=== PATIENT | female | born 1940 | race Caucasian/White ===

== ENCOUNTER 2016-04-25 14:33 | Observation (INO) | payer MEDICARE, OTHER ==
[~2016-04-25] VITALS: Ht 149.9 cm; Wt 77.0 kg
[~2016-04-25 14:33] MED LIST: ALBU2.5I NEB; ATOR40TA PO; DIOV160T60 PO; ECOT81TA2 PO; ISOS10 PO; METF500 PO; SYMB160A INH; VENTAER INH
[2016-04-25 14:47] VITALS: BP 150/73; PULSE 86; RESP 18; TEMP 98.1; O2SAT 96
[2016-04-25 14:50] VITALS: RESP 18; O2SAT 98
[2016-04-25] MEDS ORDERED: diphenhydrAMINE HCL 50 MG/ML VIAL IV PUSH ONE (15:15)
--- NOTE | 2016-04-25 15:15 | PD ---
HPI Chief Complaint: Pain: Acute or Chronic Time Seen by Provider: 15:08 Travel History International Travel<30 days: No Contact w/Intl Traveler<30days: No Traveled to known affect area: No History of Present Illness HPI 75-year-old female that presents to the ED for evaluation of "itchiness ". Per patient she's had this itchiness 4 months almost years. Per patient she's been taking medications for it including monuklast as well as her tramadol for chronic pain but she states that her medication was recently switched especially her tramadol she's been having more itchiness. Per patient and family is to help with her itchiness a lot. Per patient the itchiness brings about worsening pain in her abdomen and chest which she's had in the past as well as the head. Per patient the itchy is has been so bad that "I want to hang myself". Per patient she feels depressed because of the symptoms as well as because of her current family condition. Per patient she lives with a daughter but she feels very lonely. Patient does have a history of dementia and takes medication for this. Patient does have a history of high cholesterol , CABG in the past, abdominal surgeries. She states currently that her pain is 7 out of 10. States that she has a slight acetaminophen, amoxicillin, Vicodin. She denies any numbness, tilling, weakness. Per patient the itchiness comes and goes in different areas. Per patient he gets worse at night. She denies any body else having this before. She has PCP but has not seen him recently. She has mentioned this to the doctor but unclear as to what the doctor has done for it. She also has a history diabetes, severe arthritis as well as asthma. Of note patient is Mosotho-speaking only but she feels comfortable with my Mosotho and declined message broker developer service. [facility] Past Medical History Asthma: Yes Cardiovascular Problems: Yes Congestive Heart Failure: Yes Dementia: Yes Diabetes: Yes Patient Takes Glucophage: No Diminished Hearing: No Hypertension: Yes Past Surgical History Appendectomy: Yes Cholecystectomy: Yes Coronary Artery Bypass Graft: Yes Social History Alcohol Use: No Tobacco Use: No Substance Use: No Allergies-Medications (Allergen,Severity, Reaction): Coded Allergies: Acetaminophen (Verified Allergy, Mild, Chills, 04/25/16) Amoxicillin (Verified Allergy, Unknown, Hives, 04/25/16) Vicodin (Verified Allergy, Unknown, Sedation, 04/25/16) Reported Meds & Prescriptions Reported Meds & Active Scripts Active Reported Montelukast (Montelukast Sodium) 10 Mg Tab 10 Mg PO HS Metformin (Metformin HCl) 500 Mg Tab 500 Mg PO BID With meals Isosorbide Dinitrate 10 Mg Tab 10 Mg PO BID Aspirin Adult Low Strength (Aspirin) 81 Mg Tabdr 81 Mg PO DAILY Valsartan 160 Mg Tab 160 Mg PO DAILY Tramadol (Tramadol HCl) 50 Mg Tab 50 Mg PO QID PRN Atorvastatin (Atorvastatin Calcium) 40 Mg Tab 40 Mg PO HS Meclizine (Meclizine HCl) 25 Mg Tab 25 Mg PO TID PRN Symbicort Inh (Budesonide/Formoterol Fumarate) 160-4.5 Mcg/Act Aero 1 Puff INH BID Ventolin Hfa 18 GM Inh (Albuterol Sulfate) 90 Mcg/Act Aer 1-2 Puff INH Q4H PRN Albuterol Neb (Albuterol Sulfate) 2.5 Mg/3 Ml Neb 2.5 Mg NEB Q6HR PRN Review of Systems Except as stated in HPI: all other systems reviewed are Neg Physical Exam Narrative GENERAL: SKIN: Warm and dry. HEAD: Atraumatic. Normocephalic. EYES: Pupils equal and round 4mms reactive to light and accomodation. No scleral icterus. No injection or drainage. ENT: No nasal bleeding or discharge. Mucous membranes pink and moist. Tongue is midline. No uvula deviation. NECK: Trachea midline. No JVD. CARDIOVASCULAR: Regular rate and rhythm. No murmurs, S3, S4. RESPIRATORY: No accessory muscle use. Clear to auscultation. Breath sounds equal bilaterally. GASTROINTESTINAL: Abdomen soft, non-tender, nondistended. Hepatic and splenic margins not palpable. MUSCULOSKELETAL: Extremities without clubbing, cyanosis, or edema. No obvious deformities. Full range of motion of the upper and lower extremities bilaterally. 2+ pulses bilaterally. NEUROLOGICAL: Awake and alert. No obvious cranial nerve deficits. Motor grossly within normal limits. Five out of 5 muscle strength in the arms and legs. Normal speech. PSYCHIATRIC: Appropriate mood and affect; insight and judgment normal. Data Data Last Documented VS Vital Signs Date Time Temp Pulse Resp B/P Pulse Ox O2 Delivery O2 Flow Rate FiO2 04/25/16 14:50 18 98 Room Air 04/25/16 14:47 98.1 86 150/73 Orders Electrocardiogram (04/25/16 14:52) Complete Blood Count With Diff (04/25/16 14:52) Comprehensive Metabolic Panel (04/25/16 14:52) Ckmb (Isoenzyme) Profile (04/25/16 14:52) Troponin I (04/25/16 14:52) Prothrombin Time / Inr (Pt) (04/25/16 14:52) Act Partial Throm Time (Ptt) (04/25/16 14:52) Lipase (04/25/16 14:52) Urinalysis - C+S If Indicated (04/25/16 14:52) Thyroid Stimulating Hormone (04/25/16 14:52) Chest, Single Ap (04/25/16 14:52) Iv Access Insert/Monitor (04/25/16 14:52) Ecg Monitoring (04/25/16 14:52) Oximetry (04/25/16 14:52) Psych Screen (04/25/16 15:03) Diphenhydramine Inj (Benadryl Inj) (04/25/16 15:15) Ct Brain W/O Iv Contrast(Rout) (04/25/16 ) CKMB (04/25/16 15:15) CKMB% (04/25/16 15:15) Labs Laboratory Tests Test 04/25/16 04/25/16 15:15 15:45 White Blood Count 6.9 TH/MM3 Red Blood Count 3.74 MIL/MM3 Hemoglobin 10.3 GM/DL Hematocrit 30.8 % Mean Corpuscular Volume 82.4 FL Mean Corpuscular Hemoglobin 27.5 PG Mean Corpuscular Hemoglobin 33.4 % Concent Red Cell Distribution Width 14.6 % Platelet Count 64 TH/MM3 Mean Platelet Volume 12.8 FL Neutrophils (%) (Auto) 65.6 % Lymphocytes (%) (Auto) 20.9 % Monocytes (%) (Auto) 8.4 % Eosinophils (%) (Auto) 3.8 % Basophils (%) (Auto) 1.3 % Neutrophils # (Auto) 4.5 TH/MM3 Lymphocytes # (Auto) 1.4 TH/MM3 Monocytes # (Auto) 0.6 TH/MM3 Eosinophils # (Auto) 0.3 TH/MM3 Basophils # (Auto) 0.1 TH/MM3 CBC Comment AUTO DIFF Prothrombin Time 11.4 SEC Prothromb Time International 1.0 RATIO Ratio Activated Partial 26.8 SEC Thromboplast Time Sodium Level 139 MEQ/L Potassium Level 4.0 MEQ/L Chloride Level 105 MEQ/L Carbon Dioxide Level 25.1 MEQ/L Anion Gap 9 MEQ/L Blood Urea Nitrogen 11 MG/DL Creatinine 0.74 MG/DL Estimat Glomerular Filtration 77 ML/MIN Rate Random Glucose 87 MG/DL Calcium Level 7.8 MG/DL Total Bilirubin 0.6 MG/DL Aspartate Amino Transf 26 U/L (AST/SGOT) Alanine Aminotransferase 20 U/L (ALT/SGPT) Alkaline Phosphatase 74 U/L Total Creatine Kinase 175 U/L Creatine Kinase MB 2.4 NG/ML Troponin I LESS THAN 0.02 NG/ML Total Protein 6.6 GM/DL Albumin 3.0 GM/DL Lipase 130 U/L Thyroid Stimulating Hormone 1.370 uIU/ML 3rd Gen Urine Color LIGHT-YELLOW Urine Turbidity CLEAR Urine pH 6.0 Urine Specific [place] 1.004 Urine Protein NEG mg/dL Urine Glucose (UA) NEG mg/dL Urine Ketones NEG mg/dL Urine Occult Blood NEG Urine Nitrite NEG Urine Bilirubin NEG Urine Urobilinogen LESS THAN 2.0 MG/DL Urine Leukocyte Esterase TRACE Urine RBC LESS THAN 1 /hpf Microscopic Urinalysis Comment CULT NOT INDICATED MDM Medical Decision Making Medical Screen Exam Complete: Yes Emergency Medical Condition: Yes Medical Record Reviewed: Yes Interpretation(s) CBC & BMP Diagram 04/25/16 15:15 troponin negative CK MB negative EKG shows sinus rhythm with a sign of acute ischemia or arrhythmia. LFTs negative. Lipase negative. Urine negative. TSH negative. Differential Diagnosis Pruritus versus depression versus chest pain versus abdominal pain versus acute on chronic versus normal exam Narrative Course 75-year-old female that presents to the ED for evaluation of itching as. Patient was properly examined and was found to have signs and symptoms of unclear etiology. Cannot find any skin rash alert and some possible insect bites do not appear to be anywhere near where she is complaining of itch. She didn't mention to me multiple times that she would like to kill herself because of the pain and the itchiness. She does tell me that she is very depressed and feels very lonely. I question whether this is not a psychiatric illness. She does have dementia as well. She does have some abdominal discomfort compresses and chest discomfort as well as headache. Accommodation at this time is to do labwork and imaging to make sure there is no sign of organic disease. Patient was given Benadryl for her itch. Labs and imaging showed no sign of acute disease. No sign of acute etiology for the itchiness. Patient still complains of the chest pain. Cannot completely rule out ACS she does have multiple risk factors including heart disease in the past. The recommend admission at least for the chest pain. In addition patient still very depressed and I do feel the patient will likely benefit from psychiatric evaluation. My attending recommends admission to medicine to have chest pain workup as well as have psych evaluation. Case was discussed with Dr. Granda from [facility] who agrees to admission. Procedures EKG Prior to Arrival: No Diagnosis Primary Impression: Chest pain Qualified Code: R07.89 - Other chest pain Additional Impressions: Depression Qualified Code: F32.1 - Moderate single current episode of major depressive disorder Suicidal ideation Admitting Information Admitting Physician Requests: Observation Lenny Baldwin Apr 25, 2016 15:15
[2016-04-25] MEDS ORDERED: VENTAER INH (15:46)
[2016-04-25] MEDS ORDERED: ATOR40TA16 PO (15:46)
[2016-04-25] MEDS ORDERED: ASPI1TAB91 PO (15:46)
[2016-04-25] MEDS ORDERED: METF500T PO (15:46)
[2016-04-25] MEDS ORDERED: MECL-62 PO (15:46)
[2016-04-25] MEDS ORDERED: TRAM50TA PO (15:46)
[2016-04-25] MEDS ORDERED: ISOS10TA PO (15:46)
[2016-04-25] MEDS ORDERED: ALBU0.08 NEB (15:46)
[2016-04-25] MEDS ORDERED: MONT10TA4 PO (15:46)
[2016-04-25] MEDS ORDERED: SYMB160A INH (15:46)
[2016-04-25] MEDS ORDERED: VALS1TAB65 PO (15:46)
[2016-04-25 15:48] LABS: AUTOMATED NEUTROPHIL # 4.5 TH/MM3 (1.8-7.7); BASOPHIL # 0.1 TH/MM3 (0-0.2); BASOPHIL % 1.3 % (0.0-2.0); EOSINOPHIL # 0.3 TH/MM3 (0-0.4); EOSINOPHIL % 3.8 % (0.0-4.0); HEMATOCRIT 30.8 % (35.0-46.0); LYMPH % 20.9 % (9.0-44.0); LYMPHOCYTE # 1.4 TH/MM3 (1.0-4.8); MEAN CELL VOLUME 82.4 FL (80.0-100.0); MEAN CORPUSCULAR HEMOGLOBIN 27.5 PG (27.0-34.0); MEAN CORPUSCULAR HGB CONC 33.4 % (32.0-36.0); MONO % 8.4 % (0.0-8.0); NEUT % 65.6 % (16.0-70.0); PLATELET COUNT 64 TH/MM3 (150-450); RED BLOOD COUNT 3.74 MIL/MM3 (4.00-5.30); RED CELL DISTRIBUTION WIDTH 14.6 % (11.6-17.2); WHITE BLOOD COUNT 6.9 TH/MM3 (4.0-11.0)
[2016-04-25 15:57] LABS: HEMO FLAGS AUTO DIFF
--- NOTE | 2016-04-25 15:59 | RADRPT ---
EXAM DATE/TIME: 04/25/2016 15:23 [facility] COMPARISON: CHEST SINGLE AP, February 05, 2016, 10:44. MYOCARDIAL PERF PHARM SPECT, GATED W/EF, February 06, 2016, 9:09. INDICATIONS : Chest pain. MEDICAL HISTORY : Diabetes mellitus type 2. Hypertension. SURGICAL HISTORY : Appendectomy. Cholecystectomy. CABG ENCOUNTER: Initial ACUITY: 1 day PAIN SCORE: 5/10 LOCATION: Bilateral chest FINDINGS: Heart size is normal. Pulmonary vasculature is normal in caliber. Lungs are well-inflated and clear. Multiple intact median sternotomy wires. Osseous structures are unremarkable. CONCLUSION: No acute disease. Naila Nowak MD on April 25, 2016 at 15:57 Board Certified Radiologist. This report was verified electronically.
[2016-04-25 16:01] LABS: APTT (PATIENT) 26.8 SEC (24.3-30.1); PROTHROMBIN TIME - PATIENT 11.4 SEC (9.8-11.6)
--- NOTE | 2016-04-25 16:09 | RADRPT ---
EXAM DATE/TIME: 04/25/2016 15:30 [facility] COMPARISON: No previous studies available for comparison. INDICATIONS : Headache. RADIATION DOSE: 50.62 CTDIvol (mGy) MEDICAL HISTORY : Dementia. Hypertension. Diabetes mellitus type 2. SURGICAL HISTORY : CABG ENCOUNTER: Initial ACUITY: 1 day PAIN SCALE: 6/10 LOCATION: cranial TECHNIQUE: Multiple contiguous axial images were obtained of the head. Using automated exposure control and adj ustment of the mA and/or kV according to patient size, radiation dose was kept as low as reasonably a chievable to obtain optimal diagnostic quality images. FINDINGS: CEREBRUM: The ventricles are normal for age. No evidence of midline shift, mass lesion, hemorrhage or acute in farction. No extra-axial fluid collections are seen. The basal ganglia calcifications are noted. POSTERIOR FOSSA: The cerebellum and brainstem are intact. The 4th ventricle is midline. The cerebellopontine angle i s unremarkable. EXTRACRANIAL: The visualized portion of the orbits is intact. SKULL: The calvaria is intact. No evidence of skull fracture. CONCLUSION: Normal examination for a patient of this age. Naila Nowak MD on April 25, 2016 at 16:08 Board Certified Radiologist. This report was verified electronically.
[2016-04-25 16:12] LABS: ALKALINE PHOSPHATASE 74 U/L (45-117); ALT (GPT) 20 U/L (10-53); ANION GAP 9 MEQ/L (5-15); AST (GOT) 26 U/L (15-37); BICARBONATE 25.1 MEQ/L (21.0-32.0); BLOOD UREA NITROGEN 11 MG/DL (7-18); CHLORIDE 105 MEQ/L (98-107); CREATINE KINASE 175 U/L (26-192); GLOMERULAR FILTRATION RATE 77 ML/MIN (>89); SODIUM (NA) 139 MEQ/L (136-145); TOTAL BILIRUBIN ADULT 0.6 MG/DL (0.2-1.0)
[2016-04-25 16:23] LABS: BLOOD, URINE NEG (NEG); GLUCOSE,URINE NEG (NEG); KETONE, URINE NEG (NEG); NITRITE,URINE NEG (NEG); URINE COLOR LIGHT-YELLOW (YELLW/STRAW)
[2016-04-25 16:25] LABS: CKMB 2.4 NG/ML (0.5-3.6)
[2016-04-25 16:33] LABS: COMMENT (UR) CULT NOT INDICATED; CULTURE IF INDICATED CULT NOT INDICATED
[2016-04-25] MEDS ORDERED: MORPHINE SULFATE 4 MG/ML INJ IV PRN (17:15)
[2016-04-25] MEDS ORDERED: SODIUM CHLORIDE 0.9% FLUSH 5 ML FLUSH IVF PRN (17:15)
[2016-04-25] MEDS ORDERED: ONDANSETRON HCL 4 MG/2 ML VIAL IV PRN (17:15)
[2016-04-25] MEDS ORDERED: NITROGLYCERIN 0.4 MG SL 25 TABS/BTL SL PRN (17:15)
[2016-04-25] MEDS ORDERED: RESP: ALBUTEROL 2.5 MG/3 ML NEB (PRN) NEB (18:00)
[2016-04-25] MEDS ORDERED: DEXTROSE 50% IN WATER 50 ML VIAL(D50) IV PUSH PRN (18:00)
[2016-04-25] MEDS ORDERED: traMADol HCL 50 MG TAB PO PRN (18:00)
[2016-04-25] MEDS ORDERED: GLUCAGON 1 MG/ML VIAL OTHER PRN (18:00)
[2016-04-25] MEDS ORDERED: MECLIZINE HCL 25 MG TAB PO PRN (18:00)
--- NOTE | 2016-04-25 18:14 | HHI.HP ---
[facility] Unknown Admission Diagnosis chest pain, r/o ACS, depression with suicidal ideation Diagnoses: Chief Complaint: Itching Travel History International Travel<30 Days: No Contact w/Intl Traveler <30 Da: No Traveled to Known Affected Are: No History of Present Illness 75-year-old female with a past medical history of DM, CAD, asthma, GERD, HTN, OA who presented for itching. Patient is primarily Angolan-speaking and is seen with negative Angolan speaking ED PA who assists with translation. The patient has numerous vague medical complaints. Primarily she comes in for itching of her head, groin, and feet. She said she has a headache from here itching. She reports she is nauseated because of the itchiness. She denies any recent medication changes. She states her tramadol was supposed to be changed, but has not changed to the new medication yet and is still taking tramadol. Otherwise no new medication changes. Nothing seems to relieve the itchiness. Per ED report, the patient is very overwhelmed because of her itchiness, and expressed suicidal statements in the ED. On review of systems, the patient does complain of chest pain, radiates to her back, comes and goes, associated shortness of breath. She does have a history of CABG 11 years ago. However she does state that the chest pain changes with sitting and standing up. She also states that she had stomach upset, took a Protonix, and that improved. The patient has aspirin on her home medication list, but she states that she is allergic to just aspirin and penicillin when asked about allergies. Review of Systems ROS Limitations: Language Barrier Other 10 point review of systems performed and was negative except as stated in the history of present illness Past Family Social History Past Medical History Diabetes Asthma Coronary artery disease Hypertension Gastritis Arthritis Past Surgical History CABG 11 years ago Appendectomy Cholecystectomy Cataract surgery Reported Medications Montelukast (Montelukast Sodium) 10 Mg Tab 10 Mg PO HS Metformin (Metformin HCl) 500 Mg Tab 500 Mg PO BID With meals Isosorbide Dinitrate 10 Mg Tab 10 Mg PO BID Aspirin Adult Low Strength (Aspirin) 81 Mg Tabdr 81 Mg PO DAILY Valsartan 160 Mg Tab 160 Mg PO DAILY Tramadol (Tramadol HCl) 50 Mg Tab 50 Mg PO QID PRN Atorvastatin (Atorvastatin Calcium) 40 Mg Tab 40 Mg PO HS Meclizine (Meclizine HCl) 25 Mg Tab 25 Mg PO TID PRN Symbicort Inh (Budesonide/Formoterol Fumarate) 160-4.5 Mcg/Act Aero 1 Puff INH BID Ventolin Hfa 18 GM Inh (Albuterol Sulfate) 90 Mcg/Act Aer 1-2 Puff INH Q4H PRN Albuterol Neb (Albuterol Sulfate) 2.5 Mg/3 Ml Neb 2.5 Mg NEB Q6HR PRN Allergies: Coded Allergies: Acetaminophen (Verified Allergy, Mild, Chills, 04/25/16) Amoxicillin (Verified Allergy, Unknown, Hives, 04/25/16) Aspirin (Unverified Allergy, Unknown, 04/25/16) Vicodin (Verified Allergy, Unknown, Sedation, 04/25/16) Active Ordered Medications Current Medications Medications (Trade) Dose Ordered Sig/Shanon Route Start Time Stop Time Status Last Admin (NS Flush) 2 ml UNSCH PRN IVF 04/25/16 17:15 (NS Flush) 2 ml BID IVF 04/25/16 21:00 (Morphine Inj) 2 mg Q4H PRN IV 04/25/16 17:15 (Zofran Inj) 4 mg Q6H PRN IV 04/25/16 17:15 (Protonix) 40 mg DAILY PO 04/26/16 09:00 (Nitrostat Sl) 0.4 mg Q5M PRN SL 04/25/16 17:15 (Albuterol Neb) 2.5 mg Q6HR PRN NEB 04/25/16 18:00 UNV (Lipitor) 40 mg HS PO 04/25/16 21:00 UNV (Symbicort 160-4.5 Inh) 1 puff BID INH 04/25/16 21:00 UNV (Isordil) 10 mg BID PO 04/25/16 21:00 UNV (Antivert) 25 mg TID PRN PO 04/25/16 18:00 UNV (Singulair) 10 mg HS PO 04/25/16 21:00 UNV (Ultram) 50 mg QID PRN PO 04/25/16 18:00 UNV (Diovan) 160 mg DAILY PO 04/26/16 09:00 UNV Family History Coronary artery disease in both of her parents Social History Denies alcohol, tobacco, or illegal drug use Physical Exam Vital Signs Vital Signs Date Time Temp Pulse Resp B/P Pulse Ox O2 Delivery O2 Flow Rate FiO2 04/25/16 14:50 18 98 Room Air 04/25/16 14:47 98.1 86 18 150/73 96 Physical Exam GENERAL: Well-developed well-nourished. In no acute distress. SKIN: Warm and dry. No rashes or abnormal lesions noted. HEENT: Normocephalic. Right pupillary abnormality, chronic per patient. Mucous membranes pink and moist. CARDIOVASCULAR: Regular rate and rhythm. No murmur appreciated. RESPIRATORY: No accessory muscle use. Clear to auscultation. Breath sounds equal bilaterally. GASTROINTESTINAL: Abdomen soft, non-tender, nondistended. Bowel sounds x4. MUSCULOSKELETAL: No obvious deformities. No clubbing or cyanosis. No edema. NEUROLOGICAL: Awake and alert. No focal neurological deficits. Moves upper and lower extremities spontaneously. Normal speech. PSYCHIATRIC: Anxious, talkative, pleasant mood and affect; insight and judgment normal. Laboratory Laboratory Tests Test 04/25/16 04/25/16 15:15 15:45 White Blood Count 6.9 Red Blood Count 3.74 Hemoglobin 10.3 Hematocrit 30.8 Mean Corpuscular Volume 82.4 Mean Corpuscular Hemoglobin 27.5 Mean Corpuscular Hemoglobin 33.4 Concent Red Cell Distribution Width 14.6 Platelet Count 64 Mean Platelet Volume 12.8 Neutrophils (%) (Auto) 65.6 Lymphocytes (%) (Auto) 20.9 Monocytes (%) (Auto) 8.4 Eosinophils (%) (Auto) 3.8 Basophils (%) (Auto) 1.3 Neutrophils # (Auto) 4.5 Lymphocytes # (Auto) 1.4 Monocytes # (Auto) 0.6 Eosinophils # (Auto) 0.3 Basophils # (Auto) 0.1 CBC Comment AUTO DIFF Prothrombin Time 11.4 Prothromb Time International 1.0 Ratio Activated Partial 26.8 Thromboplast Time Sodium Level 139 Potassium Level 4.0 Chloride Level 105 Carbon Dioxide Level 25.1 Anion Gap 9 Blood Urea Nitrogen 11 Creatinine 0.74 Estimat Glomerular Filtration 77 Rate Random Glucose 87 Calcium Level 7.8 Total Bilirubin 0.6 Aspartate Amino Transf 26 (AST/SGOT) Alanine Aminotransferase 20 (ALT/SGPT) Alkaline Phosphatase 74 Total Creatine Kinase 175 Creatine Kinase MB 2.4 Troponin I LESS THAN 0.02 Total Protein 6.6 Albumin 3.0 Lipase 130 Thyroid Stimulating Hormone 1.370 3rd Gen Urine Color LIGHT-YELLOW Urine Turbidity CLEAR Urine pH 6.0 Urine Specific [place] 1.004 Urine Protein NEG Urine Glucose (UA) NEG Urine Ketones NEG Urine Occult Blood NEG Urine Nitrite NEG Urine Bilirubin NEG Urine Urobilinogen LESS THAN 2.0 Urine Leukocyte Esterase TRACE Urine RBC LESS THAN 1 Microscopic Urinalysis Comment CULT NOT INDICATED Result Diagram: 04/25/16 1515 04/25/16 1515 Imaging Last Impressions Chest X-Ray 04/25/16 1452 Signed Impressions: Service Date/Time: Monday, April 25, 2016 15:23 - CONCLUSION: No acute disease. Naila Nowak MD Head CT 04/25/16 0000 Signed Impressions: Service Date/Time: Monday, April 25, 2016 15:30 - CONCLUSION: Normal examination for a patient of this age. Naila Nowak MD Assessment and Plan Problem List: (1) Chest pain ICD Code: R07.9 Status: Acute (2) Suicidal ideation ICD Code: R45.851 Status: Acute (3) DM (diabetes mellitus) ICD Code: E11.9 Status: Chronic (4) CAD (coronary artery disease) ICD Code: I25.10 Status: Chronic Assessment and Plan 75-year-old female with a past medical history of DM, CAD, asthma, GERD, HTN, OA who presented for itching but also made suicidal statements in the ED and complaints of chest pain Chest pain with history of CAD: Initial troponin within normal limits. EKG personally reviewed, RBBB, no acute ST changes. The patient had a stress test 02/06/16 which was normal. Rule out ACS per protocol with serial enzymes and EKGs. Patient reports allergy to aspirin. Otherwise resume home isosorbide, statin. Could consider adding beta matty. Nitroglycerin and morphine as needed. Itching: Unclear etiology. No rashes or lesions noted. Continue home montelukast. Stop tramadol. Hydroxyzine as needed. Suicidal statements: Reportedly secondary to medical etiologies as above. Psychiatry consulted. Diabetes mellitus: Hold her metformin for now. Coverage with SSI with [employer]u- [employer]. Other chronic medical conditions including asthma, GERD, arthritis: Stable at this time and will continue home medications as indicated. DVT prophylaxis: SCDs Written by Сергей Holder, acting as scribe for Dr. Powers on 04/25/16 at 18:08. Discussed Condition With Patient, ED PA Attending Statement The documentation accurately reflects the work performed [id number] by me on at 18:08. Problem Qualifiers (1) Chest pain: Qualified Code: R07.89 - Other chest pain (2) DM (diabetes mellitus): Qualified Code: E11.9 - Type 2 diabetes mellitus without complication, without long-term current use of insulin (3) CAD (coronary artery disease): Qualified Code: I25.10 - Coronary artery disease involving [place] heart, angina presence unspecified, unspecified vessel or lesion type Сергей Holder Apr 25, 2016 18:14 Norberto Powers MD Apr 25, 2016 18:24
[2016-04-25 19:22] LABS: CREATINE KINASE 183 U/L (26-192)
[2016-04-25 19:30] VITALS: BP 169/74; PULSE 87; RESP 18; O2SAT 97
[2016-04-25] MEDS ORDERED: LORazepam 2 MG/ML VIAL IV PUSH ONE (19:30)
[2016-04-25 19:34] LABS: CKMB 2.6 NG/ML (0.5-3.6)
[2016-04-25] MEDS ORDERED: ATORVASTATIN 40 MG TAB PO SCH (21:00)
[2016-04-25] MEDS: INSULIN ASPART SUPPLEMENTAL SCALE SQ SCH (21:00)
[2016-04-25] MEDS ORDERED: MONTELUKAST SODIUM 10 MG TAB PO SCH (21:00)
[2016-04-25 21:04] LABS: PLATELET ESTIMATE SMEAR LOW (NORMAL); PLATELET MORPHOLOGY HYPOGRAN (NORMAL); SCAN/DIFF AUTO DIFF CONFIRMED
[2016-04-25 21:16] LABS: CREATINE KINASE 158 U/L (26-192)
[2016-04-25] MEDS: BUDESONIDE-FORMOTEROL 160/4.5 MCG INHALER INH SCH (21:58)
[2016-04-25] MEDS: SODIUM CHLORIDE 0.9% FLUSH 5 ML FLUSH IVF SCH (21:59)
[2016-04-25 23:09] VITALS: BP 154/68
[2016-04-25 23:33] VITALS: O2SAT 96
[2016-04-26] VITALS (7 sets, daily range): BP systolic 117–156; BP diastolic 62–86; PULSE 74–94; RESP 16–20; TEMP 97.5–98.7; O2SAT 91–97
[2016-04-26] MEDS: hydrOXYzine HCL 25 MG TAB PO PRN ×2 (00:04→16:04)
[2016-04-26] MEDS: INSULIN ASPART SUPPLEMENTAL SCALE SQ SCH ×3 (06:36→16:00)
[2016-04-26 07:57] LABS: BICARBONATE 27.3 MEQ/L (21.0-32.0); POTASSIUM 3.8 MEQ/L (3.5-5.1)
--- NOTE | 2016-04-26 08:11 | HHI.PR ---
Subjective Remarks Follow-up chest pain, itching. Video translation service utilized. Patient states that she is still having some chest pressure, but describes pain "all over". She describes pain in her arms, legs, face, scalp, back, and chest. She states that overall she feels a lot better today. Itching has improved somewhat as well. She reports chronic dyspnea, but nothing new today. No cough. She has had nausea, but no vomiting. Objective Vitals Vital Signs Date Time Temp Pulse Resp B/P Pulse Ox O2 Delivery O2 Flow Rate FiO2 04/26/16 07:35 97.8 81 17 134/66 95 04/26/16 04:05 97.6 81 18 117/65 91 04/26/16 02:24 98.7 74 16 155/78 97 04/26/16 01:27 79 04/25/16 23:33 96 2.00 04/25/16 23:09 80 18 154/68 100 04/25/16 19:30 87 18 169/74 97 04/25/16 14:50 18 98 Room Air 04/25/16 14:47 98.1 86 18 150/73 96 Result Diagram: 04/25/16 1515 04/26/16 0650 Imaging Last Impressions Chest X-Ray 04/25/16 1452 Signed Impressions: Service Date/Time: Monday, April 25, 2016 15:23 - CONCLUSION: No acute disease. Naila Nowak MD Head CT 04/25/16 0000 Signed Impressions: Service Date/Time: Monday, April 25, 2016 15:30 - CONCLUSION: Normal examination for a patient of this age. Naila Nowak MD Objective Remarks General: Elderly female in no acute distress. Heart: Regular rate and rhythm. No murmur. Lungs: Clear to auscultation bilaterally. No wheezes, rales, or rhonchi. Breathing is nonlabored. Abdomen: Soft, nontender, nondistended. Extremities: No lower extremity edema. Psych: Alert and oriented. Procedures None Urinary Catheter: No Vascular Central Line Catheter: No A/P Problem List: (1) Chest pain ICD Code: R07.9 Status: Acute (2) Suicidal ideation ICD Code: R45.851 Status: Acute (3) DM (diabetes mellitus) ICD Code: E11.9 Status: Chronic (4) CAD (coronary artery disease) ICD Code: I25.10 Status: Chronic Assessment and Plan 1. Chest pain: Serial cardiac enzymes are negative. Chest pain has improved somewhat. Patient now complaining of pain "all over", but less pain than yesterday. Patient has history of CAD. Stress test on 02/06/16 was normal. Continue statin, isosorbide. Patient reports allergy to aspirin. 2. Itching: Improved. No apparent rash. Possible psychiatric etiology. Hydroxyzine as needed. 3. Asthma: Albuterol as needed. 4. Suicidal ideation: Patient stated yesterday that she wanted to take all of her pills and "end it all" because of the pain and itching. Psychiatry consultation is pending. 5. Diabetes mellitus: Metformin on hold. Monitor Accu-Cheks and cover with sliding scale insulin. 6. DVT prophylaxis: SCDs. Discharge Planning The patient is medically stable for discharge. Will possibly need inpatient psychiatry. She is medically stable for transfer to inpatient psychiatry if that is recommended by the psychiatrist inventory control analyst. Problem Qualifiers (1) Chest pain: Qualified Code: R07.89 - Other chest pain (2) DM (diabetes mellitus): Qualified Code: E11.9 - Type 2 diabetes mellitus without complication, without long-term current use of insulin (3) CAD (coronary artery disease): Qualified Code: I25.10 - Coronary artery disease involving [place] heart, angina presence unspecified, unspecified vessel or lesion type Norberto Powers MD Apr 26, 2016 08:11
[2016-04-26] MEDS ORDERED: HYDR-3133 PO (08:12)
--- NOTE | 2016-04-26 08:13 | HHI.DCPOC ---
Discharge Care Plan Diagnosis: (1) Suicidal ideation (2) Depression (3) Chest pain (4) CAD (coronary artery disease) (5) DM (diabetes mellitus) (6) Chest pain of uncertain etiology Goals to Promote Your Health * To prevent worsening of your condition and complications * To maintain your health at the optimal level Directions to Meet Your Goals Take your medications as prescribed Follow your dietary instruction Follow activity as directed Keep your appointments as scheduled Take your immunizations and boosters as scheduled If your symptoms worsen call your PCP, if no PCP go to Urgent Care Center or Emergency Room Smoking is Dangerous to Your Health. Avoid second hand smoke Call the 24-hour hour crisis hotline for domestic abuse at Norberto Powers MD Apr 26, 2016 08:13
[2016-04-26] MEDS ORDERED: VALSARTAN 160 MG TAB PO SCH (09:00)
[2016-04-26] MEDS ORDERED: ASPIRIN 325 MG TAB PO SCH (09:00)
[2016-04-26] MEDS ORDERED: PANTOPRAZOLE SOD 40 MG DELAYED RELEASE TAB PO SCH (09:00)
[2016-04-26] MEDS: SODIUM CHLORIDE 0.9% FLUSH 5 ML FLUSH IVF SCH (09:15)
[2016-04-26] MEDS: ISOSORBIDE DINITRATE 10 MG TAB PO SCH ×2 (09:15→17:23)
[2016-04-26] MEDS: BUDESONIDE-FORMOTEROL 160/4.5 MCG INHALER INH SCH (09:15)
--- NOTE | 2016-04-26 12:35 | EKG ---
Date Performed: 04/25/2016 Time Performed: 16:14:29 PTAGE: 75 years EKG: Sinus rhythm POSSIBLE LEFT ATRIAL ENLARGEMENT MARKED LEFT AXIS DEVIATION INCOMPLETE RIGHT BUNDLE BRANCH BLOCK SEP KIZZY MYOCARDIAL INFARCTION NONSPECIFIC ST ABNORMALITY Since previous tracing, no significant change no brianne ABNORMAL ECG PREVIOUS TRACING : 02/05/2016 16.23 DOCTOR: Joshua Sterling Interpretating Date/Time 04/26/2016 12:34:30
--- NOTE | 2016-04-26 12:37 | EKG ---
Date Performed: 04/25/2016 Time Performed: 18:26:20 PTAGE: 75 years EKG: Sinus rhythm WITH MARKED SINUS ARRHYTHMIA POSSIBLE LEFT ATRIAL ENLARGEMENT INCOMPLETE RIGHT BUNDLE BRANCH BLOCK L EFT ANTERIOR FASCICULAR BLOCK SEPTAL MYOCARDIAL INFARCTION MODERATE T-WAVE ABNORMALITY, CONSIDER ANTE ROLATERAL ISCHEMIA ST-T ABNORMALITIES ARE MORE PROMINANT, CORRELATION FOR ISCHEMIA NEEDED. ABNORMAL E CG PREVIOUS TRACING : 04/25/2016 16.14 DOCTOR: Joshua Sterling Interpretating Date/Time 04/26/2016 12:35:21
--- NOTE | 2016-04-26 12:37 | EKG ---
Date Performed: 04/25/2016 Time Performed: 20:28:22 PTAGE: 75 years EKG: Sinus rhythm WITH OCCASIONAL ECTOPIC PREMATURE COMPLEXES INCOMPLETE RIGHT BUNDLE BRANCH BLOCK LEFT ANTERIOR FASCI CULAR BLOCK NONSPECIFIC ST & T-WAVE ABNORMALITY CANNOT EXCLUDE POSSIBLE ISCHEMIA BUT NO CHANGE FROM T HE PRIOR TRACING. ABNORMAL ECG PREVIOUS TRACING : 04/25/2016 18.26 DOCTOR: Joshua Sterling Interpretating Date/Time 04/26/2016 12:35:47
--- NOTE | 2016-04-26 14:22 | HHI.DCPOC ---
Discharge Care Plan Diagnosis: (1) Chest pain (2) CAD (coronary artery disease) (3) DM (diabetes mellitus) (4) Suicidal ideation (5) Depression Goals to Promote Your Health * To prevent worsening of your condition and complications * To maintain your health at the optimal level Directions to Meet Your Goals Take your medications as prescribed Follow your dietary instruction Follow activity as directed Keep your appointments as scheduled Take your immunizations and boosters as scheduled If your symptoms worsen call your PCP, if no PCP go to Urgent Care Center or Emergency Room Smoking is Dangerous to Your Health. Avoid second hand smoke Call the 24-hour hour crisis hotline for domestic abuse at Norberto Powers MD Apr 26, 2016 14:22
[2016-04-26] MEDS ORDERED: ARIPiprazole 5 MG TAB PO SCH (15:00)
--- NOTE | 2016-04-26 15:12 | PD.CONS ---
Provisional Diagnosis Admission Date Apr 25, 2016 at 17:07 [place] I. Unspecified psychosis, rule out delusional disorder, somatic type, rule out late onset schizophrenia [place] II. Deferred [place] III. DM, asthma, CAD [place] IV. Poor insight of her her psychosis [place] V. 35 History of Present Illness Service Psychiatry Consult Requested By Primary Care Physician Unknown HPI The patient is a 75-year-old [place] only Ukrainian speaker woman, domicile with her daughter, , without any previous psychiatric history, no previous suicidal attempts, no previous hospitalizations, with a past medical history of DM, CAD, asthma, GERD, HTN, OA who presented for itching. The patient has numerous vague and nonspecific medical complaints. Primarily she comes in for itching of her head, groin, and feet. She said she has a headache from here itching. She reports she is nauseated because of the itchiness. She denies any recent medication changes. She states her tramadol was supposed to be changed, but has not changed to the new medication yet and is still taking tramadol. Per ED report, the patient is very overwhelmed because of her itchiness, and expressed suicidal statements in the ED. patient was Schroeder acted in the ER, as psychosis was placed due to suicidal ideation. Patient was seen and evaluated in the ER, she was interviewed and primary language, case discussed with nurse in charge and PA, they added patient has been stated she wants to and she has itching in different parts of her body, but she has not been scratching and there is not any visible rash in her body. Collateral information from her her -2 daughters were contacted, Zaynab [phone], Heridania [phone], they both relate that her mother has been complaining of different pains, itching on and off, but also she has been kind of disorganized, talking to herself, saying that she is hearing the voice of her telling her to and go with him, isolated, and not taking care of herself. The patient also frequently stays that her daughters are plotting against her I want to steal her money, even though when she doesn't have any money. They confirmed that the patient doesn't have any psychiatric history, no previous suicidal attempts, and this symptomatology have been going on for about a year, but aggravated in the last month. No identifiable stressor reported. On psychiatric evaluation patient was found, agitated, superficially cooperative, crying complaining of rash in her head, in her vagina, and in her back. She says that she wants to if she has to continue with this problem, the patient says that she doesn't know what is causing her this rash. Minutes later after starting psychiatric evaluation, patient became, cooperative and was smiling in a good mood. Patient states that she has been depressed in the last months, "because I have too many medical problems", however she is unable to elaborate about these medical problems and concerns. She says that she wants to kill herself, she doesn't have any plan, but she wants to but mostly because she heard the voice of her , "and sometimes other voices" telling me to kill myself. She says that sometimes the electronic devices in her house, like the TV, like the computer also talk to her "but I can really not understand what they say". She denies homicidal ideation, denies visual hallucinations. Patient is fully oriented 3, Mini-Mental state was not performed due to limited cooperation of the patient, but no gross cognitive impairment seems to be present at this time. Patient reports acute anxiety mostly secondary to "all my medical problems". Patient denies the use of alcohol and drugs. Review of Systems Constitutional: DENIES: Diaphoretic episodes, Fatigue, Fever, Weight gain, Weight loss, Chills, Dizziness, Change in appetite, Night Sweats Eyes: DENIES: Blurred vision, Diplopia, Eye inflammation, Eye pain, Vision loss , Photosensitivity, Double Vision Ears, nose, mouth, throat: DENIES: Tinnitus, Hearing loss, Vertigo, Nasal discharge, Oral lesions, Throat pain, Hoarseness, Ear Pain, Running Nose, Epistaxis, Sinus Pain, Toothache, Odynophagia Respiratory: DENIES: Apneas, Cough, Snoring, Wheezing, Hemoptysis, Sputum production, Shortness of breath Gastrointestinal: DENIES: Abdominal pain, Black stools, Bloody stools, Constipation, Diarrhea, Nausea, Vomiting, Difficulty Swallowing, Anorexia Musculoskeletal: COMPLAINS OF: Joint pain Integumentary: DENIES: Abnormal pigmentation, Pruritus, Rash, Nail changes, Breast masses, Breast skin changes, Nipple discharge Immunologic/allergic: DENIES: Eczema, Urticaria Neurologic: DENIES: Abnormal gait, Headache, Localized weakness, Paresthesias, Seizures, Speech Problems, Tremor, Poor Balance Psychiatric: COMPLAINS OF: Anxiety, Hallucinations, Suicidal Ideation, Delusions Past Family Social History Coded Allergies: Acetaminophen (Verified Allergy, Mild, Chills, 04/25/16) Amoxicillin (Verified Allergy, Unknown, Hives, 04/25/16) Aspirin (Unverified Allergy, Unknown, 04/25/16) Vicodin (Verified Allergy, Unknown, Sedation, 04/25/16) Reported Medications Montelukast 10 Mg Tab10 Mg PO HS #30 TAB Ref 0 04/25/16 Metformin 500 Mg [id number] Mg PO BID #60 TAB Ref 0 With meals 04/25/16 Isosorbide Dinitrate 10 Mg Tab10 Mg PO BID #60 TAB Ref 0 04/25/[address] (Aspirin Adult Low Strength)81 Mg Tabdr81 Mg PO DAILY 04/25/16 Valsartan 160 Mg [id number] Mg PO DAILY #30 TAB Ref 0 04/25/16 Tramadol 50 Mg Tab50 Mg PO QID PRN (PAIN) Ref 0 04/25/16 Atorvastatin 40 Mg Tab40 Mg PO HS #30 TAB Ref 0 04/25/16 Meclizine 25 Mg Tab25 Mg PO TID PRN (DIZZINESS) Ref 0 04/25/16 Budesonide-Formoterol Inh (Symbicort Inh)160-4.5 Mcg/Act Aero1 Puff INH BID #1 INHALER Ref 0 04/25/16 Albuterol 18 GM Inh (Ventolin Hfa 18 GM Inh)90 Mcg/Act Aer1-2 Puff INH Q4H PRN ( CHEST CONGESTION AND/OR COUGH) #1 INHALER Ref 0 04/25/16 Albuterol Neb 2.5 Mg/3 Ml Neb2.5 Mg NEB Q6HR PRN (CHEST CONGESTION AND/OR COUGH ) #1 NEBULE Ref 0 04/25/16 Current Medications Medications (Trade) Dose Ordered Sig/Shanon Route Start Time Stop Time Status Last Admin (NS Flush) 2 ml UNSCH PRN IVF 04/25/16 17:15 (NS Flush) 2 ml BID IVF 04/25/16 21:00 04/26/16 09:15 (Morphine Inj) 2 mg Q4H PRN IV 04/25/16 17:15 (Zofran Inj) 4 mg Q6H PRN IV 04/25/16 17:15 (Protonix) 40 mg DAILY PO 04/26/16 09:00 04/26/16 09:15 (Nitrostat Sl) 0.4 mg Q5M PRN SL 04/25/16 17:15 (Lipitor) 40 mg HS PO 04/25/16 21:00 04/25/16 21:04 (Symbicort 160-4.5 Inh) 1 puff BID INH 04/25/16 21:00 04/26/16 09:15 (Isordil) 10 mg BID@,18 PO 04/26/16 09:00 04/26/16 09:15 (Antivert) 25 mg TID PRN PO 04/25/16 18:00 (Singulair) 10 mg HS PO 04/25/16 21:00 04/25/16 21:04 (Diovan) 160 mg DAILY PO 04/26/16 09:00 04/26/16 09:15 (Atarax) 25 mg Q6H PRN PO 04/25/16 18:00 04/26/16 00:04 (D50w (Vial) Inj) 25 ml UNSCH PRN IV PUSH 04/25/16 18:00 (Glucagon Inj) 1 mg UNSCH PRN OTHER 04/25/16 18:00 Family History She denies Social History Patient was born and raised in [place], she has been living in [facility] for 21 years, she lives with her daughter in [place], she has 2 adult daughters, she is , retired, her highest level of education is high school Patient's Strengths (min. 2) Family support Physical Exam Vital Signs Vital Signs Date Time Temp Pulse Resp B/P Pulse Ox O2 Delivery O2 Flow Rate FiO2 04/26/16 11:36 97.5 89 20 126/79 94 04/25/16 23:33 2.00 04/25/16 14:50 Room Air Mental Status Examination Appearance Obese woman, only Ukrainian speaker, good hygiene, age appearing, superficially cooperative, agitated Speech: Hesitant Orientation: x3 Memory: Unremarkable Thought Process: Loose Association Thought Content: Bizarre thinking, Paranoid, Obsessions Hallucination Type: Auditory Attention and Concentration: Good Suicidal Ideation: Yes Previous Suicide Attempts: No Homicidal Ideation: No Judgement: Poor Affect: Irritable Mood: Anxious Motor Activity: Normal gait Assessment & Plan Problem List: (1) Unspecified psychosis Assessment & Plan: 75-year-old woman, only Ukrainian-speaking, without any previous psychiatric history, no previous suicide attempts, no previous psychiatric hospitalizations, denies the use of drugs and alcohol, medical history of hypertension, diabetes, asthma, CAD, who was brought to the hospital complaining of generalized rash and itching, Schroeder acted due to suicidal ideation. On ER assessment no rash was found, etiology of itching was found. On psychiatric evaluation patient presents with about 2 months history of complaining of vague and contradictory somatic complaint, ideas of reference, auditory hallucinations of voices telling her to kill herself, disorganized behavior and paranoia. Patient is fully oriented 3, and no gross cognitive impairment is visible at this assessment. Patient also has suicidal ideation, no plan. Patient seems to be insightless of her psychosis and very distressed by delusional ideas. At this moment the patient represents an acute danger to herself and needs psychiatric hospitalization for stabilization. We'll start Abilify 5 mg by mouth daily for psychosis. Extensive support, motivation psychoeducation provided. Both daughters verbalize agreement been with this plan. Patient can be transferred to the [facility] once a bed is available. ICD Code: F29 Assessment & Plan Estimated LOS: Javad Jama MD Apr 26, 2016 15:12
[2016-04-26] MEDS ORDERED: DOCUSATE SODIUM 50 MG/SENNA 8.6 MG TAB PO PRN (15:45)
== END 2016-04-26 18:26 ==
LOC: NEPE 14:33 → NEDA 17:07 → NEPGCP 23:15
PROVIDERS: ADMIT Family Medicine; ATTEND Family Medicine
DX: R07.89 Other chest pain (principal); F32.1 Major depressive disorder, single episode, moderate; E11.9 Type 2 diabetes mellitus without complications; I10 Essential (primary) hypertension; I25.10 Atherosclerotic heart disease of native coronary artery without angina pectoris; I45.10 Unspecified right bundle-branch block; G89.29 Other chronic pain; F03.90 Unspecified dementia, unspecified severity, without behavioral disturbance, psychotic disturbance, mood disturbance, and anxiety; J45.909 Unspecified asthma, uncomplicated; F41.9 Anxiety disorder, unspecified; K21.9 Gastro-esophageal reflux disease without esophagitis; E78.00 Pure hypercholesterolemia, unspecified; M19.90 Unspecified osteoarthritis, unspecified site; R45.851 Suicidal ideations; Z95.1 Presence of aortocoronary bypass graft; Z88.0 Allergy status to penicillin; Z88.6 Allergy status to analgesic agent
CPT/HCPCS: 70450; 71010; 80048; 80053; 81001; 82550; 82552; 82948; 83690; 84443; 84484; 85025; 85610; 85730; 93005; 96374; 99285; G0378; J1200; J2060

== ENCOUNTER 2016-04-26 18:36 | Inpatient (IN) | payer MEDICARE, OTHER ==
[~2016-04-26] VITALS: Ht 152.4 cm; Wt 80.2 kg
[~2016-04-26 18:36] MED LIST changes: +ALBU0.08 NEB; -ALBU2.5I NEB; +ASPI1TAB91 PO; -ATOR40TA PO; +ATOR40TA16 PO; -DIOV160T60 PO; -ECOT81TA2 PO; +HYDR-3133 PO; -ISOS10 PO; +ISOS10TA PO; +MECL-62 PO; -METF500 PO; +METF500T PO; +MONT10TA4 PO; +TRAM50TA PO; +VALS1TAB65 PO
[2016-04-26] MEDS ORDERED: traMADol HCL 50 MG TAB PO PRN (20:15)
[2016-04-26] MEDS ORDERED: GLUCAGON 1 MG/ML VIAL OTHER PRN (20:15)
[2016-04-26] MEDS ORDERED: MAGNESIUM HYDROXIDE SUSP 30 ML CUP PO PRN (20:15)
[2016-04-26] MEDS ORDERED: DEXTROSE 50% IN WATER 50 ML VIAL(D50) IV PUSH PRN (20:15)
[2016-04-26 20:49] VITALS: BP 123/73; PULSE 89; TEMP 98.3
[2016-04-26] MEDS: ATORVASTATIN 40 MG TAB PO SCH (21:00)
[2016-04-26] MEDS: MONTELUKAST SODIUM 10 MG TAB PO SCH (21:00)
[2016-04-26] MEDS: LOW DOSE INSULIN NOVOLOG SUPPLEMENTAL SCALE SQ SCH (21:23)
[2016-04-26] MEDS ORDERED: LORazepam 2 MG/ML VIAL - age > 65 yrs IM PRN (22:15)
[2016-04-26] MEDS: RESP: ALBUTEROL 2.5 MG/3 ML NEB (PRN) INH (22:50)
[2016-04-27 06:09] VITALS: BP 106/60; PULSE 68; RESP 18; TEMP 97.2; O2SAT 94
[2016-04-27] MEDS: LOW DOSE INSULIN NOVOLOG SUPPLEMENTAL SCALE SQ SCH ×4 (06:19→21:00)
[2016-04-27] MEDS: RESP: ALBUTEROL 2.5 MG/3 ML NEB (PRN) INH (06:39)
[2016-04-27] MEDS: ARIPiprazole 5 MG TAB PO SCH (08:47)
[2016-04-27] MEDS: ISOSORBIDE DINITRATE 10 MG TAB PO SCH ×2 (08:47→17:00)
[2016-04-27] MEDS: VALSARTAN 160 MG TAB PO SCH (08:49)
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
[2016-04-27] MEDS ORDERED: PILL SPLITTER OTHER PRN (12:15)
--- NOTE | 2016-04-27 13:24 | PD.CONS ---
HPI Service [facility] Hospitalists Consult Requested By Psychiatry Reason for Consult Chest pain, itching, Primary Care Physician Unknown Diagnoses: History of Present Illness This is a 76-year-old female with history of diabetes, coronary artery disease, asthma, GERD, hypertension presented to the hospital with severe itching. Patient was seen initially by the medical service. Cardiac etiology for the chest pain has been ruled out. Cardiac enzymes were negative. Patient has stress test in January 2016 which was normal. Patient admitted to psych unit, previously Schroeder acted, being treated for major depressive disorder. She has vague symptoms and is a poor historian, she is complaining of a lot of things including itching all over including her head, groin and feet. She still complaining of chest pain, mild, no shortness of breath. Allegedly, her chest pain radiates to the back, comes and goes and associated with mild shortness of breath. 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 Review of Systems ROS Limitations: Language Barrier Past Family Social History Allergies: Coded Allergies: Acetaminophen (Verified Allergy, Mild, Chills, 04/25/16) Amoxicillin (Verified Allergy, Unknown, Hives, 04/25/16) Aspirin (Unverified Allergy, Unknown, 04/25/16) Vicodin (Verified Allergy, Unknown, Sedation, 04/25/16) Past Medical History Diabetes mellitus Asthma Coronary artery disease and hypertension Gastritis Arthritis Past Surgical History CABG Appendectomy cholecystectomy Cataract surgery Reported Medications Hydroxyzine HCl 25 Mg Tab 25 Mg PO Q6H PRN Montelukast (Montelukast Sodium) 10 Mg Tab 10 Mg PO HS Metformin (Metformin HCl) 500 Mg Tab 500 Mg PO BID With meals Isosorbide Dinitrate 10 Mg Tab 10 Mg PO BID Valsartan 160 Mg Tab 160 Mg PO DAILY Tramadol (Tramadol HCl) 50 Mg Tab 50 Mg PO QID PRN Atorvastatin (Atorvastatin Calcium) 40 Mg Tab 40 Mg PO HS Meclizine (Meclizine HCl) 25 Mg Tab 25 Mg PO TID PRN Symbicort Inh (Budesonide/Formoterol Fumarate) 160-4.5 Mcg/Act Aero 1 Puff INH BID Ventolin Hfa 18 GM Inh (Albuterol Sulfate) 90 Mcg/Act Aer 1-2 Puff INH Q4H PRN Albuterol Neb (Albuterol Sulfate) 2.5 Mg/3 Ml Neb 2.5 Mg NEB Q6HR PRN Family History Coronary artery disease in both parents Social History No alcohol use, nonsmoker. Physical Exam Vital Signs Vital Signs Date Time Temp Pulse Resp B/P Pulse Ox O2 Delivery O2 Flow Rate FiO2 04/27/16 06:09 97.2 68 18 106/60 94 04/26/16 20:49 98.3 89 123/73 Physical Exam Not in distress, well-nourished, looks stated age PERRL, pink conjunctiva without injection, anicteric Nose without bleeding, airway patent, oropharynx clear Supple neck, no masses or thyromegaly, trachea midline Normal rate and regular rhythm, no murmurs gallops or rubs appreciated. Reproducible chest pain anteriorly on palpation. Clear to auscultation and symmetric bilaterally, normal respiratory effort. Normal bowel sounds, soft, non-tender, nondistended, no guarding. Extremities without clubbing, cyanosis, trace edema. No rash of generalized distribution. Skin is warm and dry. AAO x3, most extremities. Inches Assessment and Plan Assessment and Plan This is a 75-year-old female with history of hypertension, diabetes, coronary artery disease, we are being consulted for multiple complaints Chest pain- atypical, likely musculoskeletal, presumed without as inpatient, cardiac enzymes were negative, EKG only showed incomplete right bundle branch block. Recheck EKG, recheck troponin. Patient had a stress test in January 2016 which was normal. Continue statin, isosorbide. Patient is allergic to aspirin. Pruritus-dry skin otherwise no rash. Could be psychiatric, start hydroxyzine [id number]. Also start emollients. Asthma-not in exacerbation, continue albuterol, restart Singulair, Symbicort and Ventolin. Hypertension-restart losartan, clonidine as needed Dyslipidemia-restart statin Suicidal ideations, or depressive disorder-further management per psychiatry. Diabetes mellitus-restart metformin. Sliding scale insulin. Thank you very much for this consult, will follow along with you. Tuan Caro MD Apr 27, 2016 13:24
[2016-04-27] MEDS ORDERED: RESP: ALBUTEROL 2.5 MG/3 ML NEB (PRN) NEB (14:30)
[2016-04-27] MEDS ORDERED: VALSARTAN 160 MG TAB PO SCH (14:30)
[2016-04-27] MEDS ORDERED: ALBUTEROL SULFATE 90 MCG/ACT HFA 8 GM INHALER INH PRN (14:30)
[2016-04-27] MEDS ORDERED: traMADol HCL 50 MG TAB PO PRN (14:30)
[2016-04-27] MEDS: metFORMIN HCL 500 MG TAB PO SCH (18:00)
[2016-04-27] MEDS: hydrOXYzine HCL 10 MG TAB PO SCH (18:43)
[2016-04-27] MEDS ORDERED: ATORVASTATIN 40 MG TAB PO SCH (21:00)
[2016-04-27] MEDS ORDERED: ISOSORBIDE DINITRATE 10 MG TAB PO SCH (21:00)
[2016-04-27] MEDS: LACTIC ACID (AMMONIUM LACTATE) 12% LOTION 225 GM BTL TOPICAL SCH (21:00)
[2016-04-27] MEDS: BUDESONIDE-FORMOTEROL 160/4.5 MCG INHALER INH SCH (21:00)
[2016-04-27] MEDS: MONTELUKAST SODIUM 10 MG TAB PO SCH ×2 (21:00→21:32)
[2016-04-27] MEDS ORDERED: MONTELUKAST SODIUM 10 MG TAB PO SCH (21:00)
[2016-04-27] MEDS: MIRTAZAPINE 15 MG TAB PO SCH (21:24)
[2016-04-27] MEDS: LORazepam 0.5 MG TAB age > 65 yrs PO PRN (21:24)
[2016-04-27] MEDS: ATORVASTATIN 40 MG TAB PO SCH (21:24)
[2016-04-28] MEDS: hydrOXYzine HCL 10 MG TAB PO SCH ×4 (06:00→22:00)
[2016-04-28 06:11] VITALS: BP 120/70; PULSE 92; RESP 16; TEMP 97.2; O2SAT 94
[2016-04-28] MEDS: LOW DOSE INSULIN NOVOLOG SUPPLEMENTAL SCALE SQ SCH ×4 (07:00→21:00)
[2016-04-28] MEDS: LACTIC ACID (AMMONIUM LACTATE) 12% LOTION 225 GM BTL TOPICAL SCH ×2 (09:00→21:40)
[2016-04-28] MEDS: BUDESONIDE-FORMOTEROL 160/4.5 MCG INHALER INH SCH ×2 (09:00→21:40)
[2016-04-28] MEDS: VALSARTAN 160 MG TAB PO SCH (10:16)
[2016-04-28] MEDS: metFORMIN HCL 500 MG TAB PO SCH ×2 (10:16→18:11)
[2016-04-28] MEDS: ISOSORBIDE DINITRATE 10 MG TAB PO SCH ×2 (10:16→18:11)
[2016-04-28] MEDS: ARIPiprazole 5 MG TAB PO SCH (10:17)
--- NOTE | 2016-04-28 12:39 | HHI.PYPN ---
Subjective Remarks Patient was seen and case discussed with nursing. Interview conducted in Polish. Patient continues to complain of itchiness; however, denies suicidal ideations thought or plan. She is complaints after her room was changed and does not like her roommate's behavior. His compliant with her medications. Denies auditory visual hallucinations Objective Alert: Yes [place]: Person, Place, Date Mood: Anxious Affect: Restricted Memory Intact: Immediate Hallucinations: Other (denies) Delusions: No (denies) Delusion Type: Other Suicidal: Ideation (denies) Homicidal: Ideation (denies) Insight/Judgement Poor Labs Test 04/27/16 17:19 Troponin I LESS THAN 0.02 NG/ML Vitals/IOs Vital Signs Date Time Temp Pulse Resp B/P Pulse Ox O2 Delivery O2 Flow Rate FiO2 04/28/16 06:11 97.2 92 16 120/70 94 Assessment & Plan Problem List: (1) Major depressive disorder ICD Code: F32.9 Assessment & Plan Continue current treatment plan Justification for Cont. Inpt. Patient will decompensate in a less restrictive setting Problem Qualifiers (1) Major depressive disorder: Qualified Code: F33.1 - Moderate episode of recurrent major depressive disorder Donovan Zazueta DO Apr 28, 2016 12:39
--- NOTE | 2016-04-28 13:00 | HHI.PR ---
Subjective Remarks Follow up: Chest pain, hypertension, diabetes, and asthma. Patient seen in inpatient psychiatric unit with a van driver. Patient complains of generalized arthritis pain. Denies chest pain shortness of breath nausea vomiting diarrhea constipation fevers or chills. Objective Vitals Vital Signs Date Time Temp Pulse Resp B/P Pulse Ox O2 Delivery O2 Flow Rate FiO2 04/28/16 06:11 97.2 92 16 120/70 94 I/O 04/27/16 04/27/16 04/27/16 04/28/16 04/28/16 04/28/16 07:00 15:00 23:00 07:00 15:00 23:00 Intake Total 0 ml Balance 0 ml Intake Oral 0 ml # Voids 1 Objective Remarks Not in distress, well-nourished, looks stated age PERRL, pink conjunctiva without injection, anicteric Nose without bleeding, airway patent, oropharynx clear Supple neck, no masses or thyromegaly, trachea midline Normal rate and regular rhythm, no murmurs gallops or rubs appreciated. Reproducible chest pain anteriorly on palpation. Clear to auscultation and symmetric bilaterally, normal respiratory effort. Normal bowel sounds, soft, non-tender, nondistended, no guarding. Extremities without clubbing, cyanosis, trace edema. No rash of generalized distribution. Skin is warm and dry. AAO x3, most extremities. A/P Assessment and Plan This is a 75-year-old female with history of hypertension, diabetes, coronary artery disease, we are being consulted for multiple complaints Chest pain- atypical, likely musculoskeletal, ruled out as inpatient, cardiac enzymes were negative, EKG only showed incomplete right bundle branch block. Recheck EKG reveals no changes, recheck troponin less than 0.02. Patient had a stress test in January 2016 which was normal. Continue statin, isosorbide. Patient is allergic to aspirin. Pruritus- improving per patient. Dry skin otherwise no rash. Could be psychiatric, start hydroxyzine around- the-clock. Also start emollients. Asthma-not in exacerbation, continue albuterol, continue Singulair, Symbicort and Ventolin. Hypertension-Continue losartan, clonidine as needed Dyslipidemia-restart statin Generalized arthritis pain- patient is allergic to acetaminophen will order ibuprofen 400 mg as needed for pain Suicidal ideations, or depressive disorder-further management per psychiatry. Diabetes mellitus-continue metformin. Sliding scale insulin. Plan of care discussed with patient, RN and Dr. Caro. Patient appears medically stable will sign off. The patient's condition changes or further assistance is needed please reconsult. Idania Gaspar Apr 28, 2016 12:59
--- NOTE | 2016-04-28 14:17 | EKG ---
Date Performed: 04/27/2016 Time Performed: 19:25:36 PTAGE: 75 years EKG: Sinus rhythm WITH SINUS ARRHYTHMIA MARKED LEFT AXIS DEVIATION INCOMPLETE RIGHT BUNDLE BRANCH BLOCK NONSPECIFIC ST & T-WAVE ABNORMALITY Compared to prior tracing no significant change ABNORMAL ECG PREVIOUS TRACING : 04/25/2016 20.28 DOCTOR: Tyrel Wilkinson Interpretating Date/Time 04/28/2016 14:12:19
[2016-04-28 18:00] VITALS: BP 161/80; PULSE 100; RESP 16; TEMP 97.3; O2SAT 95
[2016-04-28] MEDS: IBUPROFEN 400 MG TAB PO PRN (21:42)
[2016-04-28] MEDS: ATORVASTATIN 40 MG TAB PO SCH (21:43)
[2016-04-28] MEDS: MIRTAZAPINE 15 MG TAB PO SCH (21:44)
[2016-04-28] MEDS: MONTELUKAST SODIUM 10 MG TAB PO SCH (21:44)
[2016-04-28] MEDS: hydrOXYzine HCL 25 MG TAB PO PRN (21:47)
[2016-04-29] MEDS: RESP: ALBUTEROL 2.5 MG/3 ML NEB (PRN) INH ×2 (04:04→20:31)
[2016-04-29 05:52] VITALS: BP 171/79; PULSE 85; RESP 18; TEMP 98; O2SAT 97
[2016-04-29] MEDS: LOW DOSE INSULIN NOVOLOG SUPPLEMENTAL SCALE SQ SCH ×4 (05:55→21:00)
[2016-04-29] MEDS: hydrOXYzine HCL 10 MG TAB PO SCH ×3 (06:10→22:00)
[2016-04-29] MEDS: ISOSORBIDE DINITRATE 10 MG TAB PO SCH ×2 (09:00→15:53)
[2016-04-29] MEDS: VALSARTAN 160 MG TAB PO SCH (09:00)
[2016-04-29] MEDS: LACTIC ACID (AMMONIUM LACTATE) 12% LOTION 225 GM BTL TOPICAL SCH ×2 (09:00→20:27)
[2016-04-29] MEDS: ARIPiprazole 5 MG TAB PO SCH (09:00)
[2016-04-29] MEDS: metFORMIN HCL 500 MG TAB PO SCH ×2 (09:00→17:37)
[2016-04-29] MEDS: BUDESONIDE-FORMOTEROL 160/4.5 MCG INHALER INH SCH ×2 (09:00→20:23)
--- NOTE | 2016-04-29 12:35 | HHI.PYPN ---
Subjective Remarks Patient was seen and case discussed with nursing. Patient remains perseverative on her itchiness which she says is horrible and in her hair. Describes back and neck pain. Also perseverative on her room which was changed. She denies suicidal ideations thought or plan but says she is ready 1 God takes her. Compliant with medications Objective Alert: Yes [place]: Person, Place, Date Mood: Anxious Affect: Restricted Memory Intact: Immediate Hallucinations: Other (denies) Delusions: No (denies) Delusion Type: Other Suicidal: Ideation (denies) Homicidal: Ideation (denies) Insight/Judgement Poor Vitals/IOs Vital Signs Date Time Temp Pulse Resp B/P Pulse Ox O2 Delivery O2 Flow Rate FiO2 04/29/16 05:52 98.0 85 18 171/79 97 Intake and Output 04/28/16 04/28/16 04/29/16 08:00 16:00 00:00 Intake Total 0 ml 1200 ml 360 ml Balance 0 ml 1200 ml 360 ml Assessment & Plan Problem List: (1) Major depressive disorder ICD Code: F32.9 Assessment & Plan Continue current treatment plan Justification for Cont. Inpt. Patient will decompensate in a less restrictive setting Problem Qualifiers (1) Major depressive disorder: Qualified Code: F33.1 - Moderate episode of recurrent major depressive disorder Donovan Zazueta DO Apr 29, 2016 12:35
[2016-04-29] MEDS: ALUMINUM/MAGNESIUM/SIMETH 30 ML CUP PO PRN (14:36)
[2016-04-29] MEDS: IBUPROFEN 400 MG TAB PO PRN ×2 (17:38→22:10)
[2016-04-29 18:00] VITALS: BP 148/79; PULSE 99; RESP 18; TEMP 97.6; O2SAT 97
[2016-04-29] MEDS: MIRTAZAPINE 15 MG TAB PO SCH (20:24)
[2016-04-29] MEDS: MONTELUKAST SODIUM 10 MG TAB PO SCH (20:24)
[2016-04-29] MEDS: ATORVASTATIN 40 MG TAB PO SCH (20:24)
[2016-04-29] MEDS: MECLIZINE HCL 25 MG TAB PO PRN (20:24)
[2016-04-29 20:57] VITALS: BP 123/61; PULSE 17; RESP 17; TEMP 98.1; O2SAT 99
[2016-04-29] MEDS: hydrOXYzine HCL 25 MG TAB PO PRN (22:10)
[2016-04-30 05:38] VITALS: BP 121/60; PULSE 71; RESP 16; TEMP 98.1; O2SAT 96
[2016-04-30] MEDS: hydrOXYzine HCL 10 MG TAB PO SCH ×3 (05:38→21:34)
[2016-04-30] MEDS: LOW DOSE INSULIN NOVOLOG SUPPLEMENTAL SCALE SQ SCH ×4 (06:19→21:00)
[2016-04-30] MEDS: VALSARTAN 160 MG TAB PO SCH (09:00)
[2016-04-30] MEDS: LACTIC ACID (AMMONIUM LACTATE) 12% LOTION 225 GM BTL TOPICAL SCH ×2 (09:00→21:34)
[2016-04-30] MEDS: ISOSORBIDE DINITRATE 10 MG TAB PO SCH ×2 (09:00→17:00)
[2016-04-30] MEDS: PANTOPRAZOLE SOD 40 MG DELAYED RELEASE TAB PO SCH (09:00)
[2016-04-30] MEDS: BUDESONIDE-FORMOTEROL 160/4.5 MCG INHALER INH SCH ×2 (09:00→21:13)
[2016-04-30] MEDS: ARIPiprazole 5 MG TAB PO SCH (09:00)
[2016-04-30] MEDS: metFORMIN HCL 500 MG TAB PO SCH ×2 (09:00→21:34)
[2016-04-30 11:12] LABS: AUTOMATED NEUTROPHIL # 4.5 TH/MM3 (1.8-7.7); BASOPHIL % 0.5 % (0.0-2.0); EOSINOPHIL # 0.3 TH/MM3 (0-0.4); EOSINOPHIL % 4.3 % (0.0-4.0); HEMO FLAGS DIFF FINAL; LYMPH % 17.9 % (9.0-44.0); LYMPHOCYTE # 1.2 TH/MM3 (1.0-4.8); MEAN CELL VOLUME 81.9 FL (80.0-100.0); MEAN CORPUSCULAR HEMOGLOBIN 26.9 PG (27.0-34.0); MEAN CORPUSCULAR HGB CONC 32.9 % (32.0-36.0); MONO % 9.5 % (0.0-8.0); NEUT % 67.8 % (16.0-70.0); PLATELET COUNT 132 TH/MM3 (150-450); RED BLOOD COUNT 4.03 MIL/MM3 (4.00-5.30); RED CELL DISTRIBUTION WIDTH 14.7 % (11.6-17.2); WHITE BLOOD COUNT 6.6 TH/MM3 (4.0-11.0)
[2016-04-30 11:40] LABS: BICARBONATE 28.5 MEQ/L (21.0-32.0); POTASSIUM 3.8 MEQ/L (3.5-5.1)
--- NOTE | 2016-04-30 14:53 | HHI.PR ---
Subjective Remarks We consulted regarding nausea, acid indigestion, diarrhea, vaginal itching. and Follow up: Chest pain, hypertension, diabetes, and asthma. Denies chest pain shortness of breath fevers or chills. Patient reports that she has nausea and feels coming up in her throat. Patient also reports 3 episodes of watery diarrhea yesterday and one episode of watery diarrhea today. Patient reports vaginal itching associated with large amounts of thick white discharge Patient seen in inpatient psychiatric unit with a cracking machine operator. Objective Vitals Vital Signs Date Time Temp Pulse Resp B/P Pulse Ox O2 Delivery O2 Flow Rate FiO2 04/30/16 05:38 98.1 71 16 121/60 96 04/29/16 20:57 98.1 17 17 123/61 99 04/29/16 18:00 97.6 99 18 148/79 97 I/O 04/29/16 04/29/16 04/29/16 04/30/16 04/30/16 04/30/16 07:00 15:00 23:00 07:00 15:00 23:00 Intake Total 120 ml 1560 ml 440 ml 120 ml 960 ml Balance 120 ml 1560 ml 440 ml 120 ml 960 ml Intake Oral 120 ml 1560 ml 440 ml 120 ml 960 ml # Voids 2 2 2 2 # Bowel Movements 0 Result Diagram: 04/30/16 1054 04/30/16 1054 Objective Remarks Not in distress, well-nourished, looks stated age PERRL, pink conjunctiva without injection, anicteric Nose without bleeding, airway patent, oropharynx clear Supple neck, no masses or thyromegaly, trachea midline Normal rate and regular rhythm, no murmurs gallops or rubs appreciated. Reproducible chest pain anteriorly on palpation. Clear to auscultation and symmetric bilaterally, normal respiratory effort. Normal bowel sounds, soft, non-tender, nondistended, no guarding. Extremities without clubbing, cyanosis, trace edema. No rash of generalized distribution. Skin is warm and dry. AAO x3, most extremities. A/P Assessment and Plan This is a 75-year-old female with history of hypertension, diabetes, coronary artery disease, we are being consulted for multiple complaints Chest pain- resolved. atypical, likely musculoskeletal, ruled out as inpatient, cardiac enzymes were negative, EKG only showed incomplete right bundle branch block. Recheck EKG reveals no changes, recheck troponin less than 0.02. Patient had a stress test in January 2016 which was normal. Continue statin, isosorbide. Patient is allergic to aspirin. Generalized Pruritus- improving per patient. Dry skin otherwise no rash. Could be psychiatric, start hydroxyzine around- the-clock. Also start emollients. Asthma-not in exacerbation, continue albuterol, continue Singulair, Symbicort and Ventolin. Hypertension-Continue losartan, clonidine as needed Continue statin Nausea with GERD-start Protonix 40 mg daily Zofran as needed for nausea Discontinue ibuprofen Vaginal itching with enlargement of white discharge likely Avelina Diflucan times one Possible bacterial vaginosis Flagyl times one. Diarrhea White blood cell count reviewed 6.6. check stools for C. difficile Suicidal ideations, or depressive disorder-further management per psychiatry. Diabetes mellitus-continue metformin. Sliding scale insulin. Plan of care discussed with patient, RN Written by Idania Gaspar, acting as scribe for Dr. Caro on 04/30/16 at 13:49. The documentation accurately reflects the work performed [id number] by me on at 13:49. Idania Gaspar Apr 30, 2016 14:53 Tuan Caro MD May 01, 2016 16:46
[2016-04-30] MEDS ORDERED: FLUCONAZOLE 100 MG TAB PO ONE ×2 (15:00→20:00)
[2016-04-30] MEDS ORDERED: metroNIDAZOLE 500 MG TAB PO ONE ×2 (15:00→20:00)
--- NOTE | 2016-04-30 15:18 | HHI.PYPN ---
Subjective Remarks Patient discussed with treatment team medical student tiago, patient's daughter and son-in-law who live local. Patient's daughter space Kuwaiti well, chart reviewed, patient seen on unit with nurse and counselor Daaynna, patient appears to have very little spoken Kuwaiti. Though she is been here a significant number of years I question her understanding of Kuwaiti. Through a speech interpretation local application patient denies suicidality or homicidality. She is vague about somatic issues though she continues to refer to talking to her daughter. Daughter does acknowledge some manipulation on her mother's part related to attention and control in the family. For now continue medication no change we will have neurology consult daughter also mentioned that Dr. Shah is her family practice doc, will discontinue the hospitalist consultation and consult Dr. Shah Review of Systems Except as stated in HPI: all other systems reviewed are Neg Objective Alert: Yes [place]: Person, Place, Date Mood: Anxious Affect: Restricted Memory Intact: Immediate Hallucinations: Other (denies) Delusions: No (denies) Delusion Type: Other Suicidal: Ideation (denies) Homicidal: Ideation (denies) Insight/Judgement Very poor Labs Test 04/30/16 10:54 White Blood Count 6.6 TH/MM3 Red Blood Count 4.03 MIL/MM3 Hemoglobin 10.9 GM/DL Hematocrit 33.0 % Mean Corpuscular Volume 81.9 FL Mean Corpuscular Hemoglobin 26.9 PG Mean Corpuscular Hemoglobin 32.9 % Concent Red Cell Distribution Width 14.7 % Platelet Count 132 TH/MM3 Mean Platelet Volume 10.5 FL Neutrophils (%) (Auto) 67.8 % Lymphocytes (%) (Auto) 17.9 % Monocytes (%) (Auto) 9.5 % Eosinophils (%) (Auto) 4.3 % Basophils (%) (Auto) 0.5 % Neutrophils # (Auto) 4.5 TH/MM3 Lymphocytes # (Auto) 1.2 TH/MM3 Monocytes # (Auto) 0.6 TH/MM3 Eosinophils # (Auto) 0.3 TH/MM3 Basophils # (Auto) 0.0 TH/MM3 CBC Comment DIFF FINAL Differential Comment Sodium Level 134 MEQ/L Potassium Level 3.8 MEQ/L Chloride Level 98 MEQ/L Carbon Dioxide Level 28.5 MEQ/L Anion Gap 8 MEQ/L Blood Urea Nitrogen 11 MG/DL Creatinine 0.88 MG/DL Estimat Glomerular Filtration 63 ML/MIN Rate Random Glucose 109 MG/DL Calcium Level 8.3 MG/DL Vitals/IOs Vital Signs Date Time Temp Pulse Resp B/P Pulse Ox O2 Delivery O2 Flow Rate FiO2 04/30/16 05:38 98.1 71 16 121/60 96 Intake and Output 04/29/16 04/29/16 04/30/16 08:00 16:00 00:00 Intake Total 120 ml 1560 ml 440 ml Balance 120 ml 1560 ml 440 ml Assessment & Plan Problem List: (1) Major depressive disorder ICD Code: F32.9 Assessment & Plan Estimated LOS: days patient remains somatic, with the delusional ideation, will get neurology consult, change hospitalist patient's family practice doc Dr. Shah Justification for Cont. Inpt. At this time patient would significantly decompensated if placed in a lower level of care Discharge Planning To be determined Problem Qualifiers (1) Major depressive disorder: Qualified Code: F33.1 - Moderate episode of recurrent major depressive disorder Jayant Reyna MD Apr 30, 2016 15:18
[2016-04-30 18:27] VITALS: BP 135/79; PULSE 96; RESP 16; TEMP 98.5; O2SAT 97
[2016-04-30] MEDS: ATORVASTATIN 40 MG TAB PO SCH (21:13)
[2016-04-30] MEDS: MONTELUKAST SODIUM 10 MG TAB PO SCH (21:13)
[2016-04-30] MEDS: MIRTAZAPINE 15 MG TAB PO SCH (21:14)
[2016-05-01] MEDS: RESP: ALBUTEROL 2.5 MG/3 ML NEB (PRN) INH (03:00)
[2016-05-01] MEDS: LORazepam 0.5 MG TAB age > 65 yrs PO PRN (03:06)
[2016-05-01] MEDS: hydrOXYzine HCL 10 MG TAB PO SCH ×3 (06:15→21:22)
[2016-05-01 06:32] VITALS: BP 127/64; PULSE 85; RESP 16; TEMP 97.3; O2SAT 96
[2016-05-01] MEDS: LOW DOSE INSULIN NOVOLOG SUPPLEMENTAL SCALE SQ SCH ×4 (07:00→21:00)
[2016-05-01] MEDS: BUDESONIDE-FORMOTEROL 160/4.5 MCG INHALER INH SCH ×2 (09:00→20:58)
[2016-05-01] MEDS: LACTIC ACID (AMMONIUM LACTATE) 12% LOTION 225 GM BTL TOPICAL SCH ×2 (09:00→20:57)
[2016-05-01] MEDS: metFORMIN HCL 500 MG TAB PO SCH ×2 (09:10→18:00)
[2016-05-01] MEDS: VALSARTAN 160 MG TAB PO SCH (09:10)
[2016-05-01] MEDS: IBUPROFEN 400 MG TAB PO PRN (09:10)
[2016-05-01] MEDS: PANTOPRAZOLE SOD 40 MG DELAYED RELEASE TAB PO SCH (09:10)
[2016-05-01] MEDS: ARIPiprazole 5 MG TAB PO SCH ×2 (09:10→20:59)
[2016-05-01] MEDS: ISOSORBIDE DINITRATE 10 MG TAB PO SCH ×2 (09:11→17:00)
--- NOTE | 2016-05-01 10:23 | HHI.FPPN ---
Subjective Remarks PT SEEN W RN C/O ITCHING C/O NECK PAIN C/O UPPER ABDOM PAIN C/O CHEST PAIN W MOVEMENT Objective Vitals Vital Signs Date Time Temp Pulse Resp B/P Pulse Ox O2 Delivery O2 Flow Rate FiO2 05/01/16 06:32 97.3 85 16 127/64 96 04/30/16 18:27 98.5 96 16 135/79 97 I/O 04/30/16 04/30/16 04/30/16 05/01/16 05/01/16 05/01/16 07:00 15:00 23:00 07:00 15:00 23:00 Intake Total 120 ml 960 ml 1320 ml 240 ml Balance 120 ml 960 ml 1320 ml 240 ml Intake Oral 120 ml 960 ml 1320 ml 240 ml # Voids 2 2 4 2 # Bowel Movements 0 Result Diagram: 04/30/16 1054 04/30/16 1054 Objective Remarks GENERAL: SKIN: Warm and dry. HEAD: Atraumatic. Normocephalic. EYES: Pupils equal and round. No scleral icterus. No injection or drainage. ENT: No nasal bleeding or discharge. Mucous membranes pink and moist. NECK: Trachea midline. No JVD. CARDIOVASCULAR: Regular rate and rhythm. RESPIRATORY: No accessory muscle use. Clear to auscultation. Breath sounds equal bilaterally. GASTROINTESTINAL: Abdomen soft, non-tender, nondistended. Hepatic and splenic margins not palpable. MUSCULOSKELETAL: Extremities without clubbing, cyanosis, or edema. No obvious deformities. Pain with palpation of all large joints, entire spinal area and with palpation of chest wall. NEUROLOGICAL: Awake and alert. No obvious cranial nerve deficits. Motor grossly within normal limits. Five out of 5 muscle strength in the arms and legs. Normal speech. PSYCHIATRIC: Appropriate mood and affect; insight and judgment normal. Medications and IVs Current Medications Medications (Trade) Dose Ordered Sig/Shanon Route Start Time Stop Time Status Last Admin (Milk Of Magnesia Liq) 30 ml DAILY PRN PO 04/26/16 20:15 (Mag-Al Plus Susp Liq) 30 ml Q6H PRN PO 04/26/16 20:15 04/29/16 14:36 (Lipitor) 40 mg HS PO 04/26/16 21:00 04/30/16 21:13 (Isordil) 10 mg BID@ PO 04/27/16 09:00 05/01/16 09:11 (Antivert) 25 mg TID PRN PO 04/26/16 20:15 04/29/16 20:24 (Singulair) 10 mg HS PO 04/26/16 21:00 04/30/16 21:13 (Diovan) 160 mg DAILY PO 04/27/16 09:00 05/01/16 09:10 (Abilify) 5 mg DAILY PO 04/27/16 09:00 05/01/16 09:10 (D50w (Vial) Inj) 25 ml UNSCH PRN IV PUSH 04/26/16 20:15 (Glucagon Inj) 1 mg UNSCH PRN OTHER 04/26/16 20:15 (Ativan) 0.5 mg Q12H PRN PO 04/26/16 22:15 05/01/16 03:06 (Ativan Inj) 0.5 mg Q12H PRN IM 04/26/16 22:15 (Remeron) 7.5 mg HS PO 04/27/16 21:00 04/30/16 21:14 (Pill Splitter) 1 ea UNSCH PRN OTHER 04/27/16 12:15 (Symbicort 160-4.5 Inh) 1 puff BID INH 04/27/16 21:00 05/01/16 09:00 (Glucophage) 500 mg BIDPC PO 04/27/16 18:00 05/01/16 09:10 (Atarax) 25 mg Q8H PRN PO 04/27/16 14:30 04/29/16 22:10 (Atarax) 10 mg Q8HR PO 04/27/16 22:00 05/01/16 06:15 (Lac-Hydrin 12% Lotion) 1 applic BID TOPICAL 04/27/16 21:00 05/01/16 09:00 (Protonix) 40 mg DAILY PO 04/30/16 09:00 05/01/16 09:10 (Motrin) 400 mg Q8H PRN PO 05/01/16 00:15 05/01/16 09:10 A/P Problem List: (1) CAD (coronary artery disease) Status: Chronic (2) Depression Status: Acute (3) Suicidal ideation Status: Acute (4) Chest pain Status: Acute (5) DM (diabetes mellitus) Status: Chronic (6) Unspecified psychosis Status: Acute (7) Major depressive disorder Status: Acute (8) Chest pain of uncertain etiology Status: Acute Plan: A/P: Chest pain- atypical, likely musculoskeletal, ruled out as inpatient, cardiac enzymes were negative, EKG only showed incomplete right bundle branch block. Recheck EKG reveals no changes, recheck troponin less than 0.02. Patient had a stress test in January 2016 which was normal. Continue statin, isosorbide. Patient is allergic to aspirin. Generalized Pruritus- improving per patient. Dry skin otherwise no rash. Could be psychiatric, hydroxyzine around-the- clock, emollients. Asthma-not in exacerbation, continue albuterol, continue Singulair, Symbicort and Ventolin. Hypertension-Continue losartan, clonidine as needed Continue statin Nausea with GERD- Protonix 40 mg daily Zofran as needed for nausea Discontinue ibuprofen Vaginal itching with enlargement of white discharge likely Avelina s/p Diflucan times one Possible bacterial vaginosis Flagyl times one. Diarrhea White blood cell count reviewed 6.6. check stools for C. difficile Suicidal ideations, or depressive disorder-further management per psychiatry. Diabetes mellitus-continue metformin. Sliding scale insulin. Problem Qualifiers (1) Major depressive disorder: Qualified Code: F33.1 - Moderate episode of recurrent major depressive disorder Edwardo Shah MD May 01, 2016 10:23
[2016-05-01] MEDS: MECLIZINE HCL 25 MG TAB PO PRN (11:19)
--- NOTE | 2016-05-01 16:08 | HHI.PYPN ---
Subjective Remarks Patient seen in room with nurse Fred and medical student Tuyet who help interpret for us. 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 Patient has some mild reality testing with this also. She does denies suicidality at the present time, is compliant with her medications. Will increase her Abilify to 5 mg twice a day will increase her at bedtime Remeron to 15 mg. Review of Systems Except as stated in HPI: all other systems reviewed are Neg Objective Alert: Yes [place]: Person, Place, Date Mood: Anxious Affect: Restricted Memory Intact: Immediate Hallucinations: Other (denies) Delusions: No (denies) Delusion Type: Other Suicidal: Ideation (denies) Homicidal: Ideation (denies) Insight/Judgement Poor Vitals/IOs Vital Signs Date Time Temp Pulse Resp B/P Pulse Ox O2 Delivery O2 Flow Rate FiO2 05/01/16 06:32 97.3 85 16 127/64 96 Intake and Output 04/30/16 04/30/16 05/01/16 08:00 16:00 00:00 Intake Total 120 ml 960 ml 1320 ml Balance 120 ml 960 ml 1320 ml Assessment & Plan Problem List: (1) Major depressive disorder ICD Code: F32.9 Assessment & Plan Estimated LOS: days patient acknowledging psychotic features including auditory and visual hallucinations. Compliant medications. See medication changes above Justification for Cont. Inpt. At this time patient would significantly decompensate if placed in the lower level of care Discharge Planning To be determined Problem Qualifiers (1) Major depressive disorder: Qualified Code: F33.1 - Moderate episode of recurrent major depressive disorder Jayant Reyna MD May 01, 2016 16:08
[2016-05-01 19:26] VITALS: BP 160/76; PULSE 99; RESP 16; TEMP 98.5; O2SAT 97
[2016-05-01] MEDS: MONTELUKAST SODIUM 10 MG TAB PO SCH (20:58)
[2016-05-01] MEDS: MIRTAZAPINE 15 MG TAB PO SCH (20:58)
[2016-05-01] MEDS: ATORVASTATIN 40 MG TAB PO SCH (20:59)
--- NOTE | 2016-05-01 22:11 | MB ---
cc: VICKIE AN DATE OF CONSULTATION 05/01/[address] Reyna REASON FOR CONSULTATION Rule out dementia. HISTORY OF PRESENT ILLNESS This patient is a very pleasant 75-year-old woman who is admitted to the psychiatry unit for severe depressive disorder, initially under [facility]. The consult was placed with neurology to evaluate the possibility of a dementia. Upon coming to evaluate the patient, the patient indicates that she only speaks Maltese and speaks very little Sami. At the present time being the evening there is no student assistant available. Her family is not available. Therefore at this time I am not able to advise the patient. I will return tomorrow when an student assistant would be available so that I may conduct and interview the patient and examination at that time. MD KARLA Cuevas/KK /9:33 PM /10:05 PM
[2016-05-02] MEDS: hydrOXYzine HCL 10 MG TAB PO SCH ×3 (05:59→21:47)
[2016-05-02 06:00] VITALS: BP 107/57; PULSE 80; RESP 16; TEMP 98.1
[2016-05-02] MEDS: LOW DOSE INSULIN NOVOLOG SUPPLEMENTAL SCALE SQ SCH ×4 (06:09→21:00)
[2016-05-02] MEDS: BUDESONIDE-FORMOTEROL 160/4.5 MCG INHALER INH SCH ×2 (09:00→21:46)
[2016-05-02] MEDS: VALSARTAN 160 MG TAB PO SCH (09:00)
[2016-05-02] MEDS: metFORMIN HCL 500 MG TAB PO SCH ×2 (09:00→17:04)
[2016-05-02] MEDS: PANTOPRAZOLE SOD 40 MG DELAYED RELEASE TAB PO SCH (09:00)
[2016-05-02] MEDS: LACTIC ACID (AMMONIUM LACTATE) 12% LOTION 225 GM BTL TOPICAL SCH ×2 (09:00→21:47)
[2016-05-02] MEDS: ARIPiprazole 5 MG TAB PO SCH ×2 (09:00→21:51)
[2016-05-02] MEDS: ISOSORBIDE DINITRATE 10 MG TAB PO SCH ×2 (09:00→17:04)
--- NOTE | 2016-05-02 11:14 | PD.PN.STU ---
Subjective Remarks Patient was lying in bed most of the morning and says that she feels okay, but complained of pain in the back of her neck, itchiness of her head and genitalia , and poor balance. She denies suicidal and homicidal ideations. Although she denies hallucinations, she says that she constantly hears Yarsani music, which is louder in her right ear. The music is constant, but it is worse at night. She also sees large animals that she cannot think of a name for, but she describes them as fat with large paws. Objective Vitals Vital Signs Date Time Temp Pulse Resp B/P Pulse Ox O2 Delivery O2 Flow Rate FiO2 05/01/16 06:32 97.3 85 16 127/64 96 04/30/16 18:27 98.5 96 16 135/79 97 I/O 04/30/16 04/30/16 04/30/16 05/01/16 05/01/16 05/01/16 07:00 15:00 23:00 07:00 15:00 23:00 Intake Total 120 ml 960 ml 1320 ml 240 ml Balance 120 ml 960 ml 1320 ml 240 ml Intake Oral 120 ml 960 ml 1320 ml 240 ml # Voids 2 2 4 2 # Bowel Movements 0 Result Diagram: 04/30/16 1054 04/30/16 1054 Objective Remarks The patient appears to be an overweight, well-groomed elderly female. She was lying in bed during our discussion this morning, but walked around with her walker in the day room shortly thereafter. She has been smiling often today , unlike yesterday when she broke into tears easily. The patient was cooperative , attentive, alert, with an affect that matched her stated mood. The patient smoke Yi at a normal rate, rhythm, volume, and pitch. Her thought process is logical, but thought content is remarkable for somatic delusions, visual hallucinations and auditory hallucinations. She does have insight and realizes that the music she hears and the animals she sees are not normal and her judgment is fair. A/P Assessment and Plan The patient is still describing auditory and visual hallucinations, pruritis, gait imbalance, and neck pain. Ibuprofen was given to the patient for neck pain prior to Dr. Shah discontinuing the medication. We will consult Dr. Shah for his recommendation, considering her medical history and improper use of substances. Continue hydrocortisone cream for pruritis. Administer meclizine for dizziness. RN, Fred, spoke with the patient's daughter today. She understands her mother' s current status and that the antipsychotic medications take time to have an effect. The patient's daughter was in full agreement with the care of plan. 05/02/16 Above progress note dictated by medical student is reviewed and agreed with. Independent progress note also written by me on 05/01/16 Courtney Hill May 01, 2016 12:18 Jayant Reyna MD May 02, 2016 11:14
--- NOTE | 2016-05-02 11:17 | HHI.PYPN ---
Subjective Remarks Patient seen by me in her room with nurse Lainey, there continues difficulty with interpretation. The patient's is smiling with a good range intensity of her affect calmer with good eye contact. She is been compliant with her medications does denies suicidality with me somewhat vague related to the auditory and visual perceptual abnormalities. For now continue treatment Review of Systems Except as stated in HPI: all other systems reviewed are Neg Objective Alert: Yes [place]: Person, Place, Date Mood: Anxious Affect: Restricted Memory Intact: Immediate Hallucinations: Other (denies) Delusions: No (denies) Delusion Type: Other Suicidal: Ideation (denies) Homicidal: Ideation (denies) Insight/Judgement Poor Vitals/IOs Vital Signs Date Time Temp Pulse Resp B/P Pulse Ox O2 Delivery O2 Flow Rate FiO2 05/02/16 06:00 98.1 80 16 107/57 05/01/16 19:26 97 Intake and Output 05/01/16 05/01/16 05/02/16 08:00 16:00 00:00 Intake Total 720 ml 600 ml Balance 720 ml 600 ml Assessment & Plan Problem List: (1) Major depressive disorder ICD Code: F32.9 Assessment & Plan Estimated LOS: days patient continues depressed with psychotic features, compliant medications at this time Justification for Cont. Inpt. At this time patient would decompensate if placed in a lower level of care Discharge Planning To be determined Problem Qualifiers (1) Major depressive disorder: Qualified Code: F33.1 - Moderate episode of recurrent major depressive disorder Jayant Reyna MD May 02, 2016 11:17
[2016-05-02 18:56] VITALS: BP 155/92; PULSE 96; RESP 16; TEMP 97.6; O2SAT 96
--- NOTE | 2016-05-02 19:15 | MB ---
cc: VICKIE AN M.D. DATE OF CONSULTATION: 05/02/2016 REASON FOR CONSULTATION: Possible dementia. HISTORY OF PRESENT ILLNESS: Ms. Centeno is a 75 year-old female who speak Faroese and very little Hungarian. The history is obtained from her daughter who I spoke to today who relates that over the past year or two the patient has been having difficulty with her memory, mainly with recent memory. She is very forgetful at times. For example, she will put something on the stove and will leave it and forget that it is there. She will ask questions repeatedly that she just asked and received an answer to. In contrast, her remote memory according to her daughter has been relatively spared. She has had difficulty mixing up family names, calling family members by the wrong name, not recognizing family at times. Her daughter feels that she has had significant depressive symptoms as well as difficulty with hallucinations, saying things, etc. She has not gotten lost. She is able to find her way around familiar places. She does not drive at all. She has not demonstrated any difficulty utilizing simple utensils such as eating utensils, such as pencils or pens to write with, etc. She has had some headaches. PAST MEDICAL HISTORY: Her past medical history is remarkable for diabetes, asthma, coronary artery disease, gastritis, arthritis, CABG procedure, appendectomy, cholecystectomy, cataract surgery. MEDICATIONS Current medications are: 1. Abilify 5 mg daily. 2. Remeron 15 mg daily. 3. Motrin as needed. 4. Protonix 40 mg daily. 5. Atarax 10 mg q.8 h. 6. Symbicort b.i.d. 7. Glucophage 500 mg b.i.d. 8. Isosorbide dinitrate 10 mg b.i.d. 9. Diovan 160 milligrams daily. 10. Ativan as needed for anxiety. 11. Lipitor 40 milligrams daily. 12. Singulair 10 milligrams daily. 13. Albuterol nebulizer as needed. NEUROLOGIC EXAMINATION VITAL SIGNS: Temperature is 98.1 degrees. Blood pressure is 107/67, pulse is 80, respiratory rate 16. Higher cortical functions, the examination is conducted through an bobbin stripper. The patient is alert. She is not oriented to month. She thinks it is May but is able to tell me the year. She is oriented to self and to place. She does recall 2 out of 3 objects in 3 minutes. Her remote memory is intact. She does calculations normally, serial threes are normal. She has some difficulty with praxis. [place] word fluency is four with the letter S. Speech is fluent. There is no neglect phenomenon. Cranial nerves intact. Motor exam is normal with 5/5 strength in both upper and lower extremity, reflexes are symmetric. Gait is atactic and she walks with the use of walker. LABORATORY DATA White count 6600, hemoglobin 10.9, hematocrit 33%, platelet count 132,000. Sodium is 134, potassium 3.8, chloride 98, CO2 28.5, the BUN is 11, creatinine 0.88, GFR 63, glucose 109, calcium is 8.3. IMPRESSION By the daughter's history, the patient has demonstrated recent memory loss as well as some difficulty remembering the names of family members. On her mental status exam she did well through the bobbin stripper. She was about to recall 2 out of 3 objects in 3 minutes, the only difficulty she had of significance was the [place] word fluency was slightly depressed at 4 which could also be related to depression. The patient may have a subtle dementia, however, it is unclear at this time as to whether or not this may simply be a pseudo dementia from her depression. She did not demonstrate any gross cognitive deficits on the mini mental status examination, however. At the present time, I would recommend further evaluation with CT scan of the brain as well as an EEG. Would also check additional labs which may have bearing on her memory including vitamin B12 level, thyroid panel, serum cryptococcal antigen. Once her depression is improved, repeat cognitive testing may be of benefit. Formal neuropsychological testing may be of benefit in the future as well. Thank you for asking us to see this patient in consultation. MD KARLA Cuevas/DIANN /6:12 PM /6:34 PM
[2016-05-02] MEDS: ATORVASTATIN 40 MG TAB PO SCH (21:46)
[2016-05-02] MEDS: MONTELUKAST SODIUM 10 MG TAB PO SCH (21:47)
[2016-05-02] MEDS: MIRTAZAPINE 15 MG TAB PO SCH (21:47)
[2016-05-03] MEDS: hydrOXYzine HCL 10 MG TAB PO SCH ×3 (06:12→22:00)
[2016-05-03 06:26] VITALS: BP 122/64; PULSE 71; RESP 16; TEMP 97.5; O2SAT 95
[2016-05-03] MEDS: LOW DOSE INSULIN NOVOLOG SUPPLEMENTAL SCALE SQ SCH ×4 (07:00→20:05)
[2016-05-03 08:03] LABS: FREE T4 1.02 NG/DL (0.76-1.46)
[2016-05-03] MEDS: ARIPiprazole 5 MG TAB PO SCH ×2 (09:00→20:05)
[2016-05-03] MEDS: LACTIC ACID (AMMONIUM LACTATE) 12% LOTION 225 GM BTL TOPICAL SCH ×2 (09:00→20:06)
--- NOTE | 2016-05-03 09:10 | HHI.PYPN ---
Subjective Remarks Patient seen in day room with nurse Matthews, chart review, patient calm pleasant sitting with other female patients. Patient continues to have the music in her head seems to be somewhat disturbing to her. Attempted to share with her the medications will help if given some time. Patient has been compliant with her medications. For now continue treatment no change Review of Systems Except as stated in HPI: all other systems reviewed are Neg Objective Alert: Yes [place]: Person, Place, Date Mood: Anxious Affect: Restricted Memory Intact: Immediate Hallucinations: Other (denies) Delusions: No (denies) Delusion Type: Other Suicidal: Ideation (denies) Homicidal: Ideation (denies) Insight/Judgement Poor Labs Test 05/03/16 06:54 Vitamin B12 Level 378 PG/ML Free Thyroxine 1.02 NG/DL Thyroid Stimulating Hormone 1.790 uIU/ML 3rd Gen Vitals/IOs Vital Signs Date Time Temp Pulse Resp B/P Pulse Ox O2 Delivery O2 Flow Rate FiO2 05/03/16 06:26 97.5 71 16 122/64 95 Intake and Output 05/02/16 05/02/16 05/03/16 08:00 16:00 00:00 Intake Total 480 ml 480 ml 1320 ml Balance 480 ml 480 ml 1320 ml Assessment & Plan Problem List: (1) Major depressive disorder ICD Code: F32.9 Assessment & Plan Estimated LOS: days patient continues depressed calm no also continues to complain of auditory hallucinations. Compliant medications. For now continue treatment Justification for Cont. Inpt. At this time patient would decompensate if placed in a lower level of care Discharge Planning To be determined Problem Qualifiers (1) Major depressive disorder: Qualified Code: F33.1 - Moderate episode of recurrent major depressive disorder Jayant Reyna MD May 03, 2016 09:10
[2016-05-03] MEDS: PANTOPRAZOLE SOD 40 MG DELAYED RELEASE TAB PO SCH (09:48)
[2016-05-03] MEDS: ISOSORBIDE DINITRATE 10 MG TAB PO SCH ×2 (09:48→17:00)
[2016-05-03] MEDS: VALSARTAN 160 MG TAB PO SCH (09:49)
[2016-05-03] MEDS: metFORMIN HCL 500 MG TAB PO SCH ×2 (09:49→17:15)
[2016-05-03] MEDS: BUDESONIDE-FORMOTEROL 160/4.5 MCG INHALER INH SCH ×2 (09:49→20:05)
[2016-05-03] MEDS: IBUPROFEN 400 MG TAB PO PRN (09:59)
[2016-05-03] MEDS ORDERED: IOHEXOL 350 MG/ML 10 ML VIAL (for RAD DIAG) IV ONE (10:48)
--- NOTE | 2016-05-03 11:16 | RADRPT ---
EXAM DATE/TIME: 05/03/2016 10:48 [place] COMPARISON: No previous studies available for comparison. INDICATIONS : Memory loss. IV CONTRAST: 96 cc Omnipaque 350 (iohexol) IV RADIATION DOSE: 56.35 CTDIvol (mGy) MEDICAL HISTORY : Dementia. Hypertension. Congestive heart failure. SURGICAL HISTORY : CABG ENCOUNTER: Initial ACUITY: 1 day PAIN SCALE: 0/10 LOCATION: cranial TECHNIQUE: Multiple contiguous axial images were obtained of the head. Using automated exposure control and adj ustment of the mA and/or kV according to patient size, radiation dose was kept as low as reasonably a chievable to obtain optimal diagnostic quality images. FINDINGS: Noncontrast axial head CT demonstrates the ventricles to be normal in size and configuration with a n ormal sulcal pattern. No acute intracranial hemorrhage, acute cortical infarction, mass or midline sh ift is seen. There is decreased density in the periventricular white matter consistent with small ves carly vascular disease not unexpected in a patient of this age. There is physiologic calcification basa l ganglia. Following the administration of contrast no abnormal enhancement is identified. Posterior fossa structures are unremarkable. Bone windows are unremarkable. CONCLUSION: 1. No evidence of acute intracranial pathology. No masses are identified. Frankie Navarro MD on May 03, 2016 at 11:13 Board Certified Radiologist. This report was verified electronically.
--- NOTE | 2016-05-03 12:04 | HHI.FPPN ---
Subjective Remarks c/o ITCH C/O FERRARA C/O CP C/O BACK PAIN C/O HALLUC C/O SEEING ANIMALS IN ROOM C/O ABDOM PAIN C/O WEAKNESS c/o DIARRHEA, UNCONFIRMED PER RN C/O SOB AND WHEEZING D/W RN D/W DR OLSON Objective Vitals Vital Signs Date Time Temp Pulse Resp B/P Pulse Ox O2 Delivery O2 Flow Rate FiO2 05/03/16 06:26 97.5 71 16 122/64 95 05/02/16 18:56 97.6 96 16 155/92 96 I/O 05/02/16 05/02/16 05/02/16 05/03/16 05/03/16 05/03/16 07:00 15:00 23:00 07:00 15:00 23:00 Intake Total 960 ml 1320 ml Balance 960 ml 1320 ml Intake Oral 960 ml 1320 ml # Voids 2 4 1 Result Diagram: 04/30/16 1054 04/30/16 1054 Objective Remarks GENERAL: SKIN: Warm and dry. HEAD: Atraumatic. Normocephalic. EYES: Pupils equal and round. No scleral icterus. No injection or drainage. ENT: No nasal bleeding or discharge. Mucous membranes pink and moist. NECK: Trachea midline. No JVD. CARDIOVASCULAR: Regular rate and rhythm. RESPIRATORY: No accessory muscle use. Clear to auscultation. Breath sounds equal bilaterally. GASTROINTESTINAL: Abdomen soft, non-tender, nondistended. Hepatic and splenic margins not palpable. MUSCULOSKELETAL: Extremities without clubbing, cyanosis, or edema. No obvious deformities. Pain with palpation of all large joints, entire spinal area and with palpation of chest wall. NEUROLOGICAL: Awake and alert. No obvious cranial nerve deficits. Motor grossly within normal limits. Five out of 5 muscle strength in the arms and legs. Normal speech. PSYCHIATRIC: Appropriate mood and affect; insight and judgment normal. Medications and IVs Current Medications Medications (Trade) Dose Ordered Sig/Shanon Route Start Time Stop Time Status Last Admin (Milk Of Magnesia Liq) 30 ml DAILY PRN PO 04/26/16 20:15 (Mag-Al Plus Susp Liq) 30 ml Q6H PRN PO 04/26/16 20:15 04/29/16 14:36 (Lipitor) 40 mg HS PO 04/26/16 21:00 05/02/16 21:46 (Isordil) 10 mg BID@ PO 04/27/16 09:00 05/03/16 09:48 (Singulair) 10 mg HS PO 04/26/16 21:00 05/02/16 21:47 (Diovan) 160 mg DAILY PO 04/27/16 09:00 05/03/16 09:49 (D50w (Vial) Inj) 25 ml UNSCH PRN IV PUSH 04/26/16 20:15 (Glucagon Inj) 1 mg UNSCH PRN OTHER 04/26/16 20:15 (Ativan) 0.5 mg Q12H PRN PO 04/26/16 22:15 05/01/16 03:06 (Pill Splitter) 1 ea UNSCH PRN OTHER 04/27/16 12:15 (Symbicort 160-4.5 Inh) 1 puff BID INH 04/27/16 21:00 05/03/16 09:49 (Glucophage) 500 mg BIDPC PO 04/27/16 18:00 05/03/16 09:49 (Atarax) 10 mg Q8HR PO 04/27/16 22:00 05/03/16 06:12 (Lac-Hydrin 12% Lotion) 1 applic BID TOPICAL 04/27/16 21:00 05/03/16 09:00 (Protonix) 40 mg DAILY PO 04/30/16 09:00 05/03/16 09:48 (Motrin) 400 mg Q8H PRN PO 05/01/16 00:15 05/03/16 09:59 (Abilify) 5 mg DAILY@ PO 05/01/16 21:00 05/03/16 09:00 (Remeron) 15 mg HS PO 05/01/16 21:00 05/02/16 21:47 A/P Problem List: (1) CAD (coronary artery disease) Status: Chronic (2) Depression Status: Acute (3) Suicidal ideation Status: Acute (4) Chest pain Status: Acute (5) DM (diabetes mellitus) Status: Chronic (6) Unspecified psychosis Status: Acute (7) Major depressive disorder Status: Acute (8) Chest pain of uncertain etiology Status: Acute Plan: A/P: Psychosis Hallucinations Chest pain- atypical, likely musculoskeletal, ruled out as inpatient, cardiac enzymes were negative, EKG only showed incomplete right bundle branch block. Recheck EKG reveals no changes, recheck troponin less than 0.02. Patient had a stress test in January 2016 which was normal. Continue statin, isosorbide. Patient is allergic to aspirin. Generalized Pruritus- improving per patient. Dry skin otherwise no rash. Could be psychiatric, hydroxyzine [id number], emollients. Eosinophilia Asthma-not in exacerbation, continue albuterol, continue Singulair, Symbicort and Ventolin. Hypertension-Continue losartan, clonidine as needed Continue statin Nausea with GERD- Protonix 40 mg daily Zofran as needed for nausea Discontinued ibuprofen Vaginal itching with enlargement of white discharge likely Avelina s/p Diflucan times one Possible bacterial vaginosis Flagyl times one. Diarrhea White blood cell count reviewed 6.6. check stools for C. difficile Start questran if diarrhea continues for itch also. Suicidal ideations, or depressive disorder-further management per psychiatry. Diabetes mellitus-continue metformin. Sliding scale insulin. Problem Qualifiers (1) Major depressive disorder: Qualified Code: F33.1 - Moderate episode of recurrent major depressive disorder Edwardo Shah MD May 03, 2016 12:04
[2016-05-03 18:48] VITALS: BP 122/68; PULSE 78; RESP 15; TEMP 98.6; O2SAT 96
[2016-05-03 19:23] VITALS: BP 122/68; PULSE 78; RESP 15; TEMP 98.6; O2SAT 96
[2016-05-03] MEDS: ATORVASTATIN 40 MG TAB PO SCH (20:03)
[2016-05-03] MEDS: MIRTAZAPINE 15 MG TAB PO SCH (20:03)
[2016-05-03] MEDS: MONTELUKAST SODIUM 10 MG TAB PO SCH (20:03)
--- NOTE | 2016-05-03 20:05 | MG ---
cc: LEATHA HORVATH MD Lab No: [id number] Date: 05/03/2016 Age: 75 Sex: F Race: DATE OF : 1940 HISTORY: 75-year-old with history of syncope and mood disorder. DESCRIPTION OF RECORD: 6 to 7 Hz activity, 20-50 microvolts low-amplitude beta and theta in frontal channels. Overall good anterior-posterior gradient. Tiny sharp transients right temporal region about 30. Limited driving with photic stimulation. Tiny phase reversal at T4, epoch 33. Phase reversal T4, epoch 70. Good EEG variability reactivity. Single lead EKG showing sinus rhythm. INTERPRETATION: Minimal encephalopathy, drowsy state, nonspecific changes mild right temporal region. Clinical correlation. MD JOSY Haskins/ASHLY /7:45 PM /8:00 PM
[2016-05-04] MEDS: hydrOXYzine HCL 10 MG TAB PO SCH ×3 (05:12→21:12)
[2016-05-04] MEDS: LOW DOSE INSULIN NOVOLOG SUPPLEMENTAL SCALE SQ SCH ×4 (06:18→21:00)
[2016-05-04 06:25] VITALS: BP 131/66; PULSE 80; RESP 16; TEMP 97.6; O2SAT 97
[2016-05-04] MEDS: ARIPiprazole 5 MG TAB PO SCH ×2 (09:00→21:12)
[2016-05-04] MEDS: BUDESONIDE-FORMOTEROL 160/4.5 MCG INHALER INH SCH ×2 (09:00→21:10)
[2016-05-04] MEDS: LACTIC ACID (AMMONIUM LACTATE) 12% LOTION 225 GM BTL TOPICAL SCH ×2 (09:00→21:13)
[2016-05-04] MEDS: PANTOPRAZOLE SOD 40 MG DELAYED RELEASE TAB PO SCH (09:15)
[2016-05-04] MEDS: metFORMIN HCL 500 MG TAB PO SCH ×2 (09:15→17:45)
[2016-05-04] MEDS: VALSARTAN 160 MG TAB PO SCH (09:15)
[2016-05-04] MEDS: ISOSORBIDE DINITRATE 10 MG TAB PO SCH ×2 (09:16→17:00)
--- NOTE | 2016-05-04 12:08 | HHI.PYPN ---
Subjective Remarks Patient seen in dayroom with medical student Tuyet, chart reviewed, patient now stating the auditory hallucinations are just about gone, though she is complaining of some slight itching around her scalp. Patient compliant medications does denies suicidality. For now continue treatment Review of Systems Except as stated in HPI: all other systems reviewed are Neg Objective Alert: Yes [place]: Person, Place, Date Mood: Anxious Affect: Restricted Memory Intact: Immediate Hallucinations: Other (denies) Delusions: No (denies) Delusion Type: Other Suicidal: Ideation (denies) Homicidal: Ideation (denies) Insight/Judgement Poor Vitals/IOs Vital Signs Date Time Temp Pulse Resp B/P Pulse Ox O2 Delivery O2 Flow Rate FiO2 05/04/16 06:25 97.6 80 16 131/66 97 Intake and Output 05/03/16 05/03/16 05/04/16 08:00 16:00 00:00 Intake Total 600 ml Balance 600 ml Assessment & Plan Problem List: (1) Major depressive disorder ICD Code: F32.9 Assessment & Plan Estimated LOS: days patient continues depressed though it appears her psychosis has improved. Compliant medications. For now continue treatment Justification for Cont. Inpt. At this time patient was significantly decompensate if placed in a lower level of care Discharge Planning To be determined Problem Qualifiers (1) Major depressive disorder: Qualified Code: F33.1 - Moderate episode of recurrent major depressive disorder Jayant Reyna MD May 04, 2016 12:07
[2016-05-04] MEDS: RESP: ALBUTEROL 2.5 MG/3 ML NEB (PRN) INH (16:45)
[2016-05-04 18:00] VITALS: BP 125/74; PULSE 91; RESP 15; TEMP 98.4; O2SAT 98
[2016-05-04] MEDS: MONTELUKAST SODIUM 10 MG TAB PO SCH (21:10)
[2016-05-04] MEDS: ATORVASTATIN 40 MG TAB PO SCH (21:10)
[2016-05-04] MEDS: MIRTAZAPINE 15 MG TAB PO SCH (21:11)
[2016-05-05 05:28] VITALS: BP 130/66; PULSE 100; RESP 17; TEMP 97.9; O2SAT 97
[2016-05-05] MEDS: hydrOXYzine HCL 10 MG TAB PO SCH ×3 (05:52→20:54)
[2016-05-05] MEDS: LOW DOSE INSULIN NOVOLOG SUPPLEMENTAL SCALE SQ SCH ×4 (06:14→20:53)
[2016-05-05] MEDS: ISOSORBIDE DINITRATE 10 MG TAB PO SCH ×2 (08:49→17:00)
[2016-05-05] MEDS: LACTIC ACID (AMMONIUM LACTATE) 12% LOTION 225 GM BTL TOPICAL SCH ×2 (08:49→20:53)
[2016-05-05] MEDS: VALSARTAN 160 MG TAB PO SCH (08:49)
[2016-05-05] MEDS: metFORMIN HCL 500 MG TAB PO SCH ×2 (08:49→17:23)
[2016-05-05] MEDS: PANTOPRAZOLE SOD 40 MG DELAYED RELEASE TAB PO SCH (08:49)
[2016-05-05] MEDS: BUDESONIDE-FORMOTEROL 160/4.5 MCG INHALER INH SCH ×2 (08:50→20:53)
[2016-05-05] MEDS: ARIPiprazole 5 MG TAB PO SCH ×2 (08:50→20:59)
--- NOTE | 2016-05-05 14:33 | HHI.PYPN ---
Subjective Remarks Pt seen and discussed with staff with etcher electrolytic. Pt continues to express somatic worries and states that she knows the doctor is going to tell her that she has skin cancer or a sinus infection. Staff report that she remains confused and depressed. No aggression. No SI/HI. Objective Alert: Yes [place]: Person, Place, Date Mood: Anxious, Depressed Affect: Restricted Memory Intact: Immediate Hallucinations: Other (denies) Delusions: No (denies) Delusion Type: Other Suicidal: Ideation (denies) Homicidal: Ideation (denies) Insight/Judgement poor Vitals/IOs Vital Signs Date Time Temp Pulse Resp B/P Pulse Ox O2 Delivery O2 Flow Rate FiO2 05/05/16 05:28 97.9 100 17 130/66 97 Intake and Output 05/04/16 05/04/16 05/05/16 08:00 16:00 00:00 Intake Total 360 ml 1320 ml 360 ml Balance 360 ml 1320 ml 360 ml Assessment & Plan Problem List: (1) Major depressive disorder ICD Code: F32.9 Assessment & Plan Continue current tx plan. Estimated LOS: days Justification for Cont. Inpt. impairments in self-care Problem Qualifiers (1) Major depressive disorder: Qualified Code: F33.1 - Moderate episode of recurrent major depressive disorder Kimmie Degroot MD May 05, 2016 14:33
[2016-05-05 15:36] LABS: CRYPTOCOCCUS ANTIGEN Negative (Negative)
[2016-05-05 19:57] VITALS: BP 127/69; PULSE 97; RESP 18; TEMP 98.2
[2016-05-05] MEDS: ATORVASTATIN 40 MG TAB PO SCH (20:54)
[2016-05-05] MEDS: MIRTAZAPINE 15 MG TAB PO SCH (20:54)
[2016-05-05] MEDS: MONTELUKAST SODIUM 10 MG TAB PO SCH (20:59)
[2016-05-06 05:33] VITALS: BP 110/55; PULSE 85; RESP 17; TEMP 98.4; O2SAT 98
[2016-05-06] MEDS: hydrOXYzine HCL 10 MG TAB PO SCH ×3 (06:19→21:17)
[2016-05-06] MEDS: LOW DOSE INSULIN NOVOLOG SUPPLEMENTAL SCALE SQ SCH ×4 (06:22→21:00)
[2016-05-06] MEDS: ISOSORBIDE DINITRATE 10 MG TAB PO SCH ×2 (09:00→17:00)
[2016-05-06] MEDS: LACTIC ACID (AMMONIUM LACTATE) 12% LOTION 225 GM BTL TOPICAL SCH ×2 (09:00→21:10)
[2016-05-06] MEDS: VALSARTAN 160 MG TAB PO SCH (09:00)
[2016-05-06] MEDS: PANTOPRAZOLE SOD 40 MG DELAYED RELEASE TAB PO SCH (09:05)
[2016-05-06] MEDS: metFORMIN HCL 500 MG TAB PO SCH ×2 (09:05→17:26)
[2016-05-06] MEDS: BUDESONIDE-FORMOTEROL 160/4.5 MCG INHALER INH SCH ×2 (09:05→21:10)
[2016-05-06] MEDS: ARIPiprazole 5 MG TAB PO SCH ×2 (09:07→21:16)
--- NOTE | 2016-05-06 14:57 | HHI.PYPN ---
Subjective Remarks Pt seen and discussed with staff. She has been calm and cooperative and reports mood as "so-so". Fixation on somatic delusions has decreased and anxiety is much improved. No SI/HI Objective Alert: Yes [place]: Person, Place, Date Mood: Calm Affect: Restricted Memory Intact: Comment (fair) Hallucinations: Other (denies) Delusions: No (denies) Delusion Type: Other (none) Suicidal: Ideation (denies) Homicidal: Ideation (denies) Insight/Judgement limited Vitals/IOs Vital Signs Date Time Temp Pulse Resp B/P Pulse Ox O2 Delivery O2 Flow Rate FiO2 05/06/16 05:33 98.4 85 17 110/55 98 Intake and Output 05/05/16 05/05/16 05/06/16 08:00 16:00 00:00 Intake Total 240 ml 720 ml 900 ml Balance 240 ml 720 ml 900 ml Assessment & Plan Problem List: (1) Major depressive disorder ICD Code: F32.9 Assessment & Plan Pt improving. Continue current tx plan. Estimated LOS: days Justification for Cont. Inpt. risk of decompensation Problem Qualifiers (1) Major depressive disorder: Qualified Code: F33.1 - Moderate episode of recurrent major depressive disorder Kimmie Degroot MD May 06, 2016 14:57
[2016-05-06] MEDS: LORazepam 0.5 MG TAB age > 65 yrs PO PRN (18:16)
[2016-05-06 19:56] VITALS: BP 140/69; PULSE 86; RESP 16; TEMP 97.7; O2SAT 99
[2016-05-06] MEDS: MIRTAZAPINE 15 MG TAB PO SCH (21:10)
[2016-05-06] MEDS: MONTELUKAST SODIUM 10 MG TAB PO SCH (21:10)
[2016-05-06] MEDS: ATORVASTATIN 40 MG TAB PO SCH (21:11)
[2016-05-07 05:11] VITALS: BP 101/57; PULSE 78; RESP 18; TEMP 98.1; O2SAT 96
[2016-05-07] MEDS: LOW DOSE INSULIN NOVOLOG SUPPLEMENTAL SCALE SQ SCH ×4 (05:28→21:00)
[2016-05-07] MEDS: hydrOXYzine HCL 10 MG TAB PO SCH ×3 (05:43→21:10)
[2016-05-07] MEDS: metFORMIN HCL 500 MG TAB PO SCH ×2 (08:54→18:00)
[2016-05-07] MEDS: BUDESONIDE-FORMOTEROL 160/4.5 MCG INHALER INH SCH ×2 (08:55→21:10)
[2016-05-07] MEDS: PANTOPRAZOLE SOD 40 MG DELAYED RELEASE TAB PO SCH (08:55)
[2016-05-07] MEDS: ISOSORBIDE DINITRATE 10 MG TAB PO SCH ×2 (08:56→17:00)
[2016-05-07] MEDS: VALSARTAN 160 MG TAB PO SCH (08:56)
[2016-05-07] MEDS: ARIPiprazole 5 MG TAB PO SCH ×2 (08:57→21:00)
[2016-05-07] MEDS: LACTIC ACID (AMMONIUM LACTATE) 12% LOTION 225 GM BTL TOPICAL SCH ×2 (08:58→21:10)
--- NOTE | 2016-05-07 14:12 | HHI.PYPN ---
Subjective Remarks Patient discussed with treatment team patient's daughter and son-in-law, chart reviewed. Patient's daughter feels her mother is doing better training more energy eye contact in affect. However there is of very significant risk of decompensation with this lady of his discharge at the present time. Her daughter and son-in-law have stated that they're being evicted. They do not know where they will be sleeping tonight with her 2 children. The patient was released into this environment I feel there is a very high risk of significant decompensation. Thus patient will remain in our care for her own safety. Continue medication, consult continue to work patient's family and their living situation. Patient's daughter also stated the patient's other daughter in [facility] is not able to take her mother in Review of Systems Except as stated in HPI: all other systems reviewed are Neg Objective Alert: Yes [place]: Person, Place, Date Mood: Calm Affect: Restricted Memory Intact: Comment (fair) Hallucinations: Other (denies) Delusions: No (denies) Delusion Type: Other (none) Suicidal: Ideation (denies) Homicidal: Ideation (denies) Insight/Judgement Poor Vitals/IOs Vital Signs Date Time Temp Pulse Resp B/P Pulse Ox O2 Delivery O2 Flow Rate FiO2 05/07/16 05:11 98.1 78 18 101/57 96 Intake and Output 05/06/16 05/06/16 05/07/16 08:00 16:00 00:00 Intake Total 300 ml 460 ml 480 ml Balance 300 ml 460 ml 480 ml Assessment & Plan Problem List: (1) Major depressive disorder ICD Code: F32.9 Assessment & Plan Estimated LOS: days patient continues depressed, though improving. However placement remains quite problematic due to her family's being evicted from their home without a place to stay as of this dictation. This will place patient in too high risk for decompensation for us to discharge her to that situation Justification for Cont. Inpt. At this time patient would significantly decompensate if placed in a lower level of care Discharge Planning To be determined Problem Qualifiers (1) Major depressive disorder: Qualified Code: F33.1 - Moderate episode of recurrent major depressive disorder Jayant Reyna MD May 07, 2016 14:12
[2016-05-07 18:00] VITALS: BP 144/87; PULSE 85; RESP 17; TEMP 98.5; O2SAT 94
[2016-05-07] MEDS: MONTELUKAST SODIUM 10 MG TAB PO SCH (21:10)
[2016-05-07] MEDS: ATORVASTATIN 40 MG TAB PO SCH (21:10)
[2016-05-07] MEDS: MIRTAZAPINE 15 MG TAB PO SCH (21:10)
[2016-05-08 05:00] VITALS: BP 112/60; PULSE 75; RESP 16; TEMP 97.9; O2SAT 95
[2016-05-08] MEDS: hydrOXYzine HCL 10 MG TAB PO SCH ×3 (05:53→21:42)
[2016-05-08] MEDS: LOW DOSE INSULIN NOVOLOG SUPPLEMENTAL SCALE SQ SCH ×4 (05:53→20:30)
[2016-05-08] MEDS: ISOSORBIDE DINITRATE 10 MG TAB PO SCH ×2 (08:57→18:17)
[2016-05-08] MEDS: BUDESONIDE-FORMOTEROL 160/4.5 MCG INHALER INH SCH ×2 (08:57→21:42)
[2016-05-08] MEDS: metFORMIN HCL 500 MG TAB PO SCH ×2 (08:57→18:17)
[2016-05-08] MEDS: PANTOPRAZOLE SOD 40 MG DELAYED RELEASE TAB PO SCH (08:57)
[2016-05-08] MEDS: LACTIC ACID (AMMONIUM LACTATE) 12% LOTION 225 GM BTL TOPICAL SCH ×2 (09:00→21:43)
[2016-05-08] MEDS: ARIPiprazole 5 MG TAB PO SCH ×2 (09:00→21:42)
[2016-05-08] MEDS: VALSARTAN 160 MG TAB PO SCH (09:45)
--- NOTE | 2016-05-08 13:15 | HHI.PYPN ---
Subjective Remarks Patient seen in day room with floor staff, patient continues calm pleasant with me compliant medications. She is somewhat vague about the music in her head. If night yet received further information from patient's family related to the crisis in their living situation Review of Systems Except as stated in HPI: all other systems reviewed are Neg Objective Alert: Yes [place]: Person, Place, Date Mood: Calm Affect: Restricted Memory Intact: Comment (fair) Hallucinations: Other (denies) Delusions: No (denies) Delusion Type: Other (none) Suicidal: Ideation (denies) Homicidal: Ideation (denies) Insight/Judgement Poor Vitals/IOs Vital Signs Date Time Temp Pulse Resp B/P Pulse Ox O2 Delivery O2 Flow Rate FiO2 05/08/16 05:00 97.9 75 16 112/60 95 Intake and Output 05/07/16 05/07/16 05/08/16 08:00 16:00 00:00 Intake Total 0 ml 1680 ml Balance 0 ml 1680 ml Assessment & Plan Problem List: (1) Major depressive disorder ICD Code: F32.9 Assessment & Plan Estimated LOS: days patient continues somewhat sad, but not does denies suicidality, is quite vague about voices, compliant medications this time place remains quite problematic related to her family's living situation Justification for Cont. Inpt. At this time patient would decompensate if placed in the lower level of care Discharge Planning To be determined Problem Qualifiers (1) Major depressive disorder: Qualified Code: F33.1 - Moderate episode of recurrent major depressive disorder Jayant Reyna MD May 08, 2016 13:15
[2016-05-08] MEDS: IBUPROFEN 600 MG TAB PO PRN (16:05)
[2016-05-08 20:07] VITALS: BP 137/74; PULSE 85; RESP 16; TEMP 98.3; O2SAT 95
[2016-05-08] MEDS: MONTELUKAST SODIUM 10 MG TAB PO SCH (21:42)
[2016-05-08] MEDS: ATORVASTATIN 40 MG TAB PO SCH (21:42)
[2016-05-08] MEDS: MIRTAZAPINE 15 MG TAB PO SCH (21:42)
[2016-05-09 06:05] VITALS: BP 166/78; PULSE 77; RESP 18; TEMP 97.9; O2SAT 98
[2016-05-09] MEDS: hydrOXYzine HCL 10 MG TAB PO SCH ×3 (06:44→22:51)
[2016-05-09] MEDS: LOW DOSE INSULIN NOVOLOG SUPPLEMENTAL SCALE SQ SCH ×4 (06:45→20:43)
[2016-05-09] MEDS: BUDESONIDE-FORMOTEROL 160/4.5 MCG INHALER INH SCH ×2 (08:51→21:43)
[2016-05-09] MEDS: VALSARTAN 160 MG TAB PO SCH (08:51)
[2016-05-09] MEDS: ISOSORBIDE DINITRATE 10 MG TAB PO SCH ×2 (08:51→16:35)
[2016-05-09] MEDS: PANTOPRAZOLE SOD 40 MG DELAYED RELEASE TAB PO SCH (08:51)
[2016-05-09] MEDS: metFORMIN HCL 500 MG TAB PO SCH ×2 (08:51→16:34)
[2016-05-09] MEDS: LACTIC ACID (AMMONIUM LACTATE) 12% LOTION 225 GM BTL TOPICAL SCH ×2 (08:52→21:44)
[2016-05-09] MEDS: ARIPiprazole 5 MG TAB PO SCH ×2 (09:52→21:45)
--- NOTE | 2016-05-09 12:10 | HHI.PYPN ---
Subjective Remarks Patient seen in day room with nurse Dorcas. Viewed. An calm pleasant it is somewhat ambiguous, if the remain some vague music auditory hallucinations with her though she is not as anxious or irritable. Patient compliant medications. For now continue treatment Review of Systems Except as stated in HPI: all other systems reviewed are Neg Objective Alert: Yes [place]: Person, Place, Date Mood: Calm Affect: Restricted Memory Intact: Comment (fair) Hallucinations: Other (denies) Delusions: No (denies) Delusion Type: Other (none) Suicidal: Ideation (denies) Homicidal: Ideation (denies) Insight/Judgement Poor Vitals/IOs Vital Signs Date Time Temp Pulse Resp B/P Pulse Ox O2 Delivery O2 Flow Rate FiO2 05/09/16 06:05 97.9 77 18 166/78 98 Intake and Output 05/08/16 05/08/16 05/09/16 08:00 16:00 00:00 Intake Total 0 ml 2400 ml 960 ml Balance 0 ml 2400 ml 960 ml Assessment & Plan Problem List: (1) Major depressive disorder ICD Code: F32.9 Assessment & Plan Estimated LOS: days patient continues confused disoriented, no calm and pleasant. For now continue treatment continue to await word from family about placement problems Justification for Cont. Inpt. At this time patient will decompensate if placed in the lower level of care Discharge Planning To be determined Problem Qualifiers (1) Major depressive disorder: Qualified Code: F33.1 - Moderate episode of recurrent major depressive disorder Jayant Reyna MD May 09, 2016 12:10
[2016-05-09] MEDS: MONTELUKAST SODIUM 10 MG TAB PO SCH (21:43)
[2016-05-09] MEDS: MIRTAZAPINE 15 MG TAB PO SCH (21:43)
[2016-05-09] MEDS: ATORVASTATIN 40 MG TAB PO SCH (21:43)
[2016-05-09 22:39] VITALS: BP 136/64; PULSE 76; RESP 18; TEMP 97.1; O2SAT 98
[2016-05-09] MEDS: IBUPROFEN 600 MG TAB PO PRN (23:53)
[2016-05-10] MEDS: LOW DOSE INSULIN NOVOLOG SUPPLEMENTAL SCALE SQ SCH ×4 (06:28→21:44)
[2016-05-10] MEDS: hydrOXYzine HCL 10 MG TAB PO SCH ×3 (06:34→21:43)
[2016-05-10 06:37] VITALS: BP 126/75; PULSE 77; RESP 17; TEMP 98.6; O2SAT 97
[2016-05-10] MEDS: BUDESONIDE-FORMOTEROL 160/4.5 MCG INHALER INH SCH ×2 (08:58→20:36)
[2016-05-10] MEDS: PANTOPRAZOLE SOD 40 MG DELAYED RELEASE TAB PO SCH (08:59)
[2016-05-10] MEDS: VALSARTAN 160 MG TAB PO SCH (08:59)
[2016-05-10] MEDS: metFORMIN HCL 500 MG TAB PO SCH ×2 (08:59→18:00)
[2016-05-10] MEDS: ISOSORBIDE DINITRATE 10 MG TAB PO SCH ×2 (08:59→17:00)
[2016-05-10] MEDS: LACTIC ACID (AMMONIUM LACTATE) 12% LOTION 225 GM BTL TOPICAL SCH ×2 (09:00→21:44)
[2016-05-10] MEDS: ARIPiprazole 5 MG TAB PO SCH (09:03)
--- NOTE | 2016-05-10 10:18 | HHI.PYPN ---
Subjective Remarks Patient seen in day room with nurse Fred, chart reviewed, patient calm cooperative confused, stating that the auditory hallucinations of music continue their worst towards late evening and bedtime. She continues to denies suicidality. Will increase p.m. dose of Abilify to 10 mg Review of Systems Except as stated in HPI: all other systems reviewed are Neg Objective Alert: Yes [place]: Person, Place, Date Mood: Calm Affect: Restricted Memory Intact: Comment (fair) Hallucinations: Auditory (continue with "music" that is worse towards late evening) Delusions: No (denies) Delusion Type: Other (none) Suicidal: Ideation (denies) Homicidal: Ideation (denies) Insight/Judgement Very poor Vitals/IOs Vital Signs Date Time Temp Pulse Resp B/P Pulse Ox O2 Delivery O2 Flow Rate FiO2 05/10/16 06:37 98.6 77 17 126/75 97 Intake and Output 05/09/16 05/09/16 05/10/16 08:00 16:00 00:00 Intake Total 360 ml Balance 360 ml Assessment & Plan Problem List: (1) Major depressive disorder ICD Code: F32.9 Assessment & Plan Estimated LOS: days patient continues somewhat sad mildly confused with continued auditory hallucinations more towards late evening and bedtime. See medication adjustments above Justification for Cont. Inpt. At this time patient would significantly decompensated placed in a lower level of care Discharge Planning To be determined Problem Qualifiers (1) Major depressive disorder: Qualified Code: F33.1 - Moderate episode of recurrent major depressive disorder Jayant Reyna MD May 10, 2016 10:18
[2016-05-10 20:00] VITALS: BP 152/74; PULSE 88; RESP 18; TEMP 97.3; O2SAT 95
[2016-05-10] MEDS: ARIPiprazole 10 MG TAB PO SCH (20:36)
[2016-05-10] MEDS: MIRTAZAPINE 15 MG TAB PO SCH (20:36)
[2016-05-10] MEDS: MONTELUKAST SODIUM 10 MG TAB PO SCH (20:36)
[2016-05-10] MEDS: ATORVASTATIN 40 MG TAB PO SCH (20:37)
[2016-05-11] MEDS: LOW DOSE INSULIN NOVOLOG SUPPLEMENTAL SCALE SQ SCH ×4 (06:01→21:00)
[2016-05-11] MEDS: hydrOXYzine HCL 10 MG TAB PO SCH ×3 (06:26→21:21)
[2016-05-11 06:36] VITALS: BP 149/68; PULSE 81; RESP 18; TEMP 97.9; O2SAT 97
[2016-05-11] MEDS: LACTIC ACID (AMMONIUM LACTATE) 12% LOTION 225 GM BTL TOPICAL SCH ×2 (09:00→21:20)
[2016-05-11] MEDS: BUDESONIDE-FORMOTEROL 160/4.5 MCG INHALER INH SCH ×2 (09:11→21:21)
[2016-05-11] MEDS: VALSARTAN 160 MG TAB PO SCH (09:11)
[2016-05-11] MEDS: ISOSORBIDE DINITRATE 10 MG TAB PO SCH ×2 (09:12→17:31)
[2016-05-11] MEDS: PANTOPRAZOLE SOD 40 MG DELAYED RELEASE TAB PO SCH (09:12)
[2016-05-11] MEDS: ARIPiprazole 5 MG TAB PO SCH (09:12)
[2016-05-11] MEDS: metFORMIN HCL 500 MG TAB PO SCH ×2 (09:12→17:31)
--- NOTE | 2016-05-11 10:05 | HHI.FPPN ---
Subjective Remarks C/O FERRARA C/O GENERAL PAIN C/O SPINAL PAIN ELEV BP'S D/W RN Objective Vitals Vital Signs Date Time Temp Pulse Resp B/P Pulse Ox O2 Delivery O2 Flow Rate FiO2 05/11/16 06:36 97.9 81 18 149/68 97 05/10/16 20:00 97.3 88 18 152/74 95 I/O 05/10/16 05/10/16 05/10/16 05/11/16 05/11/16 05/11/16 07:00 15:00 23:00 07:00 15:00 23:00 Intake Total 720 ml 600 ml Output Total 1 ml Balance 720 ml 599 ml Intake Oral 720 ml 600 ml Output Stool Total 1 ml # Voids 0 1 2 2 Objective Remarks GENERAL: SKIN: Warm and dry. HEAD: Atraumatic. Normocephalic. EYES: Pupils equal and round. No scleral icterus. No injection or drainage. ENT: No nasal bleeding or discharge. Mucous membranes pink and moist. NECK: Trachea midline. No JVD. CARDIOVASCULAR: Regular rate and rhythm. RESPIRATORY: No accessory muscle use. Clear to auscultation. Breath sounds equal bilaterally. GASTROINTESTINAL: Abdomen soft, non-tender, nondistended. Hepatic and splenic margins not palpable. MUSCULOSKELETAL: Extremities without clubbing, cyanosis, or edema. No obvious deformities. Pain with palpation of all large joints, entire spinal area and with palpation of chest wall. NEUROLOGICAL: Awake and alert. No obvious cranial nerve deficits. Motor grossly within normal limits. Five out of 5 muscle strength in the arms and legs. Normal speech. PSYCHIATRIC: Appropriate mood and affect; insight and judgment normal. Medications and IVs Current Medications Medications (Trade) Dose Ordered Sig/Shanon Route Start Time Stop Time Status Last Admin (Milk Of Magnesia Liq) 30 ml DAILY PRN PO 04/26/16 20:15 (Mag-Al Plus Susp Liq) 30 ml Q6H PRN PO 04/26/16 20:15 04/29/16 14:36 (Lipitor) 40 mg HS PO 04/26/16 21:00 05/10/16 20:37 (Isordil) 10 mg BID@ PO 04/27/16 09:00 05/11/16 09:12 (Singulair) 10 mg HS PO 04/26/16 21:00 05/10/16 20:36 (Diovan) 160 mg DAILY PO 04/27/16 09:00 05/11/16 09:11 (D50w (Vial) Inj) 25 ml UNSCH PRN IV PUSH 04/26/16 20:15 (Glucagon Inj) 1 mg UNSCH PRN OTHER 04/26/16 20:15 (Ativan) 0.5 mg Q12H PRN PO 04/26/16 22:15 05/06/16 18:16 (Pill Splitter) 1 ea UNSCH PRN OTHER 04/27/16 12:15 (Symbicort 160-4.5 Inh) 1 puff BID INH 04/27/16 21:00 05/11/16 09:11 (Glucophage) 500 mg BIDPC PO 04/27/16 18:00 05/11/16 09:12 (Atarax) 10 mg Q8HR PO 04/27/16 22:00 05/11/16 06:26 (Lac-Hydrin 12% Lotion) 1 applic BID TOPICAL 04/27/16 21:00 05/11/16 09:00 (Protonix) 40 mg DAILY PO 04/30/16 09:00 05/11/16 09:12 (Remeron) 15 mg HS PO 05/01/16 21:00 05/10/16 20:36 (Motrin) 600 mg Q8H PRN PO 05/08/16 14:00 05/09/16 23:53 (Abilify) 5 mg DAILY PO 05/11/16 09:00 05/11/16 09:12 (Abilify) 10 mg HS PO 05/10/16 21:00 05/10/16 20:36 A/P Problem List: (1) CAD (coronary artery disease) Status: Chronic (2) Depression Status: Acute (3) Suicidal ideation Status: Acute (4) Chest pain Status: Acute (5) DM (diabetes mellitus) Status: Chronic (6) Unspecified psychosis Status: Acute (7) Major depressive disorder Status: Acute (8) Chest pain of uncertain etiology Status: Acute Plan: A/P: Psychosis Hallucinations Chest pain- atypical, likely musculoskeletal, ruled out as inpatient, cardiac enzymes were negative, EKG only showed incomplete right bundle branch block. Recheck EKG reveals no changes, recheck troponin less than 0.02. Patient had a stress test in January 2016 which was normal. Continue statin, isosorbide. Patient is allergic to aspirin. Generalized Pruritus- improving per patient. Dry skin otherwise no rash. Could be psychiatric, hydroxyzine [id number], emollients. Eosinophilia Asthma-not in exacerbation, continue albuterol, continue Singulair, Symbicort and Ventolin. Hypertension- BP'S OK YET MARGINAL, Continue losartan, clonidine as needed Continue statin Nausea with GERD- Protonix 40 mg daily Zofran as needed for nausea Discontinued ibuprofen Vaginal itching with enlargement of white discharge likely Avelina s/p Diflucan times one Possible bacterial vaginosis Flagyl times one. Diarrhea White blood cell count reviewed 6.6. check stools for C. difficile Start questran if diarrhea continues for itch also. Suicidal ideations, or depressive disorder-further management per psychiatry. Diabetes mellitus-continue metformin. Sliding scale insulin. Problem Qualifiers (1) Major depressive disorder: Qualified Code: F33.1 - Moderate episode of recurrent major depressive disorder Edwardo Shah MD May 11, 2016 10:05
--- NOTE | 2016-05-11 12:02 | HHI.PYPN ---
Subjective Remarks Patient seen in dayroom with floor staff, chart reviewed, patient, pleasant with me. Appears the music in her head is somewhat softer also present towards at bedtime. For now continue medication no change Review of Systems Except as stated in HPI: all other systems reviewed are Neg Objective Alert: Yes [place]: Person, Place, Date Mood: Calm Affect: Restricted Memory Intact: Comment (fair) Hallucinations: Auditory (continue with "music" that is worse towards late evening) Delusions: No (denies) Delusion Type: Other (none) Suicidal: Ideation (denies) Homicidal: Ideation (denies) Insight/Judgement Very poor Vitals/IOs Vital Signs Date Time Temp Pulse Resp B/P Pulse Ox O2 Delivery O2 Flow Rate FiO2 05/11/16 06:36 97.9 81 18 149/68 97 Intake and Output 05/10/16 05/10/16 05/11/16 08:00 16:00 00:00 Intake Total 720 ml 600 ml Output Total 1 ml Balance 720 ml 599 ml Assessment & Plan Problem List: (1) Major depressive disorder ICD Code: F32.9 Assessment & Plan Estimated LOS: days patient remains somewhat depressed, DrOlga hallucinations persists though less Justification for Cont. Inpt. At this time patient would decompensate if placed in a lower level of care Discharge Planning To be determined Problem Qualifiers (1) Major depressive disorder: Qualified Code: F33.1 - Moderate episode of recurrent major depressive disorder Jayant Reyna MD May 11, 2016 12:02
[2016-05-11 19:07] VITALS: BP 106/57; PULSE 82; RESP 18; TEMP 97.7; O2SAT 97
[2016-05-11] MEDS: MIRTAZAPINE 15 MG TAB PO SCH (21:21)
[2016-05-11] MEDS: MONTELUKAST SODIUM 10 MG TAB PO SCH (21:21)
[2016-05-11] MEDS: ATORVASTATIN 40 MG TAB PO SCH (21:21)
[2016-05-11] MEDS: ARIPiprazole 10 MG TAB PO SCH (21:21)
[2016-05-11] MEDS: IBUPROFEN 600 MG TAB PO PRN (21:30)
[2016-05-12 05:41] VITALS: BP_SYST 125; BP_DIAS 68; BP_DIAS 88; PULSE 80; RESP 15; TEMP 97.2; O2SAT 97
[2016-05-12] MEDS: LOW DOSE INSULIN NOVOLOG SUPPLEMENTAL SCALE SQ SCH ×4 (06:40→21:00)
[2016-05-12] MEDS: hydrOXYzine HCL 10 MG TAB PO SCH ×3 (06:41→21:09)
[2016-05-12] MEDS: LACTIC ACID (AMMONIUM LACTATE) 12% LOTION 225 GM BTL TOPICAL SCH ×2 (09:00→21:08)
[2016-05-12] MEDS: metFORMIN HCL 500 MG TAB PO SCH ×2 (09:06→17:52)
[2016-05-12] MEDS: PANTOPRAZOLE SOD 40 MG DELAYED RELEASE TAB PO SCH (09:06)
[2016-05-12] MEDS: BUDESONIDE-FORMOTEROL 160/4.5 MCG INHALER INH SCH ×2 (09:06→21:09)
[2016-05-12] MEDS: VALSARTAN 160 MG TAB PO SCH (09:07)
[2016-05-12] MEDS: ARIPiprazole 5 MG TAB PO SCH (09:07)
[2016-05-12] MEDS: ISOSORBIDE DINITRATE 10 MG TAB PO SCH ×2 (09:07→17:52)
--- NOTE | 2016-05-12 12:40 | HHI.PYPN ---
Subjective Remarks Patient was seen and case discussed with nursing. Patient continues to complain of somatic delusion involving itching. Says the itching is worse on her head and improves as a ghost on her body. Patient is grossly confused, does not understand who the psychiatrist is was been seeing her all week. Hard of hearing which also limits the interview. She denies suicidal ideations thought or plan. Compliant with medications. Continues to have music in her head Objective Alert: Yes [place]: Person, Place, Date Mood: Calm Affect: Restricted Memory Intact: Comment (fair) Hallucinations: Auditory (continue with "music" that is worse towards late evening) Delusions: No (denies) Delusion Type: Other (none) Suicidal: Ideation (denies) Homicidal: Ideation (denies) Insight/Judgement Poor Vitals/IOs Vital Signs Date Time Temp Pulse Resp B/P Pulse Ox O2 Delivery O2 Flow Rate FiO2 05/12/16 05:41 97.2 80 15 125/68 97 Intake and Output 05/11/16 05/11/16 05/12/16 08:00 16:00 00:00 Intake Total 240 ml 720 ml Balance 240 ml 720 ml Assessment & Plan Problem List: (1) Major depressive disorder ICD Code: F32.9 Assessment & Plan Continue current treatment plan Justification for Cont. Inpt. Patient will decompensate outside of an inpatient setting Problem Qualifiers (1) Major depressive disorder: Qualified Code: F33.1 - Moderate episode of recurrent major depressive disorder Donovan Zazueta DO May 12, 2016 12:40
--- NOTE | 2016-05-12 13:06 | HHI.PR ---
Subjective Remarks Patient seen with Dr. Hanson covering for Dr. Shah Follow-up headache, hypertension, diabetes mellitus, nausea, chest pain. Patient denies further chest pain, patient denies further headache, patient denies nausea. Patient does complain of generalized itching of scalp. Patient appears to be in no acute distress. Objective Vitals Vital Signs Date Time Temp Pulse Resp B/P Pulse Ox O2 Delivery O2 Flow Rate FiO2 05/12/16 05:41 97.2 80 15 125/68 97 05/11/16 19:07 97.7 82 18 106/57 97 I/O 05/11/16 05/11/16 05/11/16 05/12/16 05/12/16 05/12/16 07:00 15:00 23:00 07:00 15:00 23:00 Intake Total 240 ml 720 ml Balance 240 ml 720 ml Intake Oral 240 ml 720 ml # Voids 2 1 2 2 Objective Remarks Not in distress, well-nourished, looks stated age EOMI, pink conjunctiva without injection, anicteric Nose without bleeding, airway patent, oropharynx clear Supple neck, no masses or thyromegaly, trachea midline Normal rate and regular rhythm, no murmurs gallops or rubs appreciated. Clear to auscultation and symmetric bilaterally, normal respiratory effort. Normal bowel sounds, soft, non-tender, nondistended, no guarding. Extremities without clubbing, cyanosis, trace edema. No rash of generalized distribution. Skin is warm and dry. Awake and alert, move extremities equally. A/P Assessment and Plan This is a 75-year-old female with history of hypertension, diabetes, coronary artery disease, we are being consulted for multiple complaints Chest pain- resolved. atypical, likely musculoskeletal, ruled out as inpatient, cardiac enzymes were negative, EKG only showed incomplete right bundle branch block. Recheck EKG reveals no changes, recheck troponin less than 0.02. Patient had a stress test in January 2016 which was normal. Continue statin, isosorbide. Patient is allergic to aspirin. Generalized Pruritus- improving per patient. Dry skin otherwise no rash. Could be psychiatric, start hydroxyzine around- the-clock. Also start emollients. Scalp itching- no evidence of flaking, erythema, or lice Recommend selenium sulfide shampoo 1 and continue to monitor Asthma-not in exacerbation, continue albuterol, continue Singulair and Symbicort Hypertension-Continue losartan, clonidine as needed Hyperlipidemia-Continue statin Nausea-resolved Vaginal itching-resolved status post Diflucan times one and Flagyl times one Diarrhea-resolved Suicidal ideations, or depressive disorder-further management per psychiatry. Diabetes mellitus-continue metformin. Sliding scale insulin. DVT prophylaxis patient is ambulatory Plan of care discussed with patient, RN Written by Idania Gaspar, acting as scribe for Dr. Hanson on 05/12/16 at 13 :00. The documentation accurately reflects the work performed [id number] by me on at 1300 Idania Gaspar May 12, 2016 1:06 pm Wei Hanson DO May 12, 2016 2:07 pm
[2016-05-12] MEDS ORDERED: SELENIUM SULFIDE 1% SHAMPOO 207 ML BOTTLE TOPICAL ONE (14:00)
[2016-05-12 17:47] VITALS: BP 135/77; PULSE 72; RESP 18
[2016-05-12] MEDS: ALUMINUM/MAGNESIUM/SIMETH 30 ML CUP PO PRN (19:37)
[2016-05-12 20:04] VITALS: BP 135/77; PULSE 72; RESP 17; TEMP 97.2; O2SAT 96
[2016-05-12] MEDS: MONTELUKAST SODIUM 10 MG TAB PO SCH (21:09)
[2016-05-12] MEDS: MIRTAZAPINE 15 MG TAB PO SCH (21:09)
[2016-05-12] MEDS: ARIPiprazole 10 MG TAB PO SCH (21:09)
[2016-05-12] MEDS: ATORVASTATIN 40 MG TAB PO SCH (21:09)
[2016-05-13] MEDS: LORazepam 0.5 MG TAB age > 65 yrs PO PRN (03:00)
[2016-05-13] MEDS: IBUPROFEN 600 MG TAB PO PRN (03:01)
[2016-05-13] MEDS: hydrOXYzine HCL 10 MG TAB PO SCH ×3 (05:53→20:51)
[2016-05-13 06:17] VITALS: BP 123/65; PULSE 78; RESP 18; TEMP 97.1; O2SAT 97
[2016-05-13] MEDS: LOW DOSE INSULIN NOVOLOG SUPPLEMENTAL SCALE SQ SCH ×4 (06:17→20:40)
[2016-05-13] MEDS: PANTOPRAZOLE SOD 40 MG DELAYED RELEASE TAB PO SCH (08:41)
[2016-05-13] MEDS: BUDESONIDE-FORMOTEROL 160/4.5 MCG INHALER INH SCH ×2 (08:41→20:50)
[2016-05-13] MEDS: ARIPiprazole 5 MG TAB PO SCH (08:41)
[2016-05-13] MEDS: ISOSORBIDE DINITRATE 10 MG TAB PO SCH ×2 (08:41→17:29)
[2016-05-13] MEDS: VALSARTAN 160 MG TAB PO SCH (08:41)
[2016-05-13] MEDS: metFORMIN HCL 500 MG TAB PO SCH ×2 (08:41→17:29)
[2016-05-13] MEDS: LACTIC ACID (AMMONIUM LACTATE) 12% LOTION 225 GM BTL TOPICAL SCH ×2 (09:00→20:51)
--- NOTE | 2016-05-13 12:29 | HHI.PYPN ---
Subjective Remarks Patient was seen and case discussed with nursing. Patient is resting in bed says that she is too tired to get up. She is asking about discharge. Complaining of diarrhea to in the morning. Asking for Pampers during this interview. Per nursing she is been behaving well on blood sugars a been in the 90s. Says she is no longer hearing music in her head. Denies suicidal ideations intent or plan Objective Alert: Yes [place]: Person, Place, Date Mood: Calm Affect: Restricted Memory Intact: Comment (fair) Hallucinations: Auditory (continue with "music" that is worse towards late evening) Delusions: No (denies) Delusion Type: Other (none) Suicidal: Ideation (denies) Homicidal: Ideation (denies) Insight/Judgement Poor Vitals/IOs Vital Signs Date Time Temp Pulse Resp B/P Pulse Ox O2 Delivery O2 Flow Rate FiO2 05/13/16 06:17 97.1 78 18 123/65 97 Intake and Output 05/12/16 05/12/16 05/13/16 08:00 16:00 00:00 Intake Total 1440 ml Balance 1440 ml Assessment & Plan Problem List: (1) Major depressive disorder ICD Code: F32.9 Assessment & Plan Add when necessary Imodium and nursing will gets diaper for patient Justification for Cont. Inpt. Patient will decompensate outside of a less restrictive setting Problem Qualifiers (1) Major depressive disorder: Qualified Code: F33.1 - Moderate episode of recurrent major depressive disorder Donovan Zazueta DO May 13, 2016 12:29
[2016-05-13] MEDS ORDERED: LOPERAMIDE HCL 2 MG CAP PO PRN (13:15)
[2016-05-13] MEDS: ALUMINUM/MAGNESIUM/SIMETH 30 ML CUP PO PRN (17:33)
[2016-05-13 19:43] VITALS: BP 152/68; PULSE 63; RESP 18; TEMP 97.5; O2SAT 98
[2016-05-13] MEDS: MIRTAZAPINE 15 MG TAB PO SCH (20:51)
[2016-05-13] MEDS: MONTELUKAST SODIUM 10 MG TAB PO SCH (20:51)
[2016-05-13] MEDS: ATORVASTATIN 40 MG TAB PO SCH (20:51)
[2016-05-13] MEDS: ARIPiprazole 10 MG TAB PO SCH (20:51)
[2016-05-14] MEDS: RESP: ALBUTEROL 2.5 MG/3 ML NEB (PRN) INH (00:50)
[2016-05-14 05:30] VITALS: BP 121/62; PULSE 72; RESP 16; TEMP 98.6; O2SAT 94
[2016-05-14] MEDS: hydrOXYzine HCL 10 MG TAB PO SCH ×3 (06:17→22:17)
[2016-05-14] MEDS: LOW DOSE INSULIN NOVOLOG SUPPLEMENTAL SCALE SQ SCH ×4 (06:41→21:00)
[2016-05-14] MEDS: LACTIC ACID (AMMONIUM LACTATE) 12% LOTION 225 GM BTL TOPICAL SCH ×2 (09:00→21:21)
[2016-05-14] MEDS: BUDESONIDE-FORMOTEROL 160/4.5 MCG INHALER INH SCH ×2 (10:07→21:20)
[2016-05-14] MEDS: ARIPiprazole 5 MG TAB PO SCH (10:07)
[2016-05-14] MEDS: ISOSORBIDE DINITRATE 10 MG TAB PO SCH ×2 (10:07→17:00)
[2016-05-14] MEDS: VALSARTAN 160 MG TAB PO SCH (10:07)
[2016-05-14] MEDS: PANTOPRAZOLE SOD 40 MG DELAYED RELEASE TAB PO SCH (10:07)
[2016-05-14] MEDS: metFORMIN HCL 500 MG TAB PO SCH ×2 (10:07→17:36)
--- NOTE | 2016-05-14 16:50 | HHI.PYPN ---
Subjective Remarks Patient discussed with treatment team patient's daughter and son-in-law, chart review, patient seen on unit. It appears daughter and her now live in a trailer with anticipation of moving into a home he is helping to fix up with the next 1-2 days. It appears patient continues to manipulate relationship between herself and her 2 daughters. Making somatic complaints to them that she does not make with us. Patient compliant medications. For now continue treatment Review of Systems Except as stated in HPI: all other systems reviewed are Neg Objective Alert: Yes [place]: Person, Place, Date Mood: Calm Affect: Restricted Memory Intact: Comment (fair) Hallucinations: Auditory (continue with "music" that is worse towards late evening) Delusions: No (denies) Delusion Type: Other (none) Suicidal: Ideation (denies) Homicidal: Ideation (denies) Insight/Judgement Very poor Vitals/IOs Vital Signs Date Time Temp Pulse Resp B/P Pulse Ox O2 Delivery O2 Flow Rate FiO2 05/14/16 05:30 98.6 72 16 121/62 94 Intake and Output 05/13/16 05/13/16 05/14/16 08:00 16:00 00:00 Intake Total 120 ml 720 ml Balance 120 ml 720 ml Assessment & Plan Problem List: (1) Major depressive disorder ICD Code: F32.9 Assessment & Plan Estimated LOS: days patient continues somewhat depressed, though at times not appears the solid manipulative related to relationship with her family. Family states residents will be ready within 1-2 days hopefully discharge by the end of the week Justification for Cont. Inpt. At this time patient would Insight of placed in the lower level of care Discharge Planning To be determined Problem Qualifiers (1) Major depressive disorder: Qualified Code: F33.1 - Moderate episode of recurrent major depressive disorder Jayant Reyna MD May 14, 2016 16:50
[2016-05-14 19:39] VITALS: BP 111/56; PULSE 78; RESP 18; TEMP 99.3; O2SAT 96
[2016-05-14] MEDS: ARIPiprazole 10 MG TAB PO SCH (21:00)
[2016-05-14] MEDS: MONTELUKAST SODIUM 10 MG TAB PO SCH (21:00)
[2016-05-14] MEDS: MIRTAZAPINE 15 MG TAB PO SCH (21:20)
[2016-05-14] MEDS: ATORVASTATIN 40 MG TAB PO SCH (21:20)
[2016-05-15 05:30] VITALS: BP 109/62; PULSE 77; RESP 18; TEMP 98.3; O2SAT 97
[2016-05-15] MEDS: hydrOXYzine HCL 10 MG TAB PO SCH ×3 (05:48→22:00)
[2016-05-15] MEDS: LOW DOSE INSULIN NOVOLOG SUPPLEMENTAL SCALE SQ SCH ×4 (05:48→21:00)
[2016-05-15] MEDS: BUDESONIDE-FORMOTEROL 160/4.5 MCG INHALER INH SCH ×2 (09:00→21:00)
[2016-05-15] MEDS: VALSARTAN 160 MG TAB PO SCH (09:00)
[2016-05-15] MEDS: LACTIC ACID (AMMONIUM LACTATE) 12% LOTION 225 GM BTL TOPICAL SCH ×2 (09:00→21:00)
[2016-05-15] MEDS: ISOSORBIDE DINITRATE 10 MG TAB PO SCH ×2 (09:00→16:45)
[2016-05-15] MEDS: PANTOPRAZOLE SOD 40 MG DELAYED RELEASE TAB PO SCH (09:00)
[2016-05-15] MEDS: ARIPiprazole 5 MG TAB PO SCH (09:00)
[2016-05-15] MEDS: metFORMIN HCL 500 MG TAB PO SCH ×2 (09:00→17:58)
[2016-05-15] MEDS ORDERED: ONDANSETRON HCL 4 MG/2 ML VIAL IV PRN (11:45)
--- NOTE | 2016-05-15 11:45 | HHI.PYPN ---
Subjective Remarks Patient seen in her room with nurse Cassie, patient complains of some nausea did have a mild emesis this a.m. Patient I will signs stable. Will order Reglan for her at this time continue to observe. Continue to would word from patient' s daughter and son-in-law about their living situation Review of Systems Except as stated in HPI: all other systems reviewed are Neg Objective Alert: Yes [place]: Person, Place, Date Mood: Calm Affect: Restricted Memory Intact: Comment (fair) Hallucinations: Auditory (continue with "music" that is worse towards late evening) Delusions: No (denies) Delusion Type: Other (none) Suicidal: Ideation (denies) Homicidal: Ideation (denies) Insight/Judgement Very poor Vitals/IOs Vital Signs Date Time Temp Pulse Resp B/P Pulse Ox O2 Delivery O2 Flow Rate FiO2 05/15/16 05:30 98.3 77 18 109/62 97 Intake and Output 05/14/16 05/14/16 05/15/16 08:00 16:00 00:00 Intake Total 0 ml 1080 ml 720 ml Balance 0 ml 1080 ml 720 ml Assessment & Plan Problem List: (1) Major depressive disorder ICD Code: F32.9 Assessment & Plan Estimated LOS: days patient is somewhat calmer it appears the other hallucinations are diminishing, complains of some loss with episode of emesis will add Zofran to the regimen on a when necessary basis Justification for Cont. Inpt. At this time patient would decompensate if placed in a lower level of care Discharge Planning To be determined Problem Qualifiers (1) Major depressive disorder: Qualified Code: F33.1 - Moderate episode of recurrent major depressive disorder Jayant Reyna MD May 15, 2016 11:45
[2016-05-15 12:37] VITALS: BP 114/78; PULSE 74; RESP 16; TEMP 98.2; O2SAT 99
[2016-05-15] MEDS ORDERED: ONDANSETRON ODT 4 MG TAB PO PRN (12:45)
[2016-05-15] MEDS ORDERED: ONDANSETRON HCL 4 MG/2 ML VIAL IM PRN (12:45)
[2016-05-15 19:00] VITALS: BP 128/84; PULSE 75; RESP 18; TEMP 98.2; O2SAT 97
[2016-05-15] MEDS: ARIPiprazole 10 MG TAB PO SCH (21:00)
[2016-05-15] MEDS: MONTELUKAST SODIUM 10 MG TAB PO SCH (21:00)
[2016-05-15] MEDS: ATORVASTATIN 40 MG TAB PO SCH (21:00)
[2016-05-15] MEDS: LORazepam 0.5 MG TAB age > 65 yrs PO PRN (21:00)
[2016-05-15] MEDS: IBUPROFEN 600 MG TAB PO PRN (21:00)
[2016-05-15] MEDS: MIRTAZAPINE 15 MG TAB PO SCH (21:00)
[2016-05-16] MEDS: hydrOXYzine HCL 10 MG TAB PO SCH ×3 (06:00→21:06)
[2016-05-16 06:17] VITALS: BP 124/64; PULSE 65; RESP 15; TEMP 98.2; O2SAT 94
[2016-05-16] MEDS: LACTIC ACID (AMMONIUM LACTATE) 12% LOTION 225 GM BTL TOPICAL SCH ×2 (09:00→20:07)
[2016-05-16] MEDS: metFORMIN HCL 500 MG TAB PO SCH ×2 (09:00→18:18)
[2016-05-16] MEDS: PANTOPRAZOLE SOD 40 MG DELAYED RELEASE TAB PO SCH (09:00)
[2016-05-16] MEDS: BUDESONIDE-FORMOTEROL 160/4.5 MCG INHALER INH SCH ×2 (09:00→20:05)
[2016-05-16] MEDS: ARIPiprazole 5 MG TAB PO SCH (09:00)
[2016-05-16] MEDS: ISOSORBIDE DINITRATE 10 MG TAB PO SCH ×2 (10:31→17:00)
[2016-05-16] MEDS: VALSARTAN 160 MG TAB PO SCH (10:31)
[2016-05-16] MEDS: LOW DOSE INSULIN NOVOLOG SUPPLEMENTAL SCALE SQ SCH ×3 (11:00→20:07)
--- NOTE | 2016-05-16 14:24 | HHI.PYPN ---
Subjective Remarks Patient seen in day room with floor staff. Chart reviewed. Patient calm with me is somewhat vague about continuing auditory hallucinations are "music" it appears she had a good conversation with her family yesterday. There is some awaiting word from her daughter and son-in-law about the availability of placement with them Review of Systems Except as stated in HPI: all other systems reviewed are Neg Objective Alert: Yes [place]: Person, Place, Date Mood: Calm Affect: Restricted Memory Intact: Comment (fair) Hallucinations: Auditory (continue with "music" that is worse towards late evening) Delusions: No (denies) Delusion Type: Other (none) Suicidal: Ideation (denies) Homicidal: Ideation (denies) Insight/Judgement Very poor Vitals/IOs Vital Signs Date Time Temp Pulse Resp B/P Pulse Ox O2 Delivery O2 Flow Rate FiO2 05/16/16 06:17 98.2 65 15 124/64 94 Intake and Output 05/15/16 05/15/16 05/16/16 08:00 16:00 00:00 Intake Total 240 ml 240 ml 720 ml Balance 240 ml 240 ml 720 ml Assessment & Plan Problem List: (1) Major depressive disorder ICD Code: F32.9 Assessment & Plan Estimated LOS: days patient continue somewhat depressed no improvement is noted , continues vague psychotic features. Justification for Cont. Inpt. At this time the patient would significantly decompensate if placed in the lower level of care Discharge Planning To be determined Problem Qualifiers (1) Major depressive disorder: Qualified Code: F33.1 - Moderate episode of recurrent major depressive disorder Jayant Reyna MD May 16, 2016 14:24
[2016-05-16] MEDS: ALUMINUM/MAGNESIUM/SIMETH 30 ML CUP PO PRN (18:18)
[2016-05-16 19:11] VITALS: BP 94/54; PULSE 76; RESP 16; TEMP 97.8; O2SAT 97
[2016-05-16] MEDS: MIRTAZAPINE 15 MG TAB PO SCH (20:05)
[2016-05-16] MEDS: ARIPiprazole 10 MG TAB PO SCH (20:05)
[2016-05-16] MEDS: ATORVASTATIN 40 MG TAB PO SCH (20:06)
[2016-05-16] MEDS: MONTELUKAST SODIUM 10 MG TAB PO SCH (20:07)
[2016-05-17] MEDS: hydrOXYzine HCL 10 MG TAB PO SCH ×3 (06:01→20:53)
[2016-05-17] MEDS: LOW DOSE INSULIN NOVOLOG SUPPLEMENTAL SCALE SQ SCH ×4 (06:06→20:54)
[2016-05-17] MEDS: RESP: ALBUTEROL 2.5 MG/3 ML NEB (PRN) INH (06:20)
[2016-05-17 06:39] VITALS: BP 113/67; PULSE 75; RESP 18; TEMP 97.6; O2SAT 96
[2016-05-17] MEDS: metFORMIN HCL 500 MG TAB PO SCH ×2 (08:38→18:26)
[2016-05-17] MEDS: PANTOPRAZOLE SOD 40 MG DELAYED RELEASE TAB PO SCH (08:38)
[2016-05-17] MEDS: ARIPiprazole 5 MG TAB PO SCH (08:39)
[2016-05-17] MEDS: LACTIC ACID (AMMONIUM LACTATE) 12% LOTION 225 GM BTL TOPICAL SCH ×2 (08:53→20:56)
[2016-05-17] MEDS: BUDESONIDE-FORMOTEROL 160/4.5 MCG INHALER INH SCH ×2 (08:53→20:54)
[2016-05-17] MEDS: ISOSORBIDE DINITRATE 10 MG TAB PO SCH ×2 (09:00→16:26)
[2016-05-17] MEDS: VALSARTAN 160 MG TAB PO SCH (09:00)
--- NOTE | 2016-05-17 13:15 | HHI.PYPN ---
Subjective Remarks Patient seen in day room with nurse Lainey, patient calm pleasant speaking a little more broken Mal[place]ian been prior, now states the voices are gone and her head. Asked about possible discharge tomorrow will need to verify that living arrangements are appropriate with her daughter Review of Systems Except as stated in HPI: all other systems reviewed are Neg Objective Alert: Yes [place]: Person, Place, Date Mood: Calm Affect: Restricted Memory Intact: Comment (fair) Hallucinations: Auditory (continue with "music" that is worse towards late evening) Delusions: No (denies) Delusion Type: Other (none) Suicidal: Ideation (denies) Homicidal: Ideation (denies) Insight/Judgement Poor Vitals/IOs Vital Signs Date Time Temp Pulse Resp B/P Pulse Ox O2 Delivery O2 Flow Rate FiO2 05/17/16 06:39 97.6 75 18 113/67 96 Intake and Output 05/16/16 05/16/16 05/17/16 08:00 16:00 00:00 Intake Total 120 ml 480 ml Balance 120 ml 480 ml Assessment & Plan Problem List: (1) Major depressive disorder ICD Code: F32.9 Assessment & Plan Estimated LOS: days patient calmer somewhat more appropriate mood appears improved, appears to be understanding Mal[place]ian somewhat better. Need to verify with daughter that living arrangements are arranged Justification for Cont. Inpt. At this time the patient would significantly decompensated if placed in a lower level of care Discharge Planning To be determined Problem Qualifiers (1) Major depressive disorder: Qualified Code: F33.1 - Moderate episode of recurrent major depressive disorder Jayant Reyna MD May 17, 2016 13:15
[2016-05-17] MEDS: IBUPROFEN 600 MG TAB PO PRN (17:15)
[2016-05-17 19:34] VITALS: BP 111/67; PULSE 70; RESP 18; TEMP 98.2; O2SAT 98
[2016-05-17] MEDS: MIRTAZAPINE 15 MG TAB PO SCH (20:53)
[2016-05-17] MEDS: ATORVASTATIN 40 MG TAB PO SCH (20:53)
[2016-05-17] MEDS: MONTELUKAST SODIUM 10 MG TAB PO SCH (20:54)
[2016-05-17] MEDS: ARIPiprazole 10 MG TAB PO SCH (20:54)
[2016-05-18] MEDS: RESP: ALBUTEROL 2.5 MG/3 ML NEB (PRN) INH (02:17)
[2016-05-18 05:41] VITALS: BP 102/57; PULSE 90; RESP 16; TEMP 97.3; O2SAT 98
[2016-05-18] MEDS: hydrOXYzine HCL 10 MG TAB PO SCH ×3 (05:55→21:16)
[2016-05-18] MEDS: LOW DOSE INSULIN NOVOLOG SUPPLEMENTAL SCALE SQ SCH ×4 (06:36→21:00)
[2016-05-18] MEDS: metFORMIN HCL 500 MG TAB PO SCH ×2 (08:40→17:08)
[2016-05-18] MEDS: PANTOPRAZOLE SOD 40 MG DELAYED RELEASE TAB PO SCH (08:40)
[2016-05-18] MEDS: ISOSORBIDE DINITRATE 10 MG TAB PO SCH ×2 (08:40→17:08)
[2016-05-18] MEDS: VALSARTAN 160 MG TAB PO SCH (08:40)
[2016-05-18] MEDS: BUDESONIDE-FORMOTEROL 160/4.5 MCG INHALER INH SCH ×2 (08:41→20:42)
[2016-05-18] MEDS: ARIPiprazole 5 MG TAB PO SCH (08:41)
[2016-05-18] MEDS: LACTIC ACID (AMMONIUM LACTATE) 12% LOTION 225 GM BTL TOPICAL SCH ×2 (09:00→21:04)
--- NOTE | 2016-05-18 14:25 | HHI.PYPN ---
Subjective Remarks Patient seen in dayroom with Lorescottrosario, while language difficulty remain patient able to communicate fairly well denying any "music" in her head her affect shows increased brightness with good eye contact occasional small smile. Patient compliant medications. We continue to await word from patient's family about the living situation Review of Systems Except as stated in HPI: all other systems reviewed are Neg Objective Alert: Yes [place]: Person, Place, Date Mood: Calm Affect: Restricted Memory Intact: Comment (fair) Hallucinations: Auditory (continue with "music" that is worse towards late evening) Delusions: No (denies) Delusion Type: Other (none) Suicidal: Ideation (denies) Homicidal: Ideation (denies) Insight/Judgement Poor Vitals/IOs Vital Signs Date Time Temp Pulse Resp B/P Pulse Ox O2 Delivery O2 Flow Rate FiO2 05/18/16 05:41 97.3 90 16 102/57 98 Assessment & Plan Problem List: (1) Major depressive disorder ICD Code: F32.9 Assessment & Plan Estimated LOS: days it appears patient psychosis is diminishing, her mood is somewhat improving, patient compliant medications. Continue to await word about living situation from her daughter and son-in-law Justification for Cont. Inpt. At this time patient will decompensate if placed in a lower level of care Discharge Planning To be determined Problem Qualifiers (1) Major depressive disorder: Qualified Code: F33.1 - Moderate episode of recurrent major depressive disorder Jayant Reyna MD May 18, 2016 14:25
[2016-05-18 19:29] VITALS: BP 134/65; PULSE 77; RESP 16; TEMP 98.1; O2SAT 100
[2016-05-18] MEDS: ATORVASTATIN 40 MG TAB PO SCH (20:43)
[2016-05-18] MEDS: ARIPiprazole 10 MG TAB PO SCH (20:43)
[2016-05-18] MEDS: MONTELUKAST SODIUM 10 MG TAB PO SCH (20:44)
[2016-05-18] MEDS: MIRTAZAPINE 15 MG TAB PO SCH (20:44)
[2016-05-19 05:35] VITALS: BP 105/57; PULSE 81; RESP 18; TEMP 98.1; O2SAT 98
[2016-05-19] MEDS: hydrOXYzine HCL 10 MG TAB PO SCH ×3 (05:58→20:49)
[2016-05-19] MEDS: LOW DOSE INSULIN NOVOLOG SUPPLEMENTAL SCALE SQ SCH ×4 (06:04→21:00)
[2016-05-19] MEDS: ISOSORBIDE DINITRATE 10 MG TAB PO SCH ×2 (08:04→17:15)
[2016-05-19] MEDS: metFORMIN HCL 500 MG TAB PO SCH ×2 (08:04→17:15)
[2016-05-19] MEDS: VALSARTAN 160 MG TAB PO SCH (08:04)
[2016-05-19] MEDS: PANTOPRAZOLE SOD 40 MG DELAYED RELEASE TAB PO SCH (08:04)
[2016-05-19] MEDS: BUDESONIDE-FORMOTEROL 160/4.5 MCG INHALER INH SCH ×2 (08:04→20:49)
[2016-05-19] MEDS: ARIPiprazole 5 MG TAB PO SCH (08:06)
[2016-05-19] MEDS: LACTIC ACID (AMMONIUM LACTATE) 12% LOTION 225 GM BTL TOPICAL SCH ×2 (08:07→21:00)
--- NOTE | 2016-05-19 17:59 | HHI.PYPN ---
Subjective Remarks Pt seen and discussed with staffing program manager who interpreted for pt. Pt reports that mood is very good and denies AH. She is compliant with medications and denies side effects. She has been more interactive in milieu and engaging in activities. No sleep disturbance. No SI/HI. Objective Alert: Yes [place]: Person, Place, Date Mood: Calm Affect: Restricted Memory Intact: Comment (fair) Hallucinations: Other (none) Delusions: No (denies) Delusion Type: Other (none) Suicidal: Ideation (denies) Homicidal: Ideation (denies) Insight/Judgement limited Vitals/IOs Vital Signs Date Time Temp Pulse Resp B/P Pulse Ox O2 Delivery O2 Flow Rate FiO2 05/19/16 05:35 98.1 81 18 105/57 98 Assessment & Plan Problem List: (1) Major depressive disorder ICD Code: F32.9 Assessment & Plan Pt improving. Continue current tx plan. Estimated LOS: days Justification for Cont. Inpt. risk of decompensation Problem Qualifiers (1) Major depressive disorder: Qualified Code: F33.1 - Moderate episode of recurrent major depressive disorder Kimmie Degroot MD May 19, 2016 17:59
[2016-05-19 18:57] VITALS: BP 148/66; PULSE 86; RESP 18; TEMP 98; O2SAT 97
[2016-05-19] MEDS: MIRTAZAPINE 15 MG TAB PO SCH (20:49)
[2016-05-19] MEDS: ATORVASTATIN 40 MG TAB PO SCH (20:49)
[2016-05-19] MEDS: ARIPiprazole 10 MG TAB PO SCH (20:49)
[2016-05-19] MEDS: MONTELUKAST SODIUM 10 MG TAB PO SCH (20:49)
[2016-05-20] MEDS: IBUPROFEN 600 MG TAB PO PRN (00:18)
[2016-05-20] MEDS: LORazepam 0.5 MG TAB age > 65 yrs PO PRN (00:18)
[2016-05-20] MEDS: RESP: ALBUTEROL 2.5 MG/3 ML NEB (PRN) INH (02:37)
[2016-05-20 05:56] VITALS: BP 114/58; PULSE 107; RESP 20; TEMP 98.6; O2SAT 96
[2016-05-20] MEDS: hydrOXYzine HCL 10 MG TAB PO SCH ×3 (06:00→21:04)
[2016-05-20] MEDS: LOW DOSE INSULIN NOVOLOG SUPPLEMENTAL SCALE SQ SCH ×4 (06:27→20:59)
[2016-05-20] MEDS: BUDESONIDE-FORMOTEROL 160/4.5 MCG INHALER INH SCH ×2 (08:38→21:04)
[2016-05-20] MEDS: LACTIC ACID (AMMONIUM LACTATE) 12% LOTION 225 GM BTL TOPICAL SCH ×2 (08:39→21:04)
[2016-05-20] MEDS: metFORMIN HCL 500 MG TAB PO SCH ×2 (08:40→16:18)
[2016-05-20] MEDS: PANTOPRAZOLE SOD 40 MG DELAYED RELEASE TAB PO SCH (08:40)
[2016-05-20] MEDS: ARIPiprazole 5 MG TAB PO SCH (08:40)
[2016-05-20] MEDS: ISOSORBIDE DINITRATE 10 MG TAB PO SCH ×2 (08:41→16:17)
[2016-05-20] MEDS: VALSARTAN 160 MG TAB PO SCH (08:41)
[2016-05-20] MEDS ORDERED: POLYETHYLENE GLYCOL 17 GM PKG PO ONE (16:00)
--- NOTE | 2016-05-20 16:00 | HHI.PYPN ---
Subjective Remarks Pt seen and discussed with staff. Pt reports that mod is better and denies medication side effects. No SI/HI. She has been active in the milieu. She c/o of constipation, stating no BM for 8 days. Objective Alert: Yes [place]: Person, Place, Date Mood: Calm Affect: Restricted Memory Intact: Comment (fair) Hallucinations: Other (none) Delusions: No (denies) Delusion Type: Other (none) Suicidal: Ideation (denies) Homicidal: Ideation (denies) Insight/Judgement fair Vitals/IOs Vital Signs Date Time Temp Pulse Resp B/P Pulse Ox O2 Delivery O2 Flow Rate FiO2 05/20/16 05:56 98.6 107 20 114/58 96 Assessment & Plan Problem List: (1) Major depressive disorder ICD Code: F32.9 Assessment & Plan Pt improving. Continue current tx plan. Miralax x1 dose for constipation. Estimated LOS: days Justification for Cont. Inpt. risk of decompensation. Problem Qualifiers (1) Major depressive disorder: Qualified Code: F33.1 - Moderate episode of recurrent major depressive disorder Kimmie Degroot MD May 20, 2016 16:00
[2016-05-20 18:37] VITALS: BP 135/70; PULSE 91; RESP 16; TEMP 98.1; O2SAT 97
[2016-05-20 20:56] VITALS: BP 125/63; PULSE 65; RESP 18; TEMP 98.2; O2SAT 99
[2016-05-20] MEDS: ARIPiprazole 10 MG TAB PO SCH (21:04)
[2016-05-20] MEDS: ATORVASTATIN 40 MG TAB PO SCH (21:04)
[2016-05-20] MEDS: MIRTAZAPINE 15 MG TAB PO SCH (21:04)
[2016-05-20] MEDS: MONTELUKAST SODIUM 10 MG TAB PO SCH (21:04)
[2016-05-21 04:56] VITALS: BP 113/57; PULSE 79; RESP 16; TEMP 98.4; O2SAT 96
[2016-05-21] MEDS: LOW DOSE INSULIN NOVOLOG SUPPLEMENTAL SCALE SQ SCH ×2 (06:13→11:00)
[2016-05-21] MEDS: PANTOPRAZOLE SOD 40 MG DELAYED RELEASE TAB PO SCH (08:51)
[2016-05-21] MEDS: ARIPiprazole 5 MG TAB PO SCH (08:52)
[2016-05-21] MEDS: metFORMIN HCL 500 MG TAB PO SCH (08:52)
[2016-05-21] MEDS: ISOSORBIDE DINITRATE 10 MG TAB PO SCH (08:53)
[2016-05-21] MEDS: BUDESONIDE-FORMOTEROL 160/4.5 MCG INHALER INH SCH (08:53)
[2016-05-21] MEDS: LACTIC ACID (AMMONIUM LACTATE) 12% LOTION 225 GM BTL TOPICAL SCH (08:54)
[2016-05-21] MEDS: VALSARTAN 160 MG TAB PO SCH (08:55)
[2016-05-21] MEDS ORDERED: METF500 PO (12:01)
[2016-05-21] MEDS ORDERED: MIRTA15 PO (12:01)
[2016-05-21] MEDS ORDERED: LIPI40TA PO (12:01)
[2016-05-21] MEDS ORDERED: ABIL5TAB6 PO (12:01)
[2016-05-21] MEDS ORDERED: DIOV160T6 PO (12:01)
[2016-05-21] MEDS ORDERED: HYDR-755 PO (12:01)
[2016-05-21] MEDS ORDERED: SYMB160A INH (12:01)
[2016-05-21] MEDS ORDERED: PANT40TA3 PO (12:01)
[2016-05-21] MEDS ORDERED: ISOS10TA PO (12:01)
[2016-05-21] MEDS ORDERED: MONT10TA4 PO (12:01)
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
--- NOTE | 2016-05-21 12:18 | HHI.FPPN ---
Subjective Remarks PT HAPPY TO DC PACKING UP HER BELONGINGS. C/O FERRARA C/O GENERAL PAIN D/W RN Objective Vitals Vital Signs Date Time Temp Pulse Resp B/P Pulse Ox O2 Delivery O2 Flow Rate FiO2 05/21/16 04:56 98.4 79 16 113/57 96 05/20/16 20:56 98.2 65 18 125/63 99 05/20/16 18:37 98.1 91 16 135/70 97 Objective Remarks GENERAL: SKIN: Warm and dry. HEAD: Atraumatic. Normocephalic. EYES: Pupils equal and round. No scleral icterus. No injection or drainage. ENT: No nasal bleeding or discharge. Mucous membranes pink and moist. NECK: Trachea midline. No JVD. CARDIOVASCULAR: Regular rate and rhythm. RESPIRATORY: No accessory muscle use. Clear to auscultation. Breath sounds equal bilaterally. GASTROINTESTINAL: Abdomen soft, non-tender, nondistended. Hepatic and splenic margins not palpable. MUSCULOSKELETAL: Extremities without clubbing, cyanosis, or edema. No obvious deformities. Pain with palpation of all large joints, entire spinal area and with palpation of chest wall. NEUROLOGICAL: Awake and alert. No obvious cranial nerve deficits. Motor grossly within normal limits. Five out of 5 muscle strength in the arms and legs. Normal speech. PSYCHIATRIC: Appropriate mood and affect; insight and judgment normal. Medications and IVs Current Medications Medications (Trade) Dose Ordered Sig/Shanon Route Start Time Stop Time Status Last Admin (Milk Of Magnesia Liq) 30 ml DAILY PRN PO 04/26/16 20:15 (Mag-Al Plus Susp Liq) 30 ml Q6H PRN PO 04/26/16 20:15 05/16/16 18:18 (Lipitor) 40 mg HS PO 04/26/16 21:00 05/20/16 21:04 (Isordil) 10 mg BID@ PO 04/27/16 09:00 05/21/16 08:53 (Singulair) 10 mg HS PO 04/26/16 21:00 05/20/16 21:04 (Diovan) 160 mg DAILY PO 04/27/16 09:00 05/21/16 08:55 (D50w (Vial) Inj) 25 ml UNSCH PRN IV PUSH 04/26/16 20:15 (Glucagon Inj) 1 mg UNSCH PRN OTHER 04/26/16 20:15 (Ativan) 0.5 mg Q12H PRN PO 04/26/16 22:15 05/20/16 00:18 (Pill Splitter) 1 ea UNSCH PRN OTHER 04/27/16 12:15 (Symbicort 160-4.5 Inh) 1 puff BID INH 04/27/16 21:00 05/21/16 08:53 (Glucophage) 500 mg BIDPC PO 04/27/16 18:00 05/21/16 08:52 (Atarax) 10 mg Q8HR PO 04/27/16 22:00 05/21/16 00:00 (Lac-Hydrin 12% Lotion) 1 applic BID TOPICAL 04/27/16 21:00 05/21/16 08:54 (Protonix) 40 mg DAILY PO 04/30/16 09:00 05/21/16 08:51 (Remeron) 15 mg HS PO 05/01/16 21:00 05/20/16 21:04 (Motrin) 600 mg Q8H PRN PO 05/08/16 14:00 05/20/16 00:18 (Abilify) 5 mg DAILY PO 05/11/16 09:00 05/21/16 08:52 (Abilify) 10 mg HS PO 05/10/16 21:00 05/20/16 21:04 (Imodium) 2 mg UNSCH PRN PO 05/13/16 13:15 05/14/16 22:17 (Zofran Odt) 4 mg Q6H PRN PO 05/15/16 12:45 05/15/16 12:36 (Zofran Inj) 4 mg Q6H PRN IM 05/15/16 12:45 A/P Problem List: (1) CAD (coronary artery disease) Status: Chronic (2) Depression Status: Acute (3) Suicidal ideation Status: Acute (4) Chest pain Status: Acute (5) DM (diabetes mellitus) Status: Chronic (6) Unspecified psychosis Status: Acute (7) Major depressive disorder Status: Acute (8) Chest pain of uncertain etiology Status: Acute Plan: A/P: Psychosis Hallucinations Chest pain- atypical, likely musculoskeletal, ruled out as inpatient, cardiac enzymes were negative, EKG only showed incomplete right bundle branch block. Recheck EKG reveals no changes, recheck troponin less than 0.02. Patient had a stress test in January 2016 which was normal. Continue statin, isosorbide. Patient is allergic to aspirin. Generalized Pruritus- improving per patient. Dry skin otherwise no rash. Could be psychiatric, hydroxyzine [id number], emollients. Eosinophilia Asthma-not in exacerbation, continue albuterol, continue Singulair, Symbicort and Ventolin. Hypertension- BP'S OK YET MARGINAL, Continue losartan, clonidine as needed Continue statin Nausea with GERD- Protonix 40 mg daily Zofran as needed for nausea Discontinued ibuprofen Vaginal itching with enlargement of white discharge likely Avelina s/p Diflucan times one Possible bacterial vaginosis Flagyl times one. Diarrhea White blood cell count reviewed 6.6. check stools for C. difficile Start questran if diarrhea continues for itch also. Suicidal ideations, or depressive disorder-further management per psychiatry. Diabetes mellitus-continue metformin. Sliding scale insulin. DC home, see me in my office [place]. Problem Qualifiers (1) Major depressive disorder: Qualified Code: F33.1 - Moderate episode of recurrent major depressive disorder Edwardo Shah MD May 21, 2016 12:18
[2016-05-21] MEDS: hydrOXYzine HCL 10 MG TAB PO SCH ×2 (12:23)
== END 2016-05-21 15:30 | disposition home or self-care (01) | DRG 885 ==
LOC: H260 18:36 → H250 04-27 11:27 → H260 05-16 21:32
PROVIDERS: ADMIT Psychiatry & Neurology Psychiatry; ATTEND Psychiatry & Neurology Psychiatry
DX: F33.1 Major depressive disorder, recurrent, moderate (principal); D72.1 Eosinophilia; R45.851 Suicidal ideations; E11.9 Type 2 diabetes mellitus without complications; I10 Essential (primary) hypertension; B37.3 Candidiasis of vulva and vagina; E78.5 Hyperlipidemia, unspecified; H91.90 Unspecified hearing loss, unspecified ear; I25.10 Atherosclerotic heart disease of native coronary artery without angina pectoris; J45.909 Unspecified asthma, uncomplicated; N76.0 Acute vaginitis; L29.9 Pruritus, unspecified; K21.9 Gastro-esophageal reflux disease without esophagitis; R07.89 Other chest pain; M19.90 Unspecified osteoarthritis, unspecified site; R19.7 Diarrhea, unspecified; I45.10 Unspecified right bundle-branch block; K59.00 Constipation, unspecified; Z88.6 Allergy status to analgesic agent; Z95.1 Presence of aortocoronary bypass graft; Z79.84 Long term (current) use of oral hypoglycemic drugs; Z88.1 Allergy status to other antibiotic agents
CPT/HCPCS: 70470; 80048; 82607; 82948; 84439; 84443; 84484; 85025; 86403; 86592; 93005; 94640; 94664; 95819; J1815; J7613; Q9967

== ENCOUNTER 2016-08-15 16:44 | Emergency (ER) | payer MEDICARE, OTHER ==
[~2016-08-15] VITALS: Ht 147.3 cm; Wt 82.0 kg
[~2016-08-15 16:44] MED LIST changes: +ABIL5TAB6 PO; -ASPI1TAB91 PO; +DIOV160T6 PO; +HYDR-755 PO; +LIPI40TA PO; +METF500 PO; -METF500T PO; +MIRTA15 PO; +PANT40TA3 PO
[2016-08-15 16:46] VITALS: BP 130/68; PULSE 70; RESP 18; TEMP 97.9; O2SAT 99
[2016-08-15] MEDS ORDERED: IBUPROFEN 600 MG TAB PO ONE (19:15)
--- NOTE | 2016-08-15 19:39 | PD ---
HPI Chief Complaint: Pain: Acute or Chronic Time Seen by Provider: 19:03 Travel History International Travel<30 days: No Contact w/Intl Traveler<30days: No Traveled to known affect area: No History of Present Illness HPI Patient is a 76-year-old female who presents to the ER with her daughter with complaint of acute on chronic right sided hip and knee pain. Patient reports that she has history of chronic arthritis, reports that for the past week, she has had increased pain to her right hip and knee. Patient reports that she went to her doctor's office and was prescribed Lyrica, patient reports that she does not like the side effects of Lyrica as her daughter started last week, reports that she refuses to take it. Patient reports that she is scheduled for knee injection but is waiting for her doctor to get the certification for this. Patient reports that she is here for knee injection. Patient denies any new injuries/trauma to knee. Denies fever/chills. No other c/o. PFSH Past Medical History Asthma: Yes Cardiovascular Problems: Yes (OPEN HEART SURGERY) Congestive Heart Failure: Yes Dementia: Yes Diabetes: Yes Patient Takes Glucophage: Yes Diminished Hearing: No Hypertension: Yes Respiratory: Yes (ASTHMA) Past Surgical History Appendectomy: Yes Cholecystectomy: Yes Coronary Artery Bypass Graft: Yes Social History Alcohol Use: No Tobacco Use: No Substance Use: No Allergies-Medications (Allergen,Severity, Reaction): Coded Allergies: Acetaminophen (Verified Allergy, Mild, Chills, 08/15/16) Amoxicillin (Verified Allergy, Unknown, Hives, 08/15/16) Vicodin (Verified Allergy, Unknown, Sedation, 08/15/16) Reported Meds & Prescriptions Reported Meds & Active Scripts Active Pantoprazole (Pantoprazole Sodium) 40 Mg Tab 40 Mg PO DAILY Mirtazapine 15 Mg Tab 15 Mg PO HS Glucophage (Metformin HCl) 500 Mg Tab 500 Mg PO BIDPC Symbicort Inh (Budesonide/Formoterol Fumarate) 160-4.5 Mcg/Act Aero 1 Puff INH BID Abilify (Aripiprazole) 5 Mg Tab 5 Mg PO DIRECTED 1 in a.m., 2 at bedtime Hydroxyzine HCl 25 Mg Tab 25 Mg PO Q6H PRN Reported Montelukast (Montelukast Sodium) 10 Mg Tab 10 Mg PO HS Isosorbide Dinitrate 10 Mg Tab 10 Mg PO BID Valsartan 160 Mg Tab 160 Mg PO DAILY Atorvastatin (Atorvastatin Calcium) 40 Mg Tab 40 Mg PO HS Meclizine (Meclizine HCl) 25 Mg Tab 25 Mg PO TID PRN Ventolin Hfa 18 GM Inh (Albuterol Sulfate) 90 Mcg/Act Aer 1-2 Puff INH Q4H PRN Albuterol Neb (Albuterol Sulfate) 2.5 Mg/3 Ml Neb 2.5 Mg NEB Q6HR PRN Review of Systems General / Constitutional: No: Fever Eyes: No: Visual changes HENT: No: Headaches Cardiovascular: No: Chest Pain or Discomfort Respiratory: No: Shortness of Breath Gastrointestinal: No: Abdominal Pain Genitourinary: No: Dysuria Musculoskeletal: Positive: Limited ROM (right hip and knee pain), No: Pain Skin: No Rash Neurologic: No: Weakness Psychiatric: No: Depression Endocrine: No: Polydipsia Hematologic/Lymphatic: No: Easy Bruising Physical Exam Narrative GENERAL: NAD, nontoxic SKIN: Focused skin assessment warm/dry. HEAD: Atraumatic. Normocephalic. EYES: Pupils equal and round. No scleral icterus. No injection or drainage. ENT: No nasal bleeding or discharge. Mucous membranes pink and moist. NECK: Trachea midline. No JVD. CARDIOVASCULAR: Regular rate and rhythm. No murmur appreciated. RESPIRATORY: No accessory muscle use. Clear to auscultation. Breath sounds equal bilaterally. GASTROINTESTINAL: Abdomen soft, non-tender, nondistended. Hepatic and splenic margins not palpable. MUSCULOSKELETAL: No obvious deformities. No clubbing. No cyanosis. No edema. Patient with pain with ROM to right hip and right knee, patient can passively ROM right hip and right knee, no obvious open fracture NEUROLOGICAL: Awake and alert. No obvious cranial nerve deficits. Motor grossly within normal limits. Normal speech. PSYCHIATRIC: Appropriate mood and affect; insight and judgment normal. Data Data Last Documented VS Vital Signs Date Time Temp Pulse Resp B/P Pulse Ox O2 Delivery O2 Flow Rate FiO2 08/15/16 16:46 97.9 70 18 130/68 99 Orders Hip, Uni(Ap&Lat) Wo Ap Pelvis (08/15/16 ) Knee, Complete (4vws) (08/15/16 ) Ibuprofen (Motrin) (08/15/16 19:15) MDM Medical Decision Making Medical Screen Exam Complete: Yes Emergency Medical Condition: Yes Interpretation(s) Vital Signs Date Time Temp Pulse Resp B/P Pulse Ox O2 Delivery O2 Flow Rate FiO2 08/15/16 16:46 97.9 70 18 130/68 99 Differential Diagnosis arthritis to hip/knee, hip fracture, osteoarthritis Narrative Course Patient is a 76 year old female who presents to ER with c/o of chronic right hip and right knee pain. Patient denies any new trauma/falls. Reports that her primary care doctor started her on lyrica but she refuses to take the lyrica. Patient reports that she needs injections to her right knee - reports that her doctor is waiting to get "certifications" for this until she can get these injections. Patient denies any new trauma/injuries to knee. Plan to obtain xrays of hip and knee. Patient does not have any obvious trauma to or open fx. Plan to give dose of ibuprofen Diagnosis Primary Impression: Knee pain, left Qualified Code: M25.562 - Left knee pain, unspecified chronicity Additional Impressions: Osteopenia Qualified Code: M85.89 - Osteopenia of multiple sites Degenerative arthritis of knee Qualified Code: M17.12 - Primary osteoarthritis of left knee Degenerative joint disease of knee, left Qualified Code: M17.12 - Primary osteoarthritis of left knee Effusion of bursa of knee Qualified Code: M25.462 - Effusion of bursa of knee, left Patient Instructions: General Instructions Med/Other Pt SpecificInfo: Prescription(s) given Scripts Ibuprofen 600 Mg Vpm136 Mg PO Q6H PRN (Pain/Inflammation) #40 TAB Ref 0 Prov:Sherine Billings DO 08/15/16 Sherine Billings DO August 15, 2016 19:39
--- NOTE | 2016-08-15 19:54 | RADRPT ---
EXAM DATE/TIME: 08/15/2016 19:29 [facility] COMPARISON: No previous studies available for comparison. INDICATIONS : Left knee pain for one week. MEDICAL HISTORY : None. SURGICAL HISTORY : None. ENCOUNTER: Initial ACUITY: 1 week PAIN SCORE: 5/10 LOCATION: Left knee. FINDINGS: Four view examination of the left knee demonstrates no evidence of fracture or dislocation. There is diffuse moderate osteopenia. There is fullness in the suprapatella bursa region consistent with a nikolas nt effusion. Mild degenerative changes noted in the patellofemoral joint with minimal spurring and ir regularity. CONCLUSION: 1. Evidence of small joint effusion. 2. Osteopenia and mild degenerative change in patellofemoral joint. Duran Nuñez MD on August 15, 2016 at 19:51 Board Certified Radiologist. This report was verified electronically.
[2016-08-15] MEDS ORDERED: IBUP-232 PO (20:02)
--- NOTE | 2016-08-15 20:17 | RADRPT ---
EXAM DATE/TIME: 08/15/2016 19:29 [facility] COMPARISON: No previous studies available for comparison. INDICATIONS : Left hip pain for one week. No known trauma. MEDICAL HISTORY : None. SURGICAL HISTORY : None. ENCOUNTER: Initial ACUITY: 1 week PAIN SCORE: 6/10 LOCATION: Left hip. FINDINGS: A two view examination of the left hip was performed. The primary and secondary trabecular pattern o f the femoral neck is intact. The hip joint is of normal width without significant sclerosis or bony hypertrophy. The acetabulum is grossly intact. CONCLUSION: Unremarkable exam. Duran Nuñez MD on August 15, 2016 at 20:15 Board Certified Radiologist. This report was verified electronically.
[2016-08-15] MEDS ORDERED: MORPHINE SULFATE 4 MG/ML INJ IM ONE (20:45)
[2016-08-15 20:53] VITALS: BP 153/70; PULSE 79; RESP 18; O2SAT 95
== END 2016-08-15 21:04 | disposition home or self-care (01) ==
LOC: NEPD 16:44
DX: M25.562 Pain in left knee (principal); M85.89 Other specified disorders of bone density and structure, multiple sites; M17.12 Unilateral primary osteoarthritis, left knee; M25.462 Effusion, left knee
CPT/HCPCS: 73502; 73564; 96372; 99283; J2270

== ENCOUNTER 2017-03-11 11:41 | Observation (INO) | payer OTHER, MEDICAID ==
[~2017-03-11] VITALS: Ht 160 cm; Wt 85.0 kg
[2017-03-11] VITALS (9 sets, daily range): BP systolic 90–157; BP diastolic 52–78; PULSE 81–94; RESP 16–19; TEMP 97.4–98.9; O2SAT 94–99
[~2017-03-11 11:41] MED LIST changes: -DIOV160T6 PO; -HYDR-755 PO; +IBUP-232 PO; -LIPI40TA PO; -TRAM50TA PO
[2017-03-11] MEDS ORDERED: ASPI-183 PO (12:26)
[2017-03-11] MEDS ORDERED: MORPHINE SULFATE 4 MG/ML INJ IV PUSH ONE (12:30)
[2017-03-11] MEDS ORDERED: SODIUM CHLORID 0.9% 500 ML INJ 500 ML IV ONE (12:30)
[2017-03-11] MEDS ORDERED: ONDANSETRON HCL 4 MG/2 ML VIAL IV PUSH ONE (12:30)
[2017-03-11] MEDS ORDERED: SODIUM CHLORIDE 0.9% FLUSH 10 ML FLUSH IVF PRN (12:30)
--- NOTE | 2017-03-11 12:42 | PD ---
HPI Chief Complaint: Chest Pain Time Seen by Provider: 12:11 Travel History International Travel<30 days: No Contact w/Intl Traveler<30days: No Traveled to known affect area: No History of Present Illness HPI Patient is a 76-year-old Armenian-speaking female presenting to the emergency department for evaluation of abdominal and chest pain. Patient states it started this morning, stratus was utilized to interpret. Patient states the pain is epigastric, radiating up to the midsternal area. Pain does not radiate , she states is 10 out of 10. There are no alleviating or exacerbating factors. Patient reports shortness of breath, nausea but no vomiting. She states the pain is all over her abdomen. She denies any fever, chills, change in bowel habits, headache. Patient was given nitroglycerin sublingually by EMS en route to the hospital, this did not affect her pain scale. Patient has a history of hypertension and diabetes. PFSH Past Medical History Asthma: Yes Congestive Heart Failure: Yes Dementia: Yes Diabetes: Yes Patient Takes Glucophage: Yes Diminished Hearing: No Heparin Induced Thrombocytopen: No Hypertension: Yes Past Surgical History Appendectomy: Yes Cholecystectomy: Yes Coronary Artery Bypass Graft: Yes Social History Alcohol Use: No Tobacco Use: No Substance Use: No Allergies-Medications (Allergen,Severity, Reaction): Coded Allergies: acetaminophen (Unverified Allergy, Mild, Chills, 03/11/17) amoxicillin (Unverified Allergy, Unknown, Hives, 03/11/17) hydrocodone (Unverified Allergy, Unknown, Sedation, 03/11/17) Reported Meds & Prescriptions Reported Meds & Active Scripts Active Ibuprofen 600 Mg Tab 600 Mg PO Q6H PRN Pantoprazole (Pantoprazole Sodium) 40 Mg Tab 40 Mg PO DAILY Mirtazapine 15 Mg Tab 15 Mg PO HS Glucophage (Metformin HCl) 500 Mg Tab 500 Mg PO BIDPC Symbicort Inh (Budesonide/Formoterol Fumarate) 160-4.5 Mcg/Act Aero 1 Puff INH BID Hydroxyzine HCl 25 Mg Tab 25 Mg PO Q6H PRN Reported Aspirin 325 Mg Tab 325 Mg PO ONCE Montelukast (Montelukast Sodium) 10 Mg Tab 10 Mg PO HS Isosorbide Dinitrate 10 Mg Tab 10 Mg PO BID Valsartan 160 Mg Tab 160 Mg PO DAILY Atorvastatin (Atorvastatin Calcium) 40 Mg Tab 40 Mg PO HS Meclizine (Meclizine HCl) 25 Mg Tab 25 Mg PO TID PRN Ventolin Hfa 18 GM Inh (Albuterol Sulfate) 90 Mcg/Act Aer 1-2 Puff INH Q4H PRN Albuterol Neb (Albuterol Sulfate) 2.5 Mg/3 Ml Neb 2.5 Mg NEB Q6HR PRN Review of Systems Except as stated in HPI: all other systems reviewed are Neg General / Constitutional: No: Fever, Chills HENT: No: Headaches Cardiovascular: Positive: Chest Pain or Discomfort, No: Dyspnea on exertion Respiratory: Positive: Shortness of Breath Gastrointestinal: Positive: Nausea, Abdominal Pain, Indigestion, No: Vomiting, Changes in Bowel Habits Genitourinary: No: Dysuria Musculoskeletal: No: Myalgias Neurologic: No: Weakness, Dizziness, Focal Abnormalities, Change in Mentation Physical Exam Narrative GENERAL: Overweight, well-developed, alert elderly female. Resting in no acute distress. SKIN: Warm and dry. HEAD: Atraumatic. Normocephalic. EYES: Pupils equal and round. No scleral icterus. No injection or drainage. ENT: No nasal bleeding or discharge. Mucous membranes pink and moist. NECK: Trachea midline. No JVD. CARDIOVASCULAR: Regular rate and rhythm. RESPIRATORY: No accessory muscle use. Clear to auscultation. Breath sounds equal bilaterally. GASTROINTESTINAL: Abdomen soft, tender to palpation diffusely, more so in the epigastric and left upper quadrant, nondistended. Hepatic and splenic margins not palpable. Positive bowel sounds, positive guarding, no rebound. MUSCULOSKELETAL: Extremities without clubbing, cyanosis, or edema. No obvious deformities. NEUROLOGICAL: Awake and alert. No obvious cranial nerve deficits. Motor grossly within normal limits. Five out of 5 muscle strength in the arms and legs. Normal speech. PSYCHIATRIC: Appropriate mood and affect; insight and judgment normal. Data Data Last Documented VS Vital Signs Date Time Temp Pulse Resp B/P (MAP) Pulse Ox O2 Delivery O2 Flow Rate FiO2 03/11/17 15:03 86 18 134/66 (88) 95 Room Air 03/11/17 12:28 2.00 03/11/17 11:58 97.4 Orders Orders Electrocardiogram (03/11/17 12:23) Ckmb (Isoenzyme) Profile (03/11/17 12:23) Complete Blood Count With Diff (03/11/17 12:23) Comprehensive Metabolic Panel (03/11/17 12:23) Magnesium (Mg) (03/11/17 12:23) Prothrombin Time / Inr (Pt) (03/11/17 12:23) Act Partial Throm Time (Ptt) (03/11/17 12:23) Troponin I (03/11/17 12:23) Lipase (03/11/17 12:23) Chest, Single Ap (03/11/17 12:23) Ecg Monitoring (03/11/17 12:23) Bilateral Bp Monitoring (03/11/17 12:23) Iv Access Insert/Monitor (03/11/17 12:23) Oximetry (03/11/17 12:23) Oxygen Administration (03/11/17 12:23) Morphine Inj (Morphine Inj) (03/11/17 12:30) Sodium Chloride 0.9% Flush (Ns Flush) (03/11/17 12:30) Sodium Chlorid 0.9% 500 Ml Inj (Ns 500 M (03/11/17 12:30) Ondansetron Inj (Zofran Inj) (03/11/17 12:30) Ct Abd/Pel W Iv Contrast(Rout) (03/11/17 ) Urinalysis - C+S If Indicated (03/11/17 12:23) CKMB (03/11/17 12:30) CKMB% (03/11/17 12:30) Famotidine Inj (Pepcid Inj) (03/11/17 14:15) Iohexol 350 Inj (Omnipaque 350 Inj) (03/11/17 14:10) Admit Order (Ed Use Only) (03/11/17 15:23) Pantoprazole Inj (Protonix Inj) (03/11/17 15:30) Labs Laboratory Tests Test 03/11/17 12:30 03/11/17 13:30 03/11/17 14:49 White Blood Count 6.5 TH/MM3 Red Blood Count 3.97 MIL/MM3 Hemoglobin 10.8 GM/DL Hematocrit 33.2 % Mean Corpuscular Volume 83.8 FL Mean Corpuscular Hemoglobin 27.2 PG Mean Corpuscular Hemoglobin Concent 32.5 % Red Cell Distribution Width 14.4 % Platelet Count 116 TH/MM3 Mean Platelet Volume 9.4 FL Neutrophils (%) (Auto) 68.5 % Lymphocytes (%) (Auto) 18.7 % Monocytes (%) (Auto) 9.1 % Eosinophils (%) (Auto) 3.0 % Basophils (%) (Auto) 0.7 % Neutrophils # (Auto) 4.5 TH/MM3 Lymphocytes # (Auto) 1.2 TH/MM3 Monocytes # (Auto) 0.6 TH/MM3 Eosinophils # (Auto) 0.2 TH/MM3 Basophils # (Auto) 0.0 TH/MM3 CBC Comment AUTO DIFF Differential Comment AUTO DIFF CONFIRMED Blood Urea Nitrogen 14 MG/DL Creatinine 0.92 MG/DL Random Glucose 101 MG/DL Total Protein 7.2 GM/DL Albumin 3.4 GM/DL Calcium Level 8.4 MG/DL Magnesium Level 1.5 MG/DL Alkaline Phosphatase 66 U/L Aspartate Amino Transf (AST/SGOT) 19 U/L Alanine Aminotransferase (ALT/SGPT) 22 U/L Total Bilirubin 0.4 MG/DL Sodium Level 137 MEQ/L Potassium Level 4.0 MEQ/L Chloride Level 103 MEQ/L Carbon Dioxide Level 26.1 MEQ/L Anion Gap 8 MEQ/L Estimat Glomerular Filtration Rate 60 ML/MIN Total Creatine Kinase 149 U/L Creatine Kinase MB 2.5 NG/ML Troponin I LESS THAN 0.02 NG/ML Lipase 176 U/L Prothrombin Time 11.4 SEC Prothromb Time International Ratio 1.0 RATIO Activated Partial Thromboplast Time 24.1 SEC Urine Color LIGHT-YELLOW Urine Turbidity CLEAR Urine pH 6.0 Urine Specific [place] 1.023 Urine Protein NEG mg/dL Urine Glucose (UA) NEG mg/dL Urine Ketones NEG mg/dL Urine Occult Blood NEG Urine Nitrite NEG Urine Bilirubin NEG Urine Urobilinogen LESS THAN 2.0 MG/DL Urine Leukocyte Esterase SMALL Urine RBC 1 /hpf Urine WBC 2 /hpf Urine Squamous Epithelial Cells <1 /hpf Urine Bacteria RARE /hpf Microscopic Urinalysis Comment CULT NOT INDICATED MDM Medical Decision Making Medical Screen Exam Complete: Yes Emergency Medical Condition: Yes Medical Record Reviewed: Yes Interpretation(s) Laboratory Tests Test 03/11/17 12:30 03/11/17 13:30 03/11/17 14:49 White Blood Count 6.5 TH/MM3 Red Blood Count 3.97 MIL/MM3 Hemoglobin 10.8 GM/DL Hematocrit 33.2 % Mean Corpuscular Volume 83.8 FL Mean Corpuscular Hemoglobin 27.2 PG Mean Corpuscular Hemoglobin Concent 32.5 % Red Cell Distribution Width 14.4 % Platelet Count 116 TH/MM3 Mean Platelet Volume 9.4 FL Neutrophils (%) (Auto) 68.5 % Lymphocytes (%) (Auto) 18.7 % Monocytes (%) (Auto) 9.1 % Eosinophils (%) (Auto) 3.0 % Basophils (%) (Auto) 0.7 % Neutrophils # (Auto) 4.5 TH/MM3 Lymphocytes # (Auto) 1.2 TH/MM3 Monocytes # (Auto) 0.6 TH/MM3 Eosinophils # (Auto) 0.2 TH/MM3 Basophils # (Auto) 0.0 TH/MM3 CBC Comment AUTO DIFF Differential Comment AUTO DIFF CONFIRMED Blood Urea Nitrogen 14 MG/DL Creatinine 0.92 MG/DL Random Glucose 101 MG/DL Total Protein 7.2 GM/DL Albumin 3.4 GM/DL Calcium Level 8.4 MG/DL Magnesium Level 1.5 MG/DL Alkaline Phosphatase 66 U/L Aspartate Amino Transf (AST/SGOT) 19 U/L Alanine Aminotransferase (ALT/SGPT) 22 U/L Total Bilirubin 0.4 MG/DL Sodium Level 137 MEQ/L Potassium Level 4.0 MEQ/L Chloride Level 103 MEQ/L Carbon Dioxide Level 26.1 MEQ/L Anion Gap 8 MEQ/L Estimat Glomerular Filtration Rate 60 ML/MIN Total Creatine Kinase 149 U/L Creatine Kinase MB 2.5 NG/ML Troponin I LESS THAN 0.02 NG/ML Lipase 176 U/L Prothrombin Time 11.4 SEC Prothromb Time International Ratio 1.0 RATIO Activated Partial Thromboplast Time 24.1 SEC Urine Color LIGHT-YELLOW Urine Turbidity CLEAR Urine pH 6.0 Urine Specific [place] 1.023 Urine Protein NEG mg/dL Urine Glucose (UA) NEG mg/dL Urine Ketones NEG mg/dL Urine Occult Blood NEG Urine Nitrite NEG Urine Bilirubin NEG Urine Urobilinogen LESS THAN 2.0 MG/DL Urine Leukocyte Esterase SMALL Urine RBC 1 /hpf Urine WBC 2 /hpf Urine Squamous Epithelial Cells <1 /hpf Urine Bacteria RARE /hpf Microscopic Urinalysis Comment CULT NOT INDICATED Vital Signs Date Time Temp Pulse Resp B/P (MAP) Pulse Ox O2 Delivery O2 Flow Rate FiO2 03/11/17 12:28 99 Nasal Cannula 2.00 03/11/17 12:28 18 99 Nasal Cannula 2.00 03/11/17 11:58 97.4 81 16 157/78 (104) 99 Nasal Cannula 2.00 Differential Diagnosis ACS versus nstemi versus metabolic abnormality versus gastritis versus pancreatitis versus obstruction versus other Narrative Course Patient presented for evaluation of chest and abdominal pain that started this morning. Patient's vital signs are stable, pain was unaffected by nitroglycerin. Labs and imaging ordered and pending. Medication ordered for pain and nausea. IV access established, patient placed on drill hand and continuous pulse oximetry. Initial EKG shows sinus rhythm with occasional PVCs. Incomplete right bundle branch block. Ventricular rate is 81. CBC with no acute findings Chemistry with no acute findings Cardiac enzymes are negative 1 set Lipase 176 Coags and urine are unremarkable Chest x-ray which was read by the radiologist sternal wires and bypass. Complete cardiomegaly with tortuous uncoiled aorta. There is no failure or pneumothorax. CT of the abdomen and pelvis which was also read by the radiologist shows no acute abnormality, there is a moderate sized hiatal hernia. Patient was given Protonix and famotidine. She continues to complain of chest pain but states it has improved. Due to patient's age and comorbidity she will be placed in the chest pain center for further evaluation and observation. Admit orders placed. Diagnosis Primary Impression: Chest pain of uncertain etiology Admitting Information Admitting Physician Requests: Observation Condition: Stable Karen Mohan Mar 11, 2017 12:42
[2017-03-11 12:48] LABS: AUTOMATED NEUTROPHIL # 4.5 TH/MM3 (1.8-7.7); BASOPHIL % 0.7 % (0.0-2.0); EOSINOPHIL # 0.2 TH/MM3 (0-0.4); HEMATOCRIT 33.2 % (35.0-46.0); LYMPH % 18.7 % (9.0-44.0); LYMPHOCYTE # 1.2 TH/MM3 (1.0-4.8); MEAN CELL VOLUME 83.8 FL (80.0-100.0); MEAN CORPUSCULAR HEMOGLOBIN 27.2 PG (27.0-34.0); MEAN CORPUSCULAR HGB CONC 32.5 % (32.0-36.0); MONO % 9.1 % (0.0-8.0); NEUT % 68.5 % (16.0-70.0); RED BLOOD COUNT 3.97 MIL/MM3 (4.00-5.30); RED CELL DISTRIBUTION WIDTH 14.4 % (11.6-17.2); WHITE BLOOD COUNT 6.5 TH/MM3 (4.0-11.0)
[2017-03-11 12:52] LABS: HEMO FLAGS AUTO DIFF
--- NOTE | 2017-03-11 13:21 | RADRPT ---
EXAM DATE/TIME: 03/11/2017 12:57 [facility] COMPARISON: CHEST SINGLE AP, April 25, 2016, 15:23. INDICATIONS : Chest pains x 2 days, radiating into left arm. MEDICAL HISTORY : Myocardial infarction. SURGICAL HISTORY : CABG. ENCOUNTER: Initial ACUITY: 2 days PAIN SCORE: 6/10 LOCATION: Left chest FINDINGS: Sternal wires and bypass are noted. Complete cardiomegaly with tortuous uncoiled aorta. There is no failure or pneumothorax. CONCLUSION: Complete cardiomegaly, history of previous bypass. Hussein Quintero MD FACR on March 11, 2017 at 13:16 Board Certified Radiologist. This report was verified electronically.
[2017-03-11 13:23] LABS: ALKALINE PHOSPHATASE 66 U/L (45-117); ALT (GPT) 22 U/L (10-53); ANION GAP 8 MEQ/L (5-15); AST (GOT) 19 U/L (15-37); BICARBONATE 26.1 MEQ/L (21.0-32.0); BLOOD UREA NITROGEN 14 MG/DL (7-18); CHLORIDE 103 MEQ/L (98-107); CREATINE KINASE 149 U/L (26-192); GLOMERULAR FILTRATION RATE 60 ML/MIN (>89); MAGNESIUM 1.5 MG/DL (1.5-2.5); SODIUM (NA) 137 MEQ/L (136-145); TOTAL BILIRUBIN ADULT 0.4 MG/DL (0.2-1.0)
[2017-03-11 13:35] LABS: CKMB 2.5 NG/ML (0.5-3.6)
[2017-03-11 13:59] LABS: APTT (PATIENT) 24.1 SEC (24.3-30.1); PROTHROMBIN TIME - PATIENT 11.4 SEC (9.8-11.6)
[2017-03-11] MEDS ORDERED: IOHEXOL 350 MG/ML 50 ML BTL (for RAD DIAG) IVCONTRAST ONE (14:10)
[2017-03-11 14:12] LABS: PLATELET COUNT 116 TH/MM3 (150-450); SCAN/DIFF AUTO DIFF CONFIRMED
[2017-03-11] MEDS ORDERED: FAMOTIDINE 20 MG/2 ML VIAL IV PUSH SCH (14:15)
--- NOTE | 2017-03-11 14:29 | RADRPT ---
EXAM DATE/TIME: 03/11/2017 13:43 [facility] COMPARISON: No previous studies available for comparison. INDICATIONS : Epigastric pain today. IV CONTRAST: 80 cc Omnipaque 350 (iohexol) IV ORAL CONTRAST: No oral contrast ingested. RADIATION DOSE: 10.16 CTDIvol (mGy) MEDICAL HISTORY : Dementia. Cardiovascular disease Hypertension.diabetes SURGICAL HISTORY : None. ENCOUNTER: Initial ACUITY: 1 day PAIN SCALE: 7/10 LOCATION: epigastric abdomen TECHNIQUE: Volumetric scanning of the abdomen and pelvis was performed. Using automated exposure control and ad justment of the mA and/or kV according to patient size, radiation dose was kept as low as reasonably achievable to obtain optimal diagnostic quality images. DICOM format image data is available electro nically for review and comparison. FINDINGS: LOWER LUNGS: The heart is at the upper limits of normal in terms of size. Moderate sized hiatal hernia. LIVER: Homogeneous density without lesion. There is no dilation of the biliary tree. The gallbladder is eit her totally decompressed or surgically absent. SPLEEN: Normal size without lesion. PANCREAS: Within normal limits. KIDNEYS: Normal in size and shape. There is no mass, stone or hydronephrosis. Bilateral cortical cysts. The l argest is on the left measuring 6.2 cm in diameter with Hounsfield units of 9. ADRENAL GLANDS: Within normal limits. VASCULAR: There is no aortic aneurysm. BOWEL/MESENTERY: The stomach, small bowel, and colon demonstrate no acute abnormality. There is no free intraperitone al air or fluid. ABDOMINAL WALL: Within normal limits. RETROPERITONEUM: There is no lymphadenopathy. BLADDER: No wall thickening or mass. REPRODUCTIVE: Within normal limits. INGUINAL: There is no lymphadenopathy or hernia. MUSCULOSKELETAL: Degenerative changes of the lumbar spine. CONCLUSION: 1. No acute abnormality to explain the patient's pain. 2. Moderate sized hiatal hernia. John Key Jr., MD on March 11, 2017 at 14:21 Board Certified Radiologist. This report was verified electronically.
[2017-03-11 15:11] LABS: BACTERIA, URINE RARE /hpf; BLOOD, URINE NEG (NEG); COMMENT (UR) CULT NOT INDICATED; CULTURE IF INDICATED CULT NOT INDICATED; GLUCOSE,URINE NEG (NEG); KETONE, URINE NEG (NEG); NITRITE,URINE NEG (NEG); SQUAMOUS EPITHELIAL CELL URINE <1 /hpf (0-5); URINE COLOR LIGHT-YELLOW (YELLW/STRAW)
[2017-03-11] MEDS ORDERED: PANTOPRAZOLE SODIUM 40 MG VIAL IV PUSH ONE (15:30)
[2017-03-11] MEDS ORDERED: NITROGLYCERIN 0.4 MG SL 25 TABS/BTL SL PRN (16:00)
[2017-03-11] MEDS ORDERED: ONDANSETRON HCL 4 MG/2 ML VIAL IV PUSH PRN (16:00)
--- NOTE | 2017-03-11 17:01 | HHI.HP ---
HPI Primary Care Physician [facility] Primary Care Physician Chief Complaint Generalized full body pain History of Present Illness 76-year-old female with history of CAD, hypertension, diabetes, asthma, major depressive disorder presents to emergency room for further evaluation of generalized body aches. Onset one month ago. Characterized as "my whole body hurts" pointing to bilateral knees, bilateral arms, generalized abdominal area, generalized chest, right hip, bilateral shoulder, neck and head. Estonian speaking an use of RN sign language interpreter utilized. Daughter at bedside reporting patient also diagnoses with suspected dementia recently. Patient is a poor historian. In regards to chest pain, described as whole chest tightness, no radiation of pain, no associated symptoms of nausea, vomiting, or dyspnea. No known precipitating or relieving factors. Endorses taking Motrin 800 mg every 6 -8 hours past month. Daughter reports mother becoming more angry, demanding to manage her own medications. Daughter suspects mother not taking medications correctly, however will not allow her to help with medication disbursement. Review of Systems General: No fatigue,weakness, fever, chills, recent illness. Endorses full body aches x1 at least on month, taking high dose Motrin frequently. HEENT: No FERRARA CV: As stated above. No current CP, tightness, or pressure. RESP: No SOB, cough, sputum production, recent URI. History of asthma, reportedly stable on current inhaler regimen. GI: No nausea, vomiting, or bowel changes. No unintentional weight gain or weight loss. : No dysuria, urgency, or frequency EXT: No lower leg edema, no paraesthesias MS: As stated above, full body and joint aches x1 month, No recent injury, trauma, or ROM. Requires wheeled walker for ambulation. NEURO: No LOC, motor/sensory deficits PSYCH: History of depression, denies suicidal ideation. SKIN: No rashes, no concerning lesions Past Family Social History Allergies: Coded Allergies: acetaminophen (Unverified Allergy, Mild, Chills, 03/11/17) amoxicillin (Unverified Allergy, Unknown, Hives, 03/11/17) hydrocodone (Unverified Allergy, Unknown, Sedation, 03/11/17) Past Medical History Diabetes type 2, CAD, asthma, major depressive disorder, hypertension Past Surgical History CABG (2004), appendectomy, cholecystomy, bilateral cataracts Reported Medications Reported Meds & Active Scripts Active Ibuprofen 600 Mg Tab 600 Mg PO Q6H PRN Pantoprazole (Pantoprazole Sodium) 40 Mg Tab 40 Mg PO DAILY Mirtazapine 15 Mg Tab 15 Mg PO HS Glucophage (Metformin HCl) 500 Mg Tab 500 Mg PO BIDPC Symbicort Inh (Budesonide/Formoterol Fumarate) 160-4.5 Mcg/Act Aero 1 Puff INH BID Hydroxyzine HCl 25 Mg Tab 25 Mg PO Q6H PRN Aspirin 325 Mg Tab 325 Mg PO ONCE Montelukast (Montelukast Sodium) 10 Mg Tab 10 Mg PO HS Isosorbide Dinitrate 10 Mg Tab 10 Mg PO BID Valsartan 160 Mg Tab 160 Mg PO DAILY Atorvastatin (Atorvastatin Calcium) 40 Mg Tab 40 Mg PO HS Meclizine (Meclizine HCl) 25 Mg Tab 25 Mg PO TID PRN Ventolin Hfa 18 GM Inh (Albuterol Sulfate) 90 Mcg/Act Aer 1-2 Puff INH Q4H PRN Albuterol Neb (Albuterol Sulfate) 2.5 Mg/3 Ml Neb 2.5 Mg NEB Q6HR PRN Active Ordered Medications Current Medications Medications (Trade) Dose Ordered Sig/Shanon Route Start Time Stop Time Status Last Admin (NS Flush) 2 ml UNSCH PRN IVF 03/11/17 12:30 (Pepcid Inj) 20 mg ONCE IV PUSH 03/11/17 14:15 03/11/17 14:59 (NS Flush) 2 ml BID IV FLUSH 03/11/17 21:00 (Zofran Inj) 4 mg Q6H PRN IV PUSH 03/11/17 16:00 (Nitrostat Sl) 0.4 mg Q5M PRN SL 03/11/17 16:00 (Aspirin) 325 mg DAILY PO 03/12/17 09:00 Social History Lives with daughter, son in law, and their 2 children family. Lifelong nonsmoker. No alcohol or illegal drug use. Ambulates with a wheeled walker. Past Cardiac Testing 02/06/2016 Lexiscan-Normal exam, EF >70%. Physical Exam Vital Signs Vital Signs Date Time Temp Pulse Resp B/P (MAP) Pulse Ox O2 Delivery O2 Flow Rate FiO2 03/11/17 16:28 95 21 03/11/17 16:25 88 119/60 (79) 03/11/17 15:03 86 18 134/66 (88) 95 Room Air 03/11/17 12:28 99 Nasal Cannula 2.00 03/11/17 12:28 18 99 Nasal Cannula 2.00 03/11/17 11:58 97.4 81 16 157/78 (104) 99 Nasal Cannula 2.00 Physical Exam GENERAL: Alert WN, WD, NAD, , obese, elderly female HEAD: NC, AT EYES: Sclera clear, conjunctiva without injection, pupils equal and round ENT: Mucous membranes pink and moist NECK: Supple, no masses, trachea midline CV: RRR, 2/6 systolic murmur, no rub, gallop, or JVD. Chest wall tender with palpation. RESP: Clear lungs throughout bilateral, no crackles, wheeze, rhonchi, symmetrical chest rise, nonlabored, able to speak in full sentences ABD: Soft, NT, ND, no masses, positive bowel tones, obese, tender in all quads with light palpation. EXT: Pulses +24, no dependent edema MS: Tender bilateral shoulders with palpation. Normal tone 4 extremities, no obvious deformities, full range of motion NEURO: CN II through CN XII grossly intact, motor strength 5/5 PSYCH: A+O 3, pleasant affect, Estonian speaking. Mood appears appropriate. SKIN: Normal turgor, normal texture, no lesions, no rashes, brisk cap refill, even hair distribution Laboratory Laboratory Tests Test 03/11/17 12:30 03/11/17 13:30 03/11/17 14:49 03/11/17 16:18 White Blood Count 6.5 Red Blood Count 3.97 Hemoglobin 10.8 Hematocrit 33.2 Mean Corpuscular Volume 83.8 Mean Corpuscular Hemoglobin 27.2 Mean Corpuscular Hemoglobin Concent 32.5 Red Cell Distribution Width 14.4 Platelet Count 116 Mean Platelet Volume 9.4 Neutrophils (%) (Auto) 68.5 Lymphocytes (%) (Auto) 18.7 Monocytes (%) (Auto) 9.1 Eosinophils (%) (Auto) 3.0 Basophils (%) (Auto) 0.7 Neutrophils # (Auto) 4.5 Lymphocytes # (Auto) 1.2 Monocytes # (Auto) 0.6 Eosinophils # (Auto) 0.2 Basophils # (Auto) 0.0 CBC Comment AUTO DIFF Differential Comment AUTO DIFF CONFIRMED Blood Urea Nitrogen 14 Creatinine 0.92 Random Glucose 101 Total Protein 7.2 Albumin 3.4 Calcium Level 8.4 Magnesium Level 1.5 Alkaline Phosphatase 66 Aspartate Amino Transf (AST/SGOT) 19 Alanine Aminotransferase (ALT/SGPT) 22 Total Bilirubin 0.4 Sodium Level 137 Potassium Level 4.0 Chloride Level 103 Carbon Dioxide Level 26.1 Anion Gap 8 Estimat Glomerular Filtration Rate 60 Total Creatine Kinase 149 Creatine Kinase MB 2.5 Troponin I LESS THAN 0.02 Lipase 176 Prothrombin Time 11.4 Prothromb Time International Ratio 1.0 Activated Partial Thromboplast Time 24.1 Urine Color LIGHT-YELLOW Urine Turbidity CLEAR Urine pH 6.0 Urine Specific [place] 1.023 Urine Protein NEG Urine Glucose (UA) NEG Urine Ketones NEG Urine Occult Blood NEG Urine Nitrite NEG Urine Bilirubin NEG Urine Urobilinogen LESS THAN 2.0 Urine Leukocyte Esterase SMALL Urine RBC 1 Urine WBC 2 Urine Squamous Epithelial Cells <1 Urine Bacteria RARE Microscopic Urinalysis Comment CULT NOT INDICATED Result Diagram: 03/11/17 1230 03/11/17 1230 Imaging Chest xray read by radiologist as Complete cardiomegaly, history of previous bypass. Course EKG Normal sinus rhythm, nonspecific T-wave changes Caprini VTE Risk Assessment Caprini VTE Risk Assessment: Mod/High Risk (score >= 2) Caprini Risk Assessment Model Point Value = 1 Point Value = 2 Point Value = 3 Point Value = 5 Age 41-60 Minor surgery BMI > 25 kg/m2 Swollen legs Varicose veins or History of unexplained or recurrent spontaneous Oral contraceptives or hormone replacement Sepsis (< 1 month) Serious lung disease, including pneumonia (< 1 month) Abnormal pulmonary function Acute myocardial infarction Congestive heart failure (< 1 month) History of inflammatory bowel disease Medical patient at bed rest Age 61-74 Arthroscopic surgery Major open surgery (> 45 min) Laparoscopic surgery (> 45 min) Malignancy Confined to bed (> 72 hours) Immobilizing plaster cast Central venous access Age >= 75 History of VTE Family history of VTE Factor V Leiden Prothrombin [id number] Lupus anticoagulant Anticardiolipin antibodies Elevated serum homocysteine Heparin-induced thrombocytopenia Other congenital or acquired thrombophilia Stroke (< 1 month) Elective arthroplasty Hip, pelvis, or leg fracture Acute spinal cord injury (< 1 month) Prophylaxis Regimen Total Risk Factor Score Risk Level Prophylaxis Regimen 0-1 Low Early ambulation 2 Moderate Order ONE of the following: *Sequential Compression Device (SCD) *Heparin 5000 units SQ BID 3-4 Higher Order ONE of the following medications: *Heparin 5000 units SQ TID *Enoxaparin/Lovenox 40 mg SQ daily (WT < 150 kg, CrCl > 30 mL/min) *Enoxaparin/Lovenox 30 mg SQ daily (WT < 150 kg, CrCl > 10-29 mL/min) *Enoxaparin/Lovenox 30 mg SQ BID (WT < 150 kg, CrCl > 30 mL/min) AND/OR *Sequential Compression Device (SCD) 5 or more Highest Order ONE of the following medications: *Heparin 5000 units SQ TID (Preferred with Epidurals) *Enoxaparin/Lovenox 40 mg SQ daily (WT < 150 kg, CrCl > 30 mL/min) *Enoxaparin/Lovenox 30 mg SQ daily (WT < 150 kg, CrCl > 10-29 mL/min) *Enoxaparin/Lovenox 30 mg SQ BID (WT < 150 kg, CrCl > 30 mL/min) AND *Sequential Compression Device (SCD) Assessment and Plan Assessment and Plan #1 Chest pain-admitted chest pain center. Rule out 3 sets of EKGs, cardiac enzymes, monitor overnight. Will be seen and evaluated by Dr. Kathy De La Cruz in a.m. Discussed possible stress testing in a.m., this will be determined after evaluation by underground roof bolter. Discussed with patient and daughter diffuse generalized discomfort may be a sign of somatic symptoms, however outpatient testing with sed rate and RF not unreasonable. #2 History of CAD-continue Imdur, atorvastatin, aspirin #3 Anemia-stable with comparison of past laboratory values, follow up with PCP for possible Iron studies #4 Diabetes type [id number] insulin low-dose coverage, hold metformin #5 Hypertension-continue to monitor, continue valsartan #6 Asthma-albuterol every 2 hours when necessary as needed wheezing or shortness of breath Marlena Milligan Mar 11, 2017 17:01
[2017-03-11 17:23] LABS: CREATINE KINASE 135 U/L (26-192)
[2017-03-11 17:35] LABS: CKMB 2.3 NG/ML (0.5-3.6)
[2017-03-11] MEDS ORDERED: GLUCAGON 1 MG/ML VIAL OTHER PRN (17:45)
[2017-03-11] MEDS ORDERED: RESP: ALBUTEROL 2.5 MG/3 ML NEB (PRN) NEB (17:45)
[2017-03-11] MEDS ORDERED: DEXTROSE 50% IN WATER 50 ML VIAL(D50) IV PUSH PRN (17:45)
[2017-03-11] MEDS: VALSARTAN 160 MG TAB PO SCH (18:24)
[2017-03-11] MEDS: PANTOPRAZOLE SOD 40 MG DELAYED RELEASE TAB PO SCH (18:24)
[2017-03-11] MEDS: INSULIN ASPART SUPPLEMENTAL SCALE SQ SCH (20:15)
[2017-03-11 20:42] LABS: CREATINE KINASE 94 U/L (26-192)
[2017-03-11] MEDS ORDERED: ATORVASTATIN 40 MG TAB PO SCH (21:00)
[2017-03-11] MEDS: BUDESONIDE-FORMOTEROL 160/4.5 MCG INHALER INH SCH (21:00)
[2017-03-11] MEDS ORDERED: MIRTAZAPINE 15 MG TAB PO SCH (21:00)
[2017-03-11] MEDS ORDERED: MONTELUKAST SODIUM 10 MG TAB PO SCH (21:00)
[2017-03-11] MEDS: ISOSORBIDE DINITRATE 10 MG TAB PO SCH (21:01)
[2017-03-11] MEDS: SODIUM CHLORIDE 0.9% FLUSH 10 ML FLUSH IV FLUSH SCH (21:01)
[2017-03-12] VITALS (7 sets, daily range): BP systolic 107–118; BP diastolic 54–58; PULSE 88–93; RESP 18–22; TEMP 96.1–98.2; O2SAT 92–100
[2017-03-12] MEDS: INSULIN ASPART SUPPLEMENTAL SCALE SQ SCH ×3 (08:00→14:23)
[2017-03-12] MEDS ORDERED: RESP: ALBUTEROL 2.5 MG/IPRATROPIUM 0.5 MG NEB (PRN) INH (08:45)
[2017-03-12] MEDS ORDERED: RESP: ALBUTEROL 2.5 MG/IPRATROPIUM 0.5 MG NEB (SCH) INH ONE (08:45)
[2017-03-12] MEDS ORDERED: ASPIRIN 325 MG TAB PO SCH (09:00)
[2017-03-12] MEDS: BUDESONIDE-FORMOTEROL 160/4.5 MCG INHALER INH SCH (09:18)
[2017-03-12] MEDS: ISOSORBIDE DINITRATE 10 MG TAB PO SCH (09:18)
[2017-03-12] MEDS: SODIUM CHLORIDE 0.9% FLUSH 10 ML FLUSH IV FLUSH SCH (09:18)
[2017-03-12] MEDS: VALSARTAN 160 MG TAB PO SCH (09:19)
[2017-03-12] MEDS: PANTOPRAZOLE SOD 40 MG DELAYED RELEASE TAB PO SCH (09:19)
[2017-03-12] MEDS ORDERED: REGADENOSON INJ 0.4 MG/5 ML SYR ONE (12:03)
[2017-03-12] MEDS ORDERED: AMINOPHYLLINE INJ 500 MG/20 ML VIAL ONE (12:40)
--- NOTE | 2017-03-12 13:54 | RADRPT ---
EXAM DATE/TIME: 03/12/2017 11:31 [facility] COMPARISON: MYOCARDIAL PERF PHARM SPECT, GATED W/EF, February 06, 2016, 9:09. INDICATIONS : Chest pain for 1 day. Angina. Myocardial infarction. DOSE: 25.9 mCi Tc99m Myoview at stress. 8.5 mCi Tc99m Myoview at rest. 0.4 mg Lexiscan STRESS SYMPTOMS: Chest and stomach pain. MEDICATIONS: 1.) 100 mg Aminophylline IV EJECTION FRACTION: 49% MEDICAL HISTORY : Cardiovascular disease. Congestive heart failure. Diabetes mellitus type 2. SURGICAL HISTORY : CABG Cholecystectomy. ENCOUNTER: Initial ACUITY: 1 day PAIN SCALE: 2/10 LOCATION: Bilateral chest TECHNIQUE: The patient underwent pharmacologic stress with infusion of prescribed dose. Continuous ECG tracing was monitored during stress. Gated SPECT imaging was performed after stress and conventional SPECT i maging was performed at rest. The examination was performed on a SPECT/CT scanner, both attenuation and non-corrected datasets were reviewed. FINDINGS: DISTRIBUTION: The maximum perfused segment at stress is in the anterolateral wall. PERFUSION STUDY: The pattern of perfusion at stress shows fixed diminished perfusion to the apex. GATED STUDY: Septal hypokinesis with a slightly reduced ejection fraction 49% CONCLUSION: 1. Fixed diminished perfusion in the apex characteristic of apical thinning or old apical infarct. 2. No reversibility to suggest ischemia. 3. Septal hypokinesis with a slightly reduced ejection fraction of 49% RISK CATEGORY: Intermediate (1-3% Annual Mortality Rate) Rene Moon MD on March 12, 2017 at 13:50 Board Certified Radiologist. This report was verified electronically.
--- NOTE | 2017-03-12 14:15 | HHI.DCPOC ---
Discharge Care Plan Diagnosis: (1) Chest pain (2) CAD (coronary artery disease) (3) Hx of CABG (4) Hypertension (5) Hyperlipidemia (6) DM (diabetes mellitus) Goals to Promote Your Health * To prevent worsening of your condition and complications * To maintain your health at the optimal level Directions to Meet Your Goals Take your medications as prescribed Follow your dietary instruction Follow activity as directed Keep your appointments as scheduled Take your immunizations and boosters as scheduled If your symptoms worsen call your PCP, if no PCP go to Urgent Care Center or Emergency Room Smoking is Dangerous to Your Health. Avoid second hand smoke Call the 24-hour hour crisis hotline for domestic abuse at Cory Christiansen Mar 12, 2017 14:15
--- NOTE | 2017-03-12 14:41 | EKG ---
Date Performed: 03/11/2017 Time Performed: 16:21:44 PTAGE: 76 years EKG: Sinus rhythm LOW QRS VOLTAGE IN PRECORDIAL LEADS PATTERN CONSISTENT WITH PULMONARY DISEASE INCOMPLETE RIGHT BUNDL E BRANCH BLOCK LEFT ANTERIOR FASCICULAR BLOCK ST DEVIATION AND MODERATE T-WAVE ABNORMALITY, CONSIDER ANTERIOR ISCHEMIA ABNORMAL ECG Since PREVIOUS TRACING , no significant change noted PREVIOUS TRACIN03/11/2017 12.12 DOCTOR: Kathy De L aCruz Interpretating Date/Time 03/12/2017 14:39:23
--- NOTE | 2017-03-12 14:42 | EKG ---
Date Performed: 03/11/2017 Time Performed: 19:30:46 PTAGE: 76 years EKG: Sinus rhythm WITH SINUS ARRHYTHMIA MARKED LEFT AXIS DEVIATION INCOMPLETE RIGHT BUNDLE BRANCH BLOCK ST DEVIATION A ND MODERATE T-WAVE ABNORMALITY, CONSIDER ANTERIOR ISCHEMIA ABNORMAL ECG Since PREVIOUS TRACING , no significant change noted PREVIOUS TRACIN03/11/2017 16.21 DOCTOR: Kathy De La Cruz Interpretating Date/Time 03/12/2017 14:40:01
--- NOTE | 2017-03-12 14:47 | TR ---
Date Performed: 03/12/2017 Time Performed: 12:24:41 DOCTOR: Kathy De La Cruz DRUG LIST: CLINICAL HISTORY: ANGINA REASON FOR TEST: REASON FOR ENDING: OBSERVATION: CONCLUSION: Lexiscan stress test was performed under standard four minute protocol. Radionuclid e was injected one minute prior to ending the test. No electrocardiographic abormalities were present to suggest ischemia. Nuclear imaging and interpretation are pending. COMMENTS:
--- NOTE | 2017-03-12 15:27 | EKG ---
Date Performed: 03/11/2017 Time Performed: 12:12:14 PTAGE: 76 years EKG: Sinus rhythm WITH OCCASIONAL VENTRICULAR PREMATURE COMPLEXES MARKED LEFT AXIS DEVIATION LOW QRS VOLTAGE IN PRECOR DIAL LEADS PATTERN CONSISTENT WITH PULMONARY DISEASE INCOMPLETE RIGHT BUNDLE BRANCH BLOCK MINIMAL ST DEPRESSION ABNORMAL ECG PREVIOUS TRACING : 04/27/2016 19.25 Compared to prior tracing no significant change DOCTOR: Kathy De La Cruz Interpretating Date/Time 03/12/2017 15:26:26
== END 2017-03-12 16:34 | disposition home or self-care (01) ==
LOC: NEPE 11:41 → NEDA 15:25 → NEPGCP 17:13
PROVIDERS: ADMIT Internal Medicine Cardiovascular Disease; ATTEND Internal Medicine Cardiovascular Disease
DX: R07.9 Chest pain, unspecified (principal); I25.10 Atherosclerotic heart disease of native coronary artery without angina pectoris; R10.13 Epigastric pain; R11.0 Nausea; E11.9 Type 2 diabetes mellitus without complications; I11.0 Hypertensive heart disease with heart failure; I50.9 Heart failure, unspecified; R06.02 Shortness of breath; J45.909 Unspecified asthma, uncomplicated; E78.5 Hyperlipidemia, unspecified; Z95.1 Presence of aortocoronary bypass graft
CPT/HCPCS: 71010; 74177; 78452; 80053; 81001; 82550; 82552; 82948; 83690; 83735; 84484; 85025; 85610; 85730; 93005; 93017; 94664; 96361; 96372; 96374; 96375; 99285; A9502; C9113; G0378; J0280; J1815; J2270; J2405; J2785; J7040; Q9967

== ENCOUNTER 2017-05-17 15:19 | Emergency (ER) | payer OTHER, MEDICAID ==
[~2017-05-17] VITALS: Ht 157.5 cm; Wt 70.0 kg
[~2017-05-17 15:19] MED LIST changes: -ABIL5TAB6 PO; +ASPI-183 PO
[2017-05-17 15:27] VITALS: BP 135/64; PULSE 77; RESP 15; TEMP 97.6; O2SAT 95
[2017-05-17] MEDS ORDERED: SODIUM CHLOR 0.9% 1000 ML INJ 1,000 ML IV SCH (15:57)
[2017-05-17] MEDS ORDERED: ONDANSETRON HCL 4 MG/2 ML VIAL IVP ONE (16:00)
[2017-05-17] MEDS ORDERED: MORPHINE SULFATE 4 MG/ML INJ IV PUSH ONE (16:00)
--- NOTE | 2017-05-17 16:08 | PD ---
HPI Chief Complaint: ABD PAIN Time Seen by Provider: 15:57 Travel History International Travel<30 days: No Contact w/Intl Traveler<30days: No Traveled to known affect area: No History of Present Illness HPI Ms. Davenport is a 76-year-old female who states that she has allergies to Vicodin because made her really sleepy amoxicillin which caused a rash and Aminophyllin which caused her heart rate to go really fast. Patient was at her primary care office when she developed sudden abdominal pain had a epigastric region bulging ,where she has an incisional hernia which is known and chronic for her, she rated the pain 10 out of 10, associated with nausea but not vomiting and stated that her last BM was this morning she had 2 watery stools. Patient's previous surgical history includes cholecystectomy and a two-vessel CABG. Patient also has a history of diabetes hypertension and hypercholesterolemia as well. Per patient no alleviating or aggravating factors. PFSH Past Medical History Asthma: Yes Heart Rhythm Problems: Yes Cardiac Catheterization: Yes Cardiovascular Problems: Yes High Cholesterol: Yes Congestive Heart Failure: Yes Dementia: Yes Diabetes: Yes Patient Takes Glucophage: Yes Diminished Hearing: No Headaches: Yes Heparin Induced Thrombocytopen: No Hypertension: Yes Tetanus Vaccination: Unknown Influenza Vaccination: Yes ?: Not Past Surgical History Appendectomy: Yes Cholecystectomy: Yes Coronary Artery Bypass Graft: Yes Social History Alcohol Use: No Tobacco Use: No Substance Use: No Allergies-Medications (Allergen,Severity, Reaction): Coded Allergies: acetaminophen (Unverified Allergy, Mild, Chills, 05/17/17) amoxicillin (Unverified Allergy, Unknown, Hives, 05/17/17) hydrocodone (Unverified Allergy, Unknown, Sedation, 05/17/17) Reported Meds & Prescriptions Reported Meds & Active Scripts Active Pantoprazole (Pantoprazole Sodium) 40 Mg Tab 40 Mg PO DAILY Glucophage (Metformin HCl) 500 Mg Tab 500 Mg PO BIDPC Symbicort Inh (Budesonide/Formoterol Fumarate) 160-4.5 Mcg/Act Aero 1 Puff INH BID Reported Aspirin 325 Mg Tab 325 Mg PO ONCE Montelukast (Montelukast Sodium) 10 Mg Tab 10 Mg PO HS Valsartan 160 Mg Tab 160 Mg PO DAILY Meclizine (Meclizine HCl) 25 Mg Tab 25 Mg PO TID PRN Ventolin Hfa 18 GM Inh (Albuterol Sulfate) 90 Mcg/Act Aer 1-2 Puff INH Q4H PRN Albuterol Neb (Albuterol Sulfate) 2.5 Mg/3 Ml Neb 2.5 Mg NEB Q6HR PRN Review of Systems General / Constitutional: No: Fever Eyes: No: Visual changes HENT: No: Headaches Cardiovascular: No: Chest Pain or Discomfort Respiratory: No: Shortness of Breath Gastrointestinal: Positive: Nausea, Abdominal Pain Genitourinary: No: Dysuria Musculoskeletal: No: Pain Skin: No Rash Neurologic: No: Weakness Psychiatric: No: Depression Endocrine: No: Polydipsia Hematologic/Lymphatic: No: Easy Bruising Physical Exam Narrative GENERAL: SKIN: Warm and dry. HEAD: Atraumatic. Normocephalic. EYES: Pupils equal and round. No scleral icterus. No injection or drainage. ENT: No nasal bleeding or discharge. Mucous membranes pink and moist. NECK: Trachea midline. No JVD. CARDIOVASCULAR: Regular rate and rhythm. RESPIRATORY: No accessory muscle use. Clear to auscultation. Breath sounds equal bilaterally. GASTROINTESTINAL: Abdomen soft, non-tender, nondistended. MUSCULOSKELETAL: Extremities without clubbing, cyanosis, or edema. No obvious deformities. NEUROLOGICAL: Awake and alert. No obvious cranial nerve deficits. Motor grossly within normal limits. Five out of 5 muscle strength in the arms and legs. Normal speech. PSYCHIATRIC: Appropriate mood and affect; insight and judgment normal. Data Data Last Documented VS Vital Signs Date Time Temp Pulse Resp B/P (MAP) Pulse Ox O2 Delivery O2 Flow Rate FiO2 05/17/17 17:14 88 17 136/60 (85) 100 Nasal Cannula 2.00 05/17/17 15:27 97.6 Orders Orders Complete Blood Count With Diff (05/17/17 15:57) Comprehensive Metabolic Panel (05/17/17 15:57) Lipase (05/17/17 15:57) Prothrombin Time / Inr (Pt) (05/17/17 15:57) Act Partial Throm Time (Ptt) (05/17/17 15:57) Urinalysis - C+S If Indicated (05/17/17 15:57) Ct Abd/Pel W Iv Contrast(Rout) (05/17/17 15:57) Iv Access Insert/Monitor (05/17/17 15:57) Ecg Monitoring (05/17/17 15:57) Oximetry (05/17/17 15:57) NPO (05/17/17 15:57) Morphine Inj (Morphine Inj) (05/17/17 16:00) Ondansetron Inj (Zofran Inj) (05/17/17 16:00) Sodium Chlor 0.9% 1000 Ml Inj (Ns 1000 M (05/17/17 15:57) Electrocardiogram (05/17/17 15:57) Troponin I (05/17/17 15:57) Iohexol 350 Inj (Omnipaque 350 Inj) (05/17/17 18:05) Labs Laboratory Tests Test 05/17/17 16:00 05/17/17 17:10 Prothrombin Time 10.7 SEC Prothromb Time International Ratio 1.1 RATIO Activated Partial Thromboplast Time 25.2 SEC Blood Urea Nitrogen 16 MG/DL Creatinine 0.84 MG/DL Random Glucose 79 MG/DL Total Protein 6.4 GM/DL Albumin 3.1 GM/DL Calcium Level 6.9 MG/DL Alkaline Phosphatase 55 U/L Aspartate Amino Transf (AST/SGOT) 15 U/L Alanine Aminotransferase (ALT/SGPT) 17 U/L Total Bilirubin 0.3 MG/DL Sodium Level 138 MEQ/L Potassium Level 3.9 MEQ/L Chloride Level 104 MEQ/L Carbon Dioxide Level 26.1 MEQ/L Anion Gap 8 MEQ/L Estimat Glomerular Filtration Rate 66 ML/MIN Protein Corrected Calcium 7.3 MG/DL Troponin I LESS THAN 0.02 NG/ML Lipase 193 U/L White Blood Count 7.6 TH/MM3 Red Blood Count 3.57 MIL/MM3 Hemoglobin 9.9 GM/DL Hematocrit 29.7 % Mean Corpuscular Volume 83.4 FL Mean Corpuscular Hemoglobin 27.7 PG Mean Corpuscular Hemoglobin Concent 33.2 % Red Cell Distribution Width 14.5 % Platelet Count 74 TH/MM3 Mean Platelet Volume 10.4 FL Neutrophils (%) (Auto) 72.8 % Lymphocytes (%) (Auto) 17.0 % Monocytes (%) (Auto) 8.3 % Eosinophils (%) (Auto) 1.4 % Basophils (%) (Auto) 0.5 % Neutrophils # (Auto) 5.5 TH/MM3 Lymphocytes # (Auto) 1.3 TH/MM3 Monocytes # (Auto) 0.6 TH/MM3 Eosinophils # (Auto) 0.1 TH/MM3 Basophils # (Auto) 0.0 TH/MM3 CBC Comment AUTO DIFF MDM Medical Decision Making Medical Screen Exam Complete: Yes Emergency Medical Condition: Yes Medical Record Reviewed: Yes Differential Diagnosis SBO V ILEUS V COLITIS V INCISIONAL HERNIA V INCARCERATED HERNIA Narrative Course CT shows evidence of moderate hiatal hernia, as well as incisional hernia which does not contain any intestines only fat. Patient's electrolytes did show a low calcium.... patient's coag profile within normal limits Diagnosis Primary Impression: ABDOMINAL PAIN Additional Impression: Nonincarcerated reducible incisional hernia Patient Instructions: General Instructions, Hiatal Hernia (DC), Incisional Hernia (GEN) Scripts Ondansetron Odt (Zofran Odt) 4 Mg Tab 4 MG SL Q6HR Y for Nausea/Vomiting, #20 TAB 0 Refills Prov: Shayan Palmer MD 05/17/17 Tramadol (Ultram) 50 Mg Tab 50 MG PO Q6H Y for PAIN, #14 TAB 0 Refills Prov: Shayan Palmer MD 05/17/17 Disposition: 01 DISCHARGE HOME Condition: Stable Shayan Palmer MD May 17, 2017 16:08
[2017-05-17 16:09] VITALS: O2SAT 100
[2017-05-17 16:24] LABS: AUTOMATED NEUTROPHIL # 5.5 TH/MM3 (1.8-7.7); BASOPHIL % 0.5 % (0.0-2.0); EOSINOPHIL # 0.1 TH/MM3 (0-0.4); EOSINOPHIL % 1.4 % (0.0-4.0); HEMATOCRIT 29.7 % (35.0-46.0); HEMOGLOBIN 9.9 GM/DL (11.6-15.3); LYMPHOCYTE # 1.3 TH/MM3 (1.0-4.8); MEAN CELL VOLUME 83.4 FL (80.0-100.0); MEAN CORPUSCULAR HEMOGLOBIN 27.7 PG (27.0-34.0); MEAN CORPUSCULAR HGB CONC 33.2 % (32.0-36.0); MEAN PLATELET VOLUME 10.4 FL (7.0-11.0); MONO % 8.3 % (0.0-8.0); MONOCYTE # 0.6 TH/MM3 (0-0.9); NEUT % 72.8 % (16.0-70.0); RED BLOOD COUNT 3.57 MIL/MM3 (4.00-5.30); RED CELL DISTRIBUTION WIDTH 14.5 % (11.6-17.2); WHITE BLOOD COUNT 7.6 TH/MM3 (4.0-11.0)
[2017-05-17 16:38] LABS: INTERNATIONAL NORMALIZED RATIO 1.1 RATIO; PROTHROMBIN TIME - PATIENT 10.7 SEC (9.8-11.6)
[2017-05-17 17:01] LABS: ALBUMIN 3.1 GM/DL (3.4-5.0); ALKALINE PHOSPHATASE 55 U/L (45-117); ALT (GPT) 17 U/L (10-53); AST (GOT) 15 U/L (15-37); BICARBONATE 26.1 MEQ/L (21.0-32.0); BLOOD UREA NITROGEN 16 MG/DL (7-18); CALCIUM 6.9 MG/DL (8.5-10.1); CHLORIDE 104 MEQ/L (98-107); CREATININE 0.84 MG/DL (0.50-1.00); GLOMERULAR FILTRATION RATE 66 ML/MIN (>89); GLUCOSE,RANDOM 79 MG/DL (74-106); SODIUM (NA) 138 MEQ/L (136-145); TOTAL BILIRUBIN ADULT 0.3 MG/DL (0.2-1.0); TOTAL PROTEIN 6.4 GM/DL (6.4-8.2); TROPONIN I LESS THAN 0.02 NG/ML (0.02-0.05)
[2017-05-17 17:09] LABS: CALCIUM-PROTEIN CORRECTED 7.3 MG/DL (8.5-10.1)
[2017-05-17 17:14] VITALS: BP 136/60; PULSE 88; RESP 17; O2SAT 100
[2017-05-17] MEDS ORDERED: IOHEXOL 350 MG/ML 10 ML VIAL (for RAD DIAG) IVCONTRAST ONE (18:05)
--- NOTE | 2017-05-17 18:15 | RADRPT ---
EXAM DATE/TIME: 05/17/2017 17:52 [facility] COMPARISON: CT ABDOMEN & PELVIS W CONTRAST, March 11, 2017, 13:43. INDICATIONS : Sudden onset epigastric pain. IV CONTRAST: 80 cc Omnipaque 350 (iohexol) IV ORAL CONTRAST: No oral contrast ingested. RADIATION DOSE: 14.65 CTDIvol (mGy) MEDICAL HISTORY : Cardiovascular disease. Hypertension. Diabetes SURGICAL HISTORY : CABG Cholecystectomy. ENCOUNTER: Initial ACUITY: 1 day PAIN SCALE: 6/10 LOCATION: epigastric TECHNIQUE: Volumetric scanning of the abdomen and pelvis was performed. Using automated exposure control and ad justment of the mA and/or kV according to patient size, radiation dose was kept as low as reasonably achievable to obtain optimal diagnostic quality images. DICOM format image data is available electro nically for review and comparison. FINDINGS: LOWER LUNGS: The visualized lower lungs are clear. There is a moderate-sized hiatal hernia. LIVER: Homogeneous density without lesion. There is no dilation of the biliary tree. No calcified gallston es. SPLEEN: Normal size without lesion. PANCREAS: Within normal limits. KIDNEYS: Normal in size and shape. There is no solid mass, stone or hydronephrosis. Multiple bilateral renal cysts are stable. ADRENAL GLANDS: Within normal limits. VASCULAR: There is no aortic aneurysm. BOWEL/MESENTERY: The stomach, small bowel, and colon demonstrate no acute abnormality. There is no free intraperitone al air or fluid. ABDOMINAL WALL: There is a midline ventral abdominal wall hernia within the upper abdomen which contains only fat. RETROPERITONEUM: There is no lymphadenopathy. BLADDER: No wall thickening or mass. REPRODUCTIVE: Within normal limits. INGUINAL: There is no lymphadenopathy or hernia. MUSCULOSKELETAL: Degenerative changes and scoliosis of the thoracolumbar spine are noted. CONCLUSION: 1. Midline ventral abdominal wall hernia within the upper abdomen containing only fat. 2. Moderate-sized hiatal hernia. 3. Multiple bilateral renal cysts. 4. Degenerative changes and scoliosis of the thoracolumbar spine. Kirk Amaya MD on May 17, 2017 at 18:06 Board Certified Radiologist. This report was verified electronically.
[2017-05-17] MEDS ORDERED: TRAM50 PO (18:23)
[2017-05-17] MEDS ORDERED: ZOFR4TAB3 SL (18:23)
[2017-05-17 18:42] VITALS: BP 120/62
[2017-05-17 18:54] LABS: BILIRUBIN, URINE NEG (NEG); BLOOD, URINE NEG (NEG); GLUCOSE,URINE NEG (NEG); KETONE, URINE NEG (NEG); NITRITE,URINE NEG (NEG); URINE COLOR LIGHT-YELLOW (YELLW/STRAW); URINE LEUKOCYTE ESTERASE NEG (NEG)
[2017-05-17 19:27] LABS: PLATELET COUNT 121 TH/MM3 (150-450)
--- NOTE | 2017-05-18 15:55 | EKG ---
Date Performed: 05/17/2017 Time Performed: 16:27:26 PTAGE: 76 years EKG: LEFT AXIS DEVIATION SLIGHT RIGHT VENTRICULAR CONDUCTION DISTURBANCE POOR INITAL ANTERIOR FO RCES WHICH MAY BE DUE TO LEFT AXIS DEVIATION AND MAY BE A NORMAL VARIANT Compared to previous tracing , Q-wave present in lead V2 which was not seen in previous tracing. Previous tracing shows somewhat m ore significant ST-T changes. These changes are nonspecific. ABNORMAL ECG PREVIOUS TRACING : 03/11/2017 19.30 DOCTOR: Edwardo Su Interpretating Date/Time 05/18/2017 15:54:28
== END 2017-05-17 18:43 | disposition home or self-care (01) ==
LOC: NEPC 15:19
DX: R10.13 Epigastric pain (principal); K43.2 Incisional hernia without obstruction or gangrene; K44.9 Diaphragmatic hernia without obstruction or gangrene; R94.31 Abnormal electrocardiogram [ECG] [EKG]; J45.909 Unspecified asthma, uncomplicated; E78.00 Pure hypercholesterolemia, unspecified; E11.9 Type 2 diabetes mellitus without complications; I11.0 Hypertensive heart disease with heart failure; I50.9 Heart failure, unspecified; Z95.1 Presence of aortocoronary bypass graft
CPT/HCPCS: 74177; 80053; 81001; 83690; 84484; 85025; 85610; 85730; 93005; 96361; 96374; 96375; 99284; J2270; J2405; J7030; Q9967

== ENCOUNTER 2017-06-05 19:49 | Observation (INO) | payer OTHER, MEDICAID ==
[~2017-06-05] VITALS: Ht 152.4 cm; Wt 72.0 kg
[~2017-06-05 19:49] MED LIST changes: -ATOR40TA16 PO; -HYDR-3133 PO; -IBUP-232 PO; -ISOS10TA PO; -MIRTA15 PO; +TRAM50 PO; +ZOFR4TAB3 SL
[2017-06-05 19:57] VITALS: BP 142/65; PULSE 86; RESP 20; TEMP 98.3; O2SAT 98
[2017-06-05] MEDS ORDERED: EZET1TAB8 PO (20:16)
[2017-06-05] MEDS ORDERED: GELA600C2 (20:16)
[2017-06-05] MEDS ORDERED: CALC1TAB87 PO (20:16)
[2017-06-05] MEDS ORDERED: BUPR150T12 (20:16)
[2017-06-05] MEDS ORDERED: D200CAP PO (20:16)
[2017-06-05] MEDS ORDERED: ESCI20TA PO (20:16)
[2017-06-05 20:52] LABS: BILIRUBIN, URINE NEG (NEG); BLOOD, URINE NEG (NEG); GLUCOSE,URINE NEG (NEG); HYALINE CAST, URINE 12 /lpf (RARE); KETONE, URINE NEG (NEG); MUCUS URINE FEW /lpf (OCC); NITRITE,URINE NEG (NEG); URINE COLOR YELLOW (YELLW/STRAW); URINE LEUKOCYTE ESTERASE NEG (NEG)
[2017-06-05 21:03] LABS: CHLORIDE 92 MEQ/L (98-107); SODIUM (NA) 128 MEQ/L (136-145)
--- NOTE | 2017-06-05 21:05 | RADRPT ---
EXAM DATE/TIME: 06/05/2017 20:45 [facility] COMPARISON: CT ABDOMEN & PELVIS W CONTRAST, May 17, 2017, 17:52. CT BRAIN W & W/O CONTRAST, May 03 7, 10:48. INDICATIONS : Seizure history, dementia. RADIATION DOSE: 47.25 CTDIvol (mGy) MEDICAL HISTORY : Hypertension. Dementia. Seizures. SURGICAL HISTORY : Cholecystectomy. Appendectomy. ENCOUNTER: Initial ACUITY: 1 day PAIN SCALE: 0/10 LOCATION: cranial TECHNIQUE: Multiple contiguous axial images were obtained of the head. Using automated exposure control and adj ustment of the mA and/or kV according to patient size, radiation dose was kept as low as reasonably a chievable to obtain optimal diagnostic quality images. DICOM format image data is available electro nically for review and comparison. FINDINGS: CEREBRUM: The ventricles are normal for age. No evidence of midline shift, mass lesion, hemorrhage or acute in farction. No extra-axial fluid collections are seen. Incidental note is made of physiologic calcific ation within the basal ganglia bilaterally. This is unchanged compared to previous dated 05/03/16. POSTERIOR FOSSA: The cerebellum and brainstem are intact. The 4th ventricle is midline. The cerebellopontine angle i s unremarkable. EXTRACRANIAL: The visualized portion of the orbits is intact. SKULL: The calvaria is intact. No evidence of skull fracture. CONCLUSION: 1. No acute intracranial abnormality. Stable compared to prior examination of 05/03/16. Abraham Quintero MD on June 05, 2017 at 21:02 Board Certified Radiologist. This report was verified electronically.
[2017-06-05 21:25] LABS: BICARBONATE 25.3 MEQ/L (21.0-32.0); BLOOD UREA NITROGEN 15 MG/DL (7-18); GLUCOSE,RANDOM 77 MG/DL (74-106)
[2017-06-05 21:28] LABS: ALBUMIN 3.7 GM/DL (3.4-5.0); CALCIUM 8.3 MG/DL (8.5-10.1); CREATININE 1.18 MG/DL (0.50-1.00); GLOMERULAR FILTRATION RATE 45 ML/MIN (>89)
--- NOTE | 2017-06-05 21:29 | RADRPT ---
EXAM DATE/TIME: 06/05/2017 21:10 [facility] COMPARISON: CHEST SINGLE AP, March 11, 2017, 12:57. INDICATIONS : Weakness, chest pain, and shortness of breath. MEDICAL HISTORY : Myocardial infarction. SURGICAL HISTORY : CABG. ENCOUNTER: Initial ACUITY: 1 week PAIN SCORE: 2/10 LOCATION: chest FINDINGS: The patient is post median sternotomy. The heart is mildly enlarged. The lungs demonstrate some chron ic appearing interstitial changes but are otherwise clear. The visualized osseous structures are inta ct. The changes are similar to the prior study of 03/11/17. CONCLUSION: 1. Cardiomegaly. Stable compared to previous exam. Abraham Quintero MD on June 05, 2017 at 21:27 Board Certified Radiologist. This report was verified electronically.
[2017-06-05 21:39] LABS: ALKALINE PHOSPHATASE 71 U/L (45-117); ALT (GPT) 21 U/L (10-53); AST (GOT) 22 U/L (15-37); TOTAL BILIRUBIN ADULT 0.6 MG/DL (0.2-1.0); TOTAL PROTEIN 7.2 GM/DL (6.4-8.2); TROPONIN I 0.02 NG/ML (0.02-0.05)
--- NOTE | 2017-06-05 21:44 | PD ---
HPI Chief Complaint: General Weakness Time Seen by Provider: 19:57 Travel History International Travel<30 days: No Contact w/Intl Traveler<30days: No Traveled to known affect area: No History of Present Illness HPI GENERAL: non toxic appearance aox3 relating her PMHx SKIN: Warm and dry. HEAD: Atraumatic. Normocephalic. EYES: Pupils equal and round. No scleral icterus. No injection or drainage. ENT: No nasal bleeding or discharge. Mucous membranes pink and moist. NECK: Trachea midline. No JVD. CARDIOVASCULAR: Regular rate and rhythm. RESPIRATORY: No accessory muscle use. Clear to auscultation. Breath sounds equal bilaterally. GASTROINTESTINAL: Abdomen soft, non-tender, nondistended. Hepatic and splenic margins not palpable. MUSCULOSKELETAL: Extremities without clubbing, cyanosis, or edema. No obvious deformities. NEUROLOGICAL: Awake and alert. No obvious cranial nerve deficits. Motor grossly within normal limits. Five out of 5 muscle strength in the arms and legs. Normal speech. PSYCHIATRIC: Appropriate mood and affect; insight and judgment normal. PFSH Past Medical History Asthma: Yes Atrial Fibrillation: Yes Heart Rhythm Problems: Yes Cardiac Catheterization: Yes Cardiovascular Problems: Yes High Cholesterol: Yes Congestive Heart Failure: Yes Dementia: Yes Diabetes: Yes Patient Takes Glucophage: Yes Diminished Hearing: Yes Headaches: Yes Heparin Induced Thrombocytopen: No Hypertension: Yes Respiratory: Yes Past Surgical History Appendectomy: Yes Cholecystectomy: Yes Coronary Artery Bypass Graft: Yes Social History Alcohol Use: No Tobacco Use: No Substance Use: No Allergies-Medications (Allergen,Severity, Reaction): Coded Allergies: Penicillins (Verified Allergy, Severe, Hives, 06/05/17) tramadol (Verified Allergy, Intermediate, hallucinations, 06/07/17) acetaminophen (Unverified Allergy, Mild, Chills, 06/05/17) amoxicillin (Unverified Allergy, Unknown, Hives, 06/05/17) hydrocodone (Unverified Allergy, Unknown, Sedation, 06/05/17) Reported Meds & Prescriptions Reported Meds & Active Scripts Active Zofran Odt (Ondansetron Odt) 4 Mg Tab 4 Mg SL Q6HR PRN Pantoprazole (Pantoprazole Sodium) 40 Mg Tab 40 Mg PO DAILY Glucophage (Metformin HCl) 500 Mg Tab 500 Mg PO BIDPC Symbicort Inh (Budesonide/Formoterol Fumarate) 160-4.5 Mcg/Act Aero 1 Puff INH BID Reported Escitalopram (Escitalopram Oxalate) 20 Mg Tab 20 Mg PO DAILY D3 Super Strength (Cholecalciferol) 2,000 Unit Cap 5,000 Units PO DAILY Gelatin 600 Mg Capsule Calcium 600 with Vitamin D (Calcium Carbonate-Cholecalciferol) 600-400 mg-Unit Tab 1 Tab PO DAILY Bupropion Sr 12 HR (Bupropion ER 12 HR (Smoking Deterrent)) 150 Mg Tab 150 Mg BID Take 1 tablet daily x 3 days then twice daily thereafter. Ezetimibe 10 Mg Tab 10 Mg PO DAILY Aspirin 325 Mg Tab 325 Mg PO ONCE Montelukast (Montelukast Sodium) 10 Mg Tab 10 Mg PO HS Valsartan 160 Mg Tab 160 Mg PO DAILY Meclizine (Meclizine HCl) 25 Mg Tab 25 Mg PO TID PRN Ventolin Hfa 18 GM Inh (Albuterol Sulfate) 90 Mcg/Act Aer 1-2 Puff INH Q4H PRN Albuterol Neb (Albuterol Sulfate) 2.5 Mg/3 Ml Neb 2.5 Mg NEB Q6HR PRN Review of Systems Except as stated in HPI: all other systems reviewed are Neg Cardiovascular: Positive: Syncope (2 week) Musculoskeletal: Positive: Weakness Physical Exam Narrative GENERAL: pt non toxic appearing, she is vague in the details of her current history SKIN: Warm and dry. HEAD: Atraumatic. Normocephalic. EYES: Pupils equal and round. No scleral icterus. No injection or drainage. ENT: No nasal bleeding or discharge. Mucous membranes pink and moist. NECK: Trachea midline. No JVD. CARDIOVASCULAR: Regular rate and rhythm. RESPIRATORY: No accessory muscle use. Clear to auscultation. Breath sounds equal bilaterally. GASTROINTESTINAL: Abdomen obese ... soft, diffusely nondistended. Hepatic and splenic margins not palpable. MUSCULOSKELETAL: Extremities without clubbing, cyanosis, or edema. No obvious deformities. NEUROLOGICAL: Awake and alert. No obvious cranial nerve deficits. Motor grossly within normal limits. Five out of 5 muscle strength in the arms and legs. Normal speech. PSYCHIATRIC: Appropriate mood slightly confused or just poor historian Data Data Last Documented VS Vital Signs Date Time Temp Pulse Resp B/P (MAP) Pulse Ox O2 Delivery O2 Flow Rate FiO2 06/06/17 02:00 80 16 127/60 (82) 97 Room Air 2/21/18 19:57 98.3 Orders Orders Electrocardiogram (06/05/17 20:31) Complete Blood Count With Diff (06/05/17 20:31) Comprehensive Metabolic Panel (06/05/17 20:31) Ckmb (Isoenzyme) Profile (06/05/17 20:31) Troponin I (06/05/17 20:31) Lipase (06/05/17 20:31) Urinalysis - C+S If Indicated (06/05/17 20:31) Thyroid Stimulating Hormone (06/05/17 20:31) Chest, Pa & Lat (06/05/17 20:31) Ct Brain W/O Iv Contrast(Rout) (06/05/17 20:31) Sodium Chlorid 0.9% 500 Ml Inj (Ns 500 M (06/05/17 22:00) CKMB (06/05/17 20:42) CKMB% (06/05/17 20:42) Sodium Chlor 0.9% 1000 Ml Inj (Ns 1000 M (06/05/17 22:45) Influenzae A/B Antigen (06/06/17 01:28) Group A Rapid Strep Screen (06/06/17 01:28) Strep Culture (Group A) (06/06/17 01:40) Admit Order (Ed Use Only) (06/06/17 02:35) Labs Laboratory Tests Test 06/05/17 20:33 06/05/17 20:35 06/05/17 20:42 White Blood Count 7.3 TH/MM3 Red Blood Count 3.64 MIL/MM3 Hemoglobin 9.9 GM/DL Hematocrit 29.5 % Mean Corpuscular Volume 81.2 FL Mean Corpuscular Hemoglobin 27.4 PG Mean Corpuscular Hemoglobin Concent 33.7 % Red Cell Distribution Width 14.8 % Platelet Count 133 TH/MM3 Mean Platelet Volume 11.5 FL Neutrophils (%) (Auto) 70.5 % Lymphocytes (%) (Auto) 17.0 % Monocytes (%) (Auto) 10.0 % Eosinophils (%) (Auto) 1.3 % Basophils (%) (Auto) 1.2 % Neutrophils # (Auto) 5.1 TH/MM3 Lymphocytes # (Auto) 1.2 TH/MM3 Monocytes # (Auto) 0.7 TH/MM3 Eosinophils # (Auto) 0.1 TH/MM3 Basophils # (Auto) 0.1 TH/MM3 CBC Comment AUTO DIFF Differential Comment AUTO DIFF CONFIRMED Platelet Estimate LOW Platelet Morphology Comment NORMAL Urine Color YELLOW Urine Turbidity CLEAR Urine pH 7.0 Urine Specific [place] 1.021 Urine Protein TRACE mg/dL Urine Glucose (UA) NEG mg/dL Urine Ketones NEG mg/dL Urine Occult Blood NEG Urine Nitrite NEG Urine Bilirubin NEG Urine Urobilinogen 2.0 MG/DL Urine Leukocyte Esterase NEG Urine RBC LESS THAN 1 /hpf Urine WBC LESS THAN 1 /hpf Urine Hyaline Casts 12 /lpf Urine Mucus FEW /lpf Microscopic Urinalysis Comment CULT NOT INDICATED Blood Urea Nitrogen 15 MG/DL Creatinine 1.18 MG/DL Random Glucose 77 MG/DL Total Protein 7.2 GM/DL Albumin 3.7 GM/DL Calcium Level 8.3 MG/DL Alkaline Phosphatase 71 U/L Aspartate Amino Transf (AST/SGOT) 22 U/L Alanine Aminotransferase (ALT/SGPT) 21 U/L Total Bilirubin 0.6 MG/DL Sodium Level 128 MEQ/L Potassium Level 4.3 MEQ/L Chloride Level 92 MEQ/L Carbon Dioxide Level 25.3 MEQ/L Anion Gap 11 MEQ/L Estimat Glomerular Filtration Rate 45 ML/MIN Total Creatine Kinase 185 U/L Creatine Kinase MB 3.4 NG/ML Troponin I 0.02 NG/ML Lipase 150 U/L Thyroid Stimulating Hormone 3rd Gen 1.760 uIU/ML MDM Medical Decision Making Medical Screen Exam Complete: Yes Emergency Medical Condition: Yes Interpretation(s) EKG NSR rate 88,BPM Differential Diagnosis Na is 128 symptomatic hyponatremia . 500 cc NS bolus given and now she is admitted due to weakness when assisted to bathroom she almost went down to floor from weakness but her Urine is negative and other obando no explanation other than sx hyponatremia Narrative Course pt is given 1/2 liter NS over 4 hrs but after resustation she stands and almost falls again in ER nurses have to hold her up . pt needs admission and further Na correction. All other studies are negative urine chest all wihtout source of infection Diagnosis Primary Impression: Hyponatremia Scripts Ibuprofen (Ibuprofen) 400 Mg Tab 400 MG PO Q6H Y for PAIN SCALE 1 TO 10, #20 TAB 0 Refills Prov: Norberto Powers MD 06/07/17 Ulices Banks MD Jun 05, 2017 21:44
[2017-06-05 21:45] LABS: AUTOMATED NEUTROPHIL # 5.1 TH/MM3 (1.8-7.7); BASOPHIL # 0.1 TH/MM3 (0-0.2); BASOPHIL % 1.2 % (0.0-2.0); EOSINOPHIL # 0.1 TH/MM3 (0-0.4); EOSINOPHIL % 1.3 % (0.0-4.0); HEMATOCRIT 29.5 % (35.0-46.0); HEMOGLOBIN 9.9 GM/DL (11.6-15.3); LYMPHOCYTE # 1.2 TH/MM3 (1.0-4.8); MEAN CELL VOLUME 81.2 FL (80.0-100.0); MEAN CORPUSCULAR HEMOGLOBIN 27.4 PG (27.0-34.0); MEAN CORPUSCULAR HGB CONC 33.7 % (32.0-36.0); MEAN PLATELET VOLUME 11.5 FL (7.0-11.0); MONOCYTE # 0.7 TH/MM3 (0-0.9); NEUT % 70.5 % (16.0-70.0); RED BLOOD COUNT 3.64 MIL/MM3 (4.00-5.30); RED CELL DISTRIBUTION WIDTH 14.8 % (11.6-17.2)
[2017-06-05 21:49] LABS: PLATELET COUNT 133 TH/MM3 (150-450); WHITE BLOOD COUNT 7.3 TH/MM3 (4.0-11.0)
[2017-06-05 22:00] VITALS: BP 135/86; PULSE 80; RESP 16; O2SAT 97
[2017-06-05] MEDS ORDERED: SODIUM CHLORID 0.9% 500 ML INJ 500 ML IV ONE (22:00)
[2017-06-05] MEDS ORDERED: SODIUM CHLOR 0.9% 1000 ML INJ 1,000 ML IV SCH (22:45)
[2017-06-05 23:00] VITALS: BP 156/78; PULSE 97; RESP 18; O2SAT 97
[2017-06-06] VITALS (10 sets, daily range): BP systolic 103–132; BP diastolic 34–81; PULSE 80–104; RESP 16–20; TEMP 98–98.9; O2SAT 95–97
[2017-06-06] MEDS ORDERED: SODIUM CHLORIDE 0.9% FLUSH 10 ML FLUSH IV FLUSH PRN (02:45)
[2017-06-06] MEDS ORDERED: GLUCAGON 1 MG/ML VIAL OTHER PRN (02:45)
[2017-06-06] MEDS ORDERED: ONDANSETRON HCL 4 MG/2 ML VIAL IVP PRN (02:45)
[2017-06-06] MEDS ORDERED: DEXTROSE 50% IN WATER 50 ML VIAL(D50) IV PUSH PRN (02:45)
[2017-06-06] MEDS ORDERED: RESP: ALBUTEROL 2.5 MG/IPRATROPIUM 0.5 MG NEB (PRN) NEB (03:00)
[2017-06-06] MEDS: SODIUM CHLOR 0.9% 1000 ML INJ 1,000 ML IV SCH ×3 (03:31→22:45)
[2017-06-06 04:16] LABS: AUTOMATED NEUTROPHIL # 4.8 TH/MM3 (1.8-7.7); BASOPHIL % 0.7 % (0.0-2.0); EOSINOPHIL # 0.1 TH/MM3 (0-0.4); EOSINOPHIL % 1.7 % (0.0-4.0); HEMOGLOBIN 9.7 GM/DL (11.6-15.3); LYMPH % 20.1 % (9.0-44.0); LYMPHOCYTE # 1.4 TH/MM3 (1.0-4.8); MEAN CELL VOLUME 82.3 FL (80.0-100.0); MEAN CORPUSCULAR HEMOGLOBIN 27.4 PG (27.0-34.0); MEAN CORPUSCULAR HGB CONC 33.3 % (32.0-36.0); MEAN PLATELET VOLUME 9.7 FL (7.0-11.0); MONO % 9.3 % (0.0-8.0); MONOCYTE # 0.7 TH/MM3 (0-0.9); NEUT % 68.2 % (16.0-70.0); PLATELET COUNT 140 TH/MM3 (150-450); RED BLOOD COUNT 3.53 MIL/MM3 (4.00-5.30); RED CELL DISTRIBUTION WIDTH 14.7 % (11.6-17.2)
--- NOTE | 2017-06-06 04:25 | HHI.HP ---
[facility] Unknown Admission Diagnosis hyponatremia Diagnoses: Travel History International Travel<30 Days: No Contact w/Intl Traveler <30 Da: No Traveled to Known Affected Are: No History of Present Illness 76-year-old female with history of CAD, hypertension, diabetes, asthma and major depressive disorder presents to emergency room for evaluation of a 2 week history of weakness and generalized fatigue. The patient reports that she suffered a fall at religious approximately 2 weeks ago. She is unsure if she had loss of consciousness associated with the fall. She reports walking and then hit her hip on the table and then was on the ground. Since that time, the patient has had generalized fatigue, weakness and dizziness. She states she is unable to ambulate. Patient denies chest pain/shortness of breath. She denies nausea/vomiting/diarrhea. Review of Systems Except as stated in HPI: all other systems reviewed are Neg Past Family Social History Past Medical History Diabetes type 2, CAD, asthma, major depressive disorder, hypertension Past Surgical History CABG (2004), appendectomy, cholecystomy, bilateral cataracts Reported Medications Reported Meds & Active Scripts Active Zofran Odt (Ondansetron Odt) 4 Mg Tab 4 Mg SL Q6HR PRN Ultram (Tramadol HCl) 50 Mg Tab 50 Mg PO Q6H PRN Pantoprazole (Pantoprazole Sodium) 40 Mg Tab 40 Mg PO DAILY Glucophage (Metformin HCl) 500 Mg Tab 500 Mg PO BIDPC Symbicort Inh (Budesonide/Formoterol Fumarate) 160-4.5 Mcg/Act Aero 1 Puff INH BID Reported Escitalopram (Escitalopram Oxalate) 20 Mg Tab 20 Mg PO DAILY D3 Super Strength (Cholecalciferol) 2,000 Unit Cap 5,000 Units PO DAILY Gelatin 600 Mg Capsule Calcium 600 with Vitamin D (Calcium Carbonate-Cholecalciferol) 600-400 mg-Unit Tab 1 Tab PO DAILY Bupropion Sr 12 HR (Bupropion ER 12 HR (Smoking Deterrent)) 150 Mg Tab 150 Mg BID Take 1 tablet daily x 3 days then twice daily thereafter. Ezetimibe 10 Mg Tab 10 Mg PO DAILY Aspirin 325 Mg Tab 325 Mg PO ONCE Montelukast (Montelukast Sodium) 10 Mg Tab 10 Mg PO HS Valsartan 160 Mg Tab 160 Mg PO DAILY Meclizine (Meclizine HCl) 25 Mg Tab 25 Mg PO TID PRN Ventolin Hfa 18 GM Inh (Albuterol Sulfate) 90 Mcg/Act Aer 1-2 Puff INH Q4H PRN Albuterol Neb (Albuterol Sulfate) 2.5 Mg/3 Ml Neb 2.5 Mg NEB Q6HR PRN Allergies: Coded Allergies: Penicillins (Verified Allergy, Severe, Hives, 06/05/17) acetaminophen (Unverified Allergy, Mild, Chills, 06/05/17) amoxicillin (Unverified Allergy, Unknown, Hives, 06/05/17) hydrocodone (Unverified Allergy, Unknown, Sedation, 06/05/17) Family History Negative for CAD/DM Social History Lifelong nonsmoker. No alcohol or illegal drug use. Physical Exam Vital Signs Vital Signs Date Time Temp Pulse Resp B/P (MAP) Pulse Ox O2 Delivery O2 Flow Rate FiO2 06/06/17 04:02 06/06/17 02:00 80 16 127/60 (82) 97 Room Air 06/06/17 00:00 100 18 132/62 (85) 96 Room Air 06/05/17 23:00 97 18 156/78 (104) 97 Room Air 06/05/17 22:00 80 16 135/86 (102) 97 Room Air 06/05/17 20:02 83 20 98 Room Air 06/05/17 19:57 98.3 86 20 142/65 (90) 98 Physical Exam GENERAL: His panic female lying in bed SKIN: No rashes, ecchymoses or lesions. Cool and dry. HEAD: Atraumatic. Normocephalic. No temporal or scalp tenderness. EYES: Pupils equal round and reactive. Extraocular motions intact. No scleral icterus. No injection or drainage. ENT: Nose without bleeding, purulent drainage or septal hematoma. Throat without erythema, tonsillar hypertrophy or exudate. Uvula midline. Airway patent. NECK: Trachea midline. No JVD or lymphadenopathy. Supple, nontender, no meningeal signs. CARDIOVASCULAR: Regular rate and rhythm without murmurs, gallops, or rubs. RESPIRATORY: Clear to auscultation. Breath sounds equal bilaterally. No wheezes , rales, or rhonchi. GASTROINTESTINAL: Abdomen soft, non-tender, nondistended. No hepato-splenomegaly , or palpable masses. No guarding. MUSCULOSKELETAL: Extremities without clubbing, cyanosis, or edema. No joint tenderness, effusion, or edema noted. No calf tenderness. NEUROLOGICAL: Awake and alert. Cranial nerves II through XII intact. Motor and sensory grossly within normal limits. Normal speech. Laboratory Laboratory Tests Test 06/05/17 20:33 06/05/17 20:35 06/05/17 20:42 06/06/17 03:58 White Blood Count 7.3 Red Blood Count 3.64 Hemoglobin 9.9 Hematocrit 29.5 Mean Corpuscular Volume 81.2 Mean Corpuscular Hemoglobin 27.4 Mean Corpuscular Hemoglobin Concent 33.7 Red Cell Distribution Width 14.8 Platelet Count 133 Mean Platelet Volume 11.5 Neutrophils (%) (Auto) 70.5 Lymphocytes (%) (Auto) 17.0 Monocytes (%) (Auto) 10.0 Eosinophils (%) (Auto) 1.3 Basophils (%) (Auto) 1.2 Neutrophils # (Auto) 5.1 Lymphocytes # (Auto) 1.2 Monocytes # (Auto) 0.7 Eosinophils # (Auto) 0.1 Basophils # (Auto) 0.1 CBC Comment AUTO DIFF Differential Comment AUTO DIFF CONFIRMED Platelet Estimate LOW Platelet Morphology Comment NORMAL Urine Color YELLOW Urine Turbidity CLEAR Urine pH 7.0 Urine Specific [place] 1.021 Urine Protein TRACE Urine Glucose (UA) NEG Urine Ketones NEG Urine Occult Blood NEG Urine Nitrite NEG Urine Bilirubin NEG Urine Urobilinogen 2.0 Urine Leukocyte Esterase NEG Urine RBC LESS THAN 1 Urine WBC LESS THAN 1 Urine Hyaline Casts 12 Urine Mucus FEW Microscopic Urinalysis Comment CULT NOT INDICATED Blood Urea Nitrogen 15 Creatinine 1.18 Random Glucose 77 Total Protein 7.2 Albumin 3.7 Calcium Level 8.3 Alkaline Phosphatase 71 Aspartate Amino Transf (AST/SGOT) 22 Alanine Aminotransferase (ALT/SGPT) 21 Total Bilirubin 0.6 Sodium Level 128 Potassium Level 4.3 Chloride Level 92 Carbon Dioxide Level 25.3 Anion Gap 11 Estimat Glomerular Filtration Rate 45 Total Creatine Kinase 185 Creatine Kinase MB 3.4 Troponin I 0.02 Lipase 150 Thyroid Stimulating Hormone 3rd Gen 1.760 Date/Time Source Procedure Growth Status 06/06/17 01:40 Throat Group A Streptococcus Screen Pending Received Result Diagram: 06/05/17203206/05/172041 Caprini VTE Risk Assessment Caprini VTE Risk Assessment: Mod/High Risk (score >= 2) Caprini Risk Assessment Model Point Value = 1 Point Value = 2 Point Value = 3 Point Value = 5 Age 41-60 Minor surgery BMI > 25 kg/m2 Swollen legs Varicose veins or History of unexplained or recurrent spontaneous Oral contraceptives or hormone replacement Sepsis (< 1 month) Serious lung disease, including pneumonia (< 1 month) Abnormal pulmonary function Acute myocardial infarction Congestive heart failure (< 1 month) History of inflammatory bowel disease Medical patient at bed rest Age 61-74 Arthroscopic surgery Major open surgery (> 45 min) Laparoscopic surgery (> 45 min) Malignancy Confined to bed (> 72 hours) Immobilizing plaster cast Central venous access Age >= 75 History of VTE Family history of VTE Factor V Leiden Prothrombin [id number] Lupus anticoagulant Anticardiolipin antibodies Elevated serum homocysteine Heparin-induced thrombocytopenia Other congenital or acquired thrombophilia Stroke (< 1 month) Elective arthroplasty Hip, pelvis, or leg fracture Acute spinal cord injury (< 1 month) Prophylaxis Regimen Total Risk Factor Score Risk Level Prophylaxis Regimen 0-1 Low Early ambulation 2 Moderate Order ONE of the following: *Sequential Compression Device (SCD) *Heparin 5000 units SQ BID 3-4 Higher Order ONE of the following medications: *Heparin 5000 units SQ TID *Enoxaparin/Lovenox 40 mg SQ daily (WT < 150 kg, CrCl > 30 mL/min) *Enoxaparin/Lovenox 30 mg SQ daily (WT < 150 kg, CrCl > 10-29 mL/min) *Enoxaparin/Lovenox 30 mg SQ BID (WT < 150 kg, CrCl > 30 mL/min) AND/OR *Sequential Compression Device (SCD) 5 or more Highest Order ONE of the following medications: *Heparin 5000 units SQ TID (Preferred with Epidurals) *Enoxaparin/Lovenox 40 mg SQ daily (WT < 150 kg, CrCl > 30 mL/min) *Enoxaparin/Lovenox 30 mg SQ daily (WT < 150 kg, CrCl > 10-29 mL/min) *Enoxaparin/Lovenox 30 mg SQ BID (WT < 150 kg, CrCl > 30 mL/min) AND *Sequential Compression Device (SCD) Assessment and Plan Assessment and Plan Assessment/plan: 1. Hyponatremia Patient's sodium 128, was 138 on 05/17/79 Normal saline Fluid restriction Repeat BMP pending 2. Generalized weakness/dizziness/difficulty ambulating Likely secondary to above PT consulted, appreciate recommendations 3. Type 2 diabetes mellitus Planning scale insulin Monitor blood glucose 4. Hypertension Continue home medications 5. Depression Continue home medications FEN Regular diet with 1500 ml fluid restriction NS at 100 cc/hour Electrolytes: Monitor and replete when necessary Heparin Sherine Garcia MD Jun 06, 2017 04:24
[2017-06-06] MEDS ORDERED: ASPIRIN 325 MG TAB PO ONE (04:30)
[2017-06-06 04:38] LABS: BICARBONATE 28.1 MEQ/L (21.0-32.0); CALCIUM 7.7 MG/DL (8.5-10.1); CREATININE 0.95 MG/DL (0.50-1.00)
[2017-06-06] MEDS: HEPARIN SODIUM - SQ 10,000 UNITS/ML VIAL SQ SCH ×3 (06:00→21:19)
[2017-06-06] MEDS: INSULIN ASPART SUPPLEMENTAL SCALE SQ SCH ×4 (08:00→21:00)
--- NOTE | 2017-06-06 08:06 | EKG ---
Date Performed: 06/05/2017 Time Performed: 20:05:08 PTAGE: 76 years EKG: Sinus rhythm WITH SINUS ARRHYTHMIA MARKED LEFT AXIS DEVIATION PATTERN CONSISTENT WITH PULMONARY DISEASE INCOMPLET E RIGHT BUNDLE BRANCH BLOCK SEPTAL MYOCARDIAL INFARCTION ABNORMAL ECG Since the prior tracing, there has been no significant change DOCTOR: Kathy De La Cruz Interpretating Date/Time 06/06/2017 08:04:54
[2017-06-06] MEDS: SODIUM CHLORIDE 0.9% FLUSH 10 ML FLUSH IV FLUSH SCH ×2 (09:00→21:19)
[2017-06-06] MEDS: EZETIMIBE 10 MG TAB PO SCH (10:42)
[2017-06-06] MEDS: ESCITALOPRAM OXALATE 20 MG TAB PO SCH (10:42)
[2017-06-06] MEDS: VALSARTAN 160 MG TAB PO SCH (10:42)
[2017-06-06] MEDS: CALCIUM/VITAMIN D 250 MG/125 U TAB PO SCH (10:42)
[2017-06-06] MEDS: buPROPion HCL 150 MG SUSTAINED RELEASE TAB PO SCH ×2 (10:43→21:19)
[2017-06-06] MEDS ORDERED: traMADol HCL 50 MG TAB PO ONE (11:30)
--- NOTE | 2017-06-06 11:51 | ECHRPT ---
Indication: syncope CONCLUSIONS Mildly dilated left ventricle. The left ventricular systolic function is moderately reduced with an estimated ejection fraction in the range of 40-45%. Ovula-fm-tsey mitral valve regurgitation. AV repl Aortic valve area is 1.2cm Aortic valve mean gradient is 17 mmHg. There is mild tricuspid valve regurgitation. The estimated pulmonary arterial pressure is 36.9 mmHg. BP: / HR: Rhythm: MEASUREMENTS (Male / Female) Normal Values Technical Quality:Technically difficult study 2D ECHO LV Diastolic Diameter PLAX 5.8 cm 4.2 - 5.9 / 3.9 - 5.3 cm LV Systolic Diameter PLAX 4.8 cm IVS Diastolic Thickness 1.0 cm 0.6 - 1.0 / 0.6 - 0.9 cm LVPW Diastolic Thickness 1.0 cm 0.6 - 1.0 / 0.6 - 0.9 cm LV Relative Wall Thickness 0.3 RV Internal Dim ED PLAX 2.7 cm LVOT Diameter 2.0 cm M-MODE Aortic Root Diameter MM 3.5 cm LA Systolic Diameter MM 4.9 cm LA Ao Ratio MM 1.4 DOPPLER AV Peak Velocity 266.0 cm/s AV Peak Gradient 28.3 mmHg AV Mean Gradient 17.0 mmHg AV Velocity Time Integral 62.1 cm LVOT Peak Velocity 49.6 cm/s LVOT Peak Gradient 1.0 mmHg LVOT Velocity Time Integral 8.5 cm AV Area Cont Eq vti 0.4 cm AV Area Cont Eq pk 0.6 cm TR Peak Velocity 259.5 cm/s TR Peak Gradient 26.9 mmHg Right Atrial Pressure 10.0 mmHg Pulmonary Artery Systolic Pressu 36.9 mmHg Right Ventricular Systolic Press 36.9 mmHg FINDINGS LEFT VENTRICLE Mildly dilated left ventricle. The left ventricular systolic function is moderately reduced with an estimated ejection fraction in the range of 40-45%. RIGHT VENTRICLE Normal right ventricular size and systolic function. LEFT ATRIUM The left atrial size is normal. RIGHT ATRIUM The right atrial size is normal. ATRIAL SEPTUM Normal atrial septal thickness without atrial level shunting by limited color doppler interrogation. AORTA The aortic root and proximal ascending aorta are normal in size on limited imaging. MITRAL VALVE Structurally normal mitral valve. Rhxtw-im-tkir mitral valve regurgitation. AORTIC VALVE AV repl Aortic valve area is 1.2cm Aortic valve mean gradient is 17 mmHg. TRICUSPID VALVE Structurally normal tricuspid valve. There is mild tricuspid valve regurgitation. The estimated pulmonary arterial pressure is 36.9 mmHg. PULMONARY VALVE No pulmonary valve regurgitation or stenosis. VESSELS The inferior vena cava is normal in size. PERICARDIUM No pericardial effusion. Jamel Bernard MD, FACC, [facility] (Electronically Signed) Final Date:06 June 2017 11:50
--- NOTE | 2017-06-06 14:58 | HHI.PR ---
Subjective Remarks Follow up for weakness, fatigue, hyponatremia. The patient is Slovak-speaking only, attempted to use translation line via phone however she is also hard of hearing and therefore translation service was not very successful. Patient was able to voice complaints of dizziness and weakness. Patient seen with PT at bedside who states the patient was quite dizzy upon sitting from lying position , consistent with vertigo. Vital signs reviewed and stable. No other issues reported. Objective Vitals Vital Signs Date Time Temp Pulse Resp B/P (MAP) Pulse Ox O2 Delivery O2 Flow Rate FiO2 06/06/17 12:33 98.0 100 18 104/60 (75) 06/06/17 11:32 98.3 104 18 132/81 (98) 97 06/06/17 04:02 06/06/17 04:00 98.1 83 20 128/60 (82) 95 06/06/17 02:00 80 16 127/60 (82) 97 Room Air 06/06/17 00:00 100 18 132/62 (85) 96 Room Air 06/05/17 23:00 97 18 156/78 (104) 97 Room Air 06/05/17 22:00 80 16 135/86 (102) 97 Room Air 06/05/17 20:02 83 20 98 Room Air 06/05/17 19:57 98.3 86 20 142/65 (90) 98 I/O 06/05/17 06/05/17 06/05/17 06/06/17 06/06/17 06/06/17 07:00 15:00 23:00 07:00 15:00 23:00 Intake Total 500 ml 700 ml Output Total 200 ml Balance 500 ml 500 ml Intake Oral 120 ml IV Total 500 ml 580 ml Output Urine Total 200 ml # Voids 3 2 # Bowel Movements 0 Result Diagram: 06/06/17 0358 06/06/17 0358 Imaging Last Impressions Head CT 06/05/172030 Signed Impressions: Service Date/Time: Monday, June 05, 2017 20:45 - CONCLUSION: 1. No acute intracranial abnormality. Stable compared to prior examination of . Abraham Quintero MD Chest X-Ray 06/05/172030 Signed Impressions: Service Date/Time: Monday, June 05, 2017 21:10 - CONCLUSION: 1. Cardiomegaly. Stable compared to previous exam. Abraham Quintero MD Objective Remarks GENERAL: Well-nourished, well-developed pleasant Slovak-speaking only female patient in NAD. SKIN: Warm and dry. No rash. HEENT: Normocephalic. Atraumatic. Pupils equal and round. No obvious nystagmus. EOMI. Mucous membranes pink and moist. CARDIOVASCULAR: Regular rate and rhythm. S1, S2 noted. No murmur appreciated. RESPIRATORY: No accessory muscle use. Clear to auscultation. Breath sounds equal bilaterally. GASTROINTESTINAL: Abdomen soft, non-tender, nondistended. Normoactive bowel sounds x4. MUSCULOSKELETAL: No obvious deformities. Extremities without clubbing, cyanosis , or edema. NEUROLOGICAL: Awake and alert. No obvious cranial nerve deficits. Motor grossly within normal limits. Normal speech. PSYCHIATRIC: Appropriate mood and affect; insight and judgment normal. Medications and IVs Current Medications Medications (Trade) Dose Ordered Sig/Shanon Route Start Time Stop Time Status Last Admin (NS Flush) 2 ml UNSCH PRN IV FLUSH 06/06/17 02:45 (NS Flush) 2 ml BID IV FLUSH 06/06/17 09:00 (Zofran Inj) 4 mg Q6H PRN IVP 06/06/17 02:45 (Heparin Inj) 5,000 units Q8H SQ 06/06/17 06:00 06/06/17 14:33 (D50w (Vial) Inj) 50 ml UNSCH PRN IV PUSH 06/06/17 02:45 (Glucagon Inj) 1 mg UNSCH PRN OTHER 06/06/17 02:45 (NovoLOG SUPPLEMENTAL SCALE) 1 ACHS SLIDING SCALE SQ 06/06/17 08:00 Sodium Chloride 1,000 ml @ 100 mls/hr Q10H IV 06/06/17 02:45 06/06/17 14:33 (Duoneb Neb) 1 ampule Q4HR NEB PRN NEB 06/06/17 03:00 (Wellbutrin Sr) 150 mg BID PO 06/06/17 09:00 06/06/17 10:43 (Oscal-D 250-125) 250 mg DAILY PO 06/06/17 09:00 06/06/17 10:42 (Lexapro) 20 mg DAILY PO 06/06/17 09:00 06/06/17 10:42 (Zetia) 10 mg DAILY PO 06/06/17 09:00 06/06/17 10:42 (Diovan) 160 mg DAILY PO 06/06/17 09:00 06/06/17 10:42 A/P Assessment and Plan 76-year-old female with history of CAD, hypertension, diabetes, asthma and major depressive disorder presents to emergency room for evaluation of a 2 week history of weakness and generalized fatigue; and fall 2 weeks ago. Hyponatremia: Patient's sodium 128, previously 138 on 05/17/17. Suspect secondary to dehydration as renal function slightly worse. -S/p IVF bolus in the ED, Continue IVF hydration with NS at 100cc/hr -Regular diet, with Fluid restrictions < 1500ml -Repeat BMP shows improvement with Na 133 -Recheck BMP in am Generalized weakness/dizziness/difficulty ambulating: possibly secondary to above, however may be component of vertigo. Rule out TIA/CVA. -Patient's hyponatremia improved, however patient still dizzy and imbalanced just sitting up in bed for evaluation -Check Brain MRI/MRA to rule out acoustic neuroma and posterior circulation CVA -Check Echocardiogram -Check Carotid U/S -Check orthostatics -PT consulted, appreciate recommendations Type 2 diabetes mellitus: chronic -Monitor Accu-checks and cover with SSI Hypertension: chronic, BP well controlled -continued patient's valsartan -monitor BP, adjust antihypertensives as needed Depression: chronic -Continue patient's escitalopram, bupropion Abdominal Pain: patient complaining of vague abdominal pains. EMR reviewed, CT abd/pelvis 05/17/17 showed Midline ventral abdominal wall hernia within the upper abdomen containing only fat; Moderate-sized hiatal hernia. -Patient reportedly plans to follow up with surgeon soon for hernia repair -Continue tramadol prn pain for now (patient allergic to tylenol and hydrocodone) -Start on teddy-colace bid and constipation meds protocol -Unclear when patient's last BM was, consider KUB tomorrow if still no BM -Monitor DVT Prophylaxis: Heparin sq Anali Devlin PA-C Jun 06, 2017 14:58
--- NOTE | 2017-06-06 16:56 | RADRPT ---
EXAM DATE/TIME: 06/06/2017 15:48 [facility] COMPARISON: No previous studies available for comparison. INDICATIONS : Syncope. MEDICAL HISTORY : Hypertension. Coronary artery disease. Diabetes. Asthma. SURGICAL HISTORY : CABG. Appendectomy. Cholecystectomy. Cataract surgery. ENCOUNTER: Initial ACUITY: 1 day PAIN SCORE: 0/10 LOCATION: Bilateral neck PEAK SYSTOLIC VELOCITIES (cm/sec): ICA/CCA RATIO: Right: 0.7 Left: N/A ICA: Right: 46 Left: 85 CCA: Right: 65 Left: N/A ECA: Right: 117 Left: 103 VERTEBRAL: Right: 47 antegrade Left: 56 antegrade Elevated flow velocities and ICA/CCA ratios have been found to correlate with increased degrees of vessel stenosis, calculated as percentage of diameter relative to a normal segment of distal ICA/CCA FINDINGS: Carotid anatomy is atypical. The carotid bifurcations are reportedly very low in the neck. On the lef t side configuration essentially precludes velocity measurements in the common carotid artery. On the right, the common carotid appears to trifurcate. The internal carotids appear to be patent without s ignificant stenosis. CONCLUSION: Unusual configuration of the carotids as above without definite findings to suggest stenosis on this screening exam. Further evaluation with CTA examination of the carotids may be beneficial in this jamal e to better delineate the anatomy Jayant White MD on June 06, 2017 at 16:45 Board Certified Radiologist. This report was verified electronically.
[2017-06-06] MEDS ORDERED: LORazepam 2 MG/ML VIAL IV PUSH ONE (17:45)
[2017-06-06] MEDS ORDERED: SENNOSIDES 8.6 MG TAB PO PRN (18:15)
[2017-06-06] MEDS ORDERED: BISACODYL 10 MG SUPP RECTAL PRN (18:15)
[2017-06-06] MEDS ORDERED: MAGNESIUM HYDROXIDE SUSP 30 ML CUP PO PRN (18:15)
[2017-06-06] MEDS: traMADol HCL 50 MG TAB PO PRN (18:28)
[2017-06-06] MEDS ORDERED: GADODIAMIDE PF 287 MG/ML 5 ML VIAL (for RAD MRI) IV PUSH ONE (19:27)
--- NOTE | 2017-06-06 19:54 | RADRPT ---
EXAM DATE/TIME: 06/06/2017 19:01 [facility] COMPARISON: No previous studies available for comparison. INDICATIONS : CVA. MEDICAL HISTORY : Hypertension. Diabetes. SURGICAL HISTORY : CABG ENCOUNTER: Initial ACUITY: 1 day PAIN SCORE: 0/10 LOCATION: cranial Please note a normal MRA of the brain does not entirely exclude the possibility of a small aneurysm, nor the possibility of distal intracranial vessel disease. TECHNIQUE: 3D time of flight MRA was performed. Source images, multiplanar STS MIP, and 3D volume MIP reconstru ctions were reviewed. FINDINGS: Anterior circulation: Distal intracranial internal carotid arteries are patent with flow extending to the middle and anteri or cerebral arteries. Left A1 segment is not visualized. The left anterior cerebral artery opacifies via the anterior communicating artery. There is no evidence for aneurysm, vessel truncation or stenos is, and no evidence for vascular malformation. Posterior circulation: Symmetric distal vertebral arteries with flow extending to basilar artery. There is no evidence for aneurysm, vessel truncation or stenosis, and no evidence for vascular malformation. CONCLUSION: 1. Suspect aplastic left A1 segment. 2. Otherwise, no significant flow limiting stenosis or large vessel occlusion. Suresh Raymundo MD on June 06, 2017 at 19:51 Board Certified Radiologist. This report was verified electronically.
--- NOTE | 2017-06-06 20:12 | RADRPT ---
EXAM DATE/TIME: 06/06/2017 19:01 [facility] COMPARISON: No previous studies available for comparison. INDICATIONS : Acoustic NeuromaDizziness. CONTRAST: 14 cc Omniscan (gadodiamide) IV MEDICAL HISTORY : Diabetes mellitus type 2. Hypertension. SURGICAL HISTORY : CABG ENCOUNTER: Initial ACUITY: 1 day PAIN SCORE: 0/10 LOCATION: Head. TECHNIQUE: Multiplanar, multisequence MRI of the brain was performed both prior to and following the administrat ion of paramagnetic contrast. FINDINGS: CEREBRUM: Fgfs-tm-quttrild diffuse cerebral atrophy. The ventricles are normal for age. No evidence of midline shift, mass lesion, hemorrhage or acute infarction. No extraaxial fluid collections are seen. The pituitary gland and suprasellar cistern are normal in configuration. WHITE MATTER: Mild periventricular and scattered focal white matter T2 prolongation. POSTERIOR FOSSA: Evaluation is somewhat limited due to patient motion. No significant enhancing mass in the CP angle t o suggest neuroma as questioned. The cerebellum and brainstem are intact. The 4th ventricle is midli ne. The cerebellopontine angle is unremarkable. The cerebellar tonsils are normal in position. DIFFUSION IMAGING: No focal areas of restricted diffusion are seen. No evidence of acute infarction. EXTRACRANIAL: The visualized portions of the orbits and paranasal sinuses are unremarkable. POST-CONTRAST: No abnormal areas of parenchymal or dural enhancement. No evidence of blood-brain barrier breakdown. CONCLUSION: 1. Limited evaluation due to patient motion. However, no evidence for significant CP angle mass to rosas ggest acoustic neuroma as questioned. 2. Senescent changes with mild periventricular small vessel ischemic white matter demyelination. 3. No acute intracranial abnormality. Suresh Raymundo MD on June 06, 2017 at 20:08 Board Certified Radiologist. This report was verified electronically.
[2017-06-06] MEDS: DOCUSATE SODIUM 50 MG/SENNA 8.6 MG TAB PO SCH (21:19)
[2017-06-07] MEDS ORDERED: IOHEXOL 350 MG/ML 10 ML VIAL (for RAD DIAG) IVCONTRAST ONE (00:02)
[2017-06-07 00:30] VITALS: BP 117/53; PULSE 74; RESP 17; TEMP 97.5; O2SAT 97
[2017-06-07 00:54] VITALS: PULSE 96
[2017-06-07 04:00] VITALS: BP 113/55; PULSE 89; RESP 18; TEMP 96.9; O2SAT 94
[2017-06-07] MEDS: HEPARIN SODIUM - SQ 10,000 UNITS/ML VIAL SQ SCH ×2 (05:48→13:42)
[2017-06-07] MEDS: SODIUM CHLOR 0.9% 1000 ML INJ 1,000 ML IV SCH (05:48)
[2017-06-07 07:29] LABS: CHOLESTEROL/ HDL RATIO 3.08 RATIO; HDL CHOLESTEROL 57.4 MG/DL (40.0-60.0)
[2017-06-07 07:34] LABS: BICARBONATE 27.2 MEQ/L (21.0-32.0); CALCIUM 7.6 MG/DL (8.5-10.1); CREATININE 0.96 MG/DL (0.50-1.00); MAGNESIUM 1.7 MG/DL (1.5-2.5)
[2017-06-07 08:00] VITALS: BP 125/56; PULSE 85; PULSE 95; RESP 18; TEMP 97; O2SAT 95
[2017-06-07] MEDS: INSULIN ASPART SUPPLEMENTAL SCALE SQ SCH ×3 (08:00→17:20)
--- NOTE | 2017-06-07 08:30 | RADRPT ---
EXAM DATE/TIME: 06/06/2017 23:56 [facility] COMPARISON: CT BRAIN W/O CONTRAST, June 05, 2017, 20:45. INDICATIONS : Syncope. Carotid stenosis. IV CONTRAST: 60 cc Omnipaque 350 (iohexol) IV RADIATION DOSE: 11.59 CTDIvol (mGy) MEDICAL HISTORY : Dementia. Hypertension. Coronary artery disease. Diabetes. Asthma. SURGICAL HISTORY : CABG ENCOUNTER: Subsequent ACUITY: 2 days PAIN SCALE: 0/10 LOCATION: neck Elevated flow velocities and ICA/CCA ratios have been found to correlate with increased degrees of vessel stenosis, calculated as percentage of diameter relative to a normal segment of distal ICA/CCA. TECHNIQUE: Volumetric scanning was performed using a multirow detector CT scanner. The data was post processed with a variety of visualization algorithms including full-volume maximum intensity projection, multip lanar sliding thin-slab reformation, curved-planar reformation, and surface-rendering techniques. Us ing automated exposure control and adjustment of the mA and/or kV according to patient size, radiatio n dose was kept as low as reasonably achievable to obtain optimal diagnostic quality images. DICOM f ormat image data is available electronically for review and comparison. FINDINGS: AORTIC ARCH: There is a three-vessel origin of the great vessels from the aorta. No evidence of ostial narrowing. RIGHT CAROTID: The common carotid is widely patent. There is mild atherosclerotic plaquing at the bifurcation. The i nternal carotid and external carotid are patent. There is no hemodynamically significant lesion ident ified. LEFT CAROTID: The left common carotid is quite small in size. There is a very early bifurcation. This is quite low in the chest just posterior to the thyroid. There is no significant atherosclerotic plaquing involvin g the bifurcation however, the left internal carotid is diminutive in caliber measuring only approxim ately 3 mm in size. It is widely patent throughout its course. I do not see evidence of a dissection. This appears to be on a congenital basis. VERTEBRALS: The vertebral arteries have a symmetric diameter. No stenotic lesions are seen. CONCLUSION: 1. Right carotid: 2. There is atherosclerotic plaquing at the bifurcation but no hemodynamically significant stenosis. Right internal and external carotid circulation is widely patent. 3. 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 The bifurcation is quite low posterior to the thyroid. The exam demonstrates only minimal atherosclerotic plaquing however the entire left internal carotid is diminutive in caliber measuring only 3 mm. It is widely patent throughout its course. The overall course of the left internal carotid is quite medial as well. Abraham Quintero MD on June 07, 2017 at 8:22 Board Certified Radiologist. This report was verified electronically.
[2017-06-07] MEDS: EZETIMIBE 10 MG TAB PO SCH (09:22)
[2017-06-07] MEDS: CALCIUM/VITAMIN D 250 MG/125 U TAB PO SCH (09:22)
[2017-06-07] MEDS: ESCITALOPRAM OXALATE 20 MG TAB PO SCH (09:22)
[2017-06-07] MEDS: buPROPion HCL 150 MG SUSTAINED RELEASE TAB PO SCH (09:22)
[2017-06-07] MEDS: DOCUSATE SODIUM 50 MG/SENNA 8.6 MG TAB PO SCH (09:22)
[2017-06-07] MEDS: VALSARTAN 160 MG TAB PO SCH (09:22)
[2017-06-07] MEDS: traMADol HCL 50 MG TAB PO PRN (09:23)
[2017-06-07] MEDS ORDERED: TRAM50 PO (09:26)
[2017-06-07] MEDS: SODIUM CHLORIDE 0.9% FLUSH 10 ML FLUSH IV FLUSH SCH (09:44)
--- NOTE | 2017-06-07 10:05 | HHI.PR ---
Subjective Remarks Follow up dizziness, hyponatremia. Patient is Persian-speaking only and is hard of hearing. Attempts to use computer translation service have not worked. I used written questions and an online text national opelint analyst to communicate with the patient today. She denies dizziness. She reports back pain. She does not feel comfortable going home, but would go to SNF. Objective Vitals Vital Signs Date Time Temp Pulse Resp B/P (MAP) Pulse Ox O2 Delivery O2 Flow Rate FiO2 06/07/17 08:00 97.0 85 18 125/56 (79) 95 06/07/17 04:00 96.9 89 18 113/55 (74) 94 06/07/17 00:54 96 06/07/17 00:30 97.5 74 17 117/53 (74) 97 06/06/17 23:15 81 06/06/17 21:15 98.4 89 20 109/58 (75) 95 06/06/17 17:45 101 103/34 (57) 06/06/17 17:36 98 114/56 (75) 06/06/17 17:30 98.9 90 18 106/53 (70) 96 06/06/17 12:33 98.0 100 18 104/60 (75) 06/06/17 11:32 98.3 104 18 132/81 (98) 97 I/O 06/06/17 06/06/17 06/06/17 06/07/17 06/07/17 06/07/17 07:00 15:00 23:00 07:00 15:00 23:00 Intake Total 700 ml 840 ml 1240 ml Output Total 200 ml Balance 500 ml 840 ml 1240 ml Intake Oral 120 ml 840 ml 240 ml IV Total 580 ml 1000 ml Output Urine Total 200 ml # Voids 3 2 4 5 # Bowel Movements 0 2 0 Result Diagram: 06/06/17 0358 06/07/17 0600 Imaging Last Impressions Neck CTA 06/06/17 0000 Signed Impressions: Service Date/Time: May 23:56 - CONCLUSION: 1. Right carotid: 2. There is atherosclerotic plaquing at the bifurcation but no hemodynamically significant stenosis. Right internal and external carotid circulation is widely patent. 3. 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 The bifurcation is quite low posterior to the thyroid. The exam demonstrates only minimal atherosclerotic plaquing however the entire left internal carotid is diminutive in caliber measuring only 3 mm. It is widely patent throughout its course. The overall course of the left internal carotid is quite medial as well. Abraham Quintero MD Head Magnetic Resonance Angiography 06/06/17 Signed Impressions: Service Date/Time: May 19:01 - CONCLUSION: 1. Suspect aplastic left A1 segment. 2. Otherwise, no significant flow limiting stenosis or large vessel occlusion. Suresh Raymundo MD Carotid Artery Ultrasound 06/06/17 Signed Impressions: Service Date/Time: May 15:48 - CONCLUSION: Unusual configuration of the carotids as above without definite findings to suggest stenosis on this screening exam. Further evaluation with CTA examination of the carotids may be beneficial in this case to better delineate the anatomy Jayant White MD Brain MRI 06/06/17 Signed Impressions: Service Date/Time: May 19:01 - CONCLUSION: 1. Limited evaluation due to patient motion. However, no evidence for significant CP angle mass to suggest acoustic neuroma as questioned. 2. Senescent changes with mild periventricular small vessel ischemic white matter demyelination. 3. No acute intracranial abnormality. Suresh aRymundo MD Head CT 06/05/172030 Signed Impressions: Service Date/Time: Monday, June 05, 2017 20:45 - CONCLUSION: 1. No acute intracranial abnormality. Stable compared to prior examination of . Abraham Quintero MD Chest X-Ray 06/05/172030 Signed Impressions: Service Date/Time: Monday, June 05, 2017 21:10 - CONCLUSION: 1. Cardiomegaly. Stable compared to previous exam. Abraham Quintero MD Objective Remarks General: Elderly female in no acute distress. Heart: Regular rate and rhythm. No murmur. Lungs: Clear to auscultation bilaterally. No wheezes, rales, or rhonchi. Breathing is nonlabored. Abdomen: Soft, nontender, nondistended. Extremities: No lower extremity edema. Psych: Alert and oriented. Back: Tenderness in the right lumbar paraspinal muscles. No tenderness over the spinal column. Procedures None Urinary Catheter: No Vascular Central Line Catheter: No A/P Assessment and Plan 1. Hyponatremia: Resolved. Likely secondary to dehydration. 2. Generalized weakness, dizziness, difficulty ambulating: Likely secondary to above. Dizziness has resolved. Continue PT/OT. MRI shows no evidence of stroke. Carotid artery ultrasound, next CTA reviewed. 3. Diabetes mellitus type 2: Monitor Accu-Cheks and cover with sliding scale insulin. 4. Hypertension: Chronic, well controlled. Continue valsartan. 5. Depression: Chronic. Continue escitalopram, bupropion. 6. Abdominal pain: Improved today. 7. DVT prophylaxis: Heparin. Discharge Planning Plan for discharge to SNF today if arrangements can be made. Discharge in stable condition. Diabetic diet. Activity as tolerated with assistance. Norberto Powers MD Jun 07, 2017 10:05
--- NOTE | 2017-06-07 10:07 | HHI.DCPOC ---
Discharge Care Plan Diagnosis: (1) Dizziness (2) Hypertension (3) Hyponatremia (4) DM (diabetes mellitus) Goals to Promote Your Health * To prevent worsening of your condition and complications * To maintain your health at the optimal level Directions to Meet Your Goals Take your medications as prescribed Follow your dietary instruction Follow activity as directed Keep your appointments as scheduled Take your immunizations and boosters as scheduled If your symptoms worsen call your PCP, if no PCP go to Urgent Care Center or Emergency Room Smoking is Dangerous to Your Health. Avoid second hand smoke Call the 24-hour hour crisis hotline for domestic abuse at Norberto Powers MD Jun 07, 2017 10:07
[2017-06-07 10:36] LABS: HEMATOCRIT 29.9 % (35.0-46.0); HEMOGLOBIN 10.2 GM/DL (11.6-15.3); MEAN CORPUSCULAR HEMOGLOBIN 27.8 PG (27.0-34.0); MEAN CORPUSCULAR HGB CONC 33.9 % (32.0-36.0); MEAN PLATELET VOLUME 9.2 FL (7.0-11.0); RED BLOOD COUNT 3.65 MIL/MM3 (4.00-5.30); RED CELL DISTRIBUTION WIDTH 15.1 % (11.6-17.2); WHITE BLOOD COUNT 6.1 TH/MM3 (4.0-11.0)
[2017-06-07 10:37] LABS: AUTOMATED NEUTROPHIL # 4.3 TH/MM3 (1.8-7.7); EOSINOPHIL % 2.7 % (0.0-4.0); LYMPH % 17.2 % (9.0-44.0); MONO % 8.6 % (0.0-8.0); NEUT % 70.8 % (16.0-70.0)
[2017-06-07 10:38] LABS: BASOPHIL # 0.7 TH/MM3 (0-0.2); BASOPHIL % 0.7 % (0.0-2.0); EOSINOPHIL # 2.7 TH/MM3 (0-0.4); LYMPHOCYTE # 17.2 TH/MM3 (1.0-4.8); MONOCYTE # 8.6 TH/MM3 (0-0.9)
[2017-06-07 12:00] VITALS: BP 100/67; PULSE 99; RESP 18; TEMP 96.6; O2SAT 95
[2017-06-07] MEDS ORDERED: IBUP1TAB5 PO (14:47)
== END 2017-06-07 17:48 ==
LOC: NEPE 19:49 → NEDA 06-06 02:36 → INTOOBSV 06-06 02:45 → OBSVTOIN 06-06 02:45 → NEDA 06-06 05:35 → HCIN 06-06 08:03 → N06B 06-06 23:47
PROVIDERS: ADMIT Family Medicine; ATTEND Family Medicine
DX: E87.1 Hypo-osmolality and hyponatremia (principal); R53.1 Weakness; R42 Dizziness and giddiness; R26.2 Difficulty in walking, not elsewhere classified; I45.10 Unspecified right bundle-branch block; R94.31 Abnormal electrocardiogram [ECG] [EKG]; I49.8 Other specified cardiac arrhythmias; M54.9 Dorsalgia, unspecified; R10.9 Unspecified abdominal pain; I25.10 Atherosclerotic heart disease of native coronary artery without angina pectoris; I11.0 Hypertensive heart disease with heart failure; I50.9 Heart failure, unspecified; K44.9 Diaphragmatic hernia without obstruction or gangrene; E78.00 Pure hypercholesterolemia, unspecified; J45.909 Unspecified asthma, uncomplicated; E11.9 Type 2 diabetes mellitus without complications; F03.90 Unspecified dementia, unspecified severity, without behavioral disturbance, psychotic disturbance, mood disturbance, and anxiety; F32.9 Major depressive disorder, single episode, unspecified; H91.90 Unspecified hearing loss, unspecified ear; Z95.1 Presence of aortocoronary bypass graft; Z79.899 Other long term (current) drug therapy; Z88.6 Allergy status to analgesic agent
CPT/HCPCS: 70450; 70498; 70544; 70553; 71046; 80048; 80053; 80061; 81001; 82550; 82552; 82948; 83690; 83735; 84443; 84484; 85025; 87081; 87804; 87880; 93005; 93306; 93880; 96361; 96372; 96374; 97110; 97163; 97167; 97530; 99285; A9579; G0378; J1644; J2060; J7030; J7040; Q9967

== ENCOUNTER 2017-06-28 16:28 | Emergency (ER) | payer OTHER, MEDICAID ==
[~2017-06-28] VITALS: Ht 154.9 cm; Wt 80.0 kg
[~2017-06-28 16:28] MED LIST changes: +BUPR150T12; +CALC1TAB87 PO; +D200CAP PO; +ESCI20TA PO; +EZET1TAB8 PO; +GELA600C2; +IBUP1TAB5 PO; -TRAM50 PO
[2017-06-28 17:00] VITALS: BP 109/54; PULSE 88; RESP 16; TEMP 98.8; O2SAT 98
[2017-06-28 19:45] LABS: AUTOMATED NEUTROPHIL # 6.2 TH/MM3 (1.8-7.7); BASOPHIL # 0.1 TH/MM3 (0-0.2); BASOPHIL % 1.3 % (0.0-2.0); EOSINOPHIL # 0.2 TH/MM3 (0-0.4); EOSINOPHIL % 2.5 % (0.0-4.0); HEMATOCRIT 34.6 % (35.0-46.0); HEMOGLOBIN 11.5 GM/DL (11.6-15.3); LYMPH % 11.9 % (9.0-44.0); MEAN CELL VOLUME 82.5 FL (80.0-100.0); MEAN CORPUSCULAR HEMOGLOBIN 27.4 PG (27.0-34.0); MEAN CORPUSCULAR HGB CONC 33.2 % (32.0-36.0); MEAN PLATELET VOLUME 10.4 FL (7.0-11.0); MONO % 10.1 % (0.0-8.0); MONOCYTE # 0.8 TH/MM3 (0-0.9); NEUT % 74.2 % (16.0-70.0); PLATELET COUNT 85 TH/MM3 (150-450); RED BLOOD COUNT 4.19 MIL/MM3 (4.00-5.30); RED CELL DISTRIBUTION WIDTH 15.5 % (11.6-17.2); WHITE BLOOD COUNT 8.3 TH/MM3 (4.0-11.0)
[2017-06-28 20:11] LABS: ALKALINE PHOSPHATASE 85 U/L (45-117); ALT (GPT) 35 U/L (10-53); TOTAL BILIRUBIN ADULT 0.6 MG/DL (0.2-1.0); TOTAL PROTEIN 7.7 GM/DL (6.4-8.2)
[2017-06-28 20:26] LABS: ALBUMIN 3.9 GM/DL (3.4-5.0); AST (GOT) 26 U/L (15-37); BICARBONATE 28.5 MEQ/L (21.0-32.0); BLOOD UREA NITROGEN 21 MG/DL (7-18); CALCIUM 8.6 MG/DL (8.5-10.1); CHLORIDE 98 MEQ/L (98-107); CREATININE 1.15 MG/DL (0.50-1.00); GLOMERULAR FILTRATION RATE 46 ML/MIN (>89); GLUCOSE,RANDOM 77 MG/DL (74-106); SODIUM (NA) 134 MEQ/L (136-145)
--- NOTE | 2017-06-28 21:43 | RADRPT ---
EXAM DATE/TIME: 06/28/2017 21:36 [facility] COMPARISON: CT BRAIN W/O CONTRAST, June 05, 2017, 20:45. INDICATIONS : Trauma. Fall. RADIATION DOSE: 35.32 CTDIvol (mGy) MEDICAL HISTORY : Cerebrovascular disease. Cardiovascular disease Hypertension. SURGICAL HISTORY : None. ENCOUNTER: Initial ACUITY: 1 day PAIN SCALE: 4/10 LOCATION: Bilateral cranial TECHNIQUE: Multiple contiguous axial images were obtained of the head. Using automated exposure control and adj ustment of the mA and/or kV according to patient size, radiation dose was kept as low as reasonably a chievable to obtain optimal diagnostic quality images. DICOM format image data is available electro nically for review and comparison. FINDINGS: Motion degraded study. CEREBRUM: The ventricles are normal for age. No evidence of midline shift, mass lesion, hemorrhage or acute in farction. No extra-axial fluid collections are seen. POSTERIOR FOSSA: The cerebellum and brainstem are intact. The 4th ventricle is midline. The cerebellopontine angle i s unremarkable. EXTRACRANIAL: The visualized portion of the orbits is intact. SKULL: The calvaria is intact. No evidence of skull fracture. CONCLUSION: No acute abnormality demonstrated. Jayant Olivia MD on June 28, 2017 at 21:41 Board Certified Radiologist. This report was verified electronically.
[2017-06-28] MEDS ORDERED: IBUPROFEN 400 MG TAB PO ONE (22:15)
[2017-06-28] MEDS ORDERED: MECLIZINE HCL 25 MG TAB PO ONE (22:15)
--- NOTE | 2017-06-28 23:08 | RADRPT ---
EXAM DATE/TIME: 06/28/2017 22:33 [facility] COMPARISON: No previous studies available for comparison. INDICATIONS : Spine pain. MEDICAL HISTORY : Hypertension. Coronary artery disease. Diabetes. Asthma. SURGICAL HISTORY : CABG. Appendectomy. Cholecystectomy. Cataract surgery. ENCOUNTER: Initial ACUITY: 1 day PAIN SCORE: 5/10 LOCATION: Bilateral pelvis FINDINGS: A single frontal view of the pelvis demonstrates no evidence of fracture. The bony pelvic ring is in tact. Bony mineralization is normal. The soft tissues are intact. CONCLUSION: Intact pelvis. Jayant Olivia MD on June 28, 2017 at 23:06 Board Certified Radiologist. This report was verified electronically.
--- NOTE | 2017-06-28 23:12 | RADRPT ---
EXAM DATE/TIME: 06/28/2017 22:36 [facility] COMPARISON: No previous studies available for comparison. INDICATIONS : Back pain. MEDICAL HISTORY : Hypertension. Coronary artery disease. Diabetes. Asthma. SURGICAL HISTORY : CABG. Appendectomy. Cholecystectomy. Cataract surgery. ENCOUNTER: Initial ACUITY: 1 day PAIN SCORE: 5/10 LOCATION: Spine. FINDINGS: There is normal alignment of the thoracic vertebral bodies. Vertebral body height is maintained. No evidence of fracture or subluxation. Pedicles are intact at all levels. The paravertebral reflecti ons are not thickened. Mild disc space narrowing is centrally throughout. CONCLUSION: Mild degenerative changes of the thoracic spine. No fracture or subluxation demonstrated. Jayant Olivia MD on June 28, 2017 at 23:10 Board Certified Radiologist. This report was verified electronically.
--- NOTE | 2017-06-28 23:12 | RADRPT ---
EXAM DATE/TIME: 06/28/2017 22:35 [place] COMPARISON: No previous studies available for comparison. INDICATIONS : Back pain. MEDICAL HISTORY : Hypertension. Coronary artery disease. Diabetes. Asthma. SURGICAL HISTORY : CABG. Appendectomy. Cholecystectomy. Cataract surgery. ENCOUNTER: Initial ACUITY: 1 day PAIN SCORE: 5/10 LOCATION: Spine. FINDINGS: Lumbar lordosis is exaggerated and there is a mild kyphotic deformity at the thoracolumbar junction. In general, mild levoconvex lumbar curvature. A few millimeters of degenerative retrolisthesis at L1/ L2 and L2/L3. There is a proximally 7 mm of anterolisthesis at L5/S1 which I also believe is degenera tive. No acute fracture or acute appearing malalignment. There is severe disc space narrowing at T12/L1 and L1/L2 and moderate disc space narrowing at the other levels. Moderate to severe bilateral facet oste oarthritis centrally throughout. There is atherosclerosis of the abdominal aorta. No perceptible aneurysm. CONCLUSION: Substantial chronic findings as above but no fracture or acute appearing malalignment demonstrated of the lumbar spine. Jayant Olivia MD on June 28, 2017 at 23:07 Board Certified Radiologist. This report was verified electronically.
[2017-06-28 23:18] VITALS: BP 128/61; PULSE 81; RESP 18; O2SAT 98
--- NOTE | 2017-06-28 23:46 | PD ---
HPI Chief Complaint: Head Injury Time Seen by Provider: 21:31 Travel History International Travel<30 days: No Contact w/Intl Traveler<30days: No Traveled to known affect area: No History of Present Illness HPI Patient is a 77 year old female who comes in after a fall today. Per daughter, she was making coffee this afternoon when she got dizzy and fell back and hit her head. She denies any LOC. She has history of vertigo and is out of her meclizine. She says the dizziness is similar to her prior episodes of dizziness. She denies nausea or vomiting. She complains of pain to the right side of her head and her back. She denies any numbness or tingling. She denies chest pain or SOB. She did not take anything for pain. Severity is mild to moderate. PFSH Past Medical History Asthma: Yes Atrial Fibrillation: Yes Heart Rhythm Problems: Yes Cardiac Catheterization: Yes Cardiovascular Problems: Yes High Cholesterol: Yes Congestive Heart Failure: Yes Cerebrovascular Accident: Yes Dementia: Yes Diabetes: Yes Patient Takes Glucophage: No Diminished Hearing: Yes Headaches: Yes Heparin Induced Thrombocytopen: No Hypertension: Yes Neurologic: Yes Respiratory: Yes Seizures: Yes (See EMR) ?: Not Past Surgical History Appendectomy: Yes Cholecystectomy: Yes Coronary Artery Bypass Graft: Yes Social History Alcohol Use: No Tobacco Use: No Substance Use: No Allergies-Medications (Allergen,Severity, Reaction): Coded Allergies: Penicillins (Verified Allergy, Severe, Hives, 06/28/17) acetaminophen (Verified Allergy, Mild, Chills, 06/28/17) amoxicillin (Verified Allergy, Unknown, Hives, 06/28/17) hydrocodone (Verified Adverse Reaction, Intermediate, Sedation, 06/28/17) medication causes too much sedation for the pt tramadol (Verified Adverse Reaction, Intermediate, hallucinations, 06/28/17 ) Reported Meds & Prescriptions Reported Meds & Active Scripts Active Meclizine (Meclizine HCl) 25 Mg Tab 25 Mg PO TID PRN 7 Days Ibuprofen 400 Mg Tab 400 Mg PO Q6H PRN Zofran Odt (Ondansetron Odt) 4 Mg Tab 4 Mg SL Q6HR PRN Pantoprazole (Pantoprazole Sodium) 40 Mg Tab 40 Mg PO DAILY Glucophage (Metformin HCl) 500 Mg Tab 500 Mg PO BIDPC Symbicort Inh (Budesonide/Formoterol Fumarate) 160-4.5 Mcg/Act Aero 1 Puff INH BID Reported Escitalopram (Escitalopram Oxalate) 20 Mg Tab 20 Mg PO DAILY D3 Super Strength (Cholecalciferol) 2,000 Unit Cap 5,000 Units PO DAILY Gelatin 600 Mg Capsule Calcium 600 with Vitamin D (Calcium Carbonate-Cholecalciferol) 600-400 mg-Unit Tab 1 Tab PO DAILY Bupropion Sr 12 HR (Bupropion ER 12 HR (Smoking Deterrent)) 150 Mg Tab 150 Mg BID Take 1 tablet daily x 3 days then twice daily thereafter. Ezetimibe 10 Mg Tab 10 Mg PO DAILY Aspirin 325 Mg Tab 325 Mg PO ONCE Montelukast (Montelukast Sodium) 10 Mg Tab 10 Mg PO HS Valsartan 160 Mg Tab 160 Mg PO DAILY Meclizine (Meclizine HCl) 25 Mg Tab 25 Mg PO TID PRN Ventolin Hfa 18 GM Inh (Albuterol Sulfate) 90 Mcg/Act Aer 1-2 Puff INH Q4H PRN Albuterol Neb (Albuterol Sulfate) 2.5 Mg/3 Ml Neb 2.5 Mg NEB Q6HR PRN Review of Systems Except as stated in HPI: all other systems reviewed are Neg General / Constitutional: No: Fever, Chills Eyes: No: Blurred Vision HENT: Positive: Headaches, Vertigo Cardiovascular: No: Chest Pain or Discomfort Respiratory: No: Shortness of Breath Gastrointestinal: No: Nausea, Vomiting Musculoskeletal: Positive: Pain Skin: No Rash, No Change in Pigmentation Neurologic: No: Weakness Physical Exam Narrative GENERAL: Awake and alert, in no acute distress. SKIN: Focused skin assessment warm/dry. No wounds or signs of infection. HEAD: Atraumatic. Normocephalic. EYES: Pupils equal and round and reactive. No scleral icterus. EOMI. ENT: Mucous membranes pink and moist. NECK: Trachea midline. No JVD. CARDIOVASCULAR: Regular rate and rhythm. No murmur appreciated. RESPIRATORY: No accessory muscle use. Clear to auscultation. Breath sounds equal bilaterally. GASTROINTESTINAL: Abdomen soft, non-tender, nondistended. MUSCULOSKELETAL: No obvious deformities. No clubbing. No cyanosis. No edema. Tender to palpation of the thoracic and lumbar spine. NEUROLOGICAL: Awake and alert. No obvious cranial nerve deficits. Motor grossly within normal limits. Normal speech. PSYCHIATRIC: Appropriate mood and affect; insight and judgment normal. Data Data Last Documented VS Vital Signs Date Time Temp Pulse Resp B/P (MAP) Pulse Ox O2 Delivery O2 Flow Rate FiO2 06/28/17 23:18 81 18 128/61 (83) 98 Room Air 06/28/17 17:00 98.8 Orders Orders Electrocardiogram (06/28/17 17:10) Complete Blood Count With Diff (06/28/17 17:10) Comprehensive Metabolic Panel (06/28/17 17:10) Iv Access Insert/Monitor (06/28/17 17:10) Ct Brain W/O Iv Contrast(Rout) (06/28/17 ) Electrocardiogram (06/28/17 ) Spine, Thoracic-Ap/Lat/Sw(3vw) (06/28/17 ) Spine, Lumbar Comp W/Obliq (06/28/17 ) Pelvis, Ap Only (Routine) (06/28/17 ) Meclizine (Antivert) (06/28/17 22:15) Ibuprofen (Motrin) (06/28/17 22:15) Ed Discharge Order (06/29/17 00:04) Labs Laboratory Tests Test 06/28/17 19:10 White Blood Count 8.3 TH/MM3 Red Blood Count 4.19 MIL/MM3 Hemoglobin 11.5 GM/DL Hematocrit 34.6 % Mean Corpuscular Volume 82.5 FL Mean Corpuscular Hemoglobin 27.4 PG Mean Corpuscular Hemoglobin Concent 33.2 % Red Cell Distribution Width 15.5 % Platelet Count 85 TH/MM3 Mean Platelet Volume 10.4 FL Neutrophils (%) (Auto) 74.2 % Lymphocytes (%) (Auto) 11.9 % Monocytes (%) (Auto) 10.1 % Eosinophils (%) (Auto) 2.5 % Basophils (%) (Auto) 1.3 % Neutrophils # (Auto) 6.2 TH/MM3 Lymphocytes # (Auto) 1.0 TH/MM3 Monocytes # (Auto) 0.8 TH/MM3 Eosinophils # (Auto) 0.2 TH/MM3 Basophils # (Auto) 0.1 TH/MM3 CBC Comment AUTO DIFF Blood Urea Nitrogen 21 MG/DL Creatinine 1.15 MG/DL Random Glucose 77 MG/DL Total Protein 7.7 GM/DL Albumin 3.9 GM/DL Calcium Level 8.6 MG/DL Alkaline Phosphatase 85 U/L Aspartate Amino Transf (AST/SGOT) 26 U/L Alanine Aminotransferase (ALT/SGPT) 35 U/L Total Bilirubin 0.6 MG/DL Sodium Level 134 MEQ/L Potassium Level 4.5 MEQ/L Chloride Level 98 MEQ/L Carbon Dioxide Level 28.5 MEQ/L Anion Gap 8 MEQ/L Estimat Glomerular Filtration Rate 46 ML/MIN MDM Medical Decision Making Medical Screen Exam Complete: Yes Emergency Medical Condition: Yes Medical Record Reviewed: Yes Differential Diagnosis ICH vs thoracic spine injury vs lumbar spine injury vs Narrative Course Patient is a 77 year old female who comes in complaining of pain to her head and back after a fall. Exam shows tenderness to the spine. CT head shows no acute abnormalities. XR of the thoracic and lumbar spine show no acute abnormalities. Last 24 hours Impressions Thoracic Spine X-Ray 06/28/17 0000 Signed Impressions: Service Date/Time: Wednesday, June 28, 2017 22:36 - CONCLUSION: Mild degenerative changes of the thoracic spine. No fracture or subluxation demonstrated. Jayant Olivia MD Pelvis X-Ray 06/28/17 0000 Signed Impressions: Service Date/Time: Wednesday, June 28, 2017 22:33 - CONCLUSION: Intact pelvis. Jayant Olivia MD Lumbar Spine X-Ray 06/28/17 0000 Signed Impressions: Service Date/Time: Wednesday, June 28, 2017 22:35 - CONCLUSION: Substantial chronic findings as above but no fracture or acute appearing malalignment demonstrated of the lumbar spine. Jayant Olivia MD Head CT 06/28/17 0000 Signed Impressions: Service Date/Time: Wednesday, June 28, 2017 21:36 - CONCLUSION: No acute abnormality demonstrated. Jayant Olivia MD Given Meclizine, Ibuprofen. She reports feeling better. Given a prescription for Meclizine. Advised to follow up with her doctors. Advised to return to the ED as needed for any worsening symptoms. Diagnosis Primary Impression: Dizziness Additional Impression: Fall Qualified Codes: W19.XXXA - Unspecified fall, initial encounter Patient Instructions: Fall Prevention (ED), General Instructions Additional Instructions: Follow up with your doctor. Take Meclizine as needed for dizziness. Take Ibuprofen as needed for pain. Return as needed for any worsening symptoms. Scripts Meclizine (Meclizine) 25 Mg Tab 25 MG PO TID Y for VERTIGO for 7 Days, TAB 0 Refills Prov: Daria Landin MD 06/29/17 Disposition: 01 DISCHARGE HOME Condition: Stable Daria Landin MD Jun 28, 2017 23:46
[2017-06-29] MEDS ORDERED: MECL-62 PO (00:19)
[2017-06-29 00:43] VITALS: BP 119/67
[2017-06-29 00:45] LABS: TOXIC GRANULATION 1+ (NORMAL)
--- NOTE | 2017-06-29 18:31 | EKG ---
Date Performed: 06/28/2017 Time Performed: 19:12:56 PTAGE: 77 years EKG: Sinus rhythm WITH SINUS ARRHYTHMIA MARKED LEFT AXIS DEVIATION INCOMPLETE RIGHT BUNDLE BRANCH BLOCK CANNOT EXCLUDE SEPTAL W[place] OF UNDTERMINED AGE ABNORMAL ECG Compared to PREVIOUS TRACING , no change. PREVIOUS TRACIN06/05/2017 20.05 DOCTOR: Edwardo Su Interpretating Date/Time 06/29/2017 18:31:00
== END 2017-06-29 00:48 | disposition home or self-care (01) ==
LOC: NEPC 16:28
DX: S09.90XA Unspecified injury of head, initial encounter (principal); R42 Dizziness and giddiness; E11.9 Type 2 diabetes mellitus without complications; W19.XXXA Unspecified fall, initial encounter; Z79.84 Long term (current) use of oral hypoglycemic drugs
CPT/HCPCS: 70450; 72072; 72110; 72170; 80053; 85025; 93005

== ENCOUNTER 2017-11-06 13:44 | Inpatient (IN) ==
[2017-11-06] MEDS ORDERED: MethylPREDNISolone Sod Succinate Inj 125 MG/2 ML Vial IV.PUSH ONE (14:06)
--- NOTE | 2017-11-06 14:17 | ED ---
HPI General Chief Complaint: Chest Pain Stated Complaint: Chest Pain Time Seen by Provider: 11/06/17 13:50 Source: patient Mode of arrival: ambulatory Limitations: no limitations History of Present Illness 77-year-old female with PMH of asthma, DM, HTN, GERD, CAD status post CABG presents the ED via EMS for evaluation of worsening shortness of breath. Gradual onset. Patient endorses dyspnea on exertion for the last few days. She endorses chills and sweats. She states that she has had a nonproductive cough. She denies any history of smoking. She endorses feeling lightheaded. She denies headaches, dizziness, chest pain, palpitations, nausea, vomiting, leg pain, dysuria, back pain. She states that she takes Spiriva daily. She states that she used to use nebulizers but she does not have these anymore. She does not use oxygen at home. Patient is primarily Guatemalan-speaking. We communicated by [employer] formal translation services and also with a Guatemalan- speaking nurse in the ED. Related Data Home Medications Medication Instructions Recorded Confirmed albuterol sulfate 2 puff INHALATION Q4-6H PRN 11/06/17 11/06/17 albuterol sulfate [Ventolin HFA] 2 puff INHALATION Q6H PRN MDD 8 11/06/17 puffs budesonide-formoterol [Symbicort] 2 puff INHALATION BID 11/06/17 11/06/17 meclizine 25 mg PO BID PRN 11/06/17 11/06/17 meloxicam 15 mg PO DAILY 11/06/17 11/06/17 metformin 500 mg PO BID 11/06/17 11/06/17 Allergies Allergy/AdvReac Type Severity Reaction Status Date / Time Penicillins Allergy Severe Hives Verified 10/09/17 10:50 acetaminophen Allergy Mild Chills Verified 10/09/17 10:50 amoxicillin Allergy Unknown Hives Verified 10/09/17 10:50 aminophylline Allergy Hives Verified 11/06/17 14:07 Fish Containing Products Allergy Hives Verified 11/06/17 14:08 shellfish derived Allergy Hives Verified 11/06/17 14:08 hydrocodone AdvReac Intermediate Sedation Verified 10/09/17 10:50 tramadol AdvReac Intermediate hallucinati Verified 10/09/17 10:50 ons Review of Systems Except as stated in HPI: all other systems reviewed are negative [facility] Family History Family History Other Family history of diabetes mellitus Family history of hypertension Social History Social History Substance History: No History of Abuse Second Hand Smoke Exposure: No Smoking Status: Never smoker How Often Do You Have a Drink Containing Alcohol: Never Hx Recent Travel: No Recent Travel in [facility] within the Last 8 Weeks: No Recent Out of Country Travel within the Last 8 Weeks: No Immunization History Tetanus Immunization: Unsure Hx Influenza Vaccine This Season: Yes Exam Narrative Exam Narrative: GENERAL: Obese, petite female in no acute distress. SKIN: Focused skin assessment cool, dry, pale HEAD: Atraumatic. Normocephalic. EYES: Pupils equal and round. No scleral icterus. No injection or drainage. ENT: No nasal bleeding or discharge. Mucous membranes pink and moist. NECK: Trachea midline. No JVD. CARDIOVASCULAR: Regular rate and rhythm. No murmur appreciated. RESPIRATORY: No accessory muscle use. Wheezing throughout all lung royal. GASTROINTESTINAL: Abdomen soft, non-tender, nondistended. Hepatic and splenic margins not palpable. MUSCULOSKELETAL: No obvious deformities. No clubbing. No cyanosis. No edema. Homans sign negative bilaterally. NEUROLOGICAL: Awake and alert. No obvious cranial nerve deficits. Motor grossly within normal limits. Normal speech. PSYCHIATRIC: Appropriate mood and affect; insight and judgment normal. Course Initial Documented Vital Signs Temperature 97.6 F 11/06/17 13:50 Pulse Rate 102 H 11/06/17 13:50 Respiratory Rate 24 11/06/17 13:50 Blood Pressure 135/75 11/06/17 13:50 Pulse Oximetry 95 11/06/17 13:50 Last Documented Vital Signs Temperature 97.7 F 11/07/17 16:00 Pulse Rate 93 H 11/07/17 16:00 Respiratory Rate 17 11/07/17 16:00 Blood Pressure 115/65 11/07/17 16:00 Pulse Oximetry 94 L 11/07/17 16:00 Medical Decision Making [facility] Narrative Medical decision making narrative: 77-year-old female with PMH of asthma, DM, HTN, CAD presents the ED for evaluation of worsening shortness of breath and dyspnea on exertion. O2 sats 95% on room air, respiratory rate 22, BP 135/75, afebrile on presentation. On exam this is an obese female in no acute distress. There is wheezing and the lung royal but the exam is otherwise unremarkable. No lower extremity edema noted. Patient was placed on 2 L O2 by nasal cannula. O2 sats 98%. Patient was administered duo nebs 2 and IV Solu- Medrol. EKG rate 90, sinus rhythm with occasional PVCs. KS interval 133, QRS 94, QTc 388 ms. Normal axis. Incomplete RBBB. Q waves in V1 and V2. No acute ST changes. Reviewed by Dr. Hart. CXR: Mild pulmonary vascular congestion and cardiomegaly. D-dimer 0.95. Troponin 0 0.02. CTA: No evidence of PE. Small bilateral effusions noted. WBC 6.6. Hemoglobin 9.4. Magnesium 1.8. INR 1.3. BUN 27. Creatinine 1.15. Protein corrected calcium 7.4. PTH 57.8. Patient was administered 750 mg calcium p.o. She was administered 20 mg Lasix IV. I discussed the results of the workup and plan for admission with the patient. She is agreeable to the plan. I spoke with Dr. Olmstead who agrees to accept the patient to the medicine service. Please see medicine notes for disposition. Differential Diagnosis Differential Diagnosis: Asthma exacerbation versus pneumonia versus PE versus NC versus CHF versus anemia versus other Lab Data Result diagrams: 11/07/17 06:45 11/07/17 06:45 Lab Results 11/06/17 11/06/17 11/06/17 Range/Units 14:10 14:10 14:10 WBC 6.6 (4.0-11.0) th/mm3 RBC 3.65 L (4.00-5.30) mil/mm3 Hgb 9.4 L (11.6-15.3) gm/dL Hct 29.3 L (35.0-46.0) % MCV 80.4 (80.0-100.0) fL MCH 25.8 L (27.0-34.0) pg MCHC 32.1 (32.0-36.0) % RDW 15.0 (11.6-17.2) % Plt Count 103 L (150-450) th/mm3 MPV 11.5 H (7.0-11.0) fL Neut % (Auto) 90.7 H (16.0-70.0) % Lymph % (Auto) 6.2 L (9.0-44.0) % Blair % (Auto) 2.7 (0.0-8.0) % Eos % (Auto) 0.1 (0.0-4.0) % Baso % (Auto) 0.3 (0.0-2.0) % Neut # (Auto) 6.0 (1.8-7.7) th/mm3 Lymph # (Auto) 0.4 L (1.0-4.8) th/mm3 Blair # (Auto) 0.2 (0.0-0.9) th/mm3 Eos # (Auto) 0.0 (0.0-0.4) th/mm3 Baso # (Auto) 0.0 (0.0-0.2) th/mm3 WBC Differential . Differential Comment Auto diff final PT 13.5 H (9.8-11.6) sec INR 1.3 Ratio APTT 23.5 L (24.3-30.1) sec D-Dimer Quant (PE/DVT) 0.95 H (0.00-0.50) mg/L FEU Sodium 136 (136-145) meq/L Potassium 4.7 (3.5-5.1) meq/L Chloride 103 (98-107) meq/L Carbon Dioxide 23.0 (21.0-32.0) meq/L Anion Gap 10 (5-15) meq/L BUN 27 H (7-18) mg/dL Creatinine 1.15 H (0.50-1.00) mg/dL Estimated GFR 46 L (>89) mL/min POC Glucose (68-110) mg/dl Random Glucose 151 H (74-106) mg/dL Hemoglobin A1c (4.3-6.0) % Calcium 7.3 L* (8.5-10.1) mg/dL Prot Corrected Calcium 7.4 L* (8.5-10.1) mg/dL Phosphorus (2.5-4.9) mg/dL Magnesium 1.8 (1.5-2.5) mg/dL Total Bilirubin 1.1 H (0.2-1.0) mg/dL AST 64 H (15-37) U/L ALT 102 H (10-53) U/L Alkaline Phosphatase 92 (45-117) U/L Total Creatine Kinase 326 H (26-192) U/L CK-MB (CK-2) 7.8 H (0.5-3.6) ng/mL CK-MB (CK-2) % 2.4 (0.0-4.0) % Troponin I 0.02 (0.02-0.05) ng/mL B-Natriuretic Peptide (0-100) pg/mL Total Protein 6.9 (6.4-8.2) g/dL Albumin 3.6 (3.4-5.0) g/dL Triglycerides (42-150) mg/dL Cholesterol (120-200) mg/dL LDL Cholesterol, Calc (0-99) mg/dL HDL Cholesterol (40.0-60.0) mg/dL Cholesterol/HDL Ratio Ratio TSH (0.358-3.740) uIU/mL Free T4 (0.76-1.46) ng/dL PTH Intact (12.4-76.8) pg/mL Urine Color (Yellw/Straw) Urine Clarity (Clear) Urine pH (5.0-8.5) Ur Specific [place] (1.002-1.035) Urine Protein (Neg-Trace) mg/dL Urine Glucose (UA) (Negative) mg/dL Urine Ketones (Negative) mg/dL Urine Occult Blood (Negative) Urine Nitrate (Negative) Urine Bilirubin (Negative) Urine Urobilinogen (Less than 2) mg/dL Ur Leukocyte Esterase (Negative) Urine RBC (0-3) /hpf Urine WBC (0-5) /hpf Ur Squamous Epith Cells (0-5) /hpf Micro UA Comment Urine Culture Comments 11/06/17 11/06/17 11/06/17 Range/Units 14:10 15:10 15:48 WBC (4.0-11.0) th/mm3 RBC (4.00-5.30) mil/mm3 Hgb (11.6-15.3) gm/dL Hct (35.0-46.0) % MCV (80.0-100.0) fL MCH (27.0-34.0) pg MCHC (32.0-36.0) % RDW (11.6-17.2) % Plt Count (150-450) th/mm3 MPV (7.0-11.0) fL Neut % (Auto) (16.0-70.0) % Lymph % (Auto) (9.0-44.0) % Blair % (Auto) (0.0-8.0) % Eos % (Auto) (0.0-4.0) % Baso % (Auto) (0.0-2.0) % Neut # (Auto) (1.8-7.7) th/mm3 Lymph # (Auto) (1.0-4.8) th/mm3 Blair # (Auto) (0.0-0.9) th/mm3 Eos # (Auto) (0.0-0.4) th/mm3 Baso # (Auto) (0.0-0.2) th/mm3 WBC Differential Differential Comment PT (9.8-11.6) sec INR Ratio APTT (24.3-30.1) sec D-Dimer Quant (PE/DVT) (0.00-0.50) mg/L FEU Sodium (136-145) meq/L Potassium (3.5-5.1) meq/L Chloride (98-107) meq/L Carbon Dioxide (21.0-32.0) meq/L Anion Gap (5-15) meq/L BUN (7-18) mg/dL Creatinine (0.50-1.00) mg/dL Estimated GFR (>89) mL/min POC Glucose (68-110) mg/dl Random Glucose (74-106) mg/dL Hemoglobin A1c (4.3-6.0) % Calcium (8.5-10.1) mg/dL Prot Corrected Calcium (8.5-10.1) mg/dL Phosphorus (2.5-4.9) mg/dL Magnesium (1.5-2.5) mg/dL Total Bilirubin (0.2-1.0) mg/dL AST (15-37) U/L ALT (10-53) U/L Alkaline Phosphatase (45-117) U/L Total Creatine Kinase (26-192) U/L CK-MB (CK-2) (0.5-3.6) ng/mL CK-MB (CK-2) % (0.0-4.0) % Troponin I (0.02-0.05) ng/mL B-Natriuretic Peptide 1151 H (0-100) pg/mL Total Protein (6.4-8.2) g/dL Albumin (3.4-5.0) g/dL Triglycerides (42-150) mg/dL Cholesterol (120-200) mg/dL LDL Cholesterol, Calc (0-99) mg/dL HDL Cholesterol (40.0-60.0) mg/dL Cholesterol/HDL Ratio Ratio TSH (0.358-3.740) uIU/mL Free T4 (0.76-1.46) ng/dL PTH Intact 57.8 (12.4-76.8) pg/mL Urine Color Yellow (Yellw/Straw) Urine Clarity Clear (Clear) Urine pH 6.0 (5.0-8.5) Ur Specific [place] 1.006 (1.002-1.035) Urine Protein Negative (Neg-Trace) mg/dL Urine Glucose (UA) Negative (Negative) mg/dL Urine Ketones Negative (Negative) mg/dL Urine Occult Blood Negative (Negative) Urine Nitrate Negative (Negative) Urine Bilirubin Negative (Negative) Urine Urobilinogen Less than 2 (Less than 2) mg/dL Ur Leukocyte Esterase Negative (Negative) Urine RBC Less than 1 (0-3) /hpf Urine WBC 1 (0-5) /hpf Ur Squamous Epith Cells <1 (0-5) /hpf Micro UA Comment Culture not ind Urine Culture Comments Culture not ind 11/06/17 11/06/17 11/07/17 Range/Units 22:04 23:21 06:45 WBC 3.1 L D (4.0-11.0) th/mm3 RBC 3.83 L (4.00-5.30) mil/mm3 Hgb 9.9 L (11.6-15.3) gm/dL Hct 30.5 L (35.0-46.0) % MCV 79.7 L (80.0-100.0) fL MCH 25.8 L (27.0-34.0) pg MCHC 32.4 (32.0-36.0) % RDW 14.7 (11.6-17.2) % Plt Count 116 L (150-450) th/mm3 MPV 10.4 (7.0-11.0) fL Neut % (Auto) 89.5 H (16.0-70.0) % Lymph % (Auto) 9.2 (9.0-44.0) % Blair % (Auto) 1.3 (0.0-8.0) % Eos % (Auto) 0.0 (0.0-4.0) % Baso % (Auto) 0.0 (0.0-2.0) % Neut # (Auto) 2.7 (1.8-7.7) th/mm3 Lymph # (Auto) 0.3 L (1.0-4.8) th/mm3 Blair # (Auto) 0.0 (0.0-0.9) th/mm3 Eos # (Auto) 0.0 (0.0-0.4) th/mm3 Baso # (Auto) 0.0 (0.0-0.2) th/mm3 WBC Differential . Differential Comment Auto diff final PT (9.8-11.6) sec INR Ratio APTT (24.3-30.1) sec D-Dimer Quant (PE/DVT) (0.00-0.50) mg/L FEU Sodium (136-145) meq/L Potassium (3.5-5.1) meq/L Chloride (98-107) meq/L Carbon Dioxide (21.0-32.0) meq/L Anion Gap (5-15) meq/L BUN (7-18) mg/dL Creatinine (0.50-1.00) mg/dL Estimated GFR (>89) mL/min POC Glucose 191 H (68-110) mg/dl Random Glucose (74-106) mg/dL Hemoglobin A1c (4.3-6.0) % Calcium (8.5-10.1) mg/dL Prot Corrected Calcium (8.5-10.1) mg/dL Phosphorus (2.5-4.9) mg/dL Magnesium (1.5-2.5) mg/dL Total Bilirubin (0.2-1.0) mg/dL AST (15-37) U/L ALT (10-53) U/L Alkaline Phosphatase (45-117) U/L Total Creatine Kinase 264 H (26-192) U/L CK-MB (CK-2) 6.5 H (0.5-3.6) ng/mL CK-MB (CK-2) % 2.5 (0.0-4.0) % Troponin I 0.02 (0.02-0.05) ng/mL B-Natriuretic Peptide (0-100) pg/mL Total Protein (6.4-8.2) g/dL Albumin (3.4-5.0) g/dL Triglycerides (42-150) mg/dL Cholesterol (120-200) mg/dL LDL Cholesterol, Calc (0-99) mg/dL HDL Cholesterol (40.0-60.0) mg/dL Cholesterol/HDL Ratio Ratio TSH (0.358-3.740) uIU/mL Free T4 (0.76-1.46) ng/dL PTH Intact (12.4-76.8) pg/mL Urine Color (Yellw/Straw) Urine Clarity (Clear) Urine pH (5.0-8.5) Ur Specific Quin[place] (1.002-1.035) Urine Protein (Neg-Trace) mg/dL Urine Glucose (UA) (Negative) mg/dL Urine Ketones (Negative) mg/dL Urine Occult Blood (Negative) Urine Nitrate (Negative) Urine Bilirubin (Negative) Urine Urobilinogen (Less than 2) mg/dL Ur Leukocyte Esterase (Negative) Urine RBC (0-3) /hpf Urine WBC (0-5) /hpf Ur Squamous Epith Cells (0-5) /hpf Micro UA Comment Urine Culture Comments 11/07/17 11/07/17 11/07/17 Range/Units 06:45 06:45 06:45 WBC (4.0-11.0) th/mm3 RBC (4.00-5.30) mil/mm3 Hgb (11.6-15.3) gm/dL Hct (35.0-46.0) % MCV (80.0-100.0) fL MCH (27.0-34.0) pg MCHC (32.0-36.0) % RDW (11.6-17.2) % Plt Count (150-450) th/mm3 MPV (7.0-11.0) fL Neut % (Auto) (16.0-70.0) % Lymph % (Auto) (9.0-44.0) % Blair % (Auto) (0.0-8.0) % Eos % (Auto) (0.0-4.0) % Baso % (Auto) (0.0-2.0) % Neut # (Auto) (1.8-7.7) th/mm3 Lymph # (Auto) (1.0-4.8) th/mm3 Blair # (Auto) (0.0-0.9) th/mm3 Eos # (Auto) (0.0-0.4) th/mm3 Baso # (Auto) (0.0-0.2) th/mm3 WBC Differential Differential Comment PT 13.9 H (9.8-11.6) sec INR 1.4 Ratio APTT (24.3-30.1) sec D-Dimer Quant (PE/DVT) (0.00-0.50) mg/L FEU Sodium 136 (136-145) meq/L Potassium 4.1 (3.5-5.1) meq/L Chloride 100 (98-107) meq/L Carbon Dioxide 27.4 (21.0-32.0) meq/L Anion Gap 9 (5-15) meq/L BUN 27 H (7-18) mg/dL Creatinine 1.12 H (0.50-1.00) mg/dL Estimated GFR 47 L (>89) mL/min POC Glucose (68-110) mg/dl Random Glucose 154 H (74-106) mg/dL Hemoglobin A1c 6.1 H (4.3-6.0) % Calcium 7.6 L (8.5-10.1) mg/dL Prot Corrected Calcium (8.5-10.1) mg/dL Phosphorus 4.4 (2.5-4.9) mg/dL Magnesium 1.7 (1.5-2.5) mg/dL Total Bilirubin 0.8 (0.2-1.0) mg/dL AST 39 H (15-37) U/L ALT 80 H (10-53) U/L Alkaline Phosphatase 79 (45-117) U/L Total Creatine Kinase 217 H (26-192) U/L CK-MB (CK-2) 5.9 H (0.5-3.6) ng/mL CK-MB (CK-2) % 2.7 (0.0-4.0) % Troponin I Less than 0.02 L (0.02-0.05) ng/mL B-Natriuretic Peptide (0-100) pg/mL Total Protein 6.5 (6.4-8.2) g/dL Albumin 3.3 L (3.4-5.0) g/dL Triglycerides 52 (42-150) mg/dL Cholesterol 118 L (120-200) mg/dL LDL Cholesterol, Calc 64 (0-99) mg/dL HDL Cholesterol 43.8 (40.0-60.0) mg/dL Cholesterol/HDL Ratio 2.69 Ratio TSH 0.424 (0.358-3.740) uIU/mL Free T4 1.19 (0.76-1.46) ng/dL PTH Intact (12.4-76.8) pg/mL Urine Color (Yellw/Straw) Urine Clarity (Clear) Urine pH (5.0-8.5) Ur Specific [place] (1.002-1.035) Urine Protein (Neg-Trace) mg/dL Urine Glucose (UA) (Negative) mg/dL Urine Ketones (Negative) mg/dL Urine Occult Blood (Negative) Urine Nitrate (Negative) Urine Bilirubin (Negative) Urine Urobilinogen (Less than 2) mg/dL Ur Leukocyte Esterase (Negative) Urine RBC (0-3) /hpf Urine WBC (0-5) /hpf Ur Squamous Epith Cells (0-5) /hpf Micro UA Comment Urine Culture Comments 11/07/17 11/07/17 Range/Units 12:13 16:32 WBC (4.0-11.0) th/mm3 RBC (4.00-5.30) mil/mm3 Hgb (11.6-15.3) gm/dL Hct (35.0-46.0) % MCV (80.0-100.0) fL MCH (27.0-34.0) pg MCHC (32.0-36.0) % RDW (11.6-17.2) % Plt Count (150-450) th/mm3 MPV (7.0-11.0) fL Neut % (Auto) (16.0-70.0) % Lymph % (Auto) (9.0-44.0) % Blair % (Auto) (0.0-8.0) % Eos % (Auto) (0.0-4.0) % Baso % (Auto) (0.0-2.0) % Neut # (Auto) (1.8-7.7) th/mm3 Lymph # (Auto) (1.0-4.8) th/mm3 Blair # (Auto) (0.0-0.9) th/mm3 Eos # (Auto) (0.0-0.4) th/mm3 Baso # (Auto) (0.0-0.2) th/mm3 WBC Differential Differential Comment PT (9.8-11.6) sec INR Ratio APTT (24.3-30.1) sec D-Dimer Quant (PE/DVT) (0.00-0.50) mg/L FEU Sodium (136-145) meq/L Potassium (3.5-5.1) meq/L Chloride (98-107) meq/L Carbon Dioxide (21.0-32.0) meq/L Anion Gap (5-15) meq/L BUN (7-18) mg/dL Creatinine (0.50-1.00) mg/dL Estimated GFR (>89) mL/min POC Glucose 239 H 153 H (68-110) mg/dl Random Glucose (74-106) mg/dL Hemoglobin A1c (4.3-6.0) % Calcium (8.5-10.1) mg/dL Prot Corrected Calcium (8.5-10.1) mg/dL Phosphorus (2.5-4.9) mg/dL Magnesium (1.5-2.5) mg/dL Total Bilirubin (0.2-1.0) mg/dL AST (15-37) U/L ALT (10-53) U/L Alkaline Phosphatase (45-117) U/L Total Creatine Kinase (26-192) U/L CK-MB (CK-2) (0.5-3.6) ng/mL CK-MB (CK-2) % (0.0-4.0) % Troponin I (0.02-0.05) ng/mL B-Natriuretic Peptide (0-100) pg/mL Total Protein (6.4-8.2) g/dL Albumin (3.4-5.0) g/dL Triglycerides (42-150) mg/dL Cholesterol (120-200) mg/dL LDL Cholesterol, Calc (0-99) mg/dL HDL Cholesterol (40.0-60.0) mg/dL Cholesterol/HDL Ratio Ratio TSH (0.358-3.740) uIU/mL Free T4 (0.76-1.46) ng/dL PTH Intact (12.4-76.8) pg/mL Urine Color (Yellw/Straw) Urine Clarity (Clear) Urine pH (5.0-8.5) Ur Specific [place] (1.002-1.035) Urine Protein (Neg-Trace) mg/dL Urine Glucose (UA) (Negative) mg/dL Urine Ketones (Negative) mg/dL Urine Occult Blood (Negative) Urine Nitrate (Negative) Urine Bilirubin (Negative) Urine Urobilinogen (Less than 2) mg/dL Ur Leukocyte Esterase (Negative) Urine RBC (0-3) /hpf Urine WBC (0-5) /hpf Ur Squamous Epith Cells (0-5) /hpf Micro UA Comment Urine Culture Comments Imaging Data Radiologist's impression: Chest X-Ray 11/06/17 14:06 CONCLUSION: Chest CTA 11/06/17 15:09 CONCLUSION: Discharge Plan Discharge Disposition Patient Disposition: 30 Still Patient Discharge Details Diagnosis: Asthma exacerbation in COPD, CHF (congestive heart failure), Hypocalcemia Physicians Team ED Provider: Danitza Hart ED Midlevel Provider: Amina Miller Primary Care Provider: UNKNOWN, Attending Provider: Bhargav Cooper Other Providers: Tim Verduzco ; [facility] ; [employer] ; [facility],[place] Status ED Status: Left Department Discharge Information Discharge Date/Time: 11/06/17 20:54
[2017-11-06 14:44] LABS: Baso % (Auto) 0.3 % (0.0-2.0); Eos % (Auto) 0.1 % (0.0-4.0); Hematocrit 29.3 % (35.0-46.0); Hemoglobin 9.4 gm/dL (11.6-15.3); Lymph # (Auto) 0.4 th/mm3 (1.0-4.8); Lymph % (Auto) 6.2 % (9.0-44.0); Mean Corpuscular HGB Conc 32.1 % (32.0-36.0); Mean Corpuscular Hemoglobin 25.8 pg (27.0-34.0); Mean Corpuscular Volume 80.4 fL (80.0-100.0); Mean Platelet Volume 11.5 fL (7.0-11.0); Mono # (Auto) 0.2 th/mm3 (0.0-0.9); Mono % (Auto) 2.7 % (0.0-8.0); Neut % (Auto) 90.7 % (16.0-70.0); Platelet Count 103 th/mm3 (150-450); Red Blood Count 3.65 mil/mm3 (4.00-5.30); White Blood Count 6.6 th/mm3 (4.0-11.0)
[2017-11-06 14:48] LABS: Activated Partial Thrombo Time 23.5 sec (24.3-30.1); INR 1.3 Ratio; Prothrombin Time 13.5 sec (9.8-11.6)
[2017-11-06 14:54] LABS: D-Dimer 0.95 mg/L FEU (0.00-0.50)
--- NOTE | 2017-11-06 14:58 | XR ---
EXAM DATE: 11/06/2017 2:50 PM EDT AGE/SEX: 77 years / Female INDICATIONS: . Shortness of breath. CLINICAL DATA: This is the patient's initial encounter. Patient reports that signs and symptoms have been present for 3 days and indicates a pain score of 0/10. MEDICAL/SURGICAL HISTORY: Cardiovascular disease. Asthma. Diabetes. Coronary artery disease. CABG. COMPARISON: [facility] [place], CHEST SINGLE AP, 10/09/2017. . FINDINGS: The heart is enlarged. Median sternotomy wires are noted status post cardiac surgery. Mild pulmonary vascular congestion is noted bilaterally. No focal alveolar consolidation is noted. 1. Mild pulmonary vascular congestion. 2. Cardiomegaly. Electronically signed by: Kirk Amaya MD 11/06/2017 2:57 PM EDT
[2017-11-06 15:22] LABS: Calcium 7.3 mg/dL (8.5-10.1); Magnesium 1.8 mg/dL (1.5-2.5); Potassium 4.7 meq/L (3.5-5.1)
[2017-11-06 15:23] LABS: Total Protein 6.9 g/dL (6.4-8.2); Troponin I 0.02 ng/mL (0.02-0.05)
[2017-11-06 15:25] LABS: CKMB Percent 2.4 % (0.0-4.0); Creatine Kinase MB 7.8 ng/mL (0.5-3.6)
[2017-11-06] MEDS ORDERED: Calcium Carbonate 500 MG Tablet PO ONE (15:32)
[2017-11-06] MEDS ORDERED: Calcium/Vitamin D 250/125 MG Tablet PO ONE (15:32)
[2017-11-06 15:39] LABS: Bilirubin,Urine Negative (Negative); Clarity,Urine Clear (Clear); Color,Urine Yellow (Yellw/Straw); Glucose,Urine (UA) Negative (Negative); Leukocyte Esterase,Urine Negative (Negative); Nitrite,Urine Negative (Negative); Specific Gravity,Urine 1.006 (1.002-1.035); Squamous Epithelial Cell,Urine <1 /hpf (0-5)
[2017-11-06 16:05] LABS: Albumin 3.6 g/dL (3.4-5.0)
--- NOTE | 2017-11-06 16:28 | CT ---
EXAM DATE: 11/06/2017 4:14 PM EDT AGE/SEX: 77 years / Female INDICATIONS: Shortness of breath,elavated d dimmer CLINICAL DATA: This is the patient's initial encounter. Patient reports that signs and symptoms have been present for 1 day and indicates a pain score of 3/10. MEDICAL/SURGICAL HISTORY: Hypertension. Cardiovascular disease. CABG. RADIATION DOSE: 10.72 CTDI (mGy) COMPARISON: [facility] [place] THORAX W [place]AST, 10/09/2017. . TECHNIQUE: Volumetric scanning was performed using a multi-row detector CT scanner during bolus infu nikki of 50 ml Omnipaque 350 (iohexol) nonionic water-soluble contrast as a single exam dose. The elise a was post processed with a variety of visualization algorithms including full volume maximum intensi ty projection and sliding thin slab reformation. Using automated exposure control and adjustment of t he mA and/or kV according to patient size, radiation dose was kept as low as reasonably achievable to obtain optimal diagnostic quality images. DICOM format image data is available electronically for r eview and comparison. FINDINGS: Pulmonary Arteries: No filling defects are seen in the pulmonary arteries out to the subsegmental ve ssels. The left and right pulmonary arteries are normal in diameter. Lung: No control of infiltrates. There is mild atelectasis in the dependent portions of the lung bas es.. Effusion: There are small bilateral pleural effusions right greater than left. Mediastinum: The patient is status post median sternotomy and there is moderate cardiomegaly with no pericardial effusion. Atherosclerotic changes are present in the aorta. The aortic valve region is a bnormal in appearance with multiple punctate calcifications which appear to reside in the region of t he leaflets. Other: The axilla is unremarkable. 1. No evidence of pulmonary embolism. 2. Small bilateral pleural effusions right greater than left. 3. Status post median sternotomy. There is moderate cardiomegaly. The aortic valve is abnormal appea kenan with calcifications which appear in the region of the leaflets. Electronically signed by: Duran Nuñez MD 11/06/2017 4:26 PM EDT
--- NOTE | 2017-11-06 17:50 | ECG ---
Date Performed: 11/06/2017 Time Performed: 13:56:26 PTAGE: 77 years EKG: Sinus rhythm WITH OCCASIONAL SUPRAVENTRICULAR PREMATURE COMPLEXES LOW QRS VOLTAGE IN PRECORDIAL LEADS PATTERN CON SISTENT WITH PULMONARY DISEASE INCOMPLETE RIGHT BUNDLE BRANCH BLOCK SEPTAL MYOCARDIAL INFARCTION ABNO RMAL ECG Compared to prior electrocardiogram, Premature atrial contraction are now present . PREVIOUS TRACING : 10/09/2017 20.57 DOCTOR: Miles Ellison Interpretating Date/Time 11/06/2017 17:49:51
[2017-11-06] MEDS ORDERED: Morphine Inj 4 MG/ML Vial IV.PUSH PRN ×2 (18:08→19:00)
[2017-11-06] MEDS ORDERED: Bisacodyl 10 MG Supp RECTAL PRN (18:08)
[2017-11-06] MEDS ORDERED: Naloxone Inj 0.4 MG/ML Vial IV.PUSH PRN (18:08)
[2017-11-06] MEDS ORDERED: Dextrose 50% in Water 50 ML Vial IV.PUSH PRN (18:08)
--- NOTE | 2017-11-06 18:36 | P.HPIM ---
History of Present Illness Service: [facility] [place] Primary Care Physician: UNKNOWN Chief Complaint: Chest pain History of Present Illness: Patient is a 77-year-old female with a history of asthma, diabetes mellitus, hypertension, GERD, coronary artery disease status post CABG, who presented to the emergency department for worsening shortness of breath and chest pain. This is had a gradual onset. Patient has had exertion for the past couple days she also has had some chills and some sweats. She has had a cough that has been nonproductive. She denies any history of smoking. States she has some lightheadedness. She denies any headaches or any dizziness has had the chest pain denies any palpitation denies any nausea denies any vomiting denies has been taking medications. His been using her nebulizers that do not help. Is not on oxygen at home Patient will be admitted was found to be in mild congestive heart failure will be diuresed will consult cardiology we will get echoes and trend troponins and diurese her with Lasix. Inpatient Certification: I certify that the inpatient services were ordered in accordance with Medicare regulations governing the order. This includes certification that hospital inpatient services are reasonable and necessary and in the case of services not specified as inpatient-only under 42 CFR 419.22(n), that they are appropriately provided as inpatient services in accordance to with the 2-midnight benchmark under 43 CFR 412.3(e) Estimated Total Length of Stay (Days): 3 Plans for Post Hospital Care: Not yet determined Review of Systems All other systems reviewed negative except as stated in HPI [facility] - History History Provided By: Patient - Medical History Medical History: Medical History (Last Updated 11/06/17 @ 18:26 by Hussein Olmstead DO) Asthma Cervical vertebral fusion Coronary artery disease Diabetes mellitus GERD (gastroesophageal reflux disease) Hypertension Myocardial infarct, old - Surgical History Surgical History: Surgical History (Last Updated 11/06/17 @ 18:26 by Hussein Olmstead DO) History of appendectomy History of cholecystectomy History of coronary artery bypass graft - Family History Family History: Family History (Last Updated 11/06/17 @ 18:26 by Hussein Olmstead DO) Other Family history of diabetes mellitus Family history of hypertension - Tobacco History Smoking Status: Never smoker - Alcohol History How Often Do You Have a Drink Containing Alcohol: Never - Substance Use History Substance History: No History of Abuse - Travel History History of Recent Travel: No Recent Travel in the [place] Within the Last 8 Weeks: No Recent Travel Out of the Country Within the Last 8 Weeks: No - Immunization History Tetanus Immunization: Unsure Hx Influenza Vaccine This Season: Yes Medications and Allergies Active Medications: Active Medications Al Hydroxide/Mg Hydroxide (Milk Of Magnesia Liq) 30 ml PO Q12H PRN PRN Reason: Mild Constipation Albuterol (Duoneb Neb (Shanon)) 1 ampul NEB Q6HR NEB SHANON Bisacodyl (Dulcolax Supp) 10 mg RECTAL DAILY PRN PRN Reason: SEVERE CONSITIPATION Budesonide/Formoterol Fumarate (Symbicort 160/4.5 Mcg Inh) 2 puff INH BID SHANON Dextrose (D50w Vial) 50 ml IV.PUSH UNSCH PRN PRN Reason: PER HYPOGLYCEMIA PROTOCOL Famotidine (Pepcid) 20 mg PO HS SHANON Furosemide (Lasix Inj) 20 mg IV.PUSH BID@0900,1800 SHANON Glucagon (Glucagon Inj) 1 mg OTHER PRN PRN PRN Reason: for Hypoglycemia Protocol Heparin Sodium (Porcine) (Heparin Inj) 5,000 units SQ Q12H SHANON Insulin Aspart (Novolog Insulin Correctional Sugar Inj) 0 unit SQ ACHS AND 3AM SHANON; Protocol Lactulose (Lactulose Liq) 30 ml PO DAILY PRN PRN Reason: SEVERE CONSITIPATION Levofloxacin (Levaquin) 750 mg PO DAILY SHANON Meclizine HCl (Antivert) 25 mg PO BID PRN PRN Reason: Shortness Of Breath Or Wheezing Methylprednisolone Sodium Succinate (Solumedrol Inj) 60 mg IV.PUSH Q6H SHANON Morphine Sulfate (Morphine Inj) 2 mg IV.PUSH Q3H PRN PRN Reason: PAIN 3-5; IF UABLE TO TAKE PO Morphine Sulfate (Morphine Inj) 4 mg IV.PUSH Q3H PRN PRN Reason: PAIN 6-10;IF UNABLE TO TAKE PO Naloxone HCl (Narcan Inj) 0.4 mg IV.PUSH UNSCH PRN PRN Reason: SEE LABEL COMMENTS Ondansetron HCl (Zofran Inj) 4 mg IV.PUSH Q6H PRN PRN Reason: NAUSEA OR VOMITING Senna/Docusate Sodium (Sammi-Colace) 1 tab PO BID [facility] Sennosides (Senokot) 17.2 mg PO Q12H PRN PRN Reason: Moderate Constipation Sodium Chloride (Ns Flush) 2 ml IV.FLUSH PRN PRN PRN Reason: FLUSH AFTER USING IV ACCESS Sodium Chloride (Ns Flush) 2 ml IV.FLUSH BID SHANON Temazepam (Restoril) 15 mg PO HS PRN PRN Reason: INSOMNIA Allergies Allergy/AdvReac Type Severity Reaction Status Date / Time Penicillins Allergy Severe Hives Verified 10/09/17 10:50 acetaminophen Allergy Mild Chills Verified 10/09/17 10:50 amoxicillin Allergy Unknown Hives Verified 10/09/17 10:50 aminophylline Allergy Hives Verified 11/06/17 14:07 Fish Containing Products Allergy Hives Verified 11/06/17 14:08 shellfish derived Allergy Hives Verified 11/06/17 14:08 hydrocodone AdvReac Intermediate Sedation Verified 10/09/17 10:50 tramadol AdvReac Intermediate hallucinati Verified 10/09/17 10:50 ons Home Medications Medication Instructions Recorded Confirmed Type albuterol sulfate 2 puff INHALATION Q4-6H PRN 11/06/17 11/06/17 History albuterol sulfate [Ventolin HFA] 2 puff INHALATION Q6H PRN MDD 8 11/06/17 History puffs budesonide-formoterol [Symbicort] 2 puff INHALATION BID 11/06/17 11/06/17 History meclizine 25 mg PO BID PRN 11/06/17 11/06/17 History meloxicam 15 mg PO DAILY 11/06/17 11/06/17 History metformin 500 mg PO BID 11/06/17 11/06/17 History Exam Vital signs: Vital Signs 11/06/17 13:50 11/06/17 14:21 11/06/17 15:26 Temperature 97.6 F Pulse Rate 102 H 85 89 Respiratory Rate 24 20 22 Blood Pressure 135/75 Pulse Oximetry 95 95 11/06/17 16:58 11/06/17 18:19 Temperature Pulse Rate 89 86 Respiratory Rate 22 20 Blood Pressure 137/61 152/104 H Pulse Oximetry 98 98 Intake & Output 11/05/17 11/06/17 11/06/17 18:59 06:59 18:59 Weight 77.111 kg Narrative: GENERAL: Awake alert and oriented 3 talkative and cooperative speaks mainly Tongan is obese SKIN: Warm and dry. HEAD: Atraumatic. Normocephalic. EYES: Pupils equal and round. No scleral icterus. No injection or drainage. ENT: No nasal bleeding or discharge. Mucous membranes pink and moist. NECK: Trachea midline. No JVD. CARDIOVASCULAR: Regular rate and rhythm. S1-S2 no S3-S4 RESPIRATORY: No accessory muscle use. Breath sounds equal bilaterally. Wheezes and rhonchi's bilaterally GASTROINTESTINAL: Abdomen soft, non-tender, nondistended. Hepatic and splenic margins not palpable. MUSCULOSKELETAL: Extremities without clubbing, cyanosis, or edema. No obvious deformities. NEUROLOGICAL: Awake and alert. No obvious cranial nerve deficits. Motor grossly within normal limits. Five out of 5 muscle strength in the arms and legs. Normal speech. PSYCHIATRIC: Appropriate mood and affect; insight and judgment normal. Results - Labs CBC & Chem 7: 11/06/17 14:10 11/06/17 14:10 Labs: Short CBC 11/06/17 Range/Units 14:10 WBC 6.6 (4.0-11.0) th/mm3 Hgb 9.4 L (11.6-15.3) gm/dL Hct 29.3 L (35.0-46.0) % Plt Count 103 L (150-450) th/mm3 BMP 11/06/17 14:10 Sodium 136 Potassium 4.7 Chloride 103 Carbon Dioxide 23.0 BUN 27 H Creatinine 1.15 H Calcium 7.3 L* Cardiac Enzymes 11/06/17 Range/Units 14:10 Total Creatine Kinase 326 H (26-192) U/L CK-MB (CK-2) 7.8 H (0.5-3.6) ng/mL Troponin I 0.02 (0.02-0.05) ng/mL Liver Function 11/06/17 Range/Units 14:10 Total Bilirubin 1.1 H (0.2-1.0) mg/dL AST 64 H (15-37) U/L ALT 102 H (10-53) U/L Alkaline Phosphatase 92 (45-117) U/L Albumin 3.6 (3.4-5.0) g/dL Urine 11/06/17 Range/Units 15:10 Urine Color Yellow (Yellw/Straw) Urine Clarity Clear (Clear) Urine pH 6.0 (5.0-8.5) Ur Specific [place] 1.006 (1.002-1.035) Urine Protein Negative (Neg-Trace) mg/dL Urine Glucose (UA) Negative (Negative) mg/dL - Imaging Impressions Chest X-Ray 11/06/17 14:06 CONCLUSION: Chest CTA 11/06/17 15:09 CONCLUSION: Justin VTE Risk Assessment Caprini VTE Risk Assessment: No/Low Risk (score <= 1) Caprini Risk Assessment Model: Point Value = 1 Point Value = 2 Point Value = 3 Point Value = 5 Age 41-60 Minor surgery BMI > 25 kg/m2 Swollen legs Varicose veins or History of unexplained or recurrent spontaneous Oral contraceptives or hormone replacement Sepsis (< 1 month) Serious lung disease, including pneumonia (< 1 month) Abnormal pulmonary function Acute myocardial infarction Congestive heart failure (< 1 month) History of inflammatory bowel disease Medical patient at bed rest Age 61-74 Arthroscopic surgery Major open surgery (> 45 min) Laparoscopic surgery (> 45 min) Malignancy Confined to bed (> 72 hours) Immobilizing plaster cast Central venous access Age >= 75 History of VTE Family history of VTE Factor V Leiden Prothrombin [id number] Lupus anticoagulant Anticardiolipin antibodies Elevated serum homocysteine Heparin-induced thrombocytopenia Other congenital or acquired thrombophilia Stroke (< 1 month) Elective arthroplasty Hip, pelvis, or leg fracture Acute spinal cord injury (< 1 month) Prophylaxis Regimen: Total Risk Factor Score Risk Level Prophylaxis Regimen 0-1 Low Early ambulation 2 Moderate Order ONE of the following: *Sequential Compression Device (SCD) *Heparin 5000 units SQ BID 3-4 Higher Order ONE of the following medications: *Heparin 5000 units SQ TID *Enoxaparin/Lovenox 40 mg SQ daily (WT < 150 kg, CrCl > 30 mL/min) *Enoxaparin/Lovenox 30 mg SQ daily (WT < 150 kg, CrCl > 10-29 mL/min) *Enoxaparin/Lovenox 30 mg SQ BID (WT < 150 kg, CrCl > 30 mL/min) AND/OR *Sequential Compression Device (SCD) 5 or more Highest Order ONE of the following medications: *Heparin 5000 units SQ TID (Preferred with Epidurals) *Enoxaparin/Lovenox 40 mg SQ daily (WT < 150 kg, CrCl > 30 mL/min) *Enoxaparin/Lovenox 30 mg SQ daily (WT < 150 kg, CrCl > 10-29 mL/min) *Enoxaparin/Lovenox 30 mg SQ BID (WT < 150 kg, CrCl > 30 mL/min) AND *Sequential Compression Device (SCD) Assessment and Plan - Plan CHF with some fluid overload we will diurese with Lasix 20 mg IV every 12 We will get an echocardiogram We will trend troponins A.m. labs COPD/ASTHMA exacerbation continue on duo nebs and Mucinex and incentive spirometry and antibiotics Symbicort and steroids Hypertension resume her home medications Diabetes mellitus hold metformin and continue with sliding scale coverage Accu- Cheks before meals and at bedtime Renal insufficiency monitor with a.m. labs Hypocalcemia has been replaced by p.o. medication History of coronary artery disease trend troponins Continue on DVT and GI prophylaxis A.m. labs PT and OT to eval and treat Code Status: Full code Discussed Condition With: RN and patient and emergency room physician assistant coach Discharge Planning: Pending improvement of her breathing
[2017-11-06] MEDS: levoFLOXacin 750 MG Tablet PO SCH (18:49)
[2017-11-06] MEDS: Heparin - SQ 10,000 UNITS/ML Vial SQ SCH (19:05)
[2017-11-06] MEDS: MethylPREDNISolone Sod Succinate Inj 125 MG/2 ML Vial IV.PUSH SCH (19:06)
[2017-11-06] MEDS ORDERED: Insulin NovoLOG Aspart Correctional Sugar Inj SQ SCH (21:00)
[2017-11-06] MEDS: Famotidine 20 MG Tablet PO SCH (22:14)
[2017-11-06] MEDS: Senna/Docusate Sodium 8.6/50 MG Tablet PO SCH (22:14)
[2017-11-06] MEDS: guaiFENesin 600 MG ER Tablet PO SCH (22:14)
[2017-11-06] MEDS: Insulin NovoLOG Aspart Correctional Sugar Inj SQ SCH (22:17)
[2017-11-07 00:07] LABS: Troponin I 0.02 ng/mL (0.02-0.05)
[2017-11-07 00:19] LABS: CKMB Percent 2.5 % (0.0-4.0); Creatine Kinase MB 6.5 ng/mL (0.5-3.6)
[2017-11-07] MEDS: MethylPREDNISolone Sod Succinate Inj 125 MG/2 ML Vial IV.PUSH SCH ×4 (03:05→21:19)
[2017-11-07] MEDS: Temazepam 15 MG Capsule PO PRN (03:05)
[2017-11-07] MEDS: Budesonide-Formoterol 160/4.5 MCG 6 GM Inhaler INH SCH ×3 (05:11→21:34)
[2017-11-07 07:19] LABS: Hematocrit 30.5 % (35.0-46.0); Hemoglobin 9.9 gm/dL (11.6-15.3); Lymph # (Auto) 0.3 th/mm3 (1.0-4.8); Lymph % (Auto) 9.2 % (9.0-44.0); Mean Corpuscular HGB Conc 32.4 % (32.0-36.0); Mean Corpuscular Hemoglobin 25.8 pg (27.0-34.0); Mean Corpuscular Volume 79.7 fL (80.0-100.0); Mean Platelet Volume 10.4 fL (7.0-11.0); Mono % (Auto) 1.3 % (0.0-8.0); Neut # (Auto) 2.7 th/mm3 (1.8-7.7); Neut % (Auto) 89.5 % (16.0-70.0); Platelet Count 116 th/mm3 (150-450); Red Blood Count 3.83 mil/mm3 (4.00-5.30); Red Cell Distribution Width 14.7 % (11.6-17.2); White Blood Count 3.1 th/mm3 (4.0-11.0)
[2017-11-07 07:23] LABS: INR 1.4 Ratio; Prothrombin Time 13.9 sec (9.8-11.6)
[2017-11-07 07:54] LABS: Alkaline Phosphatase 79 U/L (45-117); Creatine Kinase 217 U/L (26-192); Free T4 (Free Thyroxine) 1.19 ng/dL (0.76-1.46); HDL Cholesterol 43.8 mg/dL (40.0-60.0); Thyroid Stimulating Hormone 0.424 uIU/mL (0.358-3.740); Total Protein 6.5 g/dL (6.4-8.2); Triglycerides 52 mg/dL (42-150)
[2017-11-07 07:56] LABS: Alanine Aminotransferase 80 U/L (10-53); Albumin 3.3 g/dL (3.4-5.0); Anion Gap 9 meq/L (5-15); Aspartate Aminotransferase 39 U/L (15-37); Blood Urea Nitrogen 27 mg/dL (7-18); Calcium 7.6 mg/dL (8.5-10.1); Carbon Dioxide 27.4 meq/L (21.0-32.0); Chloride 100 meq/L (98-107); Chol/HDL Ratio 2.69 Ratio; Cholesterol 118 mg/dL (120-200); Glomerular Filtration Rate 47 mL/min (>89); Glucose,Random 154 mg/dL (74-106); LDL Cholesterol,Calculated 64 mg/dL (0-99); Magnesium 1.7 mg/dL (1.5-2.5); Phosphorus 4.4 mg/dL (2.5-4.9); Potassium 4.1 meq/L (3.5-5.1); Sodium 136 meq/L (136-145)
[2017-11-07 08:07] LABS: CKMB Percent 2.7 % (0.0-4.0); Creatine Kinase MB 5.9 ng/mL (0.5-3.6)
[2017-11-07] MEDS: Senna/Docusate Sodium 8.6/50 MG Tablet PO SCH ×2 (09:38→21:23)
[2017-11-07] MEDS: guaiFENesin 600 MG ER Tablet PO SCH ×2 (09:38→21:23)
[2017-11-07] MEDS: levoFLOXacin 750 MG Tablet PO SCH (09:38)
[2017-11-07] MEDS: Heparin - SQ 10,000 UNITS/ML Vial SQ SCH ×2 (09:41→21:20)
[2017-11-07] MEDS: Insulin NovoLOG Aspart Correctional Sugar Inj SQ SCH ×5 (09:44→21:37)
--- NOTE | 2017-11-07 10:30 | P.PNIM ---
Subjective Interval history: Mrs. Centeno was afebrile with borderline tachycardia (HR ~100 overnight); patient with O2 saturations in mid 90's on 2L O2 via NC. Patient reports continued shortness of breath and cough this morning; she also has persistent chest pain and epigastric pain associated with cough. [employer] service used to facilitate history; this was somewhat inhibited by patient being unable to hear official court interpreter due to chronic hearing impairment: Her shortness of breath started Patient had prior CABG in [place] several years prior; she has been seeing a PCP since but no recent [employer]. She has been having epigastric pain recently and has been prescribed Omeprazole and a liquid medication she is not aware of; she had prior endoscopy ~6 years ago. She had f/u scheduled with Gastroenterology but could not make appt due to being in the hospital. No recent blood in stool or vomitus. She states she is generally compliant with home medications. patient also reports chronic arthritis and history of a hernia. Patient's daughter was also called; I was unable to reach her. Physical Exam Vital signs: Vital Signs 11/06/17 13:50 11/06/17 14:21 11/06/17 15:26 Temperature 97.6 F Pulse Rate 102 H 85 89 Respiratory Rate 24 20 22 Blood Pressure 135/75 Pulse Oximetry 95 95 11/06/17 16:58 11/06/17 18:19 11/06/17 20:19 Temperature Pulse Rate 89 86 101 H Respiratory Rate 22 20 20 Blood Pressure 137/61 152/104 H 143/80 H Pulse Oximetry 98 98 98 11/06/17 20:25 11/06/17 21:50 11/07/17 00:00 Temperature 97.9 F 97.5 F L Pulse Rate 101 H 102 H 100 H Respiratory Rate 20 16 18 Blood Pressure 154/73 H 139/66 Pulse Oximetry 92 L 93 L 11/07/17 05:05 11/07/17 08:00 Temperature 98.1 F Pulse Rate 90 98 H Respiratory Rate 20 19 Blood Pressure 130/60 Pulse Oximetry 96 96 Intake & Output 11/06/17 11/07/17 11/07/17 18:59 06:59 18:59 Intake Total 350 / 350 Balance 350 / 350 Weight 77.111 kg 77.1 kg Intake: Oral 350 / 350 Other: # Voids 3 Date of Last Bowel Movement 11/05/17 Narrative: Gen: No acute distress Skin: No visible lesions CV: Normal rate, regular rhythm; no murmurs Resp: Decreased breath sounds bilaterally; mild rhonchi, mild expiratory wheezing bilaterally Abd: significant epigastric pain to palpation MSK: grossly normal ROM and motor function. No calf pain or asymmetry. No significant LE edema Neuro: Grossly normal CN; grossly normal peripheral motor/sensory function Results - Labs CBC & Chem 7: 11/07/17 06:45 11/07/17 06:45 Laboratory Results - last 24 hr 11/06/17 11/06/17 11/06/17 14:10 14:10 14:10 WBC 6.6 RBC 3.65 L Hgb 9.4 L Hct 29.3 L MCV 80.4 MCH 25.8 L MCHC 32.1 RDW 15.0 Plt Count 103 L MPV 11.5 H Neut % (Auto) 90.7 H Lymph % (Auto) 6.2 L Rooks % (Auto) 2.7 Eos % (Auto) 0.1 Baso % (Auto) 0.3 Neut # (Auto) 6.0 Lymph # (Auto) 0.4 L Rooks # (Auto) 0.2 Eos # (Auto) 0.0 Baso # (Auto) 0.0 WBC Differential . Differential Comment Auto diff final PT 13.5 H INR 1.3 APTT 23.5 L D-Dimer Quant (PE/DVT) 0.95 H Sodium 136 Potassium 4.7 Chloride 103 Carbon Dioxide 23.0 Anion Gap 10 BUN 27 H Creatinine 1.15 H Estimated GFR 46 L POC Glucose Random Glucose 151 H Calcium 7.3 L* Prot Corrected Calcium 7.4 L* Phosphorus Magnesium 1.8 Total Bilirubin 1.1 H AST 64 H ALT 102 H Alkaline Phosphatase 92 Total Creatine Kinase 326 H CK-MB (CK-2) 7.8 H CK-MB (CK-2) % 2.4 Troponin I 0.02 B-Natriuretic Peptide Total Protein 6.9 Albumin 3.6 Triglycerides Cholesterol LDL Cholesterol, Calc HDL Cholesterol Cholesterol/HDL Ratio TSH Free T4 PTH Intact Urine Color Urine Clarity Urine pH Ur Specific [place] Urine Protein Urine Glucose (UA) Urine Ketones Urine Occult Blood Urine Nitrate Urine Bilirubin Urine Urobilinogen Ur Leukocyte Esterase Urine RBC Urine WBC Ur Squamous Epith Cells Micro UA Comment Urine Culture Comments 11/06/17 11/06/17 11/06/17 14:10 15:10 15:48 WBC RBC Hgb Hct MCV MCH MCHC RDW Plt Count MPV Neut % (Auto) Lymph % (Auto) Rooks % (Auto) Eos % (Auto) Baso % (Auto) Neut # (Auto) Lymph # (Auto) Rooks # (Auto) Eos # (Auto) Baso # (Auto) WBC Differential Differential Comment PT INR APTT D-Dimer Quant (PE/DVT) Sodium Potassium Chloride Carbon Dioxide Anion Gap BUN Creatinine Estimated GFR POC Glucose Random Glucose Calcium Prot Corrected Calcium Phosphorus Magnesium Total Bilirubin AST ALT Alkaline Phosphatase Total Creatine Kinase CK-MB (CK-2) CK-MB (CK-2) % Troponin I B-Natriuretic Peptide 1151 H Total Protein Albumin Triglycerides Cholesterol LDL Cholesterol, Calc HDL Cholesterol Cholesterol/HDL Ratio TSH Free T4 PTH Intact 57.8 Urine Color Yellow Urine Clarity Clear Urine pH 6.0 Ur Specific [place] 1.006 Urine Protein Negative Urine Glucose (UA) Negative Urine Ketones Negative Urine Occult Blood Negative Urine Nitrate Negative Urine Bilirubin Negative Urine Urobilinogen Less than 2 Ur Leukocyte Esterase Negative Urine RBC Less than 1 Urine WBC 1 Ur Squamous Epith Cells <1 Micro UA Comment Culture not ind Urine Culture Comments Culture not ind 11/06/17 11/06/17 11/07/17 22:04 23:21 06:45 WBC 3.1 L D RBC 3.83 L Hgb 9.9 L Hct 30.5 L MCV 79.7 L MCH 25.8 L MCHC 32.4 RDW 14.7 Plt Count 116 L MPV 10.4 Neut % (Auto) 89.5 H Lymph % (Auto) 9.2 Rooks % (Auto) 1.3 Eos % (Auto) 0.0 Baso % (Auto) 0.0 Neut # (Auto) 2.7 Lymph # (Auto) 0.3 L Rooks # (Auto) 0.0 Eos # (Auto) 0.0 Baso # (Auto) 0.0 WBC Differential . Differential Comment Auto diff final PT INR APTT D-Dimer Quant (PE/DVT) Sodium Potassium Chloride Carbon Dioxide Anion Gap BUN Creatinine Estimated GFR POC Glucose 191 H Random Glucose Calcium Prot Corrected Calcium Phosphorus Magnesium Total Bilirubin AST ALT Alkaline Phosphatase Total Creatine Kinase 264 H CK-MB (CK-2) 6.5 H CK-MB (CK-2) % 2.5 Troponin I 0.02 B-Natriuretic Peptide Total Protein Albumin Triglycerides Cholesterol LDL Cholesterol, Calc HDL Cholesterol Cholesterol/HDL Ratio TSH Free T4 PTH Intact Urine Color Urine Clarity Urine pH Ur Specific [place] Urine Protein Urine Glucose (UA) Urine Ketones Urine Occult Blood Urine Nitrate Urine Bilirubin Urine Urobilinogen Ur Leukocyte Esterase Urine RBC Urine WBC Ur Squamous Epith Cells Micro UA Comment Urine Culture Comments 11/07/17 11/07/17 06:45 06:45 WBC RBC Hgb Hct MCV MCH MCHC RDW Plt Count MPV Neut % (Auto) Lymph % (Auto) Rooks % (Auto) Eos % (Auto) Baso % (Auto) Neut # (Auto) Lymph # (Auto) Rooks # (Auto) Eos # (Auto) Baso # (Auto) WBC Differential Differential Comment PT 13.9 H INR 1.4 APTT D-Dimer Quant (PE/DVT) Sodium 136 Potassium 4.1 Chloride 100 Carbon Dioxide 27.4 Anion Gap 9 BUN 27 H Creatinine 1.12 H Estimated GFR 47 L POC Glucose Random Glucose 154 H Calcium 7.6 L Prot Corrected Calcium Phosphorus 4.4 Magnesium 1.7 Total Bilirubin 0.8 AST 39 H ALT 80 H Alkaline Phosphatase 79 Total Creatine Kinase 217 H CK-MB (CK-2) 5.9 H CK-MB (CK-2) % 2.7 Troponin I Less than 0.02 L B-Natriuretic Peptide Total Protein 6.5 Albumin 3.3 L Triglycerides 52 Cholesterol 118 L LDL Cholesterol, Calc 64 HDL Cholesterol 43.8 Cholesterol/HDL Ratio 2.69 TSH 0.424 Free T4 1.19 PTH Intact Urine Color Urine Clarity Urine pH Ur Specific [place] Urine Protein Urine Glucose (UA) Urine Ketones Urine Occult Blood Urine Nitrate Urine Bilirubin Urine Urobilinogen Ur Leukocyte Esterase Urine RBC Urine WBC Ur Squamous Epith Cells Micro UA Comment Urine Culture Comments - Imaging Impressions Chest X-Ray 11/06/17 14:06 CONCLUSION: Chest CTA 11/06/17 15:09 CONCLUSION: Assessment and Plan - Assessment (1) Asthma exacerbation in COPD Code(s): J44.1 - Chronic obstructive pulmonary disease with (acute) exacerbation ; J45.901 - Unspecified asthma with (acute) exacerbation Status: Acute (2) CHF (congestive heart failure) Code(s): I50.9 - Heart failure, unspecified Status: Acute - Plan Ms. Centeno is a 77 yo F with PMH CAD, CHF, obstructive lung disease who presents with shortness of breath, chest pain, and epigastric pain: Cardiac CHF Impression: BNP on admission ~1100 in association with PMH CHF with EF 40-45% in 05/2017. -Cardiology consulted -Lasix diuresis at 40mg IV BID -Will monitor output, daily weights CAD Impression: Chest pain; does not seem currently cardiac in nature. Seen at chest pain center 09/2017; ruled-out for ACS. Lexiscan in 2017 reassuring. Prior CABG ~3 years prior -s/p ACS rule out -Continue telemetry -Will restart statin, ASA Per EMR review- echo 05/2017 with EF 40-45%. Respiratory Impression: PMH asthma/COPD; wheezing on exam CTA- no PE, small pleural effusions; moderate cardiomegaly CXR- mild pulmonary congestion -Will continue Solumedrol -Will continue Levaquin -Continue PRN Duonebs Epigastric pain Impression: on Pantoprazole and unspecified other medication as outpatient; recently worsened pain. -Will continue Famotidine -Will give Pantoprazole 40mg daily -Will review EMR and consider GI consultation Impression: Cr 1.15 on admission -Will monitor BMP Hypocalcemia- PO Chronic conditions- continue chronic pain control with home medications DVT PPX Heparin 5K U BID Code Status: Full code (2) CHF (congestive heart failure) Qualifiers: Heart failure type: unspecified Heart failure chronicity: unspecified Qualified Code(s): I50.9 - Heart failure, unspecified
[2017-11-07] MEDS ORDERED: LORazepam 0.5 MG Tablet PO PRN (11:00)
[2017-11-07] MEDS ORDERED: Aspirin 325 MG Tablet PO ONE (13:50)
[2017-11-07] MEDS ORDERED: Simethicone 125 MG Chew Tablet PO PRN (15:45)
[2017-11-07 16:32] LABS: Hemoglobin A1c 6.1 % (4.3-6.0)
--- NOTE | 2017-11-07 17:27 | ECHRPT ---
Indication: HHD CONCLUSIONS The left ventricular systolic function is severely reduced with an estimated ejection fraction in th e range of 25-30%. Normal left ventricular size. Wall thickness is normal. No regional wall motion abnormalities are present. Mild thickening of the mitral valve leaflets. Moderate mitral annular calcification. [id number]-odajsk mitral valve regurgitation. The aortic valve is not well visualized. Mild to moderate aortic valve stenosis. Aortic valve area is 1.2 cm. Aortic valve mean gradient is 29 mmHg. Kxlp-[id number] aortic valve regurgitation. There is moderate to severe tricuspid valve regurgitation. The estimated pulmonary arterial pressure is 52.5 mmHg. Mild pulmonary valve regurgitation. The inferior vena cava was not well visualized. BP: / HR: Rhythm: Sinus MEASUREMENTS (Male / Female) Normal Values Technical Quality:Fair 2D ECHO LV Diastolic Diameter PLAX 6.2 cm 4.2 - 5.9 / 3.9 - 5.3 cm LV Systolic Diameter PLAX 5.5 cm IVS Diastolic Thickness 0.8 cm 0.6 - 1.0 / 0.6 - 0.9 cm LVPW Diastolic Thickness 0.8 cm 0.6 - 1.0 / 0.6 - 0.9 cm LV Relative Wall Thickness 0.3 LVOT Diameter 1.8 cm LA Systolic Diameter LX 4.3 cm 3.0 - 4.0 / 2.7 - 3.8 cm LV Ejection Fraction MOD 4C 33.0 % LV Ejection Fraction 4C AL 33.8 % M-MODE Aortic Root Diameter MM 2.5 cm LA Systolic Diameter MM 4.4 cm LA Ao Ratio MM 1.8 DOPPLER AV Peak Velocity 369.5 cm/s AV Peak Gradient 54.6 mmHg AV Mean Gradient 29.0 mmHg AV Velocity Time Integral 74.5 cm AI Peak Velocity 388.5 cm/s AI Peak Gradient 60.4 mmHg AI Pressure Half Time 243.5 ms LVOT Peak Velocity 196.0 cm/s LVOT Peak Gradient 15.4 mmHg LVOT Velocity Time Integral 35.4 cm AV Area Cont Eq vti 1.2 cm AV Area Cont Eq pk 1.3 cm MV Area PHT 6.1 cm Mitral E Point Velocity 124.0 cm/s Mitral A Point Velocity 73.5 cm/s Mitral E to A Ratio 1.7 LV E' Lateral Velocity 8.1 cm/s Mitral E to LV E' Lateral Ratio 15.3 LV E' Septal Velocity 7.7 cm/s Mitral E to LV E' Septal Ratio 16.1 TR Peak Velocity 326.0 cm/s TR Peak Gradient 42.5 mmHg Right Atrial Pressure 10.0 mmHg Pulmonary Artery Systolic Pressu 52.5 mmHg Right Ventricular Systolic Press 52.5 mmHg PV Peak Velocity 106.0 cm/s PV Peak Gradient 4.5 mmHg FINDINGS LEFT VENTRICLE The left ventricular systolic function is severely reduced with an estimated ejection fraction in th e range of 25-30%. Normal left ventricular size. Wall thickness is normal. No regional wall motion abnormalities are present. RIGHT VENTRICLE Normal right ventricular size and systolic function. LEFT ATRIUM The left atrial size is normal. RIGHT ATRIUM The right atrial size is normal. ATRIAL SEPTUM Normal atrial septal thickness without atrial level shunting by limited color doppler interrogation. AORTA The aortic root and proximal ascending aorta are normal in size on limited imaging. MITRAL VALVE Mild thickening of the mitral valve leaflets. Moderate mitral annular calcification. [id number] mitral valve regurgitation. AORTIC VALVE The aortic valve is not well visualized. Mild to moderate aortic valve stenosis. Aortic valve area is 1.2 cm. Aortic valve mean gradient is 29 mmHg. Rkih-[id number] aortic valve regurgitation. TRICUSPID VALVE Structurally normal tricuspid valve. There is moderate to severe tricuspid valve regurgitation. The estimated pulmonary arterial pressure is 52.5 mmHg. PULMONARY VALVE Mild pulmonary valve regurgitation. VESSELS The inferior vena cava was not well visualized. PERICARDIUM No pericardial effusion. Jamel Bernard MD, FACC, [id number] (Electronically Signed) Final Date:07 November 2017 17:26
[2017-11-07] MEDS: Famotidine 20 MG Tablet PO SCH (21:23)
[2017-11-08] MEDS: MethylPREDNISolone Sod Succinate Inj 125 MG/2 ML Vial IV.PUSH SCH ×3 (01:01→14:09)
[2017-11-08] MEDS: Temazepam 15 MG Capsule PO PRN (01:01)
[2017-11-08] MEDS: Insulin NovoLOG Aspart Correctional Sugar Inj SQ SCH ×4 (03:00→16:47)
[2017-11-08 07:41] LABS: Baso % (Auto) 0.1 % (0.0-2.0); Hemoglobin 10.2 gm/dL (11.6-15.3); Lymph # (Auto) 0.3 th/mm3 (1.0-4.8); Lymph % (Auto) 4.9 % (9.0-44.0); Mean Corpuscular Volume 78.9 fL (80.0-100.0); Mean Platelet Volume 10.4 fL (7.0-11.0); Mono # (Auto) 0.2 th/mm3 (0.0-0.9); Neut # (Auto) 6.2 th/mm3 (1.8-7.7); Platelet Count 123 th/mm3 (150-450); Red Blood Count 3.93 mil/mm3 (4.00-5.30); Red Cell Distribution Width 14.9 % (11.6-17.2); White Blood Count 6.7 th/mm3 (4.0-11.0)
[2017-11-08 08:14] LABS: Calcium 7.7 mg/dL (8.5-10.1); Carbon Dioxide 32.5 meq/L (21.0-32.0)
--- NOTE | 2017-11-08 08:24 | MB ---
cc: Tim Verduzco MD DATE: 11/07/2017 REFERRING PHYSICIAN: Dr. Hussein Olmstead CHIEF COMPLAINT: Shortness of breath. HISTORY OF PRESENT ILLNESS: Mrs. Centeno is a very pleasant 77-year-old speaking female. Most of the history was collected from the patient's daughter. She has a past medical history of asthma, diabetes, hypertension, GERD, coronary artery disease, status post reported history of CABG (records not available), who presented to the emergency room with worsening shortness of breath.. According to the patient's daughter, she has been having the shortness of breath for approximately 2 months. This has been gradually worsening. She has noticed some mild weight gain. She denies any chest pain, syncope, or presyncope. She does note PND and orthopnea. REVIEW OF SYSTEMS: A full 14-point review of system was negative unless as mentioned in the HPI. PAST MEDICAL HISTORY: 1. Coronary artery disease, status post coronary artery bypass grafting. 2. Diabetes type 2. 3. GERD. 4. Hypertension. PAST SURGICAL HISTORY: 1. History of coronary artery bypass grafting. 2. Appendectomy. 3. Cholecystectomy. FAMILY HISTORY: No sudden cardiac . SOCIAL HISTORY: Denies tobacco , alcohol or illicit drug use. MEDICATIONS: Reviewed in the electronic medical record. PHYSICAL EXAMINATION: VITAL SIGNS: Blood pressure 135/75, heart rate 72. GENERAL: Comfortable in no apparent acute distress. She is on O2 by nasal cannula. EYES: No scleral icterus. Oropharynx, moist mucous membranes. CARDIOVASCULAR: Regular rate and rhythm. Normal S1. A 2/6 holosystolic murmur over the apex. Normal S2. JVP is elevated to 12 mmHg. RESPIRATORY: Mild crackles. GASTROINTESTINAL: Abdomen is soft, nontender, nondistended. EXTREMITIES: 1 to 2+ pitting edema. NEUROLOGIC: A and O x 3. PSYCHIATRIC: Appropriate affect and mood. LABORATORY DATA: Reviewed in the electronic medical records. Troponin is negative. She has creatinine 1.15. ASSESSMENT: 1. Ischemic cardiomyopathy (ejection fraction currently unknown) with NYHA class III symptoms. 2. Chronic obstructive pulmonary disease. 3. Hypertension. 4. Diabetes. 5. Renal insufficiency. 6. History of coronary artery disease, status post coronary artery bypass grafting. PLAN: I would, at this juncture, order a transthoracic echocardiogram which can be reviewed after completion. I would recommend increasing diuresis to 40 mg IV b.i.d. for optimization. We will reevaluate once the transthoracic echocardiogram is done. Thank you for allowing me to participate in the care of Mrs. Centeno. Please feel free to contact us with any further questions regarding her care. MD CARLEY Honeycutt/DONG YUSRA
[2017-11-08] MEDS: Senna/Docusate Sodium 8.6/50 MG Tablet PO SCH ×2 (08:48→20:51)
[2017-11-08] MEDS: levoFLOXacin 750 MG Tablet PO SCH (08:49)
[2017-11-08] MEDS: Heparin - SQ 10,000 UNITS/ML Vial SQ SCH ×2 (08:51→20:52)
[2017-11-08] MEDS: guaiFENesin 600 MG ER Tablet PO SCH ×2 (08:53→20:51)
[2017-11-08] MEDS: Budesonide-Formoterol 160/4.5 MCG 6 GM Inhaler INH SCH (08:54)
--- NOTE | 2017-11-08 12:40 | P.PNIM ---
Subjective Interval history: RN denies any deterioration since last night. Pt says she has trouble swallowing hard meals including rice and meat for the past 3 days. Can't remember if she's every had an EGD in the past. Says her SOB at this time is at baseline at home. I conversed with the patient in Romanian. PT reports mildly labored breathing during PT session. No desats below 90% upon ambulation. Physical Exam Vital signs: Vital Signs 11/07/17 15:53 11/07/17 16:00 11/07/17 20:25 Temperature 97.7 F Pulse Rate 100 H 93 H 98 H Respiratory Rate 20 17 18 Blood Pressure 115/65 Pulse Oximetry 94 L 97 11/07/17 20:31 11/07/17 21:18 11/08/17 00:19 Temperature 98.2 F Pulse Rate 107 H 105 H Respiratory Rate 18 Blood Pressure 119/55 L Pulse Oximetry 98 95 11/08/17 00:45 11/08/17 02:55 11/08/17 04:29 Temperature 97.8 F 97.3 F L Pulse Rate 101 H 98 H 90 Respiratory Rate 18 18 21 Blood Pressure 133/67 134/72 Pulse Oximetry 95 98 11/08/17 08:00 11/08/17 09:42 Temperature 97.6 F Pulse Rate 106 H Respiratory Rate 16 Blood Pressure 107/60 Pulse Oximetry 97 98 Intake & Output 11/07/17 11/08/17 11/08/17 18:59 06:59 18:59 Intake Total 725 / 725 580 / 580 Output Total 1700 / 1700 Balance 725 / 725 -1120 / -1120 Weight 77.1 kg 77 kg Intake: Oral 725 / 725 580 / 580 Output: Urine 1700 / 1700 Other: # Voids 5 Date of Last Bowel Movement 11/05/17 # Bowel Movements 0 0 Narrative: slightly dminished BS in bases clear speech, no slurring or drooping noted Results - Labs CBC & Chem 7: 11/08/17 06:57 11/08/17 06:57 Laboratory Results - last 24 hr 11/07/17 11/07/17 11/07/17 06:45 12:13 16:32 WBC RBC Hgb Hct MCV MCH MCHC RDW Plt Count MPV Neut % (Auto) Lymph % (Auto) [place] % (Auto) Eos % (Auto) Baso % (Auto) Neut # (Auto) Lymph # (Auto) [place] # (Auto) Eos # (Auto) Baso # (Auto) WBC Differential Differential Comment Sodium Potassium Chloride Carbon Dioxide Anion Gap BUN Creatinine Estimated GFR POC Glucose 239 H 153 H Random Glucose Hemoglobin A1c 6.1 H Calcium B-Natriuretic Peptide 11/07/17 11/08/17 11/08/17 21:22 04:56 06:57 WBC 6.7 RBC 3.93 L Hgb 10.2 L Hct 31.0 L MCV 78.9 L MCH 26.0 L MCHC 33.0 RDW 14.9 Plt Count 123 L MPV 10.4 Neut % (Auto) 92.0 H Lymph % (Auto) 4.9 L [place] % (Auto) 3.0 Eos % (Auto) 0.0 Baso % (Auto) 0.1 Neut # (Auto) 6.2 Lymph # (Auto) 0.3 L [place] # (Auto) 0.2 Eos # (Auto) 0.0 Baso # (Auto) 0.0 WBC Differential . Differential Comment Auto diff final Sodium Potassium Chloride Carbon Dioxide Anion Gap BUN Creatinine Estimated GFR POC Glucose 196 H 178 H Random Glucose Hemoglobin A1c Calcium B-Natriuretic Peptide 11/08/17 11/08/17 11/08/17 06:57 06:57 07:32 WBC RBC Hgb Hct MCV MCH MCHC RDW Plt Count MPV Neut % (Auto) Lymph % (Auto) [place] % (Auto) Eos % (Auto) Baso % (Auto) Neut # (Auto) Lymph # (Auto) [place] # (Auto) Eos # (Auto) Baso # (Auto) WBC Differential Differential Comment Sodium 139 Potassium 3.0 L D Chloride 97 L Carbon Dioxide 32.5 H Anion Gap 10 BUN 33 H Creatinine 1.23 H Estimated GFR 42 L POC Glucose 183 H Random Glucose 154 H Hemoglobin A1c Calcium 7.7 L B-Natriuretic Peptide 1114 H 11/08/17 10:48 WBC RBC Hgb Hct MCV MCH MCHC RDW Plt Count MPV Neut % (Auto) Lymph % (Auto) [place] % (Auto) Eos % (Auto) Baso % (Auto) Neut # (Auto) Lymph # (Auto) [place] # (Auto) Eos # (Auto) Baso # (Auto) WBC Differential Differential Comment Sodium Potassium Chloride Carbon Dioxide Anion Gap BUN Creatinine Estimated GFR POC Glucose 207 H Random Glucose Hemoglobin A1c Calcium B-Natriuretic Peptide Assessment and Plan - Assessment (1) Asthma exacerbation in COPD Code(s): J44.1 - Chronic obstructive pulmonary disease with (acute) exacerbation ; J45.901 - Unspecified asthma with (acute) exacerbation Status: Acute (2) CHF (congestive heart failure) Code(s): I50.9 - Heart failure, unspecified Status: Acute - Plan Ms. Centeno is a 77 yo F with PMH CAD, CHF, obstructive lung disease who presents with shortness of breath, chest pain, and epigastric pain: solid meal dysphagia - also has epigastric pain - possible esophageal stricture, consulting GI - PPI Cardiac sCHF -worsening EF; new EF 20-25% -will need lisinopril -Cardiology following -Lasix diuresis at 40mg IV BID per cardiology -Will monitor output, daily weights CAD -Chest pain; does not seem currently cardiac in nature. Seen at chest pain center 09/2017; ruled-out for ACS. [place] in 2017 reassuring. Prior CABG ~3 years prior -s/p ACS rule out -Continue telemetry -statin, ASA Per EMR review- echo 05/2017 with EF 40-45%. CTA- no PE, small pleural effusions; moderate cardiomegaly CXR- mild pulmonary congestion -Will continue Solumedrol -Will continue Levaquin, procalcitonin ordered, if neg then discontinue. -Continue PRN Duonebs -Will monitor BMP Hypocalcemia- PO Chronic conditions- continue chronic pain control with home medications Addendum: Discussed case with cardiology, will obtain nuclear medicine stress test in the morning. If negative will proceed with clearance for EGD which hopefully can also be done tomorrow pending negative stress test. Message was relayed to CT to relate to nuclear medicine to get stress test done early in the morning. (2) CHF (congestive heart failure) Qualifiers: Heart failure type: systolic Heart failure chronicity: unspecified Qualified Code(s): I50.20 - Unspecified systolic (congestive) heart failure
--- NOTE | 2017-11-08 15:22 | P.CONGI ---
History of Present Illness Consult date: 11/08/17 Consult reason: Dysphagia Chief complaint: copd exacerbation,new onset chf,hypocalcemia History of Present Illness: This is a pleasant 77-year-old speaking female with PMH of asthma, DM, HTN, GERD, CAD status post CABG presents the ED via EMS for evaluation of worsening shortness of breath. She is being treated for CHF, cardiology on the case. GI consulted for dysphagia. I was able to speak to daughter on the phone and obtain some information. Pt has been having dysphagia for the past 2 weeks mostly with rice. Endorses GERD and heart burn. Endorses epigastric pain. No hematemesis, melena or hematochezia. Never had EGD before. Was evaluated by ST who recommended mechanical soft, and thin liquids. <Tommy Garcia - Last Filed: 11/08/17 17:08> Review of Systems All other systems reviewed negative except as stated in HPI <Tommy Garcia - Last Filed: 11/08/17 17:08> PMFSH - History History Provided By: Patient - Medical History Medical History: Medical History (Last Reviewed 11/08/17 @ 14:46 by Rosetta Aguero) Asthma Cervical vertebral fusion Coronary artery disease Diabetes mellitus GERD (gastroesophageal reflux disease) Hypertension Myocardial infarct, old - Surgical History Surgical History: Surgical History (Last Reviewed 11/07/17 @ 11:24 by Chayo Long) History of appendectomy History of cholecystectomy History of coronary artery bypass graft - Family History Family History: Family History (Last Updated 11/06/17 @ 18:26 by Hussein Olmstead DO) Other Family history of diabetes mellitus Family history of hypertension - Tobacco History Second Hand Smoke Exposure: No Smoking Status: Never smoker - Alcohol History How Often Do You Have a Drink Containing Alcohol: Never - Substance Use History Substance History: No History of Abuse - Travel History History of Recent Travel: No Recent Travel in the [place] Within the Last 8 Weeks: No Recent Travel Out of the Country Within the Last 8 Weeks: No - Immunization History Tetanus Immunization: Unsure Hx Influenza Vaccine This Season: Yes <Tommy Garcia - Last Filed: 11/08/17 17:08> - Medical History Medical History: Medical History (Last Reviewed 11/08/17 @ 14:46 by Rosetta Aguero) Asthma Cervical vertebral fusion Coronary artery disease Diabetes mellitus GERD (gastroesophageal reflux disease) Hypertension Myocardial infarct, old - Surgical History Surgical History: Surgical History (Last Reviewed 11/07/17 @ 11:24 by Chayo Long) History of appendectomy History of cholecystectomy History of coronary artery bypass graft - Family History Family History: Family History (Last Updated 11/06/17 @ 18:26 by Hussein Olmstead DO) Other Family history of diabetes mellitus Family history of hypertension <JosephKarineemmy - Last Filed: 11/08/17 18:19> Medications and Allergies Active Medications: Active Medications Al Hydroxide/Mg Hydroxide (Milk Of Magnesia Liq) 30 ml PO Q12H PRN PRN Reason: Mild Constipation Albuterol (Duoneb Neb (Shanon)) 1 ampul NEB Q6HR NEB [facility] Last Admin: 11/08/17 09:40 Dose: Not Given Aspirin (Ecotrin) 81 mg PO DAILY [facility] Last Admin: 11/08/17 08:49 Dose: 81 mg Bisacodyl (Dulcolax Supp) 10 mg RECTAL DAILY PRN PRN Reason: SEVERE CONSITIPATION Budesonide/Formoterol Fumarate (Symbicort 160/4.5 Mcg Inh) 2 puff INH BID [facility] Last Admin: 11/08/17 08:54 Dose: 2 puff Dextrose (D50w Vial) 50 ml IV.PUSH UNSCH PRN PRN Reason: PER HYPOGLYCEMIA PROTOCOL Famotidine (Pepcid) 20 mg PO HS [facility] Last Admin: 11/07/17 21:23 Dose: 20 mg Furosemide (Lasix Inj) 40 mg IV.PUSH BID@0900,1800 [facility] Last Admin: 11/08/17 09:03 Dose: 40 mg Glucagon (Glucagon Inj) 1 mg OTHER PRN PRN PRN Reason: for Hypoglycemia Protocol Guaifenesin (Mucinex Er) 600 mg PO BID [facility] Last Admin: 11/08/17 08:53 Dose: 600 mg Heparin Sodium (Porcine) (Heparin Inj) 5,000 units SQ Q12H [facility] Last Admin: 11/08/17 08:51 Dose: 5,000 units Insulin Aspart (Novolog Insulin Correctional Sugar Inj) 0 unit SQ ACHS AND 3AM SHANON; Protocol Last Admin: 11/08/17 11:23 Dose: 3 unit Lactulose (Lactulose Liq) 30 ml PO DAILY PRN PRN Reason: SEVERE CONSITIPATION Levofloxacin (Levaquin) 750 mg PO DAILY [facility] Last Admin: 11/08/17 08:49 Dose: 750 mg Lorazepam (Ativan) 0.5 mg PO Q12HR PRN PRN Reason: ANXIETY Meclizine HCl (Antivert) 25 mg PO BID PRN PRN Reason: Shortness Of Breath Or Wheezing Methylprednisolone Sodium Succinate (Solumedrol Inj) 60 mg IV.PUSH Q6H [facility] Last Admin: 11/08/17 14:09 Dose: 60 mg Naloxone HCl (Narcan Inj) 0.4 mg IV.PUSH UNSCH PRN PRN Reason: SEE LABEL COMMENTS Ondansetron HCl (Zofran Odt) 4 mg PO Q6H PRN PRN Reason: NAUSEA OR VOMITING Pantoprazole Sodium (Protonix) 40 mg PO DAILY [facility] Last Admin: 11/08/17 08:49 Dose: 40 mg Senna/Docusate Sodium (Sammi-Colace) 1 tab PO BID [facility] Last Admin: 11/08/17 08:48 Dose: 1 tab Sennosides (Senokot) 17.2 mg PO Q12H PRN PRN Reason: Moderate Constipation Simethicone (Phazyme Chew) 125 mg PO TID PRN PRN Reason: GAS RETENTION Sodium Chloride (Ns Flush) 2 ml IV.FLUSH PRN PRN PRN Reason: FLUSH AFTER USING IV ACCESS Sodium Chloride (Ns Flush) 2 ml IV.FLUSH BID [facility] Last Admin: 11/08/17 08:53 Dose: 2 ml Temazepam (Restoril) 15 mg PO HS PRN PRN Reason: INSOMNIA Last Admin: 11/08/17 01:01 Dose: 15 mg <Tommy Garcia - Last Filed: 11/08/17 17:08> Active Medications: Active Medications Acetaminophen (Tylenol) 650 mg PO Q6H PRN PRN Reason: [facility] Last Admin: 11/08/17 17:09 Dose: 650 mg Al Hydroxide/Mg Hydroxide (Milk Of Magnesia Liq) 30 ml PO Q12H PRN PRN Reason: Mild Constipation Albuterol (Duoneb Neb (Shanon)) 1 ampul NEB Q6HR NEB [facility] Last Admin: 11/08/17 16:02 Dose: 1 ampul Aspirin (Ecotrin) 81 mg PO DAILY [facility] Last Admin: 11/08/17 08:49 Dose: 81 mg Bisacodyl (Dulcolax Supp) 10 mg RECTAL DAILY PRN PRN Reason: SEVERE CONSITIPATION Budesonide/Formoterol Fumarate (Symbicort 160/4.5 Mcg Inh) 2 puff INH BID [facility] Last Admin: 11/08/17 08:54 Dose: 2 puff Carvedilol (Coreg) 3.125 mg PO BID [facility] Dextrose (D50w Vial) 50 ml IV.PUSH UNSCH PRN PRN Reason: PER HYPOGLYCEMIA PROTOCOL Famotidine (Pepcid) 20 mg PO HS [facility] Last Admin: 11/07/17 21:23 Dose: 20 mg Furosemide (Lasix Inj) 40 mg IV.PUSH BID@0900,1800 [facility] Last Admin: 11/08/17 17:07 Dose: 40 mg Glucagon (Glucagon Inj) 1 mg OTHER PRN PRN PRN Reason: for Hypoglycemia Protocol Guaifenesin (Mucinex Er) 600 mg PO BID [facility] Last Admin: 11/08/17 08:53 Dose: 600 mg Heparin Sodium (Porcine) (Heparin Inj) 5,000 units SQ Q12H [facility] Last Admin: 11/08/17 08:51 Dose: 5,000 units Insulin Aspart (Novolog Insulin Correctional Sugar Inj) 0 unit SQ ACHS AND 3AM SHANON; Protocol Last Admin: 11/08/17 16:47 Dose: 1 unit Lactulose (Lactulose Liq) 30 ml PO DAILY PRN PRN Reason: SEVERE CONSITIPATION Levofloxacin (Levaquin) 750 mg PO DAILY [facility] Last Admin: 11/08/17 08:49 Dose: 750 mg Lidocaine HCl (Xylocaine 2% Viscous) 15 ml SWISH-SWAL Q4H PRN PRN Reason: acute pain Last Admin: 11/08/17 17:16 Dose: 15 ml Lorazepam (Ativan) 0.5 mg PO Q12HR PRN PRN Reason: ANXIETY Meclizine HCl (Antivert) 25 mg PO BID PRN PRN Reason: Shortness Of Breath Or Wheezing Naloxone HCl (Narcan Inj) 0.4 mg IV.PUSH UNSCH PRN PRN Reason: SEE LABEL COMMENTS Ondansetron HCl (Zofran Odt) 4 mg PO Q6H PRN PRN Reason: NAUSEA OR VOMITING Pantoprazole Sodium (Protonix) 40 mg PO DAILY [facility] Last Admin: 11/08/17 08:49 Dose: 40 mg Potassium Chloride (K-Dur) 20 meq PO BID [facility] Prednisone (Deltasone) 20 mg PO BID [facility] Senna/Docusate Sodium (Sammi-Colace) 1 tab PO BID [facility] Last Admin: 11/08/17 08:48 Dose: 1 tab Sennosides (Senokot) 17.2 mg PO Q12H PRN PRN Reason: Moderate Constipation Simethicone (Phazyme Chew) 125 mg PO TID PRN PRN Reason: GAS RETENTION Sodium Chloride (Ns Flush) 2 ml IV.FLUSH PRN PRN PRN Reason: FLUSH AFTER USING IV ACCESS Sodium Chloride (Ns Flush) 2 ml IV.FLUSH BID [facility] Last Admin: 11/08/17 08:53 Dose: 2 ml Temazepam (Restoril) 15 mg PO HS PRN PRN Reason: INSOMNIA Last Admin: 11/08/17 01:01 Dose: 15 mg <Hemaidan,Ammar - Last Filed: 11/08/17 18:19> Allergies Allergy/AdvReac Type Severity Reaction Status Date / Time Penicillins Allergy Severe Hives Verified 10/09/17 10:50 acetaminophen Allergy Mild Chills Verified 10/09/17 10:50 amoxicillin Allergy Unknown Hives Verified 10/09/17 10:50 aminophylline Allergy Hives Verified 11/06/17 14:07 Fish Containing Products Allergy Hives Verified 11/06/17 14:08 shellfish derived Allergy Hives Verified 11/06/17 14:08 hydrocodone AdvReac Intermediate Sedation Verified 10/09/17 10:50 tramadol AdvReac Intermediate hallucinati Verified 10/09/17 10:50 ons Home Medications Medication Instructions Recorded Confirmed Type albuterol sulfate 2 puff INHALATION Q4-6H PRN 11/06/17 11/06/17 History albuterol sulfate [Ventolin HFA] 2 puff INHALATION Q6H PRN MDD 8 11/06/17 History puffs budesonide-formoterol [Symbicort] 2 puff INHALATION BID 11/06/17 11/06/17 History meclizine 25 mg PO BID PRN 11/06/17 11/06/17 History meloxicam 15 mg PO DAILY 11/06/17 11/06/17 History metformin 500 mg PO BID 11/06/17 11/06/17 History Exam Vital signs: Vital Signs 11/07/17 15:53 11/07/17 16:00 11/07/17 20:25 Temperature 97.7 F Pulse Rate 100 H 93 H 98 H Respiratory Rate 20 17 18 Blood Pressure 115/65 Pulse Oximetry 94 L 97 11/07/17 20:31 11/07/17 21:18 11/08/17 00:19 Temperature 98.2 F Pulse Rate 107 H 105 H Respiratory Rate 18 Blood Pressure 119/55 L Pulse Oximetry 98 95 11/08/17 00:45 11/08/17 02:55 11/08/17 04:29 Temperature 97.8 F 97.3 F L Pulse Rate 101 H 98 H 90 Respiratory Rate 18 18 21 Blood Pressure 133/67 134/72 Pulse Oximetry 95 98 11/08/17 08:00 11/08/17 09:42 11/08/17 12:00 Temperature 97.6 F 97.3 F L Pulse Rate 106 H 102 H Respiratory Rate 16 17 Blood Pressure 107/60 131/73 Pulse Oximetry 97 98 96 Intake & Output 11/07/17 11/08/17 11/08/17 18:59 06:59 18:59 Intake Total 725 / 725 580 / 580 Output Total 1700 / 1700 Balance 725 / 725 -1120 / -1120 Weight 77.1 kg 77 kg Intake: Oral 725 / 725 580 / 580 Output: Urine 1700 / 1700 Other: # Voids 5 Date of Last Bowel Movement 11/05/17 # Bowel Movements 0 0 - Constitutional no acute distress - Routine HEENT Exam Head: Present: normocephalic - Routine Neck Exam Present: supple - Routine Respiratory Exam Present: diminished air movement - Routine Cardiovascular Exam Present: RRR - Routine Abdominal Exam Present: soft, normoactive bowel sounds. Absent: tenderness, distended - Routine Extremities Exam Present: edema. Absent: cyanosis, clubbing - Routine Neurological Exam Present: alert, oriented X3 <Tommy Garcia - Last Filed: 11/08/17 17:08> Vital signs: Vital Signs 11/07/17 20:25 11/07/17 20:31 11/07/17 21:18 Temperature 98.2 F Pulse Rate 98 H 107 H Respiratory Rate 18 18 Blood Pressure 119/55 L Pulse Oximetry 97 98 95 11/08/17 00:19 11/08/17 00:45 11/08/17 02:55 Temperature 97.8 F Pulse Rate 105 H 101 H 98 H Respiratory Rate 18 18 Blood Pressure 133/67 Pulse Oximetry 95 11/08/17 04:29 11/08/17 08:00 11/08/17 09:42 Temperature 97.3 F L 97.6 F Pulse Rate 90 106 H Respiratory Rate 21 16 Blood Pressure 134/72 107/60 Pulse Oximetry 98 97 98 11/08/17 12:00 11/08/17 16:04 Temperature 97.3 F L Pulse Rate 102 H 86 Respiratory Rate 17 18 Blood Pressure 131/73 Pulse Oximetry 96 95 Intake & Output 11/07/17 11/08/17 11/08/17 18:59 06:59 18:59 Intake Total 725 / 725 580 / 580 Output Total 1700 / 1700 Balance 725 / 725 -1120 / -1120 Weight 77.1 kg 77 kg Intake: Oral 725 / 725 580 / 580 Output: Urine 1700 / 1700 Other: # Voids 5 Date of Last Bowel Movement 11/05/17 # Bowel Movements 0 0 <JosephAmmar - Last Filed: 11/08/17 18:19> Results - Labs CBC & Chem 7: 11/08/17 06:57 11/08/17 06:57 Labs: Laboratory Results - last 24 hr 11/07/17 11/07/17 11/07/17 06:45 16:32 21:22 WBC RBC Hgb Hct MCV MCH MCHC RDW Plt Count MPV Neut % (Auto) Lymph % (Auto) [place] % (Auto) Eos % (Auto) Baso % (Auto) Neut # (Auto) Lymph # (Auto) [place] # (Auto) Eos # (Auto) Baso # (Auto) WBC Differential Differential Comment Sodium Potassium Chloride Carbon Dioxide Anion Gap BUN Creatinine Estimated GFR POC Glucose 153 H 196 H Random Glucose Hemoglobin A1c 6.1 H Calcium B-Natriuretic Peptide 11/08/17 11/08/17 11/08/17 04:56 06:57 06:57 WBC 6.7 RBC 3.93 L Hgb 10.2 L Hct 31.0 L MCV 78.9 L MCH 26.0 L MCHC 33.0 RDW 14.9 Plt Count 123 L MPV 10.4 Neut % (Auto) 92.0 H Lymph % (Auto) 4.[address] % (Auto) 3.0 Eos % (Auto) 0.0 Baso % (Auto) 0.1 Neut # (Auto) 6.2 Lymph # (Auto) 0.[address] # (Auto) 0.2 Eos # (Auto) 0.0 Baso # (Auto) 0.0 WBC Differential . Differential Comment Auto diff final Sodium 139 Potassium 3.0 L D Chloride 97 L Carbon Dioxide 32.5 H Anion Gap 10 BUN 33 H Creatinine 1.23 H Estimated GFR 42 L POC Glucose 178 H Random Glucose 154 H Hemoglobin A1c Calcium 7.7 L B-Natriuretic Peptide 11/08/17 11/08/17 11/08/17 06:57 07:32 10:48 WBC RBC Hgb Hct MCV MCH MCHC RDW Plt Count MPV Neut % (Auto) Lymph % (Auto) [place] % (Auto) Eos % (Auto) Baso % (Auto) Neut # (Auto) Lymph # (Auto) [place] # (Auto) Eos # (Auto) Baso # (Auto) WBC Differential Differential Comment Sodium Potassium Chloride Carbon Dioxide Anion Gap BUN Creatinine Estimated GFR POC Glucose 183 H 207 H Random Glucose Hemoglobin A1c Calcium B-Natriuretic Peptide 1114 H <Tommy Garcia - Last Filed: 11/08/17 17:08> - Labs CBC & Chem 7: 11/08/17 06:57 11/08/17 06:57 Labs: Laboratory Results - last 24 hr 11/07/17 11/08/17 11/08/17 21:22 04:56 06:57 WBC 6.7 RBC 3.93 L Hgb 10.2 L Hct 31.0 L MCV 78.9 L MCH 26.0 L MCHC 33.0 RDW 14.9 Plt Count 123 L MPV 10.4 Neut % (Auto) 92.0 H Lymph % (Auto) 4.[address] % (Auto) 3.0 Eos % (Auto) 0.0 Baso % (Auto) 0.1 Neut # (Auto) 6.2 Lymph # (Auto) 0.[address] [place] # (Auto) 0.2 Eos # (Auto) 0.0 Baso # (Auto) 0.0 WBC Differential . Differential Comment Auto diff final Sodium Potassium Chloride Carbon Dioxide Anion Gap BUN Creatinine Estimated GFR POC Glucose 196 H 178 H Random Glucose Calcium B-Natriuretic Peptide Procalcitonin 11/08/17 11/08/17 11/08/17 06:57 06:57 07:32 WBC RBC Hgb Hct MCV MCH MCHC RDW Plt Count MPV Neut % (Auto) Lymph % (Auto) [place] % (Auto) Eos % (Auto) Baso % (Auto) Neut # (Auto) Lymph # (Auto) [place] # (Auto) Eos # (Auto) Baso # (Auto) WBC Differential Differential Comment Sodium 139 Potassium 3.0 L D Chloride 97 L Carbon Dioxide 32.5 H Anion Gap 10 BUN 33 H Creatinine 1.23 H Estimated GFR 42 L POC Glucose 183 H Random Glucose 154 H Calcium 7.7 L B-Natriuretic Peptide 1114 H Procalcitonin 11/08/17 11/08/17 11/08/17 10:48 13:30 16:04 WBC RBC Hgb Hct MCV MCH MCHC RDW Plt Count MPV Neut % (Auto) Lymph % (Auto) [place] % (Auto) Eos % (Auto) Baso % (Auto) Neut # (Auto) Lymph # (Auto) [place] # (Auto) Eos # (Auto) Baso # (Auto) WBC Differential Differential Comment Sodium Potassium Chloride Carbon Dioxide Anion Gap BUN Creatinine Estimated GFR POC Glucose 207 H 158 H Random Glucose Calcium B-Natriuretic Peptide Procalcitonin 0.06 <Manuel Ruiz - Last Filed: 11/08/17 18:19> Assessment and Plan - Plan - Dysphagia- Pt has been having dysphagia for the past 2 weeks mostly with rice. Endorses GERD and heart burn. Endorses epigastric pain. No hematemesis, melena or hematochezia. Never had EGD before. Was evaluated by ST who recommended mechanical soft, and thin liquids - CHF- EF 20-25% cardiology on the case. - Asthma, DM, HTN, GERD, CAD status post CABG Per attending Plan: - Diet per ST recommendation (mechanical soft, and thin liquids) - EGD once medically stable and cleared by cardiology - Case discussed with Dr. Phillips, will make pt NPO by mn, he will discuss with cardiology and get the ok - Possible EGD/dill in the am - BS - Supportive care - Pt seen and examined by Dr. Ruiz and myself and this note is written on his behalf. <Tommy Garcia - Last Filed: 11/08/17 17:08> - Plan Patient was seen and examined, agree with above note, if cardiology cleared the patient will plan on doing upper endoscopy with dilation tomorrow <Manuel Ruiz - Last Filed: 11/08/17 18:19>
[2017-11-08] MEDS ORDERED: Aluminum/Magnesium/Simethacone Susp 30 ML UDC PO ONE (17:00)
--- NOTE | 2017-11-08 17:03 | P.PNCA ---
Subjective Interval history: Patient improved with shortness of breath. Ambulating without 02. Physical Exam Vital signs: Vital Signs 11/07/17 20:25 11/07/17 20:31 11/07/17 21:18 Temperature 98.2 F Pulse Rate 98 H 107 H Respiratory Rate 18 18 Blood Pressure 119/55 L Pulse Oximetry 97 98 95 11/08/17 00:19 11/08/17 00:45 11/08/17 02:55 Temperature 97.8 F Pulse Rate 105 H 101 H 98 H Respiratory Rate 18 18 Blood Pressure 133/67 Pulse Oximetry 95 11/08/17 04:29 11/08/17 08:00 11/08/17 09:42 Temperature 97.3 F L 97.6 F Pulse Rate 90 106 H Respiratory Rate 21 16 Blood Pressure 134/72 107/60 Pulse Oximetry 98 97 98 11/08/17 12:00 11/08/17 16:04 Temperature 97.3 F L Pulse Rate 102 H 86 Respiratory Rate 17 18 Blood Pressure 131/73 Pulse Oximetry 96 95 Intake & Output 11/07/17 11/08/17 11/08/17 18:59 06:59 18:59 Intake Total 725 / 725 580 / 580 Output Total 1700 / 1700 Balance 725 / 725 -1120 / -1120 Weight 77.1 kg 77 kg Intake: Oral 725 / 725 580 / 580 Output: Urine 1700 / 1700 Other: # Voids 5 Date of Last Bowel Movement 11/05/17 # Bowel Movements 0 0 - Constitutional no acute distress - Routine Respiratory Exam Present: crackles (at the bases mild) - Routine Cardiovascular Exam Present: RRR, S1, S2, murmur (2/6 GEORGE at apex) - Routine Extremities Exam Present: edema (1+) Assessment and Plan - Assessment (1) CHF (congestive heart failure) Code(s): I50.9 - Heart failure, unspecified Status: Acute - Plan Code Status: Acute on Chronic Systolic Congestive Heart Failure (NYHA III) Moderate to severe MR Hx of CAD s/p CABG TTE The left ventricular systolic function is severely reduced with an estimated ejection fraction in the range of 25-30%. Normal left ventricular size. Wall thickness is normal. No regional wall motion abnormalities are present. Mild thickening of the mitral valve leaflets. Moderate mitral annular calcification. [id number] mitral valve regurgitation. The aortic valve is not well visualized. Mild to moderate aortic valve stenosis. Aortic valve area is 1.2 cm. Aortic valve mean gradient is 29 mmHg. [id number] aortic valve regurgitation. There is moderate to severe tricuspid valve regurgitation. The estimated pulmonary arterial pressure is 52.5 mmHg. Mild pulmonary valve regurgitation. The inferior vena cava was not well visualized. Plan: Clinically improving, stable Cr. I's and O's not updated however per nurse patient with almost 2 L urine output. Will monitor clinically. Review of records shows recent ischemic workup was negative. Continue CHF management with Lasix 40mg IV BID. Start patient on Coreg 3.125 po BID and titrate up. Will start Lisinopril prior to d/c. Patient will also benefit from Spirinolactone. Please contact [facility] for any questions. (1) CHF (congestive heart failure) Qualifiers: Heart failure type: systolic Heart failure chronicity: unspecified Qualified Code(s): I50.20 - Unspecified systolic (congestive) heart failure
[2017-11-08] MEDS: Acetaminophen 325 MG Tablet PO PRN (17:09)
[2017-11-08] MEDS: predniSONE 20 MG Tablet PO SCH (20:51)
[2017-11-08] MEDS: Famotidine 20 MG Tablet PO SCH (20:51)
[2017-11-09] MEDS: Temazepam 15 MG Capsule PO PRN ×2 (00:48→21:19)
[2017-11-09] MEDS: Budesonide-Formoterol 160/4.5 MCG 6 GM Inhaler INH SCH ×3 (04:17→21:13)
[2017-11-09] MEDS: Insulin NovoLOG Aspart Correctional Sugar Inj SQ SCH ×6 (04:17→21:22)
[2017-11-09] MEDS: Heparin - SQ 10,000 UNITS/ML Vial SQ SCH ×2 (09:10→21:13)
[2017-11-09] MEDS: predniSONE 20 MG Tablet PO SCH ×2 (09:13→21:12)
[2017-11-09] MEDS: Senna/Docusate Sodium 8.6/50 MG Tablet PO SCH ×2 (09:13→21:12)
[2017-11-09] MEDS: levoFLOXacin 750 MG Tablet PO SCH (09:13)
[2017-11-09] MEDS: guaiFENesin 600 MG ER Tablet PO SCH ×2 (09:13→21:12)
--- NOTE | 2017-11-09 10:43 | FL ---
EXAM DATE: 11/09/2017 10:35 AM EDT AGE/SEX: 77 years / Female INDICATIONS: Dysphagia. Trouble swallowing for the past 2 weeks. Mostly with rice. CLINICAL DATA: This is the patient's initial encounter. Patient reports that signs and symptoms have been present for 2 weeks and indicates a pain score of Nonresponsive. MEDICAL/SURGICAL HISTORY: . Cardiovascular disease. Asthma. Diabetes. Coronary artery disease. . CABG. COMPARISON: No prior exams available for comparison. FLUORO TIME: 0.2 IMAGE COUNT: 6 FINDINGS: The hypopharynx appears intact without any definite mucosal lesions or mass. The region o f the cricopharyngeus muscle appears intact. The esophagus appears intact without any definite mucos al lesions, stricture, or mass. The gastroesophageal junction appears intact. CONCLUSION: Unremarkable barium swallow. Electronically signed by: Liv Pastrana MD 11/09/2017 10:41 AM EDT
[2017-11-09] MEDS ORDERED: Regadenoson Inj 0.4 MG/5 ML Syringe IV.PUSH ONE ×2 (12:10→15:30)
--- NOTE | 2017-11-09 14:13 | NM ---
EXAM DATE: 11/09/2017 2:06 PM EDT AGE/SEX: 77 years / Female INDICATIONS:Myocardial infarction. . Risk stratification for surgery. Chest pain. CLINICAL DATA: This is the patient's initial encounter. Patient reports that signs and symptoms have been present for 1 day and indicates a pain score of 2/10. MEDICAL/SURGICAL HISTORY: Hypertension. Gastroesophageal reflux disease. Diabetes mellitus ty pe II. Appendectomy. Cholecystectomy. CABG. COMPARISON: [facility] [place] MYOCARDIAL PERF PHARM SPECT, 03/12/2017. . DOSE: 8.5 mCi Tc 99m Myoview at stress 27.2 mCi [id number] at rest 0.4 mg Lexiscan STRESS SYMPTOMS: Dyspnea and abdomen pain. EJECTION FRACTION: 43 % TECHNIQUE: The patient underwent pharmacologic stress with infusion of prescribed dose. Continuous ECG tracing was monitored during stress. Gated SPECT imaging was performed after stress and conventi onal SPECT imaging was performed at rest. The examination was performed on a SPECT/CT scanner, both attenuation and non-corrected datasets were reviewed. FINDINGS: Distribution: The maximum perfused segment at stress is in the anteroseptal wall. Perfusion Study: The pattern of perfusion at stress demonstrates reduction in perfusion to the ante rolateral wall, lateral wall which demonstrates redistribution during rest. There also appears to be slight ischemia in the posterior basal wall. These findings were not present on the prior examination . The attenuation corrected images demonstrate better perfusion to these portions of the myocardium d uring stress and therefore some of this could be due to breast attenuation artifact. Gated Study: There are intact wall motion and wall thickening without hypokinetic or dyskinetic segm ents. The ejection fraction is calculated at 43%. RISK CATEGORY: Intermediate (1-3 % Annual Mortality Rate) CONCLUSION: 1. There appears to be moderate degree of ischemia in the anterolateral wall, lateral wall. Slightly limited examination since part of the findings could be exaggerated by breast attenuation artifact. Electronically signed by: Liv Pastrana MD 11/09/2017 2:12 PM EDT
--- NOTE | 2017-11-09 14:31 | P.PNCA ---
Subjective Interval history: Denies CP, SOB. Physical Exam Vital signs: Vital Signs 11/08/17 16:04 11/08/17 20:49 11/08/17 21:16 Temperature 97.8 F Pulse Rate 86 109 H 109 H Respiratory Rate 18 21 20 Blood Pressure 127/58 L Pulse Oximetry 95 97 11/09/17 00:33 11/09/17 04:31 11/09/17 04:58 Temperature 97.7 F 97.7 F Pulse Rate 94 H 84 85 Respiratory Rate 18 17 18 Blood Pressure 123/60 134/61 Pulse Oximetry 94 L 96 97 11/09/17 08:00 Temperature 97.6 F Pulse Rate 87 Respiratory Rate 18 Blood Pressure 146/66 H Pulse Oximetry 94 L Intake & Output 11/08/17 11/09/17 11/09/17 18:59 06:59 18:59 Output Total 780 / 780 Balance -780 / -780 Weight 77 kg Output: Urine 780 / 780 Other: Date of Last Bowel Movement 11/05/17 - Constitutional no acute distress - Routine Neck Exam Absent: JVD - Routine Respiratory Exam Present: CTA bilaterally - Routine Cardiovascular Exam Present: RRR, S1, S2. Absent: murmur, gallop - Routine Abdominal Exam Present: soft, normoactive bowel sounds. Absent: tenderness, organomegaly - Routine Extremities Exam Absent: cyanosis, clubbing, edema Assessment and Plan - Assessment (1) CHF (congestive heart failure) Code(s): I50.9 - Heart failure, unspecified Status: Acute Plan: EF 25% by echo. Appears overall compensated at present. Recommend continue beta matty, add JHON-I, consider change to oral furosemide. (2) Coronary artery disease Code(s): I25.10 - Atherosclerotic heart disease of [place] coronary artery without angina pectoris Status: Chronic Plan: No definite CP. Nuclear stress test imaging shows possible anterolateral and lateral ischemia. Patient apparently had cardiac cath in [place] unclear date. To obtain more info from daughter. Continue medical therapy for now. - Plan Code Status: full code (1) CHF (congestive heart failure) Qualifiers: Heart failure type: systolic Heart failure chronicity: unspecified Qualified Code(s): I50.20 - Unspecified systolic (congestive) heart failure (2) Coronary artery disease Qualifiers: Coronary Disease-Associated Artery/Lesion type: unspecified vessel or lesion type [place] vs. transplanted heart: [place] heart Associated angina: with unstable angina Qualified Code(s): I25.110 - Atherosclerotic heart disease of [place] coronary artery with unstable angina pectoris
--- NOTE | 2017-11-09 15:36 | P.PNIM ---
Subjective Interval history: She denies any deterioration since last night. Patient on the phone. speaking with no conversive dyspnea. Physical Exam Vital signs: Vital Signs 11/08/17 16:04 11/08/17 20:49 11/08/17 21:16 Temperature 97.8 F Pulse Rate 86 109 H 109 H Respiratory Rate 18 21 20 Blood Pressure 127/58 L Pulse Oximetry 95 97 11/09/17 00:33 11/09/17 04:31 11/09/17 04:58 Temperature 97.7 F 97.7 F Pulse Rate 94 H 84 85 Respiratory Rate 18 17 18 Blood Pressure 123/60 134/61 Pulse Oximetry 94 L 96 97 11/09/17 08:00 Temperature 97.6 F Pulse Rate 87 Respiratory Rate 18 Blood Pressure 146/66 H Pulse Oximetry 94 L Intake & Output 11/08/17 11/09/17 11/09/17 18:59 06:59 18:59 Output Total 780 / 780 Balance -780 / -780 Weight 77 kg Output: Urine 780 / 780 Other: Date of Last Bowel Movement 11/05/17 Narrative: unlabored breathing, no conversive dyspnea no abd distention NAD Results - Labs CBC & Chem 7: 11/08/17 06:57 11/09/17 14:25 Laboratory Results - last 24 hr 11/08/17 11/08/17 11/09/17 13:30 16:04 07:43 POC Glucose 158 H 193 H Procalcitonin 0.06 11/09/17 14:02 POC Glucose 140 H Procalcitonin - Imaging Impressions Barium Swallow X-Ray 11/09/17 00:00 CONCLUSION: Unremarkable barium swallow. Myocardial Perfusion Scan Nuc Med 11/09/17 06:00 CONCLUSION: 1. There appears to be moderate degree of ischemia in the anterolateral wall, lateral wall. Slightly limited examination since part of the findings could be exaggerated by breast attenuation artifact. Assessment and Plan - Assessment (1) Asthma exacerbation in COPD Code(s): J44.1 - Chronic obstructive pulmonary disease with (acute) exacerbation ; J45.901 - Unspecified asthma with (acute) exacerbation Status: Acute (2) CHF (congestive heart failure) Code(s): I50.9 - Heart failure, unspecified Status: Acute - Plan Ms. Centeno is a 77 yo F with PMH CAD, CHF, obstructive lung disease who presents with shortness of breath, chest pain, and epigastric pain: solid meal dysphagia - also has epigastric pain - possible esophageal stricture, GI desiring cardiac clearance -So far barium swallow is negative - PPI sCHF -newly reduced EF 20-25% -Continue lisinopril, may downgrade from IV to p.o. Lasix -starting spironolactone Chest pain -GI vs cardiac source, see above for GI source - abnormal lexiscan but also and has substantial artifact. will try to obtain outside medical records of a possible heart catheterization done 3-4 years ago in [facility] in [place]. Otherwise patient may need cardiac cath on Saturday regardless. Previously has a history of a CABG in 2002. -continue lipitor and ASA CTA- no PE, small pleural effusions; moderate cardiomegaly -tapering po steroids -stopping levaquin as procalcitonin is negative. -duonebs prn, ICS Hypocalcemia- PO Chronic conditions- continue chronic pain control with home medications (2) CHF (congestive heart failure) Qualifiers: Heart failure type: systolic Heart failure chronicity: unspecified Qualified Code(s): I50.20 - Unspecified systolic (congestive) heart failure
--- NOTE | 2017-11-09 15:40 | P.PNGI ---
Subjective Interval history: Pt is resting in bed, asking for food. no issues. <Tommy Garcia - Last Filed: 11/09/17 15:32> Physical Exam Vital signs: Vital Signs 11/08/17 16:04 11/08/17 20:49 11/08/17 21:16 Temperature 97.8 F Pulse Rate 86 109 H 109 H Respiratory Rate 18 21 20 Blood Pressure 127/58 L Pulse Oximetry 95 97 11/09/17 00:33 11/09/17 04:31 11/09/17 04:58 Temperature 97.7 F 97.7 F Pulse Rate 94 H 84 85 Respiratory Rate 18 17 18 Blood Pressure 123/60 134/61 Pulse Oximetry 94 L 96 97 11/09/17 08:00 Temperature 97.6 F Pulse Rate 87 Respiratory Rate 18 Blood Pressure 146/66 H Pulse Oximetry 94 L Intake & Output 11/08/17 11/09/17 11/09/17 18:59 06:59 18:59 Output Total 780 / 780 Balance -780 / -780 Weight 77 kg Output: Urine 780 / 780 Other: Date of Last Bowel Movement 11/05/17 - Constitutional no acute distress - Routine HEENT Exam Head: Present: normocephalic - Routine Respiratory Exam Present: diminished air movement - Routine Cardiovascular Exam Present: RRR - Routine Abdominal Exam Present: soft, normoactive bowel sounds. Absent: tenderness, distended - Routine Skin Exam Present: intact, dry - Routine Neurological Exam Present: alert, oriented X3 <Tommy Garcia - Last Filed: 11/09/17 15:32> Vital signs: Vital Signs 11/09/17 17:23 11/09/17 20:00 11/09/17 20:13 Temperature 97.9 F Pulse Rate 78 83 83 Respiratory Rate 12 17 Blood Pressure 118/55 L Pulse Oximetry 99 98 11/09/17 20:21 11/09/17 20:22 11/10/17 00:00 Temperature 97.4 F L Pulse Rate 75 78 Respiratory Rate 16 17 Blood Pressure 120/56 L Pulse Oximetry 99 98 11/10/17 03:48 11/10/17 04:00 11/10/17 04:51 Temperature 97.4 F L Pulse Rate 74 71 73 Respiratory Rate 18 17 Blood Pressure 120/58 L Pulse Oximetry 95 11/10/17 08:00 11/10/17 09:44 11/10/17 16:09 Temperature 97.7 F Pulse Rate 69 78 71 Respiratory Rate 16 12 12 Blood Pressure 124/57 L Pulse Oximetry 94 L 97 Intake & Output 11/09/17 11/10/17 11/10/17 18:59 06:59 18:59 Intake Total 480 / 480 600 / 600 0 / 0 Output Total 700 / 700 650 / 650 Balance -220 / -220 -50 / -50 0 / 0 Intake: Oral 480 / 480 600 / 600 Other 0 / 0 Output: Urine 700 / 700 650 / 650 Other: Date of Last Bowel Movement 11/05/17 <Manuel Ruiz - Last Filed: 11/10/17 16:15> Results - Labs CBC & Chem 7: 11/08/17 06:57 11/08/17 06:57 Laboratory Results - last 24 hr 11/08/17 11/08/17 11/09/17 13:30 16:04 07:43 POC Glucose 158 H 193 H Procalcitonin 0.06 11/09/17 14:02 POC Glucose 140 H Procalcitonin - Imaging Impressions Barium Swallow X-Ray 11/09/17 00:00 CONCLUSION: Unremarkable barium swallow. Myocardial Perfusion Scan Nuc Med 11/09/17 06:00 CONCLUSION: 1. There appears to be moderate degree of ischemia in the anterolateral wall, lateral wall. Slightly limited examination since part of the findings could be exaggerated by breast attenuation artifact. <Tommy Garcia - Last Filed: 11/09/17 15:32> - Labs CBC & Chem 7: 11/08/17 06:57 11/10/17 08:00 Laboratory Results - last 24 hr 11/09/17 11/09/17 11/10/17 17:36 21:03 02:45 Sodium Potassium Chloride Carbon Dioxide Anion Gap BUN Creatinine Estimated GFR POC Glucose 144 H 171 H 179 H Random Glucose Calcium Prot Corrected Calcium Total Protein 11/10/17 11/10/17 11/10/17 08:00 08:01 12:07 Sodium 140 Potassium 3.3 L Chloride 98 Carbon Dioxide 35.5 H Anion Gap 7 BUN 44 H Creatinine 1.17 H Estimated GFR 45 L POC Glucose 139 H 115 H Random Glucose 140 H Calcium 7.0 L* Prot Corrected Calcium 7.5 L Total Protein 6.2 L <Manuel Ruiz - Last Filed: 11/10/17 16:15> Assessment and Plan - Plan Dysphagia- Pt has been having dysphagia for the past 2 weeks mostly with rice. Endorses GERD and heart burn. Endorses epigastric pain. Was evaluated by ST who recommended mechanical soft, and thin liquids Barium Swallow X-Ray 11/09/17 00:00 Unremarkable barium swallow. - CHF- EF 20-25% cardiology on the case. Discussed with Dr. Penn, cardio will decide on Saturday the need for possible cath Myocardial Perfusion Scan Nuc Med 11/09/17 1. There appears to be moderate degree of ischemia in the anterolateral wall, lateral wall. Slightly limited examination since part of the findings could be exaggerated by breast attenuation artifact. - Asthma, DM, HTN, GERD, CAD status post CABG Per attending Plan: - Diet per ST recommendation (mechanical soft, and thin liquids) - EGD/dill on hold for now, no cleared by cardiology, - Case discussed with Dr. Penn, - Supportive care - Pt seen and examined by Dr. Ruiz and myself and this note is written on his behalf. <Tommy Garcia - Last Filed: 11/09/17 15:32> - Plan Agree with above note, we will wait for cardiology clearance before we do dilation <Manuel Ruiz - Last Filed: 11/10/17 16:15>
[2017-11-09 15:49] LABS: Calcium 7.5 mg/dL (8.5-10.1); Carbon Dioxide 38.3 meq/L (21.0-32.0); Potassium 3.4 meq/L (3.5-5.1)
[2017-11-09] MEDS: Famotidine 20 MG Tablet PO SCH (21:12)
[2017-11-10] MEDS: Insulin NovoLOG Aspart Correctional Sugar Inj SQ SCH ×5 (02:49→21:42)
[2017-11-10 09:06] LABS: Carbon Dioxide 35.5 meq/L (21.0-32.0); Potassium 3.3 meq/L (3.5-5.1)
[2017-11-10 09:36] LABS: Total Protein 6.2 g/dL (6.4-8.2)
[2017-11-10] MEDS: Spironolactone 25 MG Tablet PO SCH (12:18)
[2017-11-10] MEDS: Heparin - SQ 10,000 UNITS/ML Vial SQ SCH ×2 (12:19→21:14)
[2017-11-10] MEDS: guaiFENesin 600 MG ER Tablet PO SCH ×2 (12:20→21:14)
[2017-11-10] MEDS: Budesonide-Formoterol 160/4.5 MCG 6 GM Inhaler INH SCH ×2 (12:20→21:15)
[2017-11-10] MEDS: predniSONE 20 MG Tablet PO SCH ×2 (12:20→21:14)
[2017-11-10] MEDS: Senna/Docusate Sodium 8.6/50 MG Tablet PO SCH ×2 (12:20→21:14)
[2017-11-10] MEDS: Furosemide 20 MG Tablet PO SCH (12:20)
--- NOTE | 2017-11-10 12:43 | P.PNIM ---
Subjective Interval history: Nursing denies any deterioration since last night. Patient herself reports having chest pain still. Says she still has food that appears to get stuck in her throat. She thinks her hernia something to do with this. Physical Exam Vital signs: Vital Signs 11/09/17 16:00 11/09/17 17:23 11/09/17 20:00 Temperature 98.6 F 97.9 F Pulse Rate 87 78 83 Respiratory Rate 18 12 17 Blood Pressure 109/54 L 118/55 L Pulse Oximetry 97 99 98 11/09/17 20:13 11/09/17 20:21 11/09/17 20:22 Temperature Pulse Rate 83 75 Respiratory Rate 16 Blood Pressure Pulse Oximetry 99 11/10/17 00:00 11/10/17 03:48 11/10/17 04:00 Temperature 97.4 F L 97.4 F L Pulse Rate 78 74 71 Respiratory Rate 17 18 17 Blood Pressure 120/56 L 120/58 L Pulse Oximetry 98 95 11/10/17 04:51 11/10/17 08:00 11/10/17 09:44 Temperature 97.7 F Pulse Rate 73 69 78 Respiratory Rate 16 12 Blood Pressure 124/57 L Pulse Oximetry 94 L 97 Intake & Output 11/09/17 11/10/17 11/10/17 18:59 06:59 18:59 Intake Total 480 / 480 600 / 600 0 / 0 Output Total 700 / 700 650 / 650 Balance -220 / -220 -50 / -50 0 / 0 Intake: Oral 480 / 480 600 / 600 Other 0 / 0 Output: Urine 700 / 700 650 / 650 Other: Date of Last Bowel Movement 11/05/17 Narrative: Heart sounds regular rate rhythm, no murmurs, Unlabored breathing, clear lungs bilaterally Mild right-sided lower extremity edema, none on the left Results - Labs CBC & Chem 7: 11/08/17 06:57 11/10/17 08:00 Laboratory Results - last 24 hr 11/09/17 11/09/17 11/09/17 14:02 14:25 17:36 Sodium 140 Potassium 3.4 L Chloride 96 L Carbon Dioxide 38.3 H Anion Gap 6 BUN 45 H Creatinine 1.41 H Estimated GFR 36 L POC Glucose 140 H 144 H Random Glucose 123 H Calcium 7.5 L Prot Corrected Calcium Total Protein 11/09/17 11/10/17 11/10/17 21:03 02:45 08:00 Sodium 140 Potassium 3.3 L Chloride 98 Carbon Dioxide 35.5 H Anion Gap 7 BUN 44 H Creatinine 1.17 H Estimated GFR 45 L POC Glucose 171 H 179 H Random Glucose 140 H Calcium 7.0 L* Prot Corrected Calcium 7.5 L Total Protein 6.2 L 11/10/17 11/10/17 08:01 12:07 Sodium Potassium Chloride Carbon Dioxide Anion Gap BUN Creatinine Estimated GFR POC Glucose 139 H 115 H Random Glucose Calcium Prot Corrected Calcium Total Protein - Imaging Impressions Myocardial Perfusion Scan Nuc Med 11/09/17 06:00 CONCLUSION: 1. There appears to be moderate degree of ischemia in the anterolateral wall, lateral wall. Slightly limited examination since part of the findings could be exaggerated by breast attenuation artifact. Assessment and Plan - Assessment (1) Asthma exacerbation in COPD Code(s): J44.1 - Chronic obstructive pulmonary disease with (acute) exacerbation ; J45.901 - Unspecified asthma with (acute) exacerbation Status: Acute (2) CHF (congestive heart failure) Code(s): I50.9 - Heart failure, unspecified Status: Acute - Plan Ms. Centeno is a 77 yo F with PMH CAD, CHF, obstructive lung disease who presents with shortness of breath, chest pain, and epigastric pain: solid meal dysphagia - also has epigastric pain - possible esophageal stricture, GI desiring cardiac clearance -So far barium swallow is negative - PPI -Should this patient needed cardiac catheterization with a stent and dual antiplatelet therapy, I think it would be obando to first see and assess the need for esophageal dilatation if strictures truly present sCHF -newly reduced EF 20-25% -Continue lisinopril, -p.o. Lasix - spironolactone Chest pain -GI vs cardiac source, see above for GI source - abnormal lexiscan but also and has substantial artifact. will try to obtain outside medical records of a possible heart catheterization done 3-4 years ago in [facility] in [place]. Otherwise patient may need cardiac cath on Saturday regardless. Previously has a history of a CABG in 2002. -continue lipitor and ASA CTA- no PE, small pleural effusions; moderate cardiomegaly ? bronchitis -tapering po steroids -duonebs prn, ICS Hypocalcemia- PO Chronic conditions- continue chronic pain control with home medications (2) CHF (congestive heart failure) Qualifiers: Heart failure type: systolic Heart failure chronicity: unspecified Qualified Code(s): I50.20 - Unspecified systolic (congestive) heart failure
--- NOTE | 2017-11-10 13:13 | P.PNCA ---
Subjective Interval history: Seems to deny dyspnea. Possibly "little bit" CP earlier this morning. Complains also of epigastric pain. Physical Exam Vital signs: Vital Signs 11/09/17 16:00 11/09/17 17:23 11/09/17 20:00 Temperature 98.6 F 97.9 F Pulse Rate 87 78 83 Respiratory Rate 18 12 17 Blood Pressure 109/54 L 118/55 L Pulse Oximetry 97 99 98 11/09/17 20:13 11/09/17 20:21 11/09/17 20:22 Temperature Pulse Rate 83 75 Respiratory Rate 16 Blood Pressure Pulse Oximetry 99 11/10/17 00:00 11/10/17 03:48 11/10/17 04:00 Temperature 97.4 F L 97.4 F L Pulse Rate 78 74 71 Respiratory Rate 17 18 17 Blood Pressure 120/56 L 120/58 L Pulse Oximetry 98 95 11/10/17 04:51 11/10/17 08:00 11/10/17 09:44 Temperature 97.7 F Pulse Rate 73 69 78 Respiratory Rate 16 12 Blood Pressure 124/57 L Pulse Oximetry 94 L 97 Intake & Output 11/09/17 11/10/17 11/10/17 18:59 06:59 18:59 Intake Total 480 / 480 600 / 600 0 / 0 Output Total 700 / 700 650 / 650 Balance -220 / -220 -50 / -50 0 / 0 Intake: Oral 480 / 480 600 / 600 Other 0 / 0 Output: Urine 700 / 700 650 / 650 Other: Date of Last Bowel Movement 11/05/17 - Constitutional no acute distress - Routine Neck Exam Absent: JVD - Routine Respiratory Exam Present: CTA bilaterally - Routine Cardiovascular Exam Present: RRR, S1, S2. Absent: murmur, gallop - Routine Abdominal Exam Present: soft, normoactive bowel sounds, tenderness. Absent: rebound, guarding , organomegaly Comments: Mild epigastric tenderness. - Routine Extremities Exam Absent: cyanosis, clubbing, edema Assessment and Plan - Assessment (1) CHF (congestive heart failure) Code(s): I50.9 - Heart failure, unspecified Status: Acute Plan: EF 25% by echo. Appears overall compensated at present. Recommend continue beta matty, JHON-I, oral furosemide. (2) Coronary artery disease Code(s): I25.10 - Atherosclerotic heart disease of [place] coronary artery without angina pectoris Status: Chronic Plan: Possibly mild CP earlier today. Nuclear stress test imaging shows possible anterolateral and lateral ischemia. Patient apparently had cardiac cath in [place] 3-4 years ago. Discussed over phone with patient's daughter the nuclear stress test findings, with which I agree. Will leave decision regarding cath to Dr. Verduzco. Patient's daughter states patient OK with proceeding with invasive cardiac evaluation if recommended. Continue medical therapy for now. (3) Paroxysmal atrial tachycardia Code(s): I47.1 - Supraventricular tachycardia Status: Acute Plan: Infrequent, fleeting episodes of atrial tach on monitoring. Recommend no specific therapy. - Plan Code Status: full code Discussed Condition With: patient's daughter (1) CHF (congestive heart failure) Qualifiers: Heart failure type: systolic Heart failure chronicity: unspecified Qualified Code(s): I50.20 - Unspecified systolic (congestive) heart failure (2) Coronary artery disease Qualifiers: Coronary Disease-Associated Artery/Lesion type: unspecified vessel or lesion type [place] vs. transplanted heart: [place] heart Associated angina: with unstable angina Qualified Code(s): I25.110 - Atherosclerotic heart disease of [place] coronary artery with unstable angina pectoris
--- NOTE | 2017-11-10 13:38 | P.PNGI ---
Subjective Interval history: Patient is resting in the bed, attempts to communicate but very hard of hearing Does note problems with swallowing food but denies any problems with medicines. Current GI procedures including EGD with dilatation on hold until cardiac clearance. Afebrile Physical Exam Vital signs: Vital Signs 11/09/17 16:00 11/09/17 17:23 11/09/17 20:00 Temperature 98.6 F 97.9 F Pulse Rate 87 78 83 Respiratory Rate 18 12 17 Blood Pressure 109/54 L 118/55 L Pulse Oximetry 97 99 98 11/09/17 20:13 11/09/17 20:21 11/09/17 20:22 Temperature Pulse Rate 83 75 Respiratory Rate 16 Blood Pressure Pulse Oximetry 99 11/10/17 00:00 11/10/17 03:48 11/10/17 04:00 Temperature 97.4 F L 97.4 F L Pulse Rate 78 74 71 Respiratory Rate 17 18 17 Blood Pressure 120/56 L 120/58 L Pulse Oximetry 98 95 11/10/17 04:51 11/10/17 08:00 11/10/17 09:44 Temperature 97.7 F Pulse Rate 73 69 78 Respiratory Rate 16 12 Blood Pressure 124/57 L Pulse Oximetry 94 L 97 Intake & Output 11/09/17 11/10/17 11/10/17 18:59 06:59 18:59 Intake Total 480 / 480 600 / 600 0 / 0 Output Total 700 / 700 650 / 650 Balance -220 / -220 -50 / -50 0 / 0 Intake: Oral 480 / 480 600 / 600 Other 0 / 0 Output: Urine 700 / 700 650 / 650 Other: Date of Last Bowel Movement 11/05/17 - Constitutional no acute distress - Routine HEENT Exam Head: Present: normocephalic, atraumatic ENT: Present: mucous membranes moist - Routine Neck Exam Present: supple - Routine Respiratory Exam Present: decreased breath sounds (Mild in her bases) - Routine Cardiovascular Exam Present: S1, S2 - Routine Abdominal Exam Present: soft, normoactive bowel sounds Results - Labs CBC & Chem 7: 11/08/17 06:57 11/10/17 08:00 Laboratory Results - last 24 hr 11/09/17 11/09/17 11/09/17 14:02 14:25 17:36 Sodium 140 Potassium 3.4 L Chloride 96 L Carbon Dioxide 38.3 H Anion Gap 6 BUN 45 H Creatinine 1.41 H Estimated GFR 36 L POC Glucose 140 H 144 H Random Glucose 123 H Calcium 7.5 L Prot Corrected Calcium Total Protein 11/09/17 11/10/17 11/10/17 21:03 02:45 08:00 Sodium 140 Potassium 3.3 L Chloride 98 Carbon Dioxide 35.5 H Anion Gap 7 BUN 44 H Creatinine 1.17 H Estimated GFR 45 L POC Glucose 171 H 179 H Random Glucose 140 H Calcium 7.0 L* Prot Corrected Calcium 7.5 L Total Protein 6.2 L 11/10/17 11/10/17 08:01 12:07 Sodium Potassium Chloride Carbon Dioxide Anion Gap BUN Creatinine Estimated GFR POC Glucose 139 H 115 H Random Glucose Calcium Prot Corrected Calcium Total Protein - Imaging Impressions Myocardial Perfusion Scan Nuc Med 11/09/17 06:00 CONCLUSION: 1. There appears to be moderate degree of ischemia in the anterolateral wall, lateral wall. Slightly limited examination since part of the findings could be exaggerated by breast attenuation artifact. Assessment and Plan - Plan Dysphagia- Pt has been having dysphagia for the past 2 weeks mostly with rice. Endorses GERD and heart burn. Endorses epigastric pain. Was evaluated by ST who recommended mechanical soft, and thin liquids Barium Swallow X-Ray 11/09/17 00:00 Unremarkable barium swallow. - CHF- EF 20-25% cardiology on the case. Discussed with Dr. Penn, cardio will decide on Saturday the need for possible cath Myocardial Perfusion Scan Nuc Med 11/09/17 1. There appears to be moderate degree of ischemia in the anterolateral wall, lateral wall. Slightly limited examination since part of the findings could be exaggerated by breast attenuation artifact. - Asthma, DM, HTN, GERD, CAD status post CABG Per attending 11/10/2017 patient appears to be resting comfortable but does still shake her head yes to problem swallowing. There has been discussion with patient and hospitalist attending for the need of EGD with dilation but needs cardiac clearance since patient had positive abnormal Lexiscan. Currently patient denies any abdominal pain no diarrhea no constipation does have some generalized weakness. Current hemoglobin stable without any obvious bleeding. Appreciate any speech therapy involvement. Uptake again today with hospitalist. Plan: - Diet, - EGD/dill on hold for now, no cleared by cardiology, - Monitor labs, monitor the need for bowel regimen - Pepcid, anti-medics - Supportive care, further recommendations to follow after cardiac clearance - Pt seen and examined by Dr. Santos and myself and this note is written on his behalf.
[2017-11-10] MEDS ORDERED: Sucralfate 1 GM Tablet PO ONE (15:00)
[2017-11-10] MEDS: Temazepam 15 MG Capsule PO PRN (21:14)
[2017-11-10] MEDS: Famotidine 20 MG Tablet PO SCH (21:14)
[2017-11-11] MEDS: Insulin NovoLOG Aspart Correctional Sugar Inj SQ SCH ×5 (03:45→21:32)
[2017-11-11] MEDS: Heparin - SQ 10,000 UNITS/ML Vial SQ SCH ×2 (08:27→21:29)
[2017-11-11] MEDS: Spironolactone 25 MG Tablet PO SCH (08:28)
[2017-11-11] MEDS: guaiFENesin 600 MG ER Tablet PO SCH ×2 (08:28→21:32)
[2017-11-11] MEDS: predniSONE 20 MG Tablet PO SCH ×2 (08:28→21:32)
[2017-11-11] MEDS: Furosemide 20 MG Tablet PO SCH (08:28)
[2017-11-11] MEDS: Senna/Docusate Sodium 8.6/50 MG Tablet PO SCH ×2 (08:28→21:32)
[2017-11-11] MEDS: Budesonide-Formoterol 160/4.5 MCG 6 GM Inhaler INH SCH ×2 (08:29→21:32)
--- NOTE | 2017-11-11 13:11 | P.PNIM ---
Subjective Interval history: Nursing denies any deterioration since last night. Patient reporting intermittent chest pain. I explained to her the details of a heart cath procedure which she seems to understand. I then discussed case with cardiology who feels that the patient should overall be okay for an EGD first given that the Lexiscan can be a false negative. Physical Exam Vital signs: Vital Signs 11/10/17 16:00 11/10/17 16:09 11/10/17 20:00 Temperature 98.6 F 97.9 F Pulse Rate 86 71 82 Respiratory Rate 16 12 17 Blood Pressure 110/54 L 123/56 L Pulse Oximetry 94 L 98 11/11/17 00:00 11/11/17 04:00 11/11/17 08:00 Temperature 97.4 F L 97.1 F L Pulse Rate 76 72 70 Respiratory Rate 17 18 Blood Pressure 119/55 L 125/56 L Pulse Oximetry 98 98 Intake & Output 11/10/17 11/11/17 11/11/17 18:59 06:59 18:59 Intake Total 1200 / 1200 0 / 0 Output Total 600 / 600 350 / 350 Balance 600 / 600 0 / 0 -350 / -350 Intake: Oral 1200 / 1200 0 / 0 Other 0 / 0 Output: Urine 600 / 600 350 / 350 Other: # Voids 3 Narrative: Heart sounds regular rate rhythm, no murmurs Clear lungs bilaterally, unlabored breathing Results - Labs CBC & Chem 7: 11/08/17 06:57 11/10/17 08:00 Laboratory Results - last 24 hr 11/10/17 11/10/17 11/11/17 16:20 21:12 03:42 POC Glucose 128 H 182 H 172 H 11/11/17 11/11/17 08:10 11:30 POC Glucose 131 H 137 H Assessment and Plan - Assessment (1) Asthma exacerbation in COPD Code(s): J44.1 - Chronic obstructive pulmonary disease with (acute) exacerbation ; J45.901 - Unspecified asthma with (acute) exacerbation Status: Acute (2) CHF (congestive heart failure) Code(s): I50.9 - Heart failure, unspecified Status: Acute - Plan Ms. Centeno is a 77 yo F with PMH CAD, CHF, obstructive lung disease who presents with shortness of breath, chest pain, and epigastric pain: odynophagia - also has epigastric pain - possible esophageal stricture, GI desiring cardiac clearance -So far barium swallow is negative - PPI -Should this patient needed cardiac catheterization with a stent and dual antiplatelet therapy, I think it would be obando to first see and assess the need for esophageal dilatation if strictures truly present sCHF -newly reduced EF 20-25% -Continue lisinopril, -p.o. Lasix - spironolactone Chest pain -GI vs cardiac source, see above for GI source -Anticipate EGD in a.m, pending EGD findings can be followed through with a cardiac cath tomorrow p.m. CTA- no PE, small pleural effusions; moderate cardiomegaly ? bronchitis -tapering po steroids -duonebs prn, ICS Hypocalcemia- PO Chronic conditions- continue chronic pain control with home medications (2) CHF (congestive heart failure) Qualifiers: Heart failure type: systolic Heart failure chronicity: unspecified Qualified Code(s): I50.20 - Unspecified systolic (congestive) heart failure
--- NOTE | 2017-11-11 13:18 | P.PNGI ---
Subjective Interval history: Translation services used for this visit. Pt resting in bed, complaining of pain from her hiatal hernia. States continued epigastric pain. Pt currently NPO for possible procedures today. Pt seen with Dr. Verduzco cardiology who states pt is cleared for GI procedures. States he will cath pt after GI procedure, in case pt needs any interventions will be able to start Plavix and ASA etc at that time. <Sarina Henry - Last Filed: 11/11/17 12:59> Physical Exam Vital signs: Vital Signs 11/10/17 16:00 11/10/17 16:09 11/10/17 20:00 Temperature 98.6 F 97.9 F Pulse Rate 86 71 82 Respiratory Rate 16 12 17 Blood Pressure 110/54 L 123/56 L Pulse Oximetry 94 L 98 11/11/17 00:00 11/11/17 04:00 Temperature 97.4 F L Pulse Rate 76 72 Respiratory Rate 17 Blood Pressure 119/55 L Pulse Oximetry 98 Intake & Output 11/10/17 11/11/17 11/11/17 18:59 06:59 18:59 Intake Total 1200 / 1200 0 / 0 Output Total 600 / 600 350 / 350 Balance 600 / 600 0 / 0 -350 / -350 Intake: Oral 1200 / 1200 0 / 0 Other 0 / 0 Output: Urine 600 / 600 350 / 350 Other: # Voids 3 - Constitutional no acute distress - Routine HEENT Exam Head: Present: normocephalic, atraumatic - Routine Respiratory Exam Absent: accessory muscle use - Routine Abdominal Exam Present: soft, normoactive bowel sounds. Absent: tenderness, distended - Routine Skin Exam Present: dry, warm - Routine Neurological Exam Present: alert, oriented X3 <Sarina Henry - Last Filed: 11/11/17 12:59> Vital signs: Vital Signs 11/10/17 16:00 11/10/17 16:09 11/10/17 20:00 Temperature 98.6 F 97.9 F Pulse Rate 86 71 82 Respiratory Rate 16 12 17 Blood Pressure 110/54 L 123/56 L Pulse Oximetry 94 L 98 11/11/17 00:00 11/11/17 04:00 11/11/17 08:00 Temperature 97.4 F L 97.1 F L Pulse Rate 76 72 70 Respiratory Rate 17 18 Blood Pressure 119/55 L 125/56 L Pulse Oximetry 98 98 11/11/17 12:00 Temperature 97.2 F L Pulse Rate 65 Respiratory Rate 18 Blood Pressure 107/56 L Pulse Oximetry Intake & Output 11/10/17 11/11/17 11/11/17 18:59 06:59 18:59 Intake Total 1200 / 1200 0 / 0 Output Total 600 / 600 350 / 350 Balance 600 / 600 0 / 0 -350 / -350 Intake: Oral 1200 / 1200 0 / 0 Other 0 / 0 Output: Urine 600 / 600 350 / 350 Other: # Voids 3 <Nba Philip - Last Filed: 11/11/17 14:59> Results - Labs CBC & Chem 7: 11/08/17 06:57 11/10/17 08:00 Laboratory Results - last 24 hr 11/10/17 11/10/17 11/11/17 16:20 21:12 03:42 POC Glucose 128 H 182 H 172 H 11/11/17 11/11/17 08:10 11:30 POC Glucose 131 H 137 H <Sarina Henry - Last Filed: 11/11/17 12:59> - Labs CBC & Chem 7: 11/08/17 06:57 11/10/17 08:00 Laboratory Results - last 24 hr 11/10/17 11/10/17 11/11/17 16:20 21:12 03:42 POC Glucose 128 H 182 H 172 H 11/11/17 11/11/17 08:10 11:30 POC Glucose 131 H 137 H <Nba Philip - Last Filed: 11/11/17 14:59> Assessment and Plan - Plan Dysphagia- Pt has been having dysphagia for the past 2 weeks mostly with rice. Endorses GERD and heart burn. Endorses epigastric pain. Was evaluated by ST who recommended mechanical soft, and thin liquids Barium Swallow X-Ray 11/09/17 00:00 Unremarkable barium swallow. (11/11) Pt with continued epigastric/chest pain today. Currently NPO so no further dysphagia. Seen with cardiology Dr. Verduzco who is planning on doing cardiac cath after EGD in the case that pt will need interventions and possible antiplatelet therapy. Dr. Verduzco states cleared for GI procedures. Translation services used for this visit Plan: - EGD with dilatation tomorrow - Obtain consent - OK for clear liquids today - NPO after MN - Hold Heparin in AM - SYSTEMS TEST ANALYST following - Cardiology following and has cleared for GI procedures - Further recommendations to follow Pt has been seen and examined by myself and Dr. Philip and this note is written on his behalf <Sarina Henry - Last Filed: 11/11/17 12:59> - Plan EGD planned for tomorrow. Cleared by cardiology. - Attending Attestation The exam, history, and the medical decision-making described in the above note were completed with the assistance of the mid-level provider. I reviewed and agree with the findings presented. I attest that I had a [id number] encounter with the patient on the same day, and personally performed and documented my assessment and findings in the medical record. <Nba Philip - Last Filed: 11/11/17 14:59>
--- NOTE | 2017-11-11 13:27 | P.PNCA ---
Subjective Interval history: SOB improved. Continues to complain of epigastric pain and throat discomfort. Physical Exam Vital signs: Vital Signs 11/10/17 16:00 11/10/17 16:09 11/10/17 20:00 Temperature 98.6 F 97.9 F Pulse Rate 86 71 82 Respiratory Rate 16 12 17 Blood Pressure 110/54 L 123/56 L Pulse Oximetry 94 L 98 11/11/17 00:00 11/11/17 04:00 11/11/17 08:00 Temperature 97.4 F L 97.1 F L Pulse Rate 76 72 70 Respiratory Rate 17 18 Blood Pressure 119/55 L 125/56 L Pulse Oximetry 98 98 11/11/17 12:00 Temperature 97.2 F L Pulse Rate 65 Respiratory Rate 18 Blood Pressure 107/56 L Pulse Oximetry Intake & Output 11/10/17 11/11/17 11/11/17 18:59 06:59 18:59 Intake Total 1200 / 1200 0 / 0 Output Total 600 / 600 350 / 350 Balance 600 / 600 0 / 0 -350 / -350 Intake: Oral 1200 / 1200 0 / 0 Other 0 / 0 Output: Urine 600 / 600 350 / 350 Other: # Voids 3 - Constitutional no acute distress - Routine Respiratory Exam Present: CTA bilaterally - Routine Cardiovascular Exam Present: RRR, S1, S2, murmur (2/6 over apex) - Routine Extremities Exam Present: edema (edema improved) Assessment and Plan - Plan Code Status: Acute on Chronic Systolic HF CAD s/p CABG Plan: Discussed the case with both Dr. Penn and Dr. Blum. The amount of possible ischemia seen on the Lexiscan would not preclude an EGD. Given the patient's current symptoms, I think it would be reasonable to proceed with and EGD at this juncture rather than [facility] with PCI that could preclude a further GI procedure as this seems to be her primary complaint. In the meantime, I would continue optimization of current CHF therapy. Thank you for allowing me to participate. Please contact me with any questions regarding the patients care.
[2017-11-11] MEDS: Famotidine 20 MG Tablet PO SCH (21:31)
[2017-11-12] MEDS ORDERED: Sodium Chlor 0.9% Inj 500 ML IV.SIG SCH ×2 (01:00)
[2017-11-12] MEDS ORDERED: Metoprolol Tartrate 25 MG Tablet PO SCH (01:00)
[2017-11-12] MEDS ORDERED: Chlorhexidine Gluconate 2% 1 Pack (2 Cloths) TOPICAL SCH ×2 (01:00)
[2017-11-12] MEDS: Insulin NovoLOG Aspart Correctional Sugar Inj SQ SCH ×5 (04:36→22:21)
[2017-11-12] MEDS: predniSONE 20 MG Tablet PO SCH (09:37)
[2017-11-12] MEDS: Spironolactone 25 MG Tablet PO SCH (09:37)
[2017-11-12] MEDS: guaiFENesin 600 MG ER Tablet PO SCH ×2 (09:37→20:47)
[2017-11-12] MEDS: Senna/Docusate Sodium 8.6/50 MG Tablet PO SCH ×2 (09:37→20:48)
[2017-11-12] MEDS: Furosemide 20 MG Tablet PO SCH (09:37)
[2017-11-12] MEDS: Budesonide-Formoterol 160/4.5 MCG 6 GM Inhaler INH SCH ×2 (10:03→20:48)
[2017-11-12] MEDS ORDERED: Lidocaine PF 1% Inj 5 ML Syringe INFILTRATN ONE (12:00)
--- NOTE | 2017-11-12 12:17 | GIPROC ---
[facility] [address] [facility]. [facility], [address] EGD PROCEDURE REPORT EXAM DATE: 11/12/2017 PATIENT NAME: Lynne Centeno MR #: [id number] BIRTHDATE: 1940 ATTENDING: Nba Philip MD ORDER #: [id number] [employer] OPERATOR: Magalys Bass and Melina Bowman STATUS: inpatient INDICATIONS: The patient is a 77 yr old female here for an EGD due to epigastric abdominal pain, dyspepsia, and dysphagia PROCEDURE PERFORMED: EGD w/ biopsy MEDICATIONS: None and Per Anesthesia. TOPICAL ANESTHETIC: CONSENT: The patient understands the risks and benefits of the procedure and understands that these risks include, but are not limited to: sedation, allergic reaction, infection, perforation and/or bleeding. Alternative means of evaluation and treatment include, among others: physical exam, x-rays, and/or surgical intervention. The patient elects to proceed with this endoscopic procedure. medical equipment was checked for proper function. Hand hygiene and appropriate measures for infection prevention was taken. After the risks, benefits and alternatives of the procedure were thoroughly explained, Informed consent was verified, confirmed and timeout was successfully executed by the treatment team. The patient was anesthetized with topical anesthesia and the Pentax EG-[id number] endoscope was introduced through the mouth and advanced to the second portion of the duodenum. Retroflexed views revealed a hiatal hernia The gastroscope was then slowly withdrawn and removed. ESOPHAGUS: There was LA Class A esophagitis noted. A biopsy was performed using cold forceps. Sample sent for histology. STOMACH: There was erythematous moderate gastritis in the gastric antrum. A biopsy was performed using cold forceps. Sample sent for histology. DUODENUM: The duodenal mucosa appeared normal in the bulb and second portion of the duodenum. ADVERSE EVENTS: There were no complications. IMPRESSIONS: 1. There was LA Class A esophagitis noted; biopsy was performed 2. There was erythematous gastritis in the gastric antrum; biopsy was performed 3. Normal duodenal mucosa in the bulb and second portion of the duodenum 4. Retroflexed views revealed a hiatal hernia RECOMMENDATIONS: 1. Await biopsy results. Biopsy results will not be ready for 7-10 days. If you don't hear from us in two weeks, call our office for biopsy results. 2. Anti-reflux regimen 3. Continue PPI 4. Avoid NSAIDS PATIENT CONDITION: stable DISPOSITION: Inpatient REPEAT EXAM: Return 1 year EGD pending biopsy results Nba Phliip MD eSigned: Nba Philip MD 11/12/2017 12:17 PM cc: PATIENT NAME: Lynne Centeno MR#: [id number]
[2017-11-12] MEDS ORDERED: Diatrizoate Meglum/Diatrizoate Sod Liq 9 ML UDC PO ONE (14:15)
[2017-11-12] MEDS ORDERED: Aluminum/Magnesium/Simethacone Susp 30 ML UDC PO PRN (16:09)
--- NOTE | 2017-11-12 16:14 | P.PNIM ---
Subjective Interval history: Nursing denies any deterioration since last night. Patient went for EGD today which showed class a esophagitis and moderate gastritis. Patient reports having corresponding abdominal pain. Is currently drinking contrast dye for a CT scan ordered by GI. Anticipate cardiac cath hopefully tomorrow. Physical Exam Vital signs: Vital Signs 11/11/17 22:00 11/12/17 00:00 11/12/17 03:47 Temperature 97.7 F 97.9 F 97.5 F L Pulse Rate 75 72 74 Respiratory Rate 16 16 16 Blood Pressure 113/55 L 115/59 L 120/53 L Pulse Oximetry 98 99 98 11/12/17 08:00 11/12/17 09:37 11/12/17 12:39 Temperature 98.4 F 98.4 F Pulse Rate 63 67 64 Respiratory Rate 18 16 Blood Pressure 118/56 L 108/53 L Pulse Oximetry 100 100 Intake & Output 11/11/17 11/12/17 11/12/17 18:59 06:59 18:59 Intake Total 620 / 620 240 / 240 200 / 200 Output Total 350 / 350 Balance 270 / 270 240 / 240 200 / 200 Weight 78.1 kg Intake: Oral 620 / 620 240 / 240 Anesthesia Amount 200 / 200 Output: Urine 350 / 350 Other: # Voids 3 # Bowel Movements 0 Narrative: Diffuse abdominal tenderness to palpation which is mild Clear lungs bilaterally, Heart sounds show an irregular rhythm which sounds like sinus arrhythmia, otherwise regular rate Results - Labs CBC & Chem 7: 11/08/17 06:57 11/10/17 08:00 Laboratory Results - last 24 hr 11/11/17 11/11/17 11/12/17 17:00 19:59 04:59 APTT 22.9 L POC Glucose 144 H 126 H 11/12/17 07:44 APTT POC Glucose 146 H Assessment and Plan - Assessment (1) Asthma exacerbation in COPD Code(s): J44.1 - Chronic obstructive pulmonary disease with (acute) exacerbation ; J45.901 - Unspecified asthma with (acute) exacerbation Status: Acute (2) CHF (congestive heart failure) Code(s): I50.9 - Heart failure, unspecified Status: Acute - Plan Ms. Centeno is a 77 yo F with PMH CAD, CHF, obstructive lung disease who presents with shortness of breath, chest pain, and epigastric pain: odynophagia -Negative barium swallow, negative EGD for any strictures, likely acid reflux based Acid reflux -EGD showing esophagitis and gastritis, continue Protonix and famotidine, adding on Maalox, minimize NSAIDs Chest pain -Hopefully cardiac catheterization tomorrow sCHF -newly reduced EF 20-25% -Continue lisinopril, -p.o. Lasix - spironolactone CTA- no PE, small pleural effusions; moderate cardiomegaly ? bronchitis - clinically rsolved -tapering po steroids -duonebs prn, ICS Hypocalcemia- PO Chronic conditions- continue chronic pain control with home medications (2) CHF (congestive heart failure) Qualifiers: Heart failure type: systolic Heart failure chronicity: unspecified Qualified Code(s): I50.20 - Unspecified systolic (congestive) heart failure
--- NOTE | 2017-11-12 18:18 | P.PNCA ---
Subjective Interval history: No CP, did well overnight. No acute GI findings. Physical Exam Vital signs: Vital Signs 11/11/17 22:00 11/12/17 00:00 11/12/17 03:47 Temperature 97.7 F 97.9 F 97.5 F L Pulse Rate 75 72 74 Respiratory Rate 16 16 16 Blood Pressure 113/55 L 115/59 L 120/53 L Pulse Oximetry 98 99 98 11/12/17 08:00 11/12/17 09:37 11/12/17 12:39 Temperature 98.4 F 98.4 F Pulse Rate 63 67 64 Respiratory Rate 18 16 Blood Pressure 118/56 L 108/53 L Pulse Oximetry 100 100 11/12/17 16:00 Temperature 97.5 F L Pulse Rate 72 Respiratory Rate 18 Blood Pressure 116/56 L Pulse Oximetry 100 Intake & Output 11/11/17 11/12/17 11/12/17 18:59 06:59 18:59 Intake Total 620 / 620 240 / 240 200 / 200 Output Total 350 / 350 Balance 270 / 270 240 / 240 200 / 200 Weight 78.1 kg Intake: Oral 620 / 620 240 / 240 Anesthesia Amount 200 / 200 Output: Urine 350 / 350 Other: # Voids 3 # Bowel Movements 0 - Constitutional no acute distress - Routine Respiratory Exam Present: CTA bilaterally - Routine Cardiovascular Exam Present: RRR, S1, S2, murmur (2/6 GEORGE) Assessment and Plan - Plan CHF CAD s/p CABG plan for [facility] tommorow Upper GI with no acute findings. Continue current CHF regimen.
[2017-11-12 18:54] LABS: Calcium 7.4 mg/dL (8.5-10.1); Carbon Dioxide 31.7 meq/L (21.0-32.0); Potassium 3.8 meq/L (3.5-5.1)
--- NOTE | 2017-11-12 19:04 | CT ---
EXAM DATE: 11/12/2017 6:49 PM EDT AGE/SEX: 77 years / Female INDICATIONS: Abdominal pain. CLINICAL DATA: This is the patient's initial encounter. Patient reports that signs and symptoms have been present for 1 day and indicates a pain score of 4/10. MEDICAL/SURGICAL HISTORY: Cardiovascular disease. Diabetes. Gastroesophageal reflux disease. CABG. Cholecystectomy. Appendectomy. ORAL CONTRAST: Prescribed oral contrast ingested. RADIATION DOSE: 15.77 CTDI (mGy) COMPARISON: [facility] [place], CT ABDOMEN & PELVIS W CONTRAST, 05/17/2017. . TECHNIQUE: Multiple contiguous axial images were obtained through the abdomen and pelvis following b olus infusion of 100 ml Omnipaque 350 (iohexol) nonionic water-soluble contrast as a single exam do se. Prescribed oral contrast ingested. Using automated exposure control and adjustment of the mA and /or kV according to patient size, radiation dose was kept as low as reasonably achievable to obtain o ptimal diagnostic quality images. DICOM format image data is available electronically for review and comparison. FINDINGS: There is global cardiomegaly. Some residual anterior epicardial pacer leads are present. Previous lisa rnotomy. Minimal linear scarring at the lung bases. No acute findings in the liver, spleen, adrenals or pancreas. Left-sided renal cysts stable since May ruary. Also small right renal cysts. Stable degenerative changes in the lumbar spine. There is a stable fat-containing ventral hernia in the upper abdomen. No bowel obstruction. No free air or free fluid. No adenopathy. CONCLUSION: 1. Stable exam since May. No acute findings. 2. Nonacute findings include stable ventral abdominal wall hernia containing only fat, moderate size hiatal hernia, bilateral renal cysts, and degenerative change of the spine. Electronically signed by: Al Oro MD 11/12/2017 7:02 PM EDT
[2017-11-12] MEDS: predniSONE 10 MG Tablet PO SCH (20:47)
[2017-11-12] MEDS: Famotidine 20 MG Tablet PO SCH (20:47)
[2017-11-13] MEDS: Insulin NovoLOG Aspart Correctional Sugar Inj SQ SCH ×5 (05:18→21:19)
[2017-11-13] MEDS: guaiFENesin 600 MG ER Tablet PO SCH ×2 (10:21→21:06)
[2017-11-13] MEDS: Furosemide 20 MG Tablet PO SCH (10:22)
[2017-11-13] MEDS: predniSONE 10 MG Tablet PO SCH ×2 (10:22→21:06)
[2017-11-13] MEDS: Senna/Docusate Sodium 8.6/50 MG Tablet PO SCH ×2 (10:22→21:06)
[2017-11-13] MEDS: Budesonide-Formoterol 160/4.5 MCG 6 GM Inhaler INH SCH ×2 (10:23→21:20)
[2017-11-13] MEDS: Spironolactone 25 MG Tablet PO SCH (10:23)
--- NOTE | 2017-11-13 12:04 | P.PNIM ---
Subjective Interval history: Nursing denies any deterioration since last night. Patient herself complaining of headache and some shortness of breath. Her saturations are 98% on room air per nursing. Physical Exam Vital signs: Vital Signs 11/12/17 12:39 11/12/17 16:00 11/12/17 20:00 Temperature 98.4 F 97.5 F L 100 F H Pulse Rate 64 72 79 Respiratory Rate 16 18 18 Blood Pressure 108/53 L 116/56 L 112/56 L Pulse Oximetry 100 100 95 11/13/17 00:00 11/13/17 04:00 11/13/17 08:00 Temperature 97.7 F 97.7 F 98.7 F Pulse Rate 77 69 67 Respiratory Rate 18 18 16 Blood Pressure 108/58 L 104/48 L 109/53 L Pulse Oximetry 96 94 L 95 11/13/17 08:25 Temperature Pulse Rate Respiratory Rate Blood Pressure Pulse Oximetry 96 Intake & Output 11/12/17 11/13/17 11/13/17 18:59 06:59 18:59 Intake Total 900 / 900 480 / 480 Output Total 1100 / 1100 Balance -200 / -200 480 / 480 Intake: Oral 700 / 700 480 / 480 Anesthesia Amount 200 / 200 Output: Urine 1100 / 1100 Other: # Voids 5 # Bowel Movements 3 Narrative: Crackles heard in the left lung field Unlabored breathing while sitting Awake alert, no acute distress Results - Labs CBC & Chem 7: 11/08/17 06:57 11/12/17 17:42 Laboratory Results - last 24 hr 11/12/17 11/12/17 11/12/17 16:49 17:42 22:05 Sodium 137 Potassium 3.8 Chloride 98 Carbon Dioxide 31.7 Anion Gap 7 BUN 32 H Creatinine 1.09 H Estimated GFR 49 L POC Glucose 127 H 118 H Random Glucose 96 Calcium 7.4 L* Prot Corrected Calcium 7.5 L Total Protein 7.0 D 11/13/17 11/13/17 05:14 08:04 Sodium Potassium Chloride Carbon Dioxide Anion Gap BUN Creatinine Estimated GFR POC Glucose 150 H 141 H Random Glucose Calcium Prot Corrected Calcium Total Protein - Imaging Impressions Abdomen/Pelvis CT 11/12/17 00:00 CONCLUSION: 1. Stable exam since May. No acute findings. 2. Nonacute findings include stable ventral abdominal wall hernia containing only fat, moderate size hiatal hernia, bilateral renal cysts, and degenerative change of the spine. Assessment and Plan - Assessment (1) Asthma exacerbation in COPD Code(s): J44.1 - Chronic obstructive pulmonary disease with (acute) exacerbation ; J45.901 - Unspecified asthma with (acute) exacerbation Status: Acute (2) CHF (congestive heart failure) Code(s): I50.9 - Heart failure, unspecified Status: Acute - Plan Ms. Centeno is a 77 yo F with PMH CAD, CHF, obstructive lung disease who presents with shortness of breath, chest pain, and epigastric pain: Shortness of breath -Suspect acute on chronic systolic heart failure -We will increase Lasix temporarily from 20 mg p.o. to 40 mg IV twice daily and then transition back down to 40 mg daily once stabilized - CXR today, likely pulm edema odynophagia -Negative barium swallow, negative EGD for any strictures, likely acid reflux based Acid reflux -EGD showing esophagitis and gastritis, continue Protonix and famotidine, adding on Maalox, minimize NSAIDs Chest pain -Hopefully cardiac catheterization pushed until tomorrow sCHF -newly reduced EF 20-25% -Continue lisinopril, -p.o. Lasix - spironolactone CTA- no PE, small pleural effusions; moderate cardiomegaly ? bronchitis - clinically rsolved -tapering po steroids -duonebs prn, ICS Hypocalcemia- PO Chronic conditions- continue chronic pain control with home medications (2) CHF (congestive heart failure) Qualifiers: Heart failure type: systolic Heart failure chronicity: unspecified Qualified Code(s): I50.20 - Unspecified systolic (congestive) heart failure
[2017-11-13] MEDS: Acetaminophen 325 MG Tablet PO PRN ×2 (12:48→21:05)
--- NOTE | 2017-11-13 13:40 | XR ---
EXAM DATE: 11/13/2017 1:01 PM EDT AGE/SEX: 77 years / Female INDICATIONS: . Chest pain and shortness of breath. CLINICAL DATA: This is the patient's subsequent encounter. Patient reports that signs and symptoms h ave been present for 1 day and indicates a pain score of 5/10. MEDICAL/SURGICAL HISTORY: . Cardiovascular disease. Diabetes. Gastroesophageal reflux disease. . CABG. Cholecystectomy. Appendectomy. COMPARISON: C, CTA PULMONARY W CONTRAST W 3D, 11/06/2017. . FINDINGS: Cardiomegaly and sternotomy wires. Clear lungs. Degenerative changes of the spine. CONCLUSION: Negative examination. Electronically signed by: Papa Arcos MD 11/13/2017 1:39 PM EDT
--- NOTE | 2017-11-13 15:09 | P.PNGI ---
Subjective Interval history: Pt resting in bed, no apparent distress. Still having some epigastric/chest discomfort. Cardiac cath was cancelled for today and rescheduled for tomorrow. Pt does not have much of an appetite. <Sarina Henry - Last Filed: 11/13/17 15:05> Physical Exam Vital signs: Vital Signs 11/12/17 16:00 11/12/17 20:00 11/13/17 00:00 Temperature 97.5 F L 100 F H 97.7 F Pulse Rate 72 79 77 Respiratory Rate 18 18 18 Blood Pressure 116/56 L 112/56 L 108/58 L Pulse Oximetry 100 95 96 11/13/17 04:00 11/13/17 08:00 11/13/17 08:25 Temperature 97.7 F 98.7 F Pulse Rate 69 67 Respiratory Rate 18 16 Blood Pressure 104/48 L 109/53 L Pulse Oximetry 94 L 95 96 11/13/17 09:00 11/13/17 12:00 11/13/17 13:59 Temperature 97.8 F Pulse Rate 76 76 Respiratory Rate 18 18 Blood Pressure 124/60 Pulse Oximetry 100 Intake & Output 11/12/17 11/13/17 11/13/17 18:59 06:59 18:59 Intake Total 900 / 900 480 / 480 Output Total 1100 / 1100 Balance -200 / -200 480 / 480 Intake: Oral 700 / 700 480 / 480 Anesthesia Amount 200 / 200 Output: Urine 1100 / 1100 Other: # Voids 5 Date of Last Bowel Movement 11/05/17 # Bowel Movements 3 - Constitutional no acute distress - Routine HEENT Exam Head: Present: normocephalic, atraumatic - Routine Abdominal Exam Present: soft, normoactive bowel sounds, tenderness (epigastric tenderness ). Absent: distended - Routine Skin Exam Present: dry, warm - Routine Neurological Exam Present: alert, oriented X3 <Sarina Henry - Last Filed: 11/13/17 15:05> Vital signs: Vital Signs 11/12/17 16:00 11/12/17 20:00 11/13/17 00:00 Temperature 97.5 F L 100 F H 97.7 F Pulse Rate 72 79 77 Respiratory Rate 18 18 18 Blood Pressure 116/56 L 112/56 L 108/58 L Pulse Oximetry 100 95 96 11/13/17 04:00 11/13/17 08:00 11/13/17 08:25 Temperature 97.7 F 98.7 F Pulse Rate 69 67 Respiratory Rate 18 16 Blood Pressure 104/48 L 109/53 L Pulse Oximetry 94 L 95 96 11/13/17 09:00 11/13/17 12:00 11/13/17 13:59 Temperature 97.8 F Pulse Rate 76 76 Respiratory Rate 18 18 Blood Pressure 124/60 Pulse Oximetry 100 Intake & Output 11/12/17 11/13/17 11/13/17 18:59 06:59 18:59 Intake Total 900 / 900 480 / 480 Output Total 1100 / 1100 Balance -200 / -200 480 / 480 Intake: Oral 700 / 700 480 / 480 Anesthesia Amount 200 / 200 Output: Urine 1100 / 1100 Other: # Voids 5 Date of Last Bowel Movement 11/05/17 # Bowel Movements 3 <Nba Philip - Last Filed: 11/13/17 15:33> Results - Labs CBC & Chem 7: 11/08/17 06:57 11/12/17 17:42 Laboratory Results - last 24 hr 11/12/17 11/12/17 11/12/17 16:49 17:42 22:05 Sodium 137 Potassium 3.8 Chloride 98 Carbon Dioxide 31.7 Anion Gap 7 BUN 32 H Creatinine 1.09 H Estimated GFR 49 L POC Glucose 127 H 118 H Random Glucose 96 Calcium 7.4 L* Prot Corrected Calcium 7.5 L Total Protein 7.0 D 11/13/17 11/13/17 11/13/17 05:14 08:04 11:58 Sodium Potassium Chloride Carbon Dioxide Anion Gap BUN Creatinine Estimated GFR POC Glucose 150 H 141 H 141 H Random Glucose Calcium Prot Corrected Calcium Total Protein - Imaging Impressions Abdomen/Pelvis CT 11/12/17 00:00 CONCLUSION: 1. Stable exam since May. No acute findings. 2. Nonacute findings include stable ventral abdominal wall hernia containing only fat, moderate size hiatal hernia, bilateral renal cysts, and degenerative change of the spine. Chest X-Ray 11/13/17 00:00 CONCLUSION: Negative examination. <Sarina Henry - Last Filed: 11/13/17 15:05> - Labs CBC & Chem 7: 11/08/17 06:57 11/12/17 17:42 Laboratory Results - last 24 hr 11/12/17 11/12/17 11/12/17 16:49 17:42 22:05 Sodium 137 Potassium 3.8 Chloride 98 Carbon Dioxide 31.7 Anion Gap 7 BUN 32 H Creatinine 1.09 H Estimated GFR 49 L POC Glucose 127 H 118 H Random Glucose 96 Calcium 7.4 L* Prot Corrected Calcium 7.5 L Total Protein 7.0 D 11/13/17 11/13/17 11/13/17 05:14 08:04 11:58 Sodium Potassium Chloride Carbon Dioxide Anion Gap BUN Creatinine Estimated GFR POC Glucose 150 H 141 H 141 H Random Glucose Calcium Prot Corrected Calcium Total Protein - Imaging Impressions Abdomen/Pelvis CT 11/12/17 00:00 CONCLUSION: 1. Stable exam since May. No acute findings. 2. Nonacute findings include stable ventral abdominal wall hernia containing only fat, moderate size hiatal hernia, bilateral renal cysts, and degenerative change of the spine. Chest X-Ray 11/13/17 00:00 CONCLUSION: Negative examination. <Nba Philip - Last Filed: 11/13/17 15:33> Assessment and Plan - Plan Dysphagia- Pt has been having dysphagia for the past 2 weeks mostly with rice. Endorses GERD and heart burn. Endorses epigastric pain. Was evaluated by ST who recommended mechanical soft, and thin liquids Barium Swallow X-Ray 11/09/17 00:00 Unremarkable barium swallow. (11/11) Pt with continued epigastric/chest pain today. Currently NPO so no further dysphagia. Seen with cardiology Dr. Verduzco who is planning on doing cardiac cath after EGD in the case that pt will need interventions and possible antiplatelet therapy. Dr. Verduzco states cleared for GI procedures. Translation services used for this visit (11/13) S/P EGD yesterday. Pt still having some epigastric/chest discomfort. Cardiac cath cancelled for today and rescheduled for tomorrow. Pt reports not much of an appetite. EGD --> There was LA Class A esophagitis noted; biopsy was performed. There was erythematous gastritis in the gastric antrum; biopsy was performed. Normal duodenal mucosa in the bulb and second portion of the duodenum. Hiatal hernia Plan: - EGD biopsy pending - Protonix - Cardiology work up per cardiology - GI will sign off, please reconsult as needed - Have pt follow up with GI after DC Pt has been seen and examined by myself and Dr. Philip and this note is written on his behalf <Sarina Henry - Last Filed: 11/13/17 15:05> - Plan Seen and examined with LEGAL MEDIATOR, still with CP. Cardiac mccann in progress. Barium swallow and EGD done. Biopsies-p. GI will sign off, reconsult as needed. GI fu upon dc please. - Attending Attestation The exam, history, and the medical decision-making described in the above note were completed with the assistance of the mid-level provider. I reviewed and agree with the findings presented. I attest that I had a [id number] encounter with the patient on the same day, and personally performed and documented my assessment and findings in the medical record. <Nba Philip - Last Filed: 11/13/17 15:33>
[2017-11-13] MEDS: Famotidine 20 MG Tablet PO SCH (21:06)
[2017-11-14] MEDS: Insulin NovoLOG Aspart Correctional Sugar Inj SQ SCH ×5 (05:55→21:47)
[2017-11-14] MEDS: Senna/Docusate Sodium 8.6/50 MG Tablet PO SCH ×2 (08:28→21:27)
[2017-11-14] MEDS: predniSONE 10 MG Tablet PO SCH ×2 (08:28→21:27)
[2017-11-14] MEDS: Spironolactone 25 MG Tablet PO SCH (08:29)
[2017-11-14] MEDS: guaiFENesin 600 MG ER Tablet PO SCH ×2 (08:29→21:27)
--- NOTE | 2017-11-14 13:38 | ECG ---
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
[2017-11-14 13:48] LABS: Calcium 7.9 mg/dL (8.5-10.1); Potassium 4.9 meq/L (3.5-5.1)
--- NOTE | 2017-11-14 15:11 | P.PNIM ---
Subjective Interval history: Nursing denies any deterioration since last night. Patient still reports having some chest pain. Otherwise she was sleeping comfortably until I woke her up. Says that her breathing is better today after starting Lasix yesterday. Physical Exam Vital signs: Vital Signs 11/13/17 16:00 11/13/17 20:00 11/13/17 20:18 Temperature 97.3 F L 97.5 F L Pulse Rate 74 74 Respiratory Rate 16 17 Blood Pressure 98/52 L 116/59 L Pulse Oximetry 98 99 98 11/14/17 00:00 11/14/17 04:00 11/14/17 08:00 Temperature 97.2 F L 97.2 F L 97.8 F Pulse Rate 75 77 74 Respiratory Rate 18 19 18 Blood Pressure 124/56 L 104/50 L 106/54 L Pulse Oximetry 98 96 94 L 11/14/17 12:00 Temperature 97.4 F L Pulse Rate 67 Respiratory Rate 18 Blood Pressure 121/57 L Pulse Oximetry 96 Intake & Output 11/13/17 11/14/17 11/14/17 18:59 06:59 18:59 Intake Total 800 / 800 600 / 600 Output Total 1200 / 1200 Balance 800 / 800 -600 / -600 Weight 78.1 kg Intake: Oral 800 / 800 600 / 600 Output: Urine 1200 / 1200 Other: # Voids 1,800 Date of Last Bowel Movement 11/05/17 Narrative: Heart sounds regular rate rhythm, no murmurs Clear lungs bilaterally, unlabored breathing Results - Labs CBC & Chem 7: 11/08/17 06:57 11/14/17 12:25 Laboratory Results - last 24 hr 11/13/17 11/13/17 11/14/17 16:44 21:13 05:50 Sodium Potassium Chloride Carbon Dioxide Anion Gap BUN Creatinine Estimated GFR POC Glucose 256 H 158 H 189 H Random Glucose Calcium 11/14/17 11/14/17 11/14/17 08:27 12:06 12:25 Sodium 137 Potassium 4.9 D Chloride 99 Carbon Dioxide 31.0 Anion Gap 7 BUN 45 H Creatinine 1.20 H Estimated GFR 44 L POC Glucose 143 H 132 H Random Glucose 119 H Calcium 7.9 L Assessment and Plan - Assessment (1) Asthma exacerbation in COPD Code(s): J44.1 - Chronic obstructive pulmonary disease with (acute) exacerbation ; J45.901 - Unspecified asthma with (acute) exacerbation Status: Acute (2) CHF (congestive heart failure) Code(s): I50.9 - Heart failure, unspecified Status: Acute - Plan Ms. Centeno is a 77 yo F with PMH CAD, CHF, obstructive lung disease who presents with shortness of breath, chest pain, and epigastric pain: Suspect acute on chronic systolic heart failure -Lasix 40 mg IV twice daily and then transition back down to 40 mg daily once stabilized after today -Continue lisinopril, -p.o. Lasix - spironolactone Chest pain -Hopefully cardiac catheterization hopefully today odynophagia -Negative barium swallow, negative EGD for any strictures, likely acid reflux based Acid reflux -EGD showing esophagitis and gastritis, continue Protonix and famotidine, adding on Maalox, minimize NSAIDs CTA- no PE, small pleural effusions; moderate cardiomegaly ? bronchitis - clinically resolved -tapering po steroids -duonebs prn, ICS Hypocalcemia- PO Chronic conditions- continue chronic pain control with home medications (2) CHF (congestive heart failure) Qualifiers: Heart failure type: systolic Heart failure chronicity: unspecified Qualified Code(s): I50.20 - Unspecified systolic (congestive) heart failure
[2017-11-14] MEDS ORDERED: Heparin 10,000 UNITS/10 ML Vial (for IV use) ONE (16:09)
[2017-11-14] MEDS ORDERED: Heparin/NS PF Inj 1,500 ML ONE (16:09)
[2017-11-14] MEDS ORDERED: MethylPREDNISolone Sod Succinate Inj 125 MG/2 ML Vial ONE (16:25)
[2017-11-14] MEDS ORDERED: fentaNYL Citrate Inj 100 MCG/2 ML Ampul ONE (16:37)
--- NOTE | 2017-11-14 17:56 | CATHPROC ---
Patient Name: Lynne Centeno Study #: [id number] Initial MD: Tim Verduzco Date of : 1940 Study Date: 11/14/2017 Cardiac Catheterization Report 11/14/2017 6:22:43 PM Financial #: [id number] 1 of 13 Patient Name: Lynne Centeno Study #: [id number] Initial MD: Tim Verduzco Date of : 1940 Study Date: 11/14/2017 Entire Case Report Patient Information Patient Name Lynne Centeno Date of 1940 Age 77 years Financial # [id number] Gender F AlternateID Lab Number 6 Room Number 1736 Height (in) 64.0 Height (cm) 162.5 BSA 1.83 Weight (lbs) 171.8 Weight (kg) 78.1 Patient Address/Phone Number Home Address [facility] Home Phone Number [phone] [address] Study Information Study Number Admission Scheduled Start Study Start [id number] Nov 06 2017 4:48PM 11/14/2017 Nov 14 2017 4:04PM [facility] Cardiac Catheterization Admit Source Facility Department [facility] - Aquatics Manager Physician and Clinical Staff Initial Tim Soler Director E Learning Can LeeRN Director E Learning Melissa Melgar,SARAVANAN Recorder Carly Stout RN Scrub Jim Amador,RT(R) Procedures Performed Procedure Location (Site) Vessel Name Coronary Angiograms LCA Left Coronary Coronary Angiograms RCA Right Coronary Coronary Angiograms MATIAS-LAD Left Coronary L Heart Cath 11/14/2017 6:22:43 PM Financial #: [id number] 2 of 13 Patient Name: Lynne Centeno Study #: [id number] Initial MD: Tim Verduzco Date of : 1940 Study Date: 11/14/2017 Equipment Time Energy Projects Lead Description Size Mfg Part Number Used/Scraped TRANSDUCER, TRUWAVE [id number] 16:09 BARRON ReferralMD * Used W/STOCKCOCK *[id number] 534-545T *7336920 534-560T *[id number] 534-517T *[id number] 16:09 Funanga BLANKET,WARM AIR CCL * Used *[id number] 16:09 Funanga PACK, CCL CUSTOM * Used *[id number] 16:09 Funanga SUPPORT, ARTERIAL ADULT 99629 *[id number] Used [id number] 16:54 MEDTRONIC JL 3.5 DXTERITY CATHETER FR 5 Used *[id number] 16:59 MEDTRONIC JL 4.0 DXTERITY CATHETER FR 5 Used *[id number] [id number] 16:48 MEDTRONIC JR 4.0 DXTERITY CATHETER FR 5 Used *[id number] BAND, RADIAL COMPRESSION TR [id number] 17:27 Vivo MEDICAL 24CM Used SHORT 24 *[id number] BAND, RADIAL COMPRESSION TR [id number] 18:09 Vivo MEDICAL 24CM Used SHORT 24 *[id number] 16:09 BioAtlantis WIRE, EXCHANGE 260CM 3MMJ 260CM Used *[id number] 16:09 NAMIC MANIFOLD, 4 PORT * Used *[id number] 16:09 NYCOMED OMNIPAQUE, 350 MG, 150ML 150ML [id number] Used SHEATH, FR6 TRANSRADIAL [id number] 16:09 Spectral Edge MEDICAL FR 6 Used SLENDER 10CM *[id number] Equipment Model, Serial, Lot Number and Expiration Data Description Model Number Serial Number Lot Number Expiration Date JL 4.0 DXTERITY CATHETER [id number] 01-08-2020 JR 4.0 DXTERITY CATHETER [id number] 02-28-2020 Insurance Information Insurance Payor Private Health Insurance Third Republican Third Republican Number [employer] [facility] 11/14/2017 6:22:43 PM Financial #: [id number] Patient Name: Lynne Centeno Study #: [id number] Initial MD: Tim Verduzco Date of : 1940 Study Date: 11/14/2017 History: Current Medications Medication Dosage/Unit Route Frequency Last Date/Time Taken CARVEDILOL Insulin ASA LASIX LOPRESSOR K-Dur PREDNISONE History: Allergies Allergy Reaction hydrocodone Sedation acetaminophen Chills amoxicillin Hives Penicillins Hives tramadol hallucinations aminophylline Hives Fish Containing Products Hives shellfish derived Hives History: Risk Factors Family History of Hypertension Dyslipidemia Previous IN Previous Heart Failure Premature CAD Yes Yes No No Yes Prior Valve Prior PCI Prior CABG Prior CABGDate Surgery No No Yes 04/15/2004 Cerebrovascular Peripheral Artery Chronic Lung On Dialysis Diabetes Diabetes Therapy Disease Disease Disease No No No Yes Yes Oral History: CV Disease Selection Items Known CAD 11/14/2017 6:22:43 PM Financial #: [id number] 4 of 13 Patient Name: Lynne Centeno Study #: [id number] Initial MD: Tim Verduzco Date of : 1940 Study Date: 11/14/2017 History: Stress Tests Stress or Imaging Studies Performed Yes Standard Exercise Stress Test No Stress Echo No Stress Test SPECT No Stress Test CMR Stress Test CMR Result Stress Test CMR Ischemia Risk/Extent Yes Positive Intermediate Cardiac CTA Coronary Calcium Score No No History: Other Disease Selection Items CAD Gerd Renal Failure/Insufficiency Labs Hgb (g/dl) Hct (%) RBC (MIL/MM3) WBC (l/cumm) Platelets (thousands) 11.60-17.00 35.00-51.00 4.00-5.90 4.00-11.00 150.00-450.00 10.2 31 3.9 6.7 123 Glucose (mg/dl) BUN (mg/dl) Creatinine (mg/dl) BUN:Creatinine (1:x) 74.00-106.00 7.00-18.00 0.50-1.30 10.00-20.00 119 45 1.2 37.5 Na (meq/l) K (meq/l) Cl (meq/l) CO2 (mmol/L) Ca (mg/dl) 136.00-145.00 3.50-5.10 98.00-107.00 21.00-32.00 8.50-10.10 137 4.9 99 31 7.9 PT (sec) PTT (sec) INR (PTT:PT) 9.80-11.60 24.30-30.10 0.90-1.10 13.9 22.9 1.4 Medication 11/14/2017 6:22:43 PM Financial #: [id number] 5 of 13 Patient Name: Lynne Centeno Study #: [id number] Initial MD: Tim Verduzco Date of : 1940 Study Date: 11/15/19 18 Medication Total Dose (Bolus/Oral) Medication Total Dosage/Unit 1% XYLOCAINE 10 mL BENADRYL 25 mg FENTANYL 50 mcg HEPARIN 5000 units PEPCID 20 mg RADIAL COCKTAIL 5 mL (Bolus) SOLU-MEDROL 125 mg VERSED 2 mg Medications (Bolus/Oral) Medication Time Given Dosage/Unit Administered By Reason BENADRYL 11/14/2017 4:29:17 PM 25 mg Jesus, Can 25 mg BENADRYL given in lab by Can Lee RN in Right Hand via Peripheral IV. Ordered by Marquis Verduzco. SOLU-MEDROL 11/14/2017 4:30:39 PM 125 mg Jesus, Can 125 mg SOLU-MEDROL given in lab by Can Lee RN in Right Hand via Peripheral IV. Ordered by Tim Verduzco. PEPCID 11/14/2017 4:31:00 PM 20 mg Jesus, Can 20 mg PEPCID given in lab by Can Lee RN in Right Hand via Peripheral IV. Ordered by Lisa Verduzco 1% XYLOCAINE 11/14/2017 4:37:51 PM 10 mL Tim Verduzco 10 mL 1% XYLOCAINE given in lab by Tim Verduzco in Right Hand via Subcutaneous. Ordered by Hallie Verduzco. VERSED 11/14/2017 4:39:39 PM 2 mg Jesus, Can 2 mg VERSED given in lab by Can Lee RN in Right Hand via Peripheral IV. Ordered by Tim Verduzco . FENTANYL 11/14/2017 4:40:00 PM 50 mcg Jesus, Can 50 mcg FENTANYL given in lab by Can Lee RN in Right Hand via Peripheral IV. Ordered by Donny Verduzco. RADIAL COCKTAIL 11/14/2017 4:40:41 PM 5 mL (Bolus) Tim Verduzco 5 mL (Bolus) RADIAL COCKTAIL given in lab by Tim Verduzco in Left Radial via Radial. Using [Solution Name]. Ordered by Tim Verduzco. 200MCG NITRO, 2.5 MG VERAPAMIL HEPARIN 11/14/2017 4:45:27 PM 5000 units Can Lee 5000 units HEPARIN given in lab by Can Lee RN in Right Hand via Peripheral IV. Ordered by Tim Verduzco. Medication (Drip) Medication Time Given Dosage/Unit Concentration/Unit Diluent (ml) Solution IV Solutions 11/14/2017 4:04:26 PM 0 mL (IV) 500 NaCl .9 IV Solutions given in lab by Can Lee RN in Right Hand via Peripheral IV. Pump/Drip Flow = 20 ml /hr using NaCl .9. Ordered by Tim Verduzco. 11/14/2017 6:22:43 PM Financial #: [id number] 6 of 13 Patient Name: Lynne Centeno Study #: [id number] Initial MD: Tim Verduzco Date of : 1940 Study Date: 11/14/2017 Initial Case Assessment Cardiovascular HR NIBP 71 110/68 Edema Present Skin color Skin None Normal Warm Dry Circulatory - Right Pulses Dorsalis Pedis Femoral 3 3 Scale (0,1,2,3,4,d) Circulatory - Left Pulses Dorsalis Pedis Femoral 3 3 Scale (0,1,2,3,4,d) Neurological State Oriented to time-place- Alert person Respiration - General Respiration Rate SpO2 (%) (B/min) 14 94 11/14/2017 6:22:43 PM Financial #: [id number] 7 of 13 Patient Name: Lynne Centeno Study #: [id number] Initial MD: Tim Verduzco Date of : 1940 Study Date: 11/14/2017 Final Case Assessment Cardiovascular HR NIBP 71 135/64 Edema Present Skin color Skin None Normal Warm Dry Circulatory - Right Pulses Dorsalis Pedis Femoral 3 3 Scale (0,1,2,3,4,d) Circulatory - Left Pulses Dorsalis Pedis Femoral 3 3 Scale (0,1,2,3,4,d) Neurological State Oriented to time-place- Alert person Respiration - General Respiration Rate SpO2 (%) (B/min) 14 94 11/14/2017 6:22:43 PM Financial #: [id number] 8 of 13 Patient Name: Lynne Centeno Study #: [id number] Initial MD: Tim Verduzco Date of : 1940 Study Date: 11/14/2017 Vitals Summary Pain Time HR NIBP SpO2 Resp Temp EtCO2 Apnea Alexandra Charles Comment Level 16:16:17 71 110/68 94.0 14 10 0 2 16:21:11 82 123/55 98.0 14 10 0 2 16:26:13 77 124/56 95.0 14 10 0 2 16:31:16 81 126/52 94.0 14 10 0 2 16:36:13 80 127/65 95.0 14 10 0 2 16:41:16 80 119/54 92.0 14 10 0 2 16:46:13 76 88/44 81.0 12 16:49:13 76 99/45 94.0 14 16:51:08 77 96/53 96.0 9 16:56:11 79 108/51 12 17:01:14 73 122/54 99.0 17:06:15 74 118/66 98.0 17:11:10 71 126/88 95.0 13 17:16:58 79 144/60 17:21:22 89 128/58 17:26:50 74 135/64 17:31:20 73 136/64 10 0 2 Alexandra Score Summary Time Activity Resp Circ LOC Color Total Score 16:16:17 2 2 2 2 2 10 16:21:11 2 2 2 2 2 10 16:26:13 2 2 2 2 2 10 16:31:16 2 2 2 2 2 10 16:36:13 2 2 2 2 2 10 16:41:16 2 2 2 2 2 10 17:31:20 2 2 2 2 2 10 11/14/2017 6:22:43 PM Financial #: [id number] 9 of 13 Patient Name: Lynne Centeno Study #: [id number] Initial MD: Tim Verduzco Date of : 1940 Study Date: 11/14/2017 Alexandra Score Definition Table Activity - 0 Activity - 1 Activity - 2 No Movement to Command Weak Hand Grasp Lift Head, Good Hand Grasp Respiration - 0 Respiration - 1 Respiration - 2 Apneic or Obstructed Shallow Breath, Airway Adjunct Deep Breath, Cough Freely Circulation - 0 Circulation - 1 Circulation - 2 B/P > 50% Admission B/P B/P > 20-50% Admission B/P B/P Stable X3 Level of Consciousness - 0 Level of Consciousness - 1 Level of Consciousness - 2 Not Responding Arousable On Calling Awake and Aware Color - 0 Color- 1 Color - 2 Cyanotic Lips, Nailbed, Skin Pale, Dusky [place] Or Normal Chronological Log Time Study Chronological Log 16:00:02 Patient arrived via Bed. 16:04:06 Patient Name, D.O.B, / Armband Verified By R.N. 16:04:06 Consent signed by the physician and the patient and verified by the Aquatics Manager staff. 16:04:13 Pre-op and post- op instructions given; patient acknowledges understanding of instruction s. 16:04:17 Patient has been NPO for More than 6Hrs. 16:04:19 NO Skin Breakdown- 16:04:21 Patient Warmer Placed on the Table. 16:04:22 Grace Prominences Protected 16:04:25 A # 20 IV was noted in the Hand (right). Grade = 0 IV Solutions given in lab by Can Lee RN in Right Hand via Peripheral IV. Pump/Drip Flow = 20 ml/hr using NaCl .9. 16:04:26 Ordered by Tim Verduzco. 16:04:27 History and physical on the chart or being dictated. Vitals capture started with the following parameters, Patient=Adult, Interval=5 min, Initial Eqbecugh=982 mmHg, 16:09:58 Deflation Rate=5 mmHg, Cuff placed on Left Arm Vitals capture started with the following parameters, Patient=Adult, Interval=5 min, Initial Vbvhokzl=180 mmHg, 16:15:33 Deflation Rate=5 mmHg, Cuff placed on Left Arm 16:16:17 HR=71 bpm, EPWW=626/68 mmhg, SpO2=94.0 %, Resp=14 B/min, Pain=0, Alexandra=10, Charles=2 Assessment: Initial Case, HR=71 BPM, CWHF=980/68 mmhg, Edema=None, Color=Normal, Skin = Warm, Dry Right Pulses: Michel Ped=3, Femoral=3 16:16:28 Left Pulses: Michel Ped=3, Femoral=3, Radial=3 Neurological: State=Alert, Ox3 Respiration: Resp=14 B/min, SpO2=94 % 16:20:35 Left Radial and groin(s) prepped with 2% chlorhexidine, and draped after a 3 min. waiting time. 16:21:11 HR=82 bpm, YIZJ=618/55 mmhg, SpO2=98.0 %, Resp=14 B/min, Pain=0, Alexandra=10, Charles=2 16:26:13 HR=77 bpm, WWJC=289/56 mmhg, SpO2=95.0 %, Resp=14 B/min, Pain=0, Alexandra=10, Charles=2 16:26:21 Pressure channel 1 zeroed. 16:29:17 25 mg BENADRYL given in lab by Can Lee RN in Right Hand via Peripheral IV. Ordered by Tim Verduzco. 16:30:39 125 mg SOLU-MEDROL given in lab by Can Lee RN in Right Hand via Peripheral IV. Orde red by Tim Verduzco. 11/14/2017 6:22:43 PM Financial #: [id number] Patient Name: Lynne Centeno Study #: [id number] Initial MD: Tim Verduzco Date of : 1940 Study Date: 11/14/2017 16:31:00 20 mg PEPCID given in lab by Can Lee RN in Right Hand via Peripheral IV. Ordered by Tim Verduzco. 16:31:16 HR=81 bpm, QLUZ=846/52 mmhg, SpO2=94.0 %, Resp=14 B/min, Pain=0, Alexandra=10, Charles=2 16:33:00 MD arrived. 16:34:24 Reference ECG taken Time Out. Correct patient, correct procedure, correct physician, labs, allergies, and equipmen t verified with laborer heading 16:35:52 team present. Fire risk assesment completed (see hard stop sheet for coding). Time Out Con curred by MD and individual staff in procedure. 16:36:13 HR=80 bpm, WDZC=606/65 mmhg, SpO2=95.0 %, Resp=14 B/min, Pain=0, Alexandra=10, Charles=2 16:36:31 Case Start 16:37:51 10 mL 1% XYLOCAINE given in lab by Tim Verduzco in Right Hand via Subcutaneous. Ordered by Tim Verduzco. 16:39:39 2 mg VERSED given in lab by Can Lee RN in Right Hand via Peripheral IV. Ordered by Tim Amanda. 16:40:00 50 mcg FENTANYL given in lab by Can Lee RN in Right Hand via Peripheral IV. Ordered by Tim Verduzco. 16:40:34 Access site was Left Radial Artery. A SHEATH, FR6 TRANSRADIAL SLENDER 10CM FR 6 was advanced into the Radial (left) using the Laquita fied Seldinger 16:40:36 technique. 5 mL (Bolus) RADIAL COCKTAIL given in lab by Tim Verduzco in Left Radial via Radial. Using [So lution Name]. Ordered 16:40:41 by Tim Verduzco. 200MCG NITRO, 2.5 MG VERAPAMIL 16:41:16 HR=80 bpm, ADSI=014/54 mmhg, SpO2=92.0 %, Resp=14 B/min, Pain=0, Alexandra=10, Charles=2 A BEBETO INFINITI CATHETER FR 5 was advanced over a wire. OMNIPAQUE, 350 MG, 150ML 150ML was used for 16:43:09 injections. Recorded Pressure: Ao, HR=77, Condition=Condition 1 16:44:43 (Aorta) Ao 80/43/60 16:45:27 5000 units HEPARIN given in lab by Can Lee RN in Right Hand via Peripheral IV. Order ed by Tim Verduzco. 16:45:41 The MATIAS-LAD was injected and visualized at various angles. OMNIPAQUE, 350 MG, 150ML 150ML used. 16:46:13 HR=76 bpm, NIBP=88/44 mmhg, SpO2=81.0 %, Resp=12 B/min 16:46:43 BL in to circulate. After removing the current catheter a JR 4.0 DXTERITY CATHETER FR 5 was advanced over a WIRE, EXCHANGE 260CM 16:47:38 3MMJ 260CM. 16:48:38 NIBP STAT measurement started. 16:49:13 HR=76 bpm, NIBP=99/45 mmhg, SpO2=94.0 %, Resp=14 B/min 16:50:39 The RCA was injected and visualized at various angles. OMNIPAQUE, 350 MG, 150ML 150ML use d. 16:51:08 HR=77 bpm, NIBP=96/53 mmhg, SpO2=96.0 %, Resp=9 B/min After removing the current catheter a JL 3.5 DXTERITY CATHETER FR 5 was advanced over a WIRE, EXCHANGE 260CM 16:53:39 3MMJ 260CM. 16:56:11 HR=79 bpm, WAEF=104/51 mmhg, Resp=12 B/min After removing the current catheter a JL 4.0 DXTERITY CATHETER FR 5 was advanced over a WIRE, EXCHANGE 260CM 16:59:12 3MMJ 260CM. 17:00:00 DM out after handoff report to BL 17:01:14 HR=73 bpm, GPNL=162/54 mmhg, SpO2=99.0 % After removing the current catheter a JL 4.5 INFINITI CATHETER FR 5 was advanced over a WIRE, EXCHANGE 260CM 17:03:38 3MMJ 260CM. 17:06:15 HR=74 bpm, FXPJ=922/66 mmhg, SpO2=98.0 % 17:09:37 The LCA was injected and visualized at various angles. OMNIPAQUE, 350 MG, 150ML 150ML use d. 17:11:10 HR=71 bpm, XANH=348/88 mmhg, SpO2=95.0 %, Resp=13 B/min 11/14/2017 6:22:43 PM Financial #: [id number] Patient Name: Lynne Centeno Study #: [id number] Initial MD: Tim Verduzco Date of : 1940 Study Date: 11/14/2017 17:16:58 HR=79 bpm, PCBH=198/60 mmhg After removing the current catheter a AL 1 INFINITI CATHETER FR 5 was advanced over a WIRE, EX CHANGE 260CM 17:19:22 3MMJ 260CM. 17:21:22 HR=89 bpm, STGA=432/58 mmhg Recorded Pressure: LV, SY=128, Condition=Condition 1 17:21:28 (Left Ventricle) LV 152/31/33 Recorded Pressure: LV, Ao, HR=79, Condition=Condition 1 17:21:54 (Left Ventricle) LV 145/17/29, (Aorta) Ao 135/62/94 17:25:08 Catheter was removed 17:25:30 Case End (Physician broke scrub) 17:26:50 HR=74 bpm, KYBZ=579/64 mmhg Assessment: Final Case, HR=71 BPM, LYCA=773/64 mmhg, Edema=None, Color=Normal, Skin = Warm, Dr y Right Pulses: Michel Ped=3, Femoral=3 17:26:50 Left Pulses: Michel Ped=3, Femoral=3, Radial=3 Neurological: State=Alert, Ox3 Respiration: Resp=14 B/min, SpO2=94 % 17:27:08 Catheter(s) removed without difficulty 17:27:10 Sheath removed; pressure applied to access site. 17:27:20 No case complications noted. 17:27:20 Cine recording checked. 17:27:21 Bedside Report will be given. 17:27:26 A Left Heart Cath was performed. 17:31:20 HR=73 bpm, QLMP=492/64 mmhg, Pain=0, Alexandra=10, Charles=2 17:32:29 Vitals capture stopped. 17:53:24 Patient moved to stretcher 17:53:27 held manual pressure and re positioned tr band Radial Compression Device Used. 15 mLs of air placed in BAND, RADIAL COMPRESSION TR SHORT 24 2 4CM. Affected 17:55:59 hand 100 % O2 saturation. 18:00:56 Patient moved to stretcher and transported to DOCU by and Jez. Report given to JR at be dside. Recorded Pressures: Condition 1 Time Chamber Pressure Manual Override (*) 16:44:43 Ao 80/43/60 s/d/m 17:21:28 LV 152/31/33 s/bd/ed 17:21:54 LV 145/17/29 s/bd/ed 17:21:54 Ao 135/62/94 s/d/m 11/14/2017 6:22:43 PM Financial #: [id number] Patient Name: Lynne Centeno Study #: [id number] Initial MD: Tim Verduzco Date of : 1940 Study Date: 11/14/2017 End Study - Contrast Media Used In Study Contrast Total Opened (mL) Total Used (mL) Total Wasted (mL) Omnipaque 85 85 0 End Study - Maximum Contrast Load Max Contrast Load (mL) 325.4 End Study - Radiation Exposure Fluoro Time (minutes) 12.2 End Study - Patient Disposition Complications Transferred To Interventional Outcome No Critical Care Bed No attempt made 11/14/2017 6:22:43 PM Financial #: [id number]
[2017-11-14] MEDS ORDERED: Famotidine PF Inj 20 MG/2 ML Vial ONE (18:25)
--- NOTE | 2017-11-14 18:44 | MA ---
cc: Tim Verduzco MD DATE: 11/14/2017 REFERRING PHYSICIAN: King Penn MD PREPROCEDURE DIAGNOSES: 1. Depressed ejection fraction. 2. Reported history of coronary artery disease, status post coronary artery bypass grafting. POSTPROCEDURE DIAGNOSIS: Normal takeoff of coronary arteries with nonobstructive disease. INDICATION FOR PROCEDURE: In brief, Ms. Lynne Centeno is a very pleasant 77-year-old female. She was recently diagnosed with new onset systolic heart failure and subsequently coronary angiogram was performed to evaluate for ischemic causes of a depressed ejection fraction. Please see consultation note for further details. DESCRIPTION OF PROCEDURE: After description of risks, benefits, and alternatives, the patient signed informed consent. She was brought to the catheterization suite table in a fasting nonsedated state. She was sterilely prepped and draped in usual fashion, sedated with IV fentanyl and midazolam; 1% lidocaine solution was used for local anesthesia and a 6-Omani guide sheath was placed into the left radial artery using modified Seldinger technique. The patient reportedly had a history of coronary artery disease, status post coronary artery bypass grafting. Therefore, our thoughts were that she may have a MATIAS to the LAD. Her MAITAS was selectively engaged with a 5-Omani BEBETO catheter. However, after intracoronary contrast dye injection, it appeared as though the BEBETO was in its proper anatomic origin supplying its proper anatomic chest wall. There were no records available for review at the time of the angiogram. We selectively engaged the left internal mammary with a 5-Omani BEBETO catheter. After intracoronary contrast dye injection, it was apparent that the internal mammary artery was not a bypass graft and it supplied its normal anatomic territory. We then exchanged for JR4 Dexterity catheter, which was used to engage the right coronary artery. Images were obtained after intracoronary contrast dye injection. We then used a JL5 to engage the left main coronary artery. Images were obtained after intracoronary contrast dye injection. FINDINGS: 1. Right coronary artery: Right coronary artery is a dominant vessel that appears in its normal anatomical origin. It is dominant and gives rise to a posterior descending and posterolateral artery. It is anatomically free of significant disease. There are minimal luminal irregularities. 2. Left main: The left main is a moderate caliber vessel bifurcating into the left anterior descending artery and left circumflex artery. This vessel is angiographically free of significant disease. 3. Left circumflex: The left circumflex is a large caliber vessel that courses distally to wrap around the apex, gives rise to multiple obtuse marginal branches. This vessel is angiographically free of disease. There are minimal luminal irregularities. 4. Left anterior descending artery: The left anterior descending artery is a moderate caliber vessel that courses distally to wrap around the apex, giving rise to multiple diagonal branches. This vessel was angiographically free of disease. CONCLUSIONS: Although there was a reported history of coronary artery bypass grafting, the coronary arteries were present and in their appropriate normal anatomical origin. The patient has essentially normal coronary arteries without any evidence of blockages. This was discussed with Dr. Penn. She will likely be discharged tomorrow. Although there was a history of coronary artery bypass grafting, the right coronary artery and the left main appeared to originate from their normal anatomical areas of origin. We did attempt to find any bypass grafts; however, these were not found. As such, it leads me to believe that she has not had bypass grafting. It is possible she may have had a transposition of her coronary arteries. This does remain a possibility given the appearance of sternal wires. She does not have any coronary artery disease to suggest her depressed fraction. PLAN: The patient will be discharged, likely tomorrow after completing access site precautions. Thank you for allowing me to participate in the care of Ms. Lynne Centeno. Please feel free to contact us with any further questions regarding her care. MD CARLEY Honeycutt/VANITA , 06:15 PM , 06:26 PM
[2017-11-14] MEDS: Famotidine 20 MG Tablet PO SCH (21:27)
[2017-11-14] MEDS: Budesonide-Formoterol 160/4.5 MCG 6 GM Inhaler INH SCH ×2 (21:27→21:50)
[2017-11-15] MEDS: Temazepam 15 MG Capsule PO PRN (00:24)
[2017-11-15] MEDS: Insulin NovoLOG Aspart Correctional Sugar Inj SQ SCH ×3 (03:17→12:08)
[2017-11-15 06:30] LABS: Calcium 7.4 mg/dL (8.5-10.1); Carbon Dioxide 26.8 meq/L (21.0-32.0)
[2017-11-15 06:47] LABS: Total Protein 6.4 g/dL (6.4-8.2)
[2017-11-15] MEDS ORDERED: Iohexol 350 MG/ML 100 ML Vial (for Cath Lab) IVCONTRAST ONE (06:49)
--- NOTE | 2017-11-15 08:39 | P.PNIM ---
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 Patient reports that substernal pain continues, tender to palpation. It is evident that patient is pointing to sternotomy. She is referencing a "hernia", and is requesting surgery. I have explained to her that this sternal tenderness is secondary to sternotomy, not to hiatal hernia, and that any surgery would also not be safe at this time. Patient eventually conveys understanding. Physical Exam Vital signs: Vital Signs 11/14/17 09:00 11/14/17 12:00 11/14/17 16:00 Temperature 97.4 F L 97.6 F Pulse Rate 72 67 72 Respiratory Rate 18 18 Blood Pressure 121/57 L 116/59 L Pulse Oximetry 96 95 11/14/17 20:00 11/15/17 00:00 11/15/17 00:02 Temperature 97.5 F L 97.7 F Pulse Rate 72 73 74 Respiratory Rate 16 16 Blood Pressure 117/57 L 115/58 L Pulse Oximetry 95 95 11/15/17 04:00 11/15/17 04:08 Temperature 97.9 F Pulse Rate 74 66 Respiratory Rate 16 Blood Pressure 120/59 L Pulse Oximetry 94 L Intake & Output 11/14/17 11/15/17 11/15/17 18:59 06:59 18:59 Intake Total 500 / 500 550 / 550 Balance 500 / 500 550 / 550 Weight 79 kg Intake: IV 500 / 500 Heparin/NS PF Inj 1,500 ML @ 0 500 / 500 mls/hr .ROUTE .[email or web address] Rx#: [id number] Oral 0 / 0 550 / 550 Other: # Voids 5 10 Date of Last Bowel Movement 11/05/17 11/15/17 # Bowel Movements 0 3 Narrative: GENERAL: Patient sitting up in bed. Appears comfortable. SKIN: Warm and dry. HEAD: Normocephalic. EYES: No scleral icterus. No injection or drainage. NECK: Supple, trachea midline. No JVD. CARDIOVASCULAR: Regular rate and rhythm without murmurs, gallops, or rubs. Sternum tender to palpation no redness or broken skin. RESPIRATORY: Breath sounds equal bilaterally. No accessory muscle use. GASTROINTESTINAL: Abdomen soft, non-tender, nondistended. MUSCULOSKELETAL: No cyanosis, or edema. BACK: Nontender without obvious deformity. No CVA tenderness. Results - Labs CBC & Chem 7: 11/08/17 06:57 11/15/17 05:38 Laboratory Results - last 24 hr 11/14/17 11/14/17 11/14/17 08:27 12:06 12:25 Sodium 137 Potassium 4.9 D Chloride 99 Carbon Dioxide 31.0 Anion Gap 7 BUN 45 H Creatinine 1.20 H Estimated GFR 44 L POC Glucose 143 H 132 H Random Glucose 119 H Calcium 7.9 L Prot Corrected Calcium Total Protein 11/14/17 11/15/17 11/15/17 21:33 00:25 05:38 Sodium 136 Potassium 5.0 Chloride 100 Carbon Dioxide 26.8 Anion Gap 9 BUN 48 H Creatinine 1.25 H Estimated GFR 42 L POC Glucose 234 H 279 H Random Glucose 144 H Calcium 7.4 L* Prot Corrected Calcium 7.8 L Total Protein 6.4 D 11/15/17 07:54 Sodium Potassium Chloride Carbon Dioxide Anion Gap BUN Creatinine Estimated GFR POC Glucose 150 H Random Glucose Calcium Prot Corrected Calcium Total Protein Assessment and Plan - Assessment (1) Asthma exacerbation in COPD Code(s): J44.1 - Chronic obstructive pulmonary disease with (acute) exacerbation ; J45.901 - Unspecified asthma with (acute) exacerbation Status: Acute (2) CHF (congestive heart failure) Code(s): I50.9 - Heart failure, unspecified Status: Acute - Plan Ms. Centeno is a 77 yo F with PMH CAD, CHF, obstructive lung disease who presents with shortness of breath, chest pain, and epigastric pain: //Suspect acute on chronic systolic heart failure -Lasix 40 mg IV twice daily and then transition back down to 40 mg daily once stabilized after today -Continue lisinopril, -p.o. Lasix - spironolactone = Cardiac catheterization with clean coronaries. = It is likely that decreased ejection fraction is secondary to blood pressure, mitral valve regurgitation. = We will continue on p.o. Lasix, coreg, spironolactone. Discontinue potassium supplementation. Fluid restrictions, daily weights. Follow with cardiology. //Chest pain //Costochondritis. -Cardiac catheterization negative for coronary stenosis. Is pretty obvious on exam that patient's pain is costochondritis secondary to previous sternotomy. We can try Lidoderm patch. //odynophagia -Negative barium swallow, negative EGD for any strictures, likely acid reflux based //Acid reflux -EGD showing esophagitis and gastritis, hiatal hernia. continue Protonix .minimize NSAIDs //CTA- no PE, small pleural effusions; moderate cardiomegaly // possiblebronchitis - clinically resolved -tapering po steroids -duonebs prn, ICS = We will taper steroids. //Hypocalcemia- PO Chronic conditions- continue chronic pain control with home medications Discharge Planning: Discharge to SNF when arrangements made Pending cardiology clearance. (2) CHF (congestive heart failure) Qualifiers: Heart failure type: systolic Heart failure chronicity: unspecified Qualified Code(s): I50.20 - Unspecified systolic (congestive) heart failure
--- NOTE | 2017-11-15 08:44 | P.DS ---
Date of admission: 11/06/17 16:48 Primary care physician: UNKNOWN Brief History from admission: Patient is a 77-year-old female with a history of asthma, diabetes mellitus, hypertension, GERD, coronary artery disease status post CABG, who presented to the emergency department for worsening shortness of breath and chest pain. This is had a gradual onset. Patient has had exertion for the past couple days she also has had some chills and some sweats. She has had a cough that has been nonproductive. She denies any history of smoking. States she has some lightheadedness. She denies any headaches or any dizziness has had the chest pain denies any palpitation denies any nausea denies any vomiting denies has been taking medications. His been using her nebulizers that do not help. Is not on oxygen at home Patient will be admitted was found to be in mild congestive heart failure will be diuresed will consult cardiology we will get echoes and trend troponins and diurese her with Lasix. DS: Diagnosis - Discharge Diagnosis (1) Asthma exacerbation in COPD Status: Acute (2) CHF (congestive heart failure) Status: Acute DS: Summary Hospital Course: Patient presented with mild vascular congestion on chest x-ray, BNP above 1000. Shortness of breath improved with duo nebs, diuresis. Echocardiogram performed shows ejection fraction 2025%, mitral valve regurgitation. Cardiology was consulted. Myocardial perfusion scan abnormal. Please see report. However, cardiac catheterization done and shows clean coronaries. Why patient had median sternotomy in the past. Patient will be instituted on beta- matty, JHON inhibitor, diuretics, will follow up with cardiology as outpatient. Patient underwent EGD which shows gastritis which was biopsied and biopsies still pending. EGD also showed hiatal hernia. Patient will need follow-up with GI as outpatient Patient pain is reproducible with palpation of sternum, and is almost certainly secondary to costochondritis secondary to previous median sternotomy. For problem based summary from most recent progress note, please see below. Ms. Centeno is a 77 yo F with PMH CAD, CHF, obstructive lung disease who presents with shortness of breath, chest pain, and epigastric pain: //Suspect acute on chronic systolic heart failure -Lasix 40 mg IV twice daily and then transition back down to 40 mg daily once stabilized after today -Continue lisinopril, -p.o. Lasix - spironolactone = Cardiac catheterization with clean coronaries. = It is likely that decreased ejection fraction is secondary to blood pressure, mitral valve regurgitation. = We will continue on p.o. Lasix, coreg, spironolactone. Discontinue potassium supplementation. Fluid restrictions, daily weights. Follow with cardiology. //Chest pain //Costochondritis. -Cardiac catheterization negative for coronary stenosis. Is pretty obvious on exam that patient's pain is costochondritis secondary to previous sternotomy. We can try Lidoderm patch. //odynophagia -Negative barium swallow, negative EGD for any strictures, likely acid reflux based //Acid reflux -EGD showing esophagitis and gastritis, hiatal hernia. continue Protonix .minimize NSAIDs //CTA- no PE, small pleural effusions; moderate cardiomegaly // possiblebronchitis - clinically resolved -tapering po steroids -duonebs prn, ICS = We will taper steroids. //Hypocalcemia- PO Chronic conditions- continue chronic pain control with home medications - Time Spent with Patient Total time spent providing and/or coordinating discharge services: Greater than 30 minutes - Quality: VTE Deep Vein Thrombosis/Pulmonary Embolism Present on Admission: No Exam Vital signs: Vital Signs 11/14/17 09:00 11/14/17 12:00 11/14/17 16:00 Temperature 97.4 F L 97.6 F Pulse Rate 72 67 72 Respiratory Rate 18 18 Blood Pressure 121/57 L 116/59 L Pulse Oximetry 96 95 11/14/17 20:00 11/15/17 00:00 11/15/17 00:02 Temperature 97.5 F L 97.7 F Pulse Rate 72 73 74 Respiratory Rate 16 16 Blood Pressure 117/57 L 115/58 L Pulse Oximetry 95 95 11/15/17 04:00 11/15/17 04:08 11/15/17 08:00 Temperature 97.9 F 97.2 F L Pulse Rate 74 66 68 Respiratory Rate 16 16 Blood Pressure 120/59 L 108/57 L Pulse Oximetry 94 L 94 L Intake & Output 11/14/17 11/15/17 11/15/17 18:59 06:59 18:59 Intake Total 500 / 500 550 / 550 Balance 500 / 500 550 / 550 Weight 79 kg Intake: IV 500 / 500 Heparin/NS PF Inj 1,500 ML @ 0 500 / 500 mls/hr .ROUTE [facility] Rx#: [id number] Oral 0 / 0 550 / 550 Other: # Voids 5 10 Date of Last Bowel Movement 11/05/17 11/15/17 # Bowel Movements 0 3 Results Procedures completed during hospitalization: Cardiac catheterization. Please see report EGD. Please see report. Completed studies during hospitalization: Pending at discharge 11/12/17 14:50 Surgical [PTH] Routine Labs on day of discharge: Labs from last 24 hours 11/15/17 11/15/17 11/15/17 07:54 05:38 00:25 Sodium 136 Potassium 5.0 Chloride 100 Carbon Dioxide 26.8 Anion Gap 9 BUN 48 H Creatinine 1.25 H Estimated GFR 42 L POC Glucose 150 H 279 H Random Glucose 144 H Calcium 7.4 L* Prot Corrected Calcium 7.8 L Total Protein 6.4 D 11/14/17 11/14/17 11/14/17 21:33 12:25 12:06 Sodium 137 Potassium 4.9 D Chloride 99 Carbon Dioxide 31.0 Anion Gap 7 BUN 45 H Creatinine 1.20 H Estimated GFR 44 L POC Glucose 234 H 132 H Random Glucose 119 H Calcium 7.9 L Prot Corrected Calcium Total Protein 11/14/17 08:27 Sodium Potassium Chloride Carbon Dioxide Anion Gap BUN Creatinine Estimated GFR POC Glucose 143 H Random Glucose Calcium Prot Corrected Calcium Total Protein - Impressions ITS Impressions Chest CTA 11/06/17 15:09 CONCLUSION: Barium Swallow X-Ray 11/09/17 00:00 CONCLUSION: Unremarkable barium swallow. Myocardial Perfusion Scan Nuc Med 11/09/17 06:00 CONCLUSION: 1. There appears to be moderate degree of ischemia in the anterolateral wall, lateral wall. Slightly limited examination since part of the findings could be exaggerated by breast attenuation artifact. Abdomen/Pelvis CT 11/12/17 00:00 CONCLUSION: 1. Stable exam since May. No acute findings. 2. Nonacute findings include stable ventral abdominal wall hernia containing only fat, moderate size hiatal hernia, bilateral renal cysts, and degenerative change of the spine. Chest X-Ray 11/13/17 00:00 CONCLUSION: Negative examination. Discharge Plan - Discharge Disposition Patient Disposition: Discharge to SNF - Discharge Condition Condition: Good - Discharge Order Discharge Orders: Discharge Order (Routine); Ordered 11/15/17 Ordered By: Nathaniel Quevedo - Discharge Details Anticipated Discharge Date: 11/15/17 - Physicians Team Primary Care Provider: UNKNOWN, Attending Provider: Nathaniel Quevedo Other Providers: iTm Verduzco MD ; [facility] ; Rosa Elena Vivar ; [facility] ; Manuel Ruiz MD
[2017-11-15] MEDS ORDERED: Lidocaine 5% Patch T-DERMAL ONE (09:00)
[2017-11-15] MEDS: Spironolactone 25 MG Tablet PO SCH (10:37)
[2017-11-15] MEDS: Senna/Docusate Sodium 8.6/50 MG Tablet PO SCH (10:37)
[2017-11-15] MEDS: predniSONE 10 MG Tablet PO SCH (10:38)
[2017-11-15] MEDS: guaiFENesin 600 MG ER Tablet PO SCH (10:38)
[2017-11-15] MEDS: Budesonide-Formoterol 160/4.5 MCG 6 GM Inhaler INH SCH (10:43)
== END 2017-11-15 16:22 ==
LOC: NEPE 13:44 → NEDA 16:48 → N07 20:46
PROVIDERS: ADMIT Internal Medicine; ATTEND Internal Medicine

== ENCOUNTER 2018-03-16 21:29 | Inpatient (IN) ==
[2018-03-16 22:04] LABS: Hemoglobin 7.5 gm/dL (11.6-15.3); Mean Corpuscular HGB Conc 32.6 % (32.0-36.0); Mean Corpuscular Hemoglobin 26.3 pg (27.0-34.0); Mean Corpuscular Volume 80.7 fL (80.0-100.0); Mean Platelet Volume 11.8 fL (7.0-11.0); Platelet Count 122 th/mm3 (150-450); Red Blood Count 2.85 mil/mm3 (4.00-5.30); Red Cell Distribution Width 15.1 % (11.6-17.2); White Blood Count 9.8 th/mm3 (4.0-11.0)
[2018-03-16] MEDS ORDERED: MethylPREDNISolone Sod Succinate Inj 125 MG/2 ML Vial IV.PUSH ONE (22:06)
--- NOTE | 2018-03-16 22:13 | XR ---
EXAM DATE: 03/16/2018 10:07 PM EST AGE/SEX: 77 years / Female INDICATIONS: Chest pain CLINICAL DATA: This is the patient's initial encounter. Patient reports that signs and symptoms have been present for 1 day and indicates a pain score of 0/10. MEDICAL/SURGICAL HISTORY: . Cardiovascular disease. Gastroesophageal reflux disease. Diabetes. . CABG. Cholecystectomy. Appendectomy. COMPARISON: [facility] – [place], CHEST 1V SINGLE AP, 12/31/2017. . FINDINGS: Postoperative features of prior CABG. Mild diffuse interstitial prominence with indistinct central pu lmonary vascularity. Cardiac silhouette is enlarged. Remainder of the exam is unchanged. CONCLUSION: 1. Cardiomegaly with mild pulmonary vascular congestion. Electronically signed by: Suresh Raymundo MD 03/16/2018 10:12 PM EST
[2018-03-16 22:44] LABS: Albumin 3.6 g/dL (3.4-5.0); Calcium 7.3 mg/dL (8.5-10.1); Carbon Dioxide 20.8 meq/L (21.0-32.0); Potassium 5.1 meq/L (3.5-5.1); Troponin I 0.08 ng/mL (0.02-0.05)
[2018-03-16 22:58] LABS: Activated Partial Thrombo Time 26.7 sec (23.4-31.7); INR 1.3 Ratio; Prothrombin Time 13.3 sec (9.8-11.6)
[2018-03-16] MEDS ORDERED: Bisacodyl 10 MG Supp RECTAL PRN (23:32)
--- NOTE | 2018-03-16 23:32 | ED ---
HPI General Chief complaint: Respiratory Symptoms Stated complaint: Respitory Time Seen by Provider: 03/16/18 21:48 Source: patient and EMS Mode of arrival: EMS Limitations: no limitations History of Present Illness HPI narrative: 77-year-old female that presents to the ED for evaluation of shortness of breath and chest pain as well as bleeding from the rectum. Per patient she has been short of breath for the past 4-5 days. Per patient she has a significant history of heart disease and states that she had surgery of her heart done last time she had this she had fluid in her lung and this feels similar to that. Per patient his shortness of breath is with exertion. Denies any urinary or bowel movement issues other than noting that she has been having diarrhea with red blood as well as dark stools. She states that she is also having epigastric abdominal pain. Has not seen anybody for this. States that the shortness of breath has progressively getting worse. She does have a history of COPD and uses albuterol as well as per patient oxygen. She states that this has not improved her symptoms and this is why she called the back to come here. She states that currently her pain is 6 out of 10. No fevers chills or sweats. No cough or runny nose. No leg swelling. Related Data Home Medications Medication Instructions Recorded Confirmed albuterol sulfate [Ventolin HFA] 2 puff INHALATION Q6H PRN MDD 8 11/06/17 puffs budesonide-formoterol [Symbicort] 2 puff INHALATION BID 11/06/17 03/16/18 aspirin 325 mg PO DAILY 12/31/17 03/16/18 bupropion HCl 150 mg PO BID 12/31/17 03/16/18 escitalopram oxalate 20 mg PO DAILY 12/31/17 03/16/18 ezetimibe 10 mg PO DAILY 12/31/17 03/16/18 montelukast 10 mg PO QPM 12/31/17 03/16/18 omeprazole 20 mg PO DAILY 12/31/17 03/16/18 Previous Rx's Medication Instructions Recorded calcium carbonate [Oyster Shell 500 mg PO BID #14 tab 03/21/18 Calcium 500] carvedilol [Coreg] 3.125 mg PO BID #60 tab 03/21/18 magnesium oxide 400 mg PO BID #14 tab 03/21/18 meclizine 25 mg PO BID PRN #60 tab 03/21/18 Allergies Allergy/AdvReac Type Severity Reaction Status Date / Time Penicillins Allergy Severe Hives Verified 03/16/18 21:37 acetaminophen Allergy Intermediate Chills Verified 03/16/18 21:37 aminophylline Allergy Intermediate Hives Verified 03/16/18 21:37 amoxicillin Allergy Intermediate Hives Verified 03/16/18 21:37 Fish Containing Products Allergy Intermediate Hives Verified 03/16/18 21:37 shellfish derived Allergy Intermediate Hives Verified 03/16/18 21:37 hydrocodone AdvReac Intermediate Sedation Verified 03/16/18 21:37 tramadol AdvReac Intermediate hallucinati Verified 03/16/18 21:37 ons Review of Systems ROS: all other systems reviewed are negative [facility] Medical History Medical History GERD (gastroesophageal reflux disease) (Acute) Coronary artery disease (Acute) Cervical vertebral fusion (Acute) Diabetes mellitus (Acute) Myocardial infarct, old (Acute) Hypertension (Acute) Asthma (Acute) Surgical History Surgical History History of coronary artery bypass graft (Acute) History of cholecystectomy (Acute) History of appendectomy (Acute) Family History Family History Other Family history of diabetes mellitus Family history of hypertension Social History Social History Substance History: No History of Abuse Second Hand Smoke Exposure: No Smoking Status: Never smoker Tobacco Type: Cigarettes How Often Do You Have a Drink Containing Alcohol: Never Hx Recent Travel: No Recent Travel in [facility] within the Last 8 Weeks: No Recent Out of Country Travel within the Last 8 Weeks: No Immunization History Tetanus Immunization: Unsure Exam Narrative Exam Narrative: GENERAL: Well appearing SKIN: Focused skin assessment warm/dry. HEAD: Atraumatic. Normocephalic. EYES: Pupils equal and round. No scleral icterus. No injection or drainage. ENT: No nasal bleeding or discharge. Mucous membranes pink and moist. Tongue is midline. No uvula deviation. NECK: Trachea midline. No JVD. CARDIOVASCULAR: Regular rate and rhythm. No murmur appreciated. RESPIRATORY: No accessory muscle use. Wheezing and rhonchi heard especially in the lower lung royal. Breath sounds equal bilaterally. GASTROINTESTINAL: Abdomen soft, tender to touch in the epigastric area of the abdomen as well as the mid abdomen, nondistended. Hepatic and splenic margins not palpable. MUSCULOSKELETAL: No obvious deformities. No clubbing. No cyanosis. No edema. Full range of motion of the upper and lower extremities bilaterally. 2+ pulses bilaterally. NEUROLOGICAL: Awake and alert. No obvious cranial nerve deficits. Motor grossly within normal limits. Normal speech. PSYCHIATRIC: Appropriate mood and affect; insight and judgment normal. Course Initial Documented Vital Signs Temperature 98.0 F 03/16/18 21:33 Pulse Rate 100 H 03/16/18 21:33 Respiratory Rate 26 H 03/16/18 21:33 Blood Pressure 193/77 H 03/16/18 21:33 Pulse Oximetry 85 L 03/16/18 21:33 Last Documented Vital Signs Temperature 97.7 F 03/21/18 12:00 Pulse Rate 88 03/21/18 12:00 Respiratory Rate 17 03/21/18 12:00 Blood Pressure 118/60 03/21/18 12:00 Pulse Oximetry 96 03/21/18 12:00 Medical Decision Making MEREDITH Attestation MEREDITH supervised visit: Yes Attestation: 77-year-old female came to the emergency room with history of progressive shortness of breath, chest pain for 4 days and GI bleed since yesterday. Patient has history of CABG in the past. She is not on any blood thinners. She was seen by my p.m. supervising him. Blood test results are suggestive of ACS and anemia. 2 units of PRBC transfusion has been ordered. I ordered a Protonix bolus and drip based on the positive Hemoccult. Case was discussed with the hospitalist and patient is admitted to the [facility]. 12:14 AM patient was having continuous chest discomfort and a repeat EKG was ordered. The repeat EKG was evaluated by me. Normal sinus rhythm, left axis deviation, nonspecific ST-T wave changes, unchanged from last EKG. Heart rate of 94 bpm MDM Narrative Medical decision making narrative: 77-year-old female that presents to the ED for evaluation of shortness of breath with exertion and GI bleed. Patient was properly examined and was found to have signs and symptoms sending for GI bleed with what appears to be also likely CHF exacerbation. Labs and imaging were ordered. Labs and imaging were positive for Hemoccult as well as anemia. Patient has a positive troponin. Some fluid in the lung noted. At this time recommendations for admission for further evaluation and treatment. Blood was ordered by me. Lasix was ordered by me. Patient was started on Protonix as well. case signed out to my attending Dr Gama who spoke with Dr Sales who agrees to admission to her service. Medical Screen Exam Complete: Yes Emergency Medical Condition: Yes Differential Diagnosis Differential Diagnosis: CHF exacerbation versus COPD exacerbation versus GI bleed versus ACS versus shortness of breath with exertion Medical Records Medical records reviewed: Yes I reviewed the patient's medical records. Lab Data Lab results reviewed: Yes I reviewed the patient's lab results. Result diagrams: 03/19/18 05:00 03/21/18 06:06 Lab Results 03/16/18 03/16/18 03/16/18 Range/Units 21:54 21:54 21:54 WBC 9.8 (4.0-11.0) th/mm3 RBC 2.85 L (4.00-5.30) mil/mm3 Hgb 7.5 L (11.6-15.3) gm/dL Hct 23.0 L (35.0-46.0) % MCV 80.7 (80.0-100.0) fL MCH 26.3 L (27.0-34.0) pg MCHC 32.6 (32.0-36.0) % RDW 15.1 (11.6-17.2) % Plt Count 122 L (150-450) th/mm3 MPV 11.8 H (7.0-11.0) fL Prelim Diff (Auto) Neut % (Auto) (16.0-70.0) % Lymph % (Auto) (9.0-44.0) % Clayton % (Auto) (0.0-8.0) % Eos % (Auto) (0.0-4.0) % Baso % (Auto) (0.0-2.0) % Neut # (Auto) (1.8-7.7) th/mm3 Lymph # (Auto) (1.0-4.8) th/mm3 Clayton # (Auto) (0.0-0.9) th/mm3 Eos # (Auto) (0.0-0.4) th/mm3 Baso # (Auto) (0.0-0.2) th/mm3 WBC Differential Diff Scan Differential Comment Platelet Estimate (Normal) Platelet Morphology (Normal) PT (9.8-11.6) sec INR Ratio APTT (23.4-31.7) sec Sodium 128 L (136-145) meq/L Potassium 5.1 (3.5-5.1) meq/L Chloride 97 L (98-107) meq/L Carbon Dioxide 20.8 L (21.0-32.0) meq/L Anion Gap 10 (5-15) meq/L BUN 28 H (7-18) mg/dL Creatinine 1.77 H (0.50-1.00) mg/dL Estimated GFR 28 L (>89) mL/min POC Glucose (68-110) mg/dl Random Glucose 132 H (74-106) mg/dL Calcium 7.3 L* (8.5-10.1) mg/dL Calcium Adj for Albumin 7.4 L* (8.5-10.1) mg/dL Magnesium (1.5-2.5) mg/dL Total Bilirubin 0.7 (0.2-1.0) mg/dL AST 59 H (15-37) U/L ALT 64 H (10-53) U/L Alkaline Phosphatase 84 (45-117) U/L Total Creatine Kinase (26-192) U/L CK-MB (CK-2) (0.5-3.6) ng/mL CK-MB (CK-2) % (0.0-4.0) % Troponin I 0.08 H (0.02-0.05) ng/mL B-Natriuretic Peptide (0-100) pg/mL Total Protein 7.0 (6.4-8.2) g/dL Albumin 3.6 (3.4-5.0) g/dL Nasal Screen MRSA (PCR) (Negative) Blood Type O Positive Blood Type Recheck Required Antibody Screen Negative MTS Gel Crossmatch 03/16/18 03/16/18 03/16/18 Range/Units 21:59 22:20 22:20 WBC (4.0-11.0) th/mm3 RBC (4.00-5.30) mil/mm3 Hgb (11.6-15.3) gm/dL Hct (35.0-46.0) % MCV (80.0-100.0) fL MCH (27.0-34.0) pg MCHC (32.0-36.0) % RDW (11.6-17.2) % Plt Count (150-450) th/mm3 MPV (7.0-11.0) fL Prelim Diff (Auto) Neut % (Auto) (16.0-70.0) % Lymph % (Auto) (9.0-44.0) % Clayton % (Auto) (0.0-8.0) % Eos % (Auto) (0.0-4.0) % Baso % (Auto) (0.0-2.0) % Neut # (Auto) (1.8-7.7) th/mm3 Lymph # (Auto) (1.0-4.8) th/mm3 Clayton # (Auto) (0.0-0.9) th/mm3 Eos # (Auto) (0.0-0.4) th/mm3 Baso # (Auto) (0.0-0.2) th/mm3 WBC Differential Diff Scan Differential Comment Platelet Estimate (Normal) Platelet Morphology (Normal) PT 13.3 H (9.8-11.6) sec INR 1.3 Ratio APTT 26.7 (23.4-31.7) sec Sodium (136-145) meq/L Potassium (3.5-5.1) meq/L Chloride (98-107) meq/L Carbon Dioxide (21.0-32.0) meq/L Anion Gap (5-15) meq/L BUN (7-18) mg/dL Creatinine (0.50-1.00) mg/dL Estimated GFR (>89) mL/min POC Glucose (68-110) mg/dl Random Glucose (74-106) mg/dL Calcium (8.5-10.1) mg/dL Calcium Adj for Albumin (8.5-10.1) mg/dL Magnesium 1.8 (1.5-2.5) mg/dL Total Bilirubin (0.2-1.0) mg/dL AST (15-37) U/L ALT (10-53) U/L Alkaline Phosphatase (45-117) U/L Total Creatine Kinase 415 H (26-192) U/L CK-MB (CK-2) 5.1 H (0.5-3.6) ng/mL CK-MB (CK-2) % 1.2 (0.0-4.0) % Troponin I (0.02-0.05) ng/mL B-Natriuretic Peptide 1457 H (0-100) pg/mL Total Protein (6.4-8.2) g/dL Albumin (3.4-5.0) g/dL Nasal Screen MRSA (PCR) (Negative) Blood Type Blood Type Recheck Antibody Screen MTS Gel Crossmatch 03/16/18 03/17/18 03/17/18 Range/Units 22:33 00:35 01:17 WBC (4.0-11.0) th/mm3 RBC (4.00-5.30) mil/mm3 Hgb (11.6-15.3) gm/dL Hct (35.0-46.0) % MCV (80.0-100.0) fL MCH (27.0-34.0) pg MCHC (32.0-36.0) % RDW (11.6-17.2) % Plt Count (150-450) th/mm3 MPV (7.0-11.0) fL Prelim Diff (Auto) Neut % (Auto) (16.0-70.0) % Lymph % (Auto) (9.0-44.0) % Clayton % (Auto) (0.0-8.0) % Eos % (Auto) (0.0-4.0) % Baso % (Auto) (0.0-2.0) % Neut # (Auto) (1.8-7.7) th/mm3 Lymph # (Auto) (1.0-4.8) th/mm3 Clayton # (Auto) (0.0-0.9) th/mm3 Eos # (Auto) (0.0-0.4) th/mm3 Baso # (Auto) (0.0-0.2) th/mm3 WBC Differential Diff Scan Differential Comment Platelet Estimate (Normal) Platelet Morphology (Normal) PT (9.8-11.6) sec INR Ratio APTT (23.4-31.7) sec Sodium (136-145) meq/L Potassium (3.5-5.1) meq/L Chloride (98-107) meq/L Carbon Dioxide (21.0-32.0) meq/L Anion Gap (5-15) meq/L BUN (7-18) mg/dL Creatinine (0.50-1.00) mg/dL Estimated GFR (>89) mL/min POC Glucose 174 H (68-110) mg/dl Random Glucose (74-106) mg/dL Calcium (8.5-10.1) mg/dL Calcium Adj for Albumin (8.5-10.1) mg/dL Magnesium (1.5-2.5) mg/dL Total Bilirubin (0.2-1.0) mg/dL AST (15-37) U/L ALT (10-53) U/L Alkaline Phosphatase (45-117) U/L Total Creatine Kinase (26-192) U/L CK-MB (CK-2) (0.5-3.6) ng/mL CK-MB (CK-2) % (0.0-4.0) % Troponin I (0.02-0.05) ng/mL B-Natriuretic Peptide (0-100) pg/mL Total Protein (6.4-8.2) g/dL Albumin (3.4-5.0) g/dL Nasal Screen MRSA (PCR) Not detected (Negative) Blood Type Blood Type Recheck Antibody Screen MTS Gel Crossmatch See Detail 03/17/18 03/17/18 03/17/18 Range/Units 02:22 08:35 08:35 WBC 5.6 (4.0-11.0) th/mm3 RBC 3.46 L (4.00-5.30) mil/mm3 Hgb 9.4 L (11.6-15.3) gm/dL Hct 28.0 L (35.0-46.0) % MCV 80.7 (80.0-100.0) fL MCH 27.2 (27.0-34.0) pg MCHC 33.7 (32.0-36.0) % RDW 15.6 (11.6-17.2) % Plt Count 117 L (150-450) th/mm3 MPV 10.3 (7.0-11.0) fL Prelim Diff (Auto) Neut % (Auto) 91.1 H (16.0-70.0) % Lymph % (Auto) 7.1 L (9.0-44.0) % Clayton % (Auto) 1.8 (0.0-8.0) % Eos % (Auto) 0.0 (0.0-4.0) % Baso % (Auto) 0.0 (0.0-2.0) % Neut # (Auto) 5.1 (1.8-7.7) th/mm3 Lymph # (Auto) 0.4 L (1.0-4.8) th/mm3 Clayton # (Auto) 0.1 (0.0-0.9) th/mm3 Eos # (Auto) 0.0 (0.0-0.4) th/mm3 Baso # (Auto) 0.0 (0.0-0.2) th/mm3 WBC Differential . Diff Scan Differential Comment Auto diff final Platelet Estimate (Normal) Platelet Morphology (Normal) PT (9.8-11.6) sec INR Ratio APTT (23.4-31.7) sec Sodium 129 L (136-145) meq/L Potassium 4.5 (3.5-5.1) meq/L Chloride 98 (98-107) meq/L Carbon Dioxide 21.4 (21.0-32.0) meq/L Anion Gap 10 (5-15) meq/L BUN 37 H (7-18) mg/dL Creatinine 1.69 H (0.50-1.00) mg/dL Estimated GFR 29 L (>89) mL/min POC Glucose (68-110) mg/dl Random Glucose 177 H (74-106) mg/dL Calcium 7.7 L (8.5-10.1) mg/dL Calcium Adj for Albumin (8.5-10.1) mg/dL Magnesium (1.5-2.5) mg/dL Total Bilirubin 0.9 (0.2-1.0) mg/dL AST 59 H (15-37) U/L ALT 73 H (10-53) U/L Alkaline Phosphatase 88 (45-117) U/L Total Creatine Kinase (26-192) U/L CK-MB (CK-2) (0.5-3.6) ng/mL CK-MB (CK-2) % (0.0-4.0) % Troponin I 0.08 H (0.02-0.05) ng/mL B-Natriuretic Peptide (0-100) pg/mL Total Protein 7.3 (6.4-8.2) g/dL Albumin 3.7 (3.4-5.0) g/dL Nasal Screen MRSA (PCR) (Negative) Blood Type Blood Type Recheck Antibody Screen MTS Gel Crossmatch 03/17/18 03/18/18 03/18/18 Range/Units 08:35 06:54 06:54 WBC 10.9 D (4.0-11.0) th/mm3 RBC 3.41 L (4.00-5.30) mil/mm3 Hgb 9.2 L (11.6-15.3) gm/dL Hct 27.8 L (35.0-46.0) % MCV 81.4 (80.0-100.0) fL MCH 27.1 (27.0-34.0) pg MCHC 33.3 (32.0-36.0) % RDW 15.6 (11.6-17.2) % Plt Count 91 L (150-450) th/mm3 MPV 11.5 H (7.0-11.0) fL Prelim Diff (Auto) Slide review pending Neut % (Auto) 89.4 H (16.0-70.0) % Lymph % (Auto) 6.1 L (9.0-44.0) % Clayton % (Auto) 4.3 (0.0-8.0) % Eos % (Auto) 0.0 (0.0-4.0) % Baso % (Auto) 0.2 (0.0-2.0) % Neut # (Auto) 9.7 H (1.8-7.7) th/mm3 Lymph # (Auto) 0.7 L (1.0-4.8) th/mm3 Clayton # (Auto) 0.5 (0.0-0.9) th/mm3 Eos # (Auto) 0.0 (0.0-0.4) th/mm3 Baso # (Auto) 0.0 (0.0-0.2) th/mm3 WBC Differential . Diff Scan Auto diff confirmed Differential Comment . Platelet Estimate Low L (Normal) Platelet Morphology Enlarged H (Normal) PT (9.8-11.6) sec INR Ratio APTT (23.4-31.7) sec Sodium 133 L (136-145) meq/L Potassium 4.4 (3.5-5.1) meq/L Chloride 96 L (98-107) meq/L Carbon Dioxide 25.8 (21.0-32.0) meq/L Anion Gap 11 (5-15) meq/L BUN 56 H (7-18) mg/dL Creatinine 2.01 H (0.50-1.00) mg/dL Estimated GFR 24 L (>89) mL/min POC Glucose (68-110) mg/dl Random Glucose 116 H (74-106) mg/dL Calcium 7.2 L* (8.5-10.1) mg/dL Calcium Adj for Albumin 7.5 L (8.5-10.1) mg/dL Magnesium (1.5-2.5) mg/dL Total Bilirubin 0.4 (0.2-1.0) mg/dL AST 31 (15-37) U/L ALT 59 H (10-53) U/L Alkaline Phosphatase 79 (45-117) U/L Total Creatine Kinase 257 H (26-192) U/L CK-MB (CK-2) 4.7 H (0.5-3.6) ng/mL CK-MB (CK-2) % 1.8 (0.0-4.0) % Troponin I 0.08 H (0.02-0.05) ng/mL B-Natriuretic Peptide (0-100) pg/mL Total Protein 6.8 (6.4-8.2) g/dL Albumin 3.6 (3.4-5.0) g/dL Nasal Screen MRSA (PCR) (Negative) Blood Type Blood Type Recheck Antibody Screen MTS Gel Crossmatch 03/19/18 03/19/18 03/20/18 Range/Units 05:00 07:57 03:59 WBC 9.4 (4.0-11.0) th/mm3 RBC 3.72 L (4.00-5.30) mil/mm3 Hgb 10.0 L (11.6-15.3) gm/dL Hct 30.5 L (35.0-46.0) % MCV 81.9 (80.0-100.0) fL MCH 26.8 L (27.0-34.0) pg MCHC 32.7 (32.0-36.0) % RDW 15.9 (11.6-17.2) % Plt Count 79 L (150-450) th/mm3 MPV 12.2 H (7.0-11.0) fL Prelim Diff (Auto) Neut % (Auto) (16.0-70.0) % Lymph % (Auto) (9.0-44.0) % Clayton % (Auto) (0.0-8.0) % Eos % (Auto) (0.0-4.0) % Baso % (Auto) (0.0-2.0) % Neut # (Auto) (1.8-7.7) th/mm3 Lymph # (Auto) (1.0-4.8) th/mm3 Clayton # (Auto) (0.0-0.9) th/mm3 Eos # (Auto) (0.0-0.4) th/mm3 Baso # (Auto) (0.0-0.2) th/mm3 WBC Differential Diff Scan Differential Comment Platelet Estimate (Normal) Platelet Morphology (Normal) PT (9.8-11.6) sec INR Ratio APTT (23.4-31.7) sec Sodium 138 140 (136-145) meq/L Potassium 3.2 L D 3.5 (3.5-5.1) meq/L Chloride 100 99 (98-107) meq/L Carbon Dioxide 28.4 31.0 (21.0-32.0) meq/L Anion Gap 10 10 (5-15) meq/L BUN 52 H 38 H (7-18) mg/dL Creatinine 1.64 H 1.40 H (0.50-1.00) mg/dL Estimated GFR 30 L 37 L (>89) mL/min POC Glucose (68-110) mg/dl Random Glucose 76 83 (74-106) mg/dL Calcium 6.9 L* 6.9 L* (8.5-10.1) mg/dL Calcium Adj for Albumin 7.1 L* 7.5 L (8.5-10.1) mg/dL Magnesium 1.5 (1.5-2.5) mg/dL Total Bilirubin (0.2-1.0) mg/dL AST (15-37) U/L ALT (10-53) U/L Alkaline Phosphatase (45-117) U/L Total Creatine Kinase (26-192) U/L CK-MB (CK-2) (0.5-3.6) ng/mL CK-MB (CK-2) % (0.0-4.0) % Troponin I (0.02-0.05) ng/mL B-Natriuretic Peptide (0-100) pg/mL Total Protein (6.4-8.2) g/dL Albumin 3.7 3.3 L (3.4-5.0) g/dL Nasal Screen MRSA (PCR) (Negative) Blood Type Blood Type Recheck Antibody Screen MTS Gel Crossmatch 03/20/18 03/21/18 03/21/18 Range/Units 03:59 06:06 06:06 WBC (4.0-11.0) th/mm3 RBC (4.00-5.30) mil/mm3 Hgb (11.6-15.3) gm/dL Hct (35.0-46.0) % MCV (80.0-100.0) fL MCH (27.0-34.0) pg MCHC (32.0-36.0) % RDW (11.6-17.2) % Plt Count (150-450) th/mm3 MPV (7.0-11.0) fL Prelim Diff (Auto) Neut % (Auto) (16.0-70.0) % Lymph % (Auto) (9.0-44.0) % Clayton % (Auto) (0.0-8.0) % Eos % (Auto) (0.0-4.0) % Baso % (Auto) (0.0-2.0) % Neut # (Auto) (1.8-7.7) th/mm3 Lymph # (Auto) (1.0-4.8) th/mm3 Clayton # (Auto) (0.0-0.9) th/mm3 Eos # (Auto) (0.0-0.4) th/mm3 Baso # (Auto) (0.0-0.2) th/mm3 WBC Differential Diff Scan Differential Comment Platelet Estimate (Normal) Platelet Morphology (Normal) PT (9.8-11.6) sec INR Ratio APTT (23.4-31.7) sec Sodium 141 (136-145) meq/L Potassium 3.7 (3.5-5.1) meq/L Chloride 98 (98-107) meq/L Carbon Dioxide 34.2 H (21.0-32.0) meq/L Anion Gap 9 (5-15) meq/L BUN 33 H (7-18) mg/dL Creatinine 1.27 H (0.50-1.00) mg/dL Estimated GFR 41 L (>89) mL/min POC Glucose (68-110) mg/dl Random Glucose 116 H (74-106) mg/dL Calcium 6.5 L* (8.5-10.1) mg/dL Calcium Adj for Albumin 7.1 L* (8.5-10.1) mg/dL Magnesium 1.4 L (1.5-2.5) mg/dL Total Bilirubin (0.2-1.0) mg/dL AST (15-37) U/L ALT (10-53) U/L Alkaline Phosphatase (45-117) U/L Total Creatine Kinase (26-192) U/L CK-MB (CK-2) (0.5-3.6) ng/mL CK-MB (CK-2) % (0.0-4.0) % Troponin I (0.02-0.05) ng/mL B-Natriuretic Peptide 1975 H (0-100) pg/mL Total Protein (6.4-8.2) g/dL Albumin 3.3 L (3.4-5.0) g/dL Nasal Screen MRSA (PCR) (Negative) Blood Type Blood Type Recheck Antibody Screen MTS Gel Crossmatch Imaging Data Attestation: I personally reviewed and interpreted this imaging study as follows : Radiologist's impression: Chest X-Ray 03/16/18 21:49 CONCLUSION: 1. Cardiomegaly with mild pulmonary vascular congestion. Abdomen/Pelvis CT 03/16/18 23:30 CONCLUSION: 1. Study is degraded by breathing motion artifact. 2. New small bilateral pleural effusions with associated atelectasis. 3. Cardiomegaly. 4. No acute abnormality. Barium Swallow X-Ray 03/21/18 00:00 CONCLUSION: Dilatation of the esophagus that does empty in the right position with poor motility. No obvious obstructing mass identified. ECG Data Attestation: I personally reviewed and interpreted this ECG as follows: Interpretation: EKG shows sinus rhythm with no sign of acute ischemia and arrhythmia. Read By me and attending. Discharge Plan Discharge Disposition Patient Disposition: 30 Still Patient Discharge Order Discharge Orders: Discharge Order (Routine); Ordered 03/21/18 Ordered By: Casey Stanley ED Use Only Admit Order (Routine); Ordered 03/16/18 Ordered By: Jazmyne Gama Discharge Details Anticipated Discharge Date: 03/21/18 Diagnosis: Acute GI bleeding, CHF (congestive heart failure), Elevated troponin Physicians Team ED Provider: Jazmyne Gama ED Midlevel Provider: Lenny Baldwin Attending Provider: Casey Stanley Other Providers: Cb Vivar ; Rg Nguyễn Harsh V Status ED Status: Left Department Discharge Information Discharge Date/Time: 03/17/18 00:38
[2018-03-16] MEDS ORDERED: Pantoprazole Inj 80 MG in Sodium Chlor 0.9% Inj 35 ML IV.SIG ONE (23:37)
[2018-03-16] MEDS ORDERED: Pantoprazole Inj 80 MG in Sodium Chlor 0.9% Inj 100 ML IV.CONT SCH (23:45)
[2018-03-16] MEDS: Morphine Sulfate Inj 2 MG/ML Vial IV.PUSH PRN (23:55)
--- NOTE | 2018-03-17 00:38 | CT ---
EXAM DATE: 03/17/2018 12:29 AM EST AGE/SEX: 77 years / Female INDICATIONS: Abdominal pain. CLINICAL DATA: This is the patient's initial encounter. Patient reports that signs and symptoms have been present for 1 day and indicates a pain score of Nonresponsive. MEDICAL/SURGICAL HISTORY: Non-responsive. Non-responsive. RADIATION DOSE: 9.5 CTDI (mGy) COMPARISON: [facility], CT ABDOMEN AND PELVIS W/O CONTRAST, 02/27/2018. . TECHNIQUE: Multiple contiguous axial images were obtained through the abdomen. Images were obtained using multiple row detector helical technique. Using automated exposure control and adjustment of the mA and/or kV according to patient size, radiation dose was kept as low as reasonably achievable to o btain optimal diagnostic quality images. DICOM format image data is available electronically for rev iew and comparison. FINDINGS: This study is degraded by breathing motion artifact. Lower Lungs: Moderate cardiomegaly without pericardial effusion. Small posterior layering bilateral p leural effusions are new. Ligated pacer leads. Bibasilar passive atelectasis. Tiny hiatal hernia.. Liver: The liver has a homogeneous density without space-occupying lesion. There is no dilation of th e biliary tree. Gallbladder is either totally decompressed or surgically absent. Spleen: Homogeneous density without enlargement. Pancreas: Unremarkable without mass or calcification. Kidneys: Normal in size and shape. There is a 5.3 cm low-density lesion involving the posterior midp ole of the left kidney. Hounsfield units are 14. No evidence of mass or hydronephrosis. Adrenal Glands: Unremarkable. Aorta: Diffuse calcified atheromatous plaque without aneurysmal dilation. Bowel/Mesentery: Scattered small colonic diverticuli most pronounced within the sigmoid region. No ac cachil dehe inflammation. The bowel loops are grossly unremarkable. The cecum and sigmoid colon have a normal configuration. Abdominal Wall: There is a high ventral hernia containing omental fat.. Retroperitoneum: No evidence of adenopathy in the retrocrural, para-aortic, or deep pelvic regions. Bladder: Contours are smooth. Reproductive Organs: No abnormal masses or calcifications seen. Inguinal: The inguinal region is unremarkable without evidence of adenopathy. Bony Structures: A scoliotic and degenerative spine.. CONCLUSION: 1. Study is degraded by breathing motion artifact. 2. New small bilateral pleural effusions with associated atelectasis. 3. Cardiomegaly. 4. No acute abnormality. Electronically signed by: John Key MD 03/17/2018 12:37 AM EST
[2018-03-17 00:41] LABS: Magnesium 1.8 mg/dL (1.5-2.5)
--- NOTE | 2018-03-17 00:59 | P.HPIM ---
History of Present Illness Primary Care Physician: Liang Garcia History of Present Illness: This is a 77-year-old Persian-speaking female with a PMH of HTN, COPD, DM, CHF ( Echo 11/07/17 w/ EF 25-30%) and GERD who was brought to the ER for c/o chest pain , SOB and BRBPR. Pt reports chest pain has been ongoing for approx 3-4 days, now associated w/ SOB, especially w/ exertion. Denies fever, chills or sick contacts. Today w/ additional complaint of abdominal cramping pain and episode of BRBPR. On ASA and Meloxicam at home. On arrival, BP 193/77, HR 100, O2 sat 85% on RA, Afebrile. Hemoglobin 7.5, previously 9.5 on 12/31/2017. Platelets 122, previously 132 on 12/31/2017. INR 1.3. Creatinine 1.77, previously 1.57 on 12/31/2017. Troponin 0 0.08. BNP 1457 per CXR with pulmonary vascular congestion. S/p Lasix 40mg IV in ER. 2u pRBC ordered, pending transfusion. Currently chest pain free. CT Abd/Pelvis w/ new small bilateral effusions. - Diagnosis (1) GI bleed (2) CHF (congestive heart failure) (3) Hypoxia (4) Elevated troponin (5) Hypocalcemia (6) DM (diabetes mellitus) Inpatient Certification: I certify that the inpatient services were ordered in accordance with Medicare regulations governing the order. This includes certification that hospital inpatient services are reasonable and necessary and in the case of services not specified as inpatient-only under 42 CFR 419.22(n), that they are appropriately provided as inpatient services in accordance to with the 2-midnight benchmark under 43 CFR 412.3(e) Estimated Total Length of Stay (Days): 2 Plans for Post Hospital Care: Not yet determined Review of Systems PAST FAMILY HISTORY: Reviewed. Positive for DM. All other systems reviewed negative except as stated in HPI PMFSH - History History Provided By: Patient - Medical History Medical History: Medical History (Last Reviewed 03/16/18 @ 23:28 by ROCCO Edwards) GERD (gastroesophageal reflux disease) (Acute) Coronary artery disease (Acute) Cervical vertebral fusion (Acute) Diabetes mellitus (Acute) Myocardial infarct, old (Acute) Hypertension (Acute) Asthma (Acute) - Surgical History Surgical History: Surgical History (Last Reviewed 03/16/18 @ 23:28 by ROCCO Edwards) History of coronary artery bypass graft (Acute) History of cholecystectomy (Acute) History of appendectomy (Acute) - Family History Family History: Family History (Last Reviewed 03/16/18 @ 23:28 by ROCCO Edwards) Other Family history of diabetes mellitus Family history of hypertension - Tobacco History Second Hand Smoke Exposure: No Smoking Status: Never smoker Tobacco Type: Cigarettes - Alcohol History How Often Do You Have a Drink Containing Alcohol: Never - Substance Use History Substance History: No History of Abuse - Travel History History of Recent Travel: No Recent Travel in the [place] Within the Last 8 Weeks: No Recent Travel Out of the Country Within the Last 8 Weeks: No - Immunization History Tetanus Immunization: Unsure Medications and Allergies Active Medications: Active Medications Al Hydroxide/Mg Hydroxide (Milk Of Magnesia Liq) 30 ml PO Q12H PRN PRN Reason: Mild Constipation Albuterol (Duoneb Neb (Prn)) 1 ampul NEB Q4HR NEB PRN PRN Reason: SOB/WHEEZING Bisacodyl (Dulcolax Supp) 10 mg RECTAL DAILY PRN PRN Reason: SEVERE CONSITIPATION Chlorhexidine Gluconate (Chlorhexidine 2% Cloth) 3 pack TOPICAL DAILY@0400 PRN PRN Reason: Extra cloth needed Stop: 03/22/18 03:59 Chlorhexidine Gluconate (Chlorhexidine 2% Cloth) 3 pack TOPICAL DAILY@0400 ARIADNA Stop: 03/22/18 03:59 Furosemide (Lasix Inj) 40 mg IV.PUSH BID@0900,1800 [facility] Pantoprazole Sodium 80 mg/ (Sodium Chloride) 100 mls @ 10 mls/hr IV.CONT CONT ARIADNA Last Admin: 03/16/18 23:55 Dose: 10 mls/hr Lactulose (Lactulose Liq) 30 ml PO DAILY PRN PRN Reason: SEVERE CONSITIPATION Morphine Sulfate (Morphine Inj) 2 mg IV.PUSH Q4H PRN PRN Reason: PAIN 6-10 Last Admin: 03/16/18 23:55 Dose: 2 mg Ondansetron HCl (Zofran Inj) 4 mg IV.PUSH Q6H PRN PRN Reason: NAUSEA OR VOMITING Last Admin: 12/02/18 23:55 Dose: 4 mg Senna/Docusate Sodium (Sammi-Colace) 1 tab PO BID ARIADNA Sennosides (Senokot) 17.2 mg PO Q12H PRN PRN Reason: Moderate Constipation Sodium Chloride (Ns Flush) 2 ml IV.FLUSH BID ARIADNA Sodium Chloride (Ns Flush) 2 ml IV.FLUSH PRN PRN PRN Reason: FLUSH AFTER USING IV ACCESS Allergies Allergy/AdvReac Type Severity Reaction Status Date / Time Penicillins Allergy Severe Hives Verified 03/16/18 21:37 acetaminophen Allergy Intermediate Chills Verified 03/16/18 21:37 aminophylline Allergy Intermediate Hives Verified 03/16/18 21:37 amoxicillin Allergy Intermediate Hives Verified 03/16/18 21:37 Fish Containing Products Allergy Intermediate Hives Verified 03/16/18 21:37 shellfish derived Allergy Intermediate Hives Verified 03/16/18 21:37 hydrocodone AdvReac Intermediate Sedation Verified 03/16/18 21:37 tramadol AdvReac Intermediate hallucinati Verified 03/16/18 21:37 ons Home Medications Medication Instructions Recorded Confirmed Type albuterol sulfate [Ventolin HFA] 2 puff INHALATION Q6H PRN MDD 8 11/06/17 History puffs budesonide-formoterol [Symbicort] 2 puff INHALATION BID 11/06/17 03/16/18 History meclizine 25 mg PO BID PRN 11/06/17 03/16/18 History aspirin 325 mg PO DAILY 12/31/17 03/16/18 History bupropion HCl 150 mg PO BID 12/31/17 03/16/18 History enalapril maleate [Vasotec] 20 mg PO DAILY 12/31/17 03/16/18 History escitalopram oxalate 20 mg PO DAILY 12/31/17 03/16/18 History ezetimibe 10 mg PO DAILY 12/31/17 03/16/18 History losartan 50 mg PO DAILY 12/31/17 03/16/18 History meloxicam 15 mg PO DAILY 12/31/17 03/16/18 History metformin 500 mg PO BID 12/31/17 03/16/18 History montelukast 10 mg PO QPM 12/31/17 03/16/18 History omeprazole 20 mg PO DAILY 12/31/17 03/16/18 History spironolactone 25 mg PO DAILY 12/31/17 03/16/18 History Exam Vital signs: Vital Signs 03/16/18 21:33 03/16/18 21:40 03/16/18 22:16 Temperature 98.0 F Pulse Rate 100 H 97 H Respiratory Rate 26 H 18 Blood Pressure 193/77 H 182/82 H Pulse Oximetry 85 L 98 96 03/16/18 22:20 03/16/18 22:33 03/16/18 22:42 Temperature Pulse Rate 91 H 91 H 93 H Respiratory Rate 22 20 16 Blood Pressure 144/65 H Pulse Oximetry 97 99 03/16/18 23:00 03/16/18 23:52 03/16/18 23:56 Temperature 98.6 F Pulse Rate 99 H 95 H 95 H Respiratory Rate 20 24 Blood Pressure 144/65 H 134/63 Pulse Oximetry 98 98 03/17/18 00:14 Temperature 98.7 F Pulse Rate 94 H Respiratory Rate 22 Blood Pressure 137/64 Pulse Oximetry 96 Intake & Output 03/16/18 03/16/18 03/17/18 06:59 18:59 06:59 Intake Total 35 / 35 Balance 35 / 35 Weight 77.6 kg Intake: IV 35 / 35 Protonix Inj 80 MG In NS Inj 35 35 / 35 ML @ 420 mls/hr IV.SIG BOLUS ONE Rx#:[id number] Other: Weight On Admission 77.6 kg Narrative: PE: GENERAL: Elderly female in no acute distress. SKIN: Focused skin assessment warm and dry. HEENT: PERRLA, EOMI. No scleral icterus or conjunctival pallor. No lid lag or facial droop. CARDIOVASCULAR: Regular rate and rhythm. No obvious murmurs to auscultation. No chest tenderness to palpation. RESPIRATORY: No obvious rhonchi, occasional wheezing. Clear to auscultation. Breath sounds equal bilaterally. GASTROINTESTINAL: Abdomen soft, mild epigastric tenderness to palpation, nondistended. BS normal. MUSCULOSKELETAL: Extremities without clubbing, cyanosis, or edema. No obvious deformities. NEUROLOGICAL: Awake, alert and oriented x4. No focal neurologic deficits. Moving both upper and lower extremities spontaneously. PSYCHIATRIC: Appropriate mood and affect. Insight and judgment normal. Results - Labs CBC & Chem 7: 03/16/18 21:54 03/16/18 21:54 Labs: Short CBC 03/16/18 Range/Units 21:54 WBC 9.8 (4.0-11.0) th/mm3 Hgb 7.5 L (11.6-15.3) gm/dL Hct 23.0 L (35.0-46.0) % Plt Count 122 L (150-450) th/mm3 BMP 03/16/18 21:54 Sodium 128 L Potassium 5.1 Chloride 97 L Carbon Dioxide 20.8 L BUN 28 H Creatinine 1.77 H Calcium 7.3 L* Cardiac Enzymes 03/16/18 Range/Units 21:54 Troponin I 0.08 H (0.02-0.05) ng/mL Liver Function 03/16/18 Range/Units 21:54 Total Bilirubin 0.7 (0.2-1.0) mg/dL AST 59 H (15-37) U/L ALT 64 H (10-53) U/L Alkaline Phosphatase 84 (45-117) U/L Albumin 3.6 (3.4-5.0) g/dL - Imaging Impressions Chest X-Ray 03/16/18 21:49 CONCLUSION: 1. Cardiomegaly with mild pulmonary vascular congestion. Abdomen/Pelvis CT 03/16/18 23:30 CONCLUSION: 1. Study is degraded by breathing motion artifact. 2. New small bilateral pleural effusions with associated atelectasis. 3. Cardiomegaly. 4. No acute abnormality. Caprini VTE Risk Assessment Caprini VTE Risk Assessment: No/Low Risk (score <= 1) VTE Pharmacological Exception Reason: Active bleeding Caprini Risk Assessment Model: Point Value = 1 Point Value = 2 Point Value = 3 Point Value = 5 Age 41-60 Minor surgery BMI > 25 kg/m2 Swollen legs Varicose veins or History of unexplained or recurrent spontaneous Oral contraceptives or hormone replacement Sepsis (< 1 month) Serious lung disease, including pneumonia (< 1 month) Abnormal pulmonary function Acute myocardial infarction Congestive heart failure (< 1 month) History of inflammatory bowel disease Medical patient at bed rest Age 61-74 Arthroscopic surgery Major open surgery (> 45 min) Laparoscopic surgery (> 45 min) Malignancy Confined to bed (> 72 hours) Immobilizing plaster cast Central venous access Age >= 75 History of VTE Family history of VTE Factor V Leiden Prothrombin 19000I Lupus anticoagulant Anticardiolipin antibodies Elevated serum homocysteine Heparin-induced thrombocytopenia Other congenital or acquired thrombophilia Stroke (< 1 month) Elective arthroplasty Hip, pelvis, or leg fracture Acute spinal cord injury (< 1 month) Prophylaxis Regimen: Total Risk Factor Score Risk Level Prophylaxis Regimen 0-1 Low Early ambulation 2 Moderate Order ONE of the following: *Sequential Compression Device (SCD) *Heparin 5000 units SQ BID 3-4 Higher Order ONE of the following medications: *Heparin 5000 units SQ TID *Enoxaparin/Lovenox 40 mg SQ daily (WT < 150 kg, CrCl > 30 mL/min) *Enoxaparin/Lovenox 30 mg SQ daily (WT < 150 kg, CrCl > 10-29 mL/min) *Enoxaparin/Lovenox 30 mg SQ BID (WT < 150 kg, CrCl > 30 mL/min) AND/OR *Sequential Compression Device (SCD) 5 or more Highest Order ONE of the following medications: *Heparin 5000 units SQ TID (Preferred with Epidurals) *Enoxaparin/Lovenox 40 mg SQ daily (WT < 150 kg, CrCl > 30 mL/min) *Enoxaparin/Lovenox 30 mg SQ daily (WT < 150 kg, CrCl > 10-29 mL/min) *Enoxaparin/Lovenox 30 mg SQ BID (WT < 150 kg, CrCl > 30 mL/min) AND *Sequential Compression Device (SCD) Assessment and Plan - Assessment (1) GI bleed Code(s): K92.2 - Gastrointestinal hemorrhage, unspecified Status: Acute (2) CHF (congestive heart failure) Code(s): I50.9 - Heart failure, unspecified Status: Acute (3) Hypoxia Code(s): R09.02 - Hypoxemia Status: Acute (4) Elevated troponin Code(s): R74.8 - Abnormal levels of other serum enzymes Status: Acute (5) Hypocalcemia Code(s): E83.51 - Hypocalcemia Status: Acute (6) DM (diabetes mellitus) Code(s): E11.9 - Type 2 diabetes mellitus without complications Status: Acute - Plan A/P: 1. GI Bleed: +BRBPR, Hgb 7.5, previously 9.5 on 12/31/17, 2u pRBC ordered, pending transfusion, recheck Hgb/Hct after transfusion complete. Continue Protonix gtt. Consult GI for further eval/intervention. Hold ASA. CT Abd/ Pelvis w/ new small bilateral effusions, no acute intra-abdominal findings. 2. Elevated Trop: Trop 0.08, currently chest pain free, no acute EKG changes, will check serial cardiac enzymes for trend, will be a challenge for anticoagulation in light of GI Bleed w/ significant anemia, monitor closely, Consult Cardiology for further eval/recommendations. 3. CHF: Acute on Chronic. Systolic. Echo 11/07/17 w/ EF 25-30%, BNP 1457, + pleural effusions on CXR and CT, s/p Lasix in ER, continue w/ diuresis-caution w / renal function, monitor I/O, repeat labs in am. 4. Hypoxia: O2 sat 85% on RA, likely combination of COPD and Acute CHF Exacerbation in addition to Anemia. Monitor O2, DuoNeb prn. 5. Hypocalcemia: Ca 7.3, will give 1gm Ca, repeat labs in am. 6. DM: Hold Metformin, sliding scale w/ Accu-Cheks 7. DVT Prophylaxis: Pharmacologic contraindication due to active bleeding 8. Social work for d/c planning as needed 9. Case discussed w/ ER physician at length, labs/records/imaging reviewed by me. H&P: Quality - VTE Deep Vein Thrombosis/Pulmonary Embolism Present on Admission: No (2) CHF (congestive heart failure) Qualifiers:
[2018-03-17 01:33] LABS: CKMB Percent 1.2 % (0.0-4.0); Creatine Kinase MB 5.1 ng/mL (0.5-3.6)
[2018-03-17] MEDS ORDERED: Morphine Sulfate Inj 2 MG/ML Vial IV.PUSH ONE (02:05)
[2018-03-17] MEDS ORDERED: Chlorhexidine Gluconate 2% 1 Pack (2 Cloths) TOPICAL PRN (04:00)
[2018-03-17] MEDS: Chlorhexidine Gluconate 2% 1 Pack (2 Cloths) TOPICAL SCH (05:54)
[2018-03-17 08:49] LABS: Hemoglobin 9.4 gm/dL (11.6-15.3); Lymph # (Auto) 0.4 th/mm3 (1.0-4.8); Lymph % (Auto) 7.1 % (9.0-44.0); Mean Corpuscular HGB Conc 33.7 % (32.0-36.0); Mean Corpuscular Hemoglobin 27.2 pg (27.0-34.0); Mean Corpuscular Volume 80.7 fL (80.0-100.0); Mean Platelet Volume 10.3 fL (7.0-11.0); Mono # (Auto) 0.1 th/mm3 (0.0-0.9); Mono % (Auto) 1.8 % (0.0-8.0); Neut # (Auto) 5.1 th/mm3 (1.8-7.7); Neut % (Auto) 91.1 % (16.0-70.0); Platelet Count 117 th/mm3 (150-450); Red Blood Count 3.46 mil/mm3 (4.00-5.30); Red Cell Distribution Width 15.6 % (11.6-17.2); White Blood Count 5.6 th/mm3 (4.0-11.0)
[2018-03-17 09:01] LABS: Alanine Aminotransferase 73 U/L (10-53)
[2018-03-17 09:02] LABS: Albumin 3.7 g/dL (3.4-5.0); Anion Gap 10 meq/L (5-15); Aspartate Aminotransferase 59 U/L (15-37); Blood Urea Nitrogen 37 mg/dL (7-18); Calcium 7.7 mg/dL (8.5-10.1); Carbon Dioxide 21.4 meq/L (21.0-32.0); Chloride 98 meq/L (98-107); Glomerular Filtration Rate 29 mL/min (>89); Glucose,Random 177 mg/dL (74-106); Potassium 4.5 meq/L (3.5-5.1); Sodium 129 meq/L (136-145)
[2018-03-17 09:03] LABS: Alkaline Phosphatase 88 U/L (45-117); Total Protein 7.3 g/dL (6.4-8.2)
--- NOTE | 2018-03-17 09:27 | MB ---
cc: Piter Huitron MD DATE: 03/17/2018 REASON FOR CONSULTATION: Abnormal troponin level. HISTORY OF PRESENT ILLNESS: History is obtained through the art educator. The patient is a 77-year-old female with a history of diabetes, asthma, hypertension, severe nonischemic cardiomyopathy with ejection fraction of 25%, history of unclear cardiac surgery, possibly valvular surgery, who presented to the hospital with a several-day history of increasing shortness of breath and chest pain. The patient states she has had chest pains, most of the last 5 days in a constant fashion described as "sharp" associated with shortness of breath without nausea or diaphoresis. Since coming into the hospital, her chest pains have completely resolved and her dyspnea has considerably improved. The patient also reports recent mild pedal edema. She denies paroxysmal nocturnal dyspnea, dizziness, syncope, near syncope, palpitations. PAST MEDICAL HISTORY: 1. Asthma. 2. Diabetes. 3. Gastroesophageal reflux disease. 4. History of unclear cardiac surgery 12 years ago, possibly valvular surgery. She did have a heart catheterization on 11/14/2017 showing minimal coronary artery disease with no bypass grafts. 5. Hypertension. 6. Severe nonischemic cardiomyopathy with ejection fraction of 25% by echo of 11/07/2017. 7. Paroxysmal atrial tachycardia. CARDIAC MEDICATIONS AT HOME: 1. Spironolactone 25 mg daily. 2. Losartan 50 mg daily. 3. Zetia 10 mg daily. 4. Enalapril 20 mg daily. 5. Aspirin 325 mg daily. ALLERGIES: 1. PENICILLIN. 2. ACETAMINOPHEN. 3. AMINOPHYLLINE. 4. AMOXICILLIN. 5. SHELLFISH. 6. HYDROCODONE. 7. TRAMADOL. 8. FISH. PAST SURGICAL HISTORY: 1. Appendectomy. 2. Cholecystectomy. 3. Unclear cardiac surgery 12 years ago, possibly valvular surgery. FAMILY HISTORY: Noncontributory. SOCIAL HISTORY: The patient denies any history of alcohol or tobacco abuse. REVIEW OF SYSTEMS: As in the history of present illness, otherwise negative or noncontributory. She also denies headache, nausea, abdominal pain, fevers. PHYSICAL EXAMINATION: VITAL SIGNS: Her blood pressure 147/70 with a pulse of 106, respirations 14. GENERAL: She is a well-developed, well-nourished, female in no acute distress. NECK: Jugular venous pressure is normal. Carotid pulses are 2+ bilaterally and without bruits. CHEST: Reveals diminished breath sounds at the bases. CARDIAC: She has a regular rhythm and rate with a grade I/ systolic murmur heard at the base of the heart. The S2 heart sound is normal. No gallop is audible. ABDOMEN: She has a soft, nontender abdomen. Bowel sounds are present. There is no definite hepatosplenomegaly. EXTREMITIES: Reveals no clubbing, cyanosis or edema. DIAGNOSTIC DATA: Chest x-ray shows mild pulmonary vascular congestion. EKG shows sinus rhythm, nonspecific T-wave abnormalities, left atrial abnormality. LABORATORY DATA: Includes WBC 9.8, hemoglobin 7.5, platelets 122. Potassium 5.1, BUN 28, creatinine 1.77, troponin 0.08, CK 415. IMPRESSION: Minimally abnormal troponin levels, possible mild congestive heart failure, atypical chest pains in a 77-year-old female with a history of severe nonischemic cardiomyopathy, ejection fraction 25%, history of diabetes, hypertension, asthma, unclear cardiac surgery 12 years ago, possibly valvular surgery. The patient's troponin level is only minimally elevated, this in the setting of renal insufficiency. CK level is negative for myocardial infarction. The patient had a heart catheterization about 4 months ago showing minimal coronary artery disease. Chest x-ray and her recent symptoms do suggest the possibility of mild congestive heart failure. She has not been on beta-matty therapy apparently. It is unclear whether it was stopped due to her asthma. Her home medication list also appears to have both an angiotensin receptor matty and JHON inhibitor. RECOMMENDATIONS: 1. Mild diuresis. 2. Consider resuming low-dose carvedilol. 3. Can hold off on JHON inhibitor or angiotensin receptor matty therapy with her renal insufficiency. 4. Will follow up as needed. Piter Huitron MD GHDejon/rachelle , 08:36 AM , 08:45 AM [email or web address]
[2018-03-17] MEDS: Budesonide-Formoterol 160/4.5 MCG 6 GM Inhaler INH SCH ×2 (09:40→21:09)
[2018-03-17] MEDS: buPROPion 150 MG 12 HR Tablet PO SCH ×2 (09:40→21:03)
[2018-03-17] MEDS: Senna/Docusate Sodium 8.6/50 MG Tablet PO SCH ×2 (09:40→21:04)
[2018-03-17] MEDS ORDERED: Pantoprazole Inj 80 MG in Sodium Chlor 0.9% Inj 100 ML IV.CONT SCH (09:45)
--- NOTE | 2018-03-17 11:03 | P.CONGI ---
History of Present Illness Consult date: 03/17/18 Consult reason: GI bleed Chief complaint: nonstemi, CHF, GI bleed anemia History of Present Illness: This patient is a 77-year-old primarily Mohawk-speaking female with a past medical history of hypertension, COPD, diabetes, CHF and GERD. Surgical history significant for coronary artery bypass graft, cholecystectomy, appendectomy, and hernia repair. Patient was brought to the emergency room at [facility] for complaint of chest pain, shortness of breath and bright red blood per rectum. The cloth framer device Stratus used to complete history of present illness. Upon consultation, patient reports 3-day history of upper abdominal cramping and chest wall pain with nausea and bright red blood per rectum. Patient does endorse one week of hardened stools. Patient states she experienced nausea over the last 3 days without vomiting. Patient endorses that she takes aspirin and meloxicam at home. Upon patient's arrival to the ER, O2 sat 85% on room air hemoglobin 7.5. Troponin was 0.08. Patient was given Lasix 40 mg IV in the emergency room as well as 2 units of packed RBCs ordered. Patient denies ever having had an EGD or colonoscopy in the past. She reports intermittent constipation and denies any diarrhea. Patient denies any known family history for gastrointestinal disorders. Patient denies any difficulty swallowing or heartburn. Patient denies use of alcohol or tobacco products. Our service has been consulted to evaluate patient for lower GI bleed Review of Systems All other systems reviewed negative except as stated in HPI, other PMFSH - History History Provided By: Patient - Medical History Medical History: Medical History (Last Reviewed 03/16/18 @ 23:28 by ROCCO Edwards) GERD (gastroesophageal reflux disease) (Acute) Coronary artery disease (Acute) Cervical vertebral fusion (Acute) Diabetes mellitus (Acute) Myocardial infarct, old (Acute) Hypertension (Acute) Asthma (Acute) - Surgical History Surgical History: Surgical History (Last Reviewed 03/16/18 @ 23:28 by ROCCO Ewdards) History of coronary artery bypass graft (Acute) History of cholecystectomy (Acute) History of appendectomy (Acute) - Family History Family History: Family History (Last Reviewed 03/16/18 @ 23:28 by ROCCO Edwards) Other Family history of diabetes mellitus Family history of hypertension - Tobacco History Second Hand Smoke Exposure: No Smoking Status: Never smoker Tobacco Type: Cigarettes - Alcohol History How Often Do You Have a Drink Containing Alcohol: Never - Substance Use History Substance History: No History of Abuse - Travel History History of Recent Travel: No Recent Travel in the [place] Within the Last 8 Weeks: No Recent Travel Out of the Country Within the Last 8 Weeks: No - Immunization History Tetanus Immunization: Unsure Medications and Allergies Active Medications: Active Medications Al Hydroxide/Mg Hydroxide (Milk Of Magnesia Liq) 30 ml PO Q12H PRN PRN Reason: Mild Constipation Albuterol (Duoneb Neb (Prn)) 1 ampul NEB Q4HR NEB PRN PRN Reason: SOB/WHEEZING Last Admin: 03/17/18 01:23 Dose: 1 ampul Aspirin (Ecotrin) 81 mg PO DAILY [facility] Last Admin: 03/17/18 09:40 Dose: 81 mg Bisacodyl (Dulcolax Supp) 10 mg RECTAL DAILY PRN PRN Reason: SEVERE CONSITIPATION Budesonide/Formoterol Fumarate (Symbicort 160/4.5 Mcg Inh) 2 puff INH BID [facility] Last Admin: 03/17/18 09:40 Dose: 2 puff Bupropion HCl (Wellbutrin Sr) 150 mg PO BID [facility] Last Admin: 03/17/18 09:40 Dose: 150 mg Carvedilol (Coreg) 3.125 mg PO BID [facility] Last Admin: 03/17/18 09:40 Dose: 3.125 mg Chlorhexidine Gluconate (Chlorhexidine 2% Cloth) 3 pack TOPICAL DAILY@0400 PRN PRN Reason: Extra cloth needed Stop: 03/22/18 03:59 Chlorhexidine Gluconate (Chlorhexidine 2% Cloth) 3 pack TOPICAL DAILY@0400 [facility] Stop: 03/22/18 03:59 Last Admin: 03/17/18 05:54 Dose: 3 pack Furosemide (Lasix Inj) 40 mg IV.PUSH BID@0900,1800 [facility] Last Admin: 03/17/18 09:40 Dose: 40 mg Pantoprazole Sodium 80 mg/ (Sodium Chloride) 100 mls @ 10 mls/hr IV.CONT Q10H [facility] Last Admin: 03/17/18 10:32 Dose: Not Given Lactulose (Lactulose Liq) 30 ml PO DAILY PRN PRN Reason: SEVERE CONSITIPATION Montelukast Sodium (Singulair) 10 mg PO QPM [facility] Morphine Sulfate (Morphine Inj) 2 mg IV.PUSH Q4H PRN PRN Reason: PAIN 6-10 Last Admin: 03/16/18 23:55 Dose: 2 mg Ondansetron HCl (Zofran Inj) 4 mg IV.PUSH Q6H PRN PRN Reason: NAUSEA OR VOMITING Last Admin: 03/16/18 23:55 Dose: 4 mg Senna/Docusate Sodium (Sammi-Colace) 1 tab PO BID [facility] Last Admin: 03/17/18 09:40 Dose: 1 tab Sennosides (Senokot) 17.2 mg PO Q12H PRN PRN Reason: Moderate Constipation Sodium Chloride (Ns Flush) 2 ml IV.FLUSH BID [facility] Last Admin: 03/17/18 09:40 Dose: 2 ml Sodium Chloride (Ns Flush) 2 ml IV.FLUSH PRN PRN PRN Reason: FLUSH AFTER USING IV ACCESS Allergies Allergy/AdvReac Type Severity Reaction Status Date / Time Penicillins Allergy Severe Hives Verified 03/16/18 21:37 acetaminophen Allergy Intermediate Chills Verified 03/16/18 21:37 aminophylline Allergy Intermediate Hives Verified 03/16/18 21:37 amoxicillin Allergy Intermediate Hives Verified 03/16/18 21:37 Fish Containing Products Allergy Intermediate Hives Verified 03/16/18 21:37 shellfish derived Allergy Intermediate Hives Verified 03/16/18 21:37 hydrocodone AdvReac Intermediate Sedation Verified 03/16/18 21:37 tramadol AdvReac Intermediate hallucinati Verified 03/16/18 21:37 ons Home Medications Medication Instructions Recorded Confirmed Type albuterol sulfate [Ventolin HFA] 2 puff INHALATION Q6H PRN MDD 8 11/06/17 History puffs budesonide-formoterol [Symbicort] 2 puff INHALATION BID 11/06/17 03/16/18 History meclizine 25 mg PO BID PRN 11/06/17 03/16/18 History aspirin 325 mg PO DAILY 12/31/17 03/16/18 History bupropion HCl 150 mg PO BID 12/31/17 03/16/18 History enalapril maleate [Vasotec] 20 mg PO DAILY 12/31/17 03/16/18 History escitalopram oxalate 20 mg PO DAILY 12/31/17 03/16/18 History ezetimibe 10 mg PO DAILY 12/31/17 03/16/18 History losartan 50 mg PO DAILY 12/31/17 03/16/18 History meloxicam 15 mg PO DAILY 12/31/17 03/16/18 History metformin 500 mg PO BID 12/31/17 03/16/18 History montelukast 10 mg PO QPM 12/31/17 03/16/18 History omeprazole 20 mg PO DAILY 12/31/17 03/16/18 History spironolactone 25 mg PO DAILY 12/31/17 03/16/18 History Exam Vital signs: Vital Signs 03/16/18 21:33 03/16/18 21:40 03/16/18 22:16 Temperature 98.0 F Pulse Rate 100 H 97 H Respiratory Rate 26 H 18 Blood Pressure 193/77 H 182/82 H Pulse Oximetry 85 L 98 96 03/16/18 22:20 03/16/18 22:33 03/16/18 22:42 Temperature Pulse Rate 91 H 91 H 93 H Respiratory Rate 22 20 16 Blood Pressure 144/65 H Pulse Oximetry 97 99 03/16/18 23:00 03/16/18 23:52 03/16/18 23:56 Temperature 98.6 F Pulse Rate 99 H 95 H 95 H Respiratory Rate 20 24 Blood Pressure 144/65 H 134/63 Pulse Oximetry 98 98 03/17/18 00:14 03/17/18 01:00 03/17/18 01:23 Temperature 98.7 F Pulse Rate 94 H 99 H 92 H Respiratory Rate 22 20 Blood Pressure 137/64 142/71 H Pulse Oximetry 96 93 L 03/17/18 01:27 03/17/18 01:40 03/17/18 02:00 Temperature 98.5 F Pulse Rate 92 H 96 H 91 H Respiratory Rate 25 H 33 H 37 H Blood Pressure 138/67 160/70 H 141/65 H Pulse Oximetry 94 L 94 L 94 L 03/17/18 02:01 03/17/18 02:20 03/17/18 02:35 Temperature 98.8 F Pulse Rate 91 H 92 H 90 Respiratory Rate 37 H 20 22 Blood Pressure 141/65 H 137/63 137/63 Pulse Oximetry 94 L 94 L 94 L 03/17/18 02:40 03/17/18 02:45 03/17/18 02:54 Temperature 98 F Pulse Rate 90 95 H Respiratory Rate 18 18 Blood Pressure 145/67 H 152/68 H Pulse Oximetry 93 L 03/17/18 03:00 03/17/18 03:20 03/17/18 03:41 Temperature 98 F 98.4 F Pulse Rate 90 88 88 Respiratory Rate 22 34 H 16 Blood Pressure 152/68 H 156/69 H 148/72 H Pulse Oximetry 92 L 94 L 94 L 03/17/18 04:00 03/17/18 04:20 03/17/18 04:40 Temperature Pulse Rate 101 H 87 88 Respiratory Rate 19 29 H 16 Blood Pressure 150/74 H 155/73 H 144/71 H Pulse Oximetry 93 L 94 L 93 L 03/17/18 05:00 03/17/18 05:20 03/17/18 05:40 Temperature Pulse Rate 102 H 89 102 H Respiratory Rate 19 17 23 Blood Pressure 139/79 156/66 H 148/69 H Pulse Oximetry 93 L 93 L 93 L 03/17/18 06:00 03/17/18 08:52 Temperature Pulse Rate 106 H Respiratory Rate 14 Blood Pressure 147/70 H Pulse Oximetry 92 L 93 L Intake & Output 03/16/18 03/17/18 03/17/18 18:59 06:59 18:59 Intake Total 35 / 35 Output Total 800 / 800 Balance -765 / -765 Weight 77.5 kg Intake: IV 35 / 35 Protonix Inj 80 MG In NS Inj 35 35 / 35 ML @ 420 mls/hr IV.SIG BOLUS ONE Rx#:[id number] Intake (Blood Product) Amt 0 / 0 Rbc As-3 Leukoreduced Unit 0 / 0 [id number] Rbc As-3 Leukoreduced Unit 0 / 0 [id number] Output: Urine 800 / 800 Other: # Voids 4 # Incontinent Voids 1 Weight On Admission 77.6 kg - Constitutional no acute distress - Routine HEENT Exam Head: Present: normocephalic - Routine Respiratory Exam Present: accessory muscle use. Absent: CTA bilaterally, respiratory distress Comments: Shortness of breath on exertion noted - Routine Cardiovascular Exam Present: S1, S2 Comments: Troponin 0 0.08 - Routine Abdominal Exam Present: soft, normoactive bowel sounds. Absent: tenderness, distended, guarding, firm, rigid - Routine Extremities Exam Present: pulses intact - Routine Skin Exam Present: dry, warm - Routine Neurological Exam Present: alert - Routine Psychiatric Exam Present: normal affect, cooperative Results - Labs CBC & Chem 7: 03/17/18 08:35 03/17/18 08:35 Labs: Laboratory Results - last 24 hr 03/16/18 03/16/18 03/16/18 21:54 21:54 21:54 WBC 9.8 RBC 2.85 L Hgb 7.5 L Hct 23.0 L MCV 80.7 MCH 26.3 L MCHC 32.6 RDW 15.1 Plt Count 122 L MPV 11.8 H Neut % (Auto) Lymph % (Auto) [place] % (Auto) Eos % (Auto) Baso % (Auto) Neut # (Auto) Lymph # (Auto) [place] # (Auto) Eos # (Auto) Baso # (Auto) WBC Differential Differential Comment PT INR APTT Sodium 128 L Potassium 5.1 Chloride 97 L Carbon Dioxide 20.8 L Anion Gap 10 BUN 28 H Creatinine 1.77 H Estimated GFR 28 L POC Glucose Random Glucose 132 H Calcium 7.3 L* Calcium Adj for Albumin 7.4 L* Magnesium Total Bilirubin 0.7 AST 59 H ALT 64 H Alkaline Phosphatase 84 Total Creatine Kinase CK-MB (CK-2) CK-MB (CK-2) % Troponin I 0.08 H B-Natriuretic Peptide Total Protein 7.0 Albumin 3.6 Nasal Screen MRSA (PCR) Blood Type O Positive Blood Type Recheck Required Antibody Screen Negative MTS Gel Crossmatch 03/16/18 03/16/18 03/16/18 21:59 22:20 22:20 WBC RBC Hgb Hct MCV MCH MCHC RDW Plt Count MPV Neut % (Auto) Lymph % (Auto) [place] % (Auto) Eos % (Auto) Baso % (Auto) Neut # (Auto) Lymph # (Auto) [place] # (Auto) Eos # (Auto) Baso # (Auto) WBC Differential Differential Comment PT 13.3 H INR 1.3 APTT 26.7 Sodium Potassium Chloride Carbon Dioxide Anion Gap BUN Creatinine Estimated GFR POC Glucose Random Glucose Calcium Calcium Adj for Albumin Magnesium 1.8 Total Bilirubin AST ALT Alkaline Phosphatase Total Creatine Kinase 415 H CK-MB (CK-2) 5.1 H CK-MB (CK-2) % 1.2 Troponin I B-Natriuretic Peptide 1457 H Total Protein Albumin Nasal Screen MRSA (PCR) Blood Type Blood Type Recheck Antibody Screen MTS Gel Crossmatch 03/16/18 03/17/18 03/17/18 22:33 00:35 01:17 WBC RBC Hgb Hct MCV MCH MCHC RDW Plt Count MPV Neut % (Auto) Lymph % (Auto) [place] % (Auto) Eos % (Auto) Baso % (Auto) Neut # (Auto) Lymph # (Auto) [place] # (Auto) Eos # (Auto) Baso # (Auto) WBC Differential Differential Comment PT INR APTT Sodium Potassium Chloride Carbon Dioxide Anion Gap BUN Creatinine Estimated GFR POC Glucose 174 H Random Glucose Calcium Calcium Adj for Albumin Magnesium Total Bilirubin AST ALT Alkaline Phosphatase Total Creatine Kinase CK-MB (CK-2) CK-MB (CK-2) % Troponin I B-Natriuretic Peptide Total Protein Albumin Nasal Screen MRSA (PCR) Not detected Blood Type Blood Type Recheck Antibody Screen MTS Gel Crossmatch See Detail 03/17/18 03/17/18 03/17/18 02:22 08:35 08:35 WBC 5.6 RBC 3.46 L Hgb 9.4 L Hct 28.0 L MCV 80.7 MCH 27.2 MCHC 33.7 RDW 15.6 Plt Count 117 L MPV 10.3 Neut % (Auto) 91.1 H Lymph % (Auto) 7.1 L [place] % (Auto) 1.8 Eos % (Auto) 0.0 Baso % (Auto) 0.0 Neut # (Auto) 5.1 Lymph # (Auto) 0.4 L [place] # (Auto) 0.1 Eos # (Auto) 0.0 Baso # (Auto) 0.0 WBC Differential . Differential Comment Auto diff final PT INR APTT Sodium 129 L Potassium 4.5 Chloride 98 Carbon Dioxide 21.4 Anion Gap 10 BUN 37 H Creatinine 1.69 H Estimated GFR 29 L POC Glucose Random Glucose 177 H Calcium 7.7 L Calcium Adj for Albumin Magnesium Total Bilirubin 0.9 AST 59 H ALT 73 H Alkaline Phosphatase 88 Total Creatine Kinase CK-MB (CK-2) CK-MB (CK-2) % Troponin I 0.08 H B-Natriuretic Peptide Total Protein 7.3 Albumin 3.7 Nasal Screen MRSA (PCR) Blood Type Blood Type Recheck Antibody Screen MTS Gel Crossmatch 03/17/18 08:35 WBC RBC Hgb Hct MCV MCH MCHC RDW Plt Count MPV Neut % (Auto) Lymph % (Auto) [place] % (Auto) Eos % (Auto) Baso % (Auto) Neut # (Auto) Lymph # (Auto) [place] # (Auto) Eos # (Auto) Baso # (Auto) WBC Differential Differential Comment PT INR APTT Sodium Potassium Chloride Carbon Dioxide Anion Gap BUN Creatinine Estimated GFR POC Glucose Random Glucose Calcium Calcium Adj for Albumin Magnesium Total Bilirubin AST ALT Alkaline Phosphatase Total Creatine Kinase CK-MB (CK-2) CK-MB (CK-2) % Troponin I 0.08 H B-Natriuretic Peptide Total Protein Albumin Nasal Screen MRSA (PCR) Blood Type Blood Type Recheck Antibody Screen MTS Gel Crossmatch - Imaging Impressions Chest X-Ray 03/16/18 21:49 CONCLUSION: 1. Cardiomegaly with mild pulmonary vascular congestion. Abdomen/Pelvis CT 03/16/18 23:30 CONCLUSION: 1. Study is degraded by breathing motion artifact. 2. New small bilateral pleural effusions with associated atelectasis. 3. Cardiomegaly. 4. No acute abnormality. Assessment and Plan (1) Acute GI bleeding Status: Acute Code(s): K92.2 - Gastrointestinal hemorrhage, unspecified - Plan This patient is a 77-year-old primarily Mohawk-speaking female with a past medical history of hypertension, COPD, diabetes, CHF and GERD. Surgical history significant for coronary artery bypass graft, cholecystectomy, appendectomy, and hernia repair. Patient was brought to the emergency room at [facility] for complaint of chest pain, shortness of breath and bright red blood per rectum. The cloth framer device Stratus used to complete history of present illness. Upon consultation, patient reports 3-day history of upper abdominal cramping and chest wall pain with nausea and bright red blood per rectum. Patient does endorse one week of hardened stools. Patient states she experienced nausea over the last 3 days without vomiting. Patient endorses that she takes aspirin and meloxicam at home. Upon patient's arrival to the ER, O2 sat 85% on room air hemoglobin 7.5. Troponin was 0.08. Patient was given Lasix 40 mg IV in the emergency room as well as 2 units of packed RBCs ordered. Patient denies ever having had an EGD or colonoscopy in the past. She reports intermittent constipation and denies any diarrhea. Patient denies any known family history for gastrointestinal disorders. Patient denies any difficulty swallowing or heartburn. Patient denies use of alcohol or tobacco products. Our service has been consulted to evaluate patient for lower GI bleed GI bleed Patient presented to ER with complaint of shortness of breath and left-sided chest wall pain. Patient also endorsed bright red blood per rectum times 3 days with nausea and no vomiting. Of note, patient states she takes aspirin and meloxicam daily. Hemoglobin 7.5 on admission, troponin 0 0.08. 03/17/2018 WBC 5.6 hemoglobin 9.4 hematocrit 28.2 posttransfusion 2 units packed RBCs. No active bleeding reported at this time. Plan -Clear liquid diet -Obtain consent for colonoscopy Will require cardiology clearance in order to proceed with colonoscopy -Monitor for bleeding -Transfuse as needed -Monitor labs hemoglobin and hematocrit -Avoid aspirin and anticoagulants -Avoid NSAIDs -Bowel regimen -Antiemetic and analgesic as per attending -Continue PPI -Supportive care -Further recommendations to follow This patient has been seen by myself and Dr. Santos and this note is written on his behalf - Attending Attestation Dr. Santos
--- NOTE | 2018-03-17 11:16 | P.PNIM ---
Subjective Interval history: Patient complains of chest pain. No evidence of further bleeding. She still has complaints of epigastric pain and lower chest pain. Negative cardiac workup. Physical Exam Vital signs: Last Vital Signs Temp 98.4 F 03/17/18 03:20 Pulse 106 H 03/17/18 06:00 Resp 14 03/17/18 06:00 BP 147/70 H 03/17/18 06:00 Pulse Ox 93 L 03/17/18 08:52 Intake & Output 03/15/18 03/16/18 03/17/18 03/18/18 06:59 06:59 06:59 06:59 Intake Total 35 / 35 Output Total 800 / 800 Balance -765 / -765 Weight 77.5 kg Narrative: GENERAL: NAD, A&Ox3 HEAD: Normocephalic. NECK: Supple, trachea midline. No lymphadenopathy. EYES: No scleral icterus. No injection or drainage. CARDIOVASCULAR: Regular rate and rhythm without murmurs, gallops, or rubs. RESPIRATORY: Breath sounds equal bilaterally. No accessory muscle use. GASTROINTESTINAL: Abdomen soft, non-tender, mild tenderness at the anterior abdominal hernia. MUSCULOSKELETAL: No cyanosis, or edema. SKIN: Warm and dry. NEURO: No focal neurological deficits. Results Labs CBC & Chem 7: 03/17/18 08:35 03/17/18 08:35 Imaging Imaging: Impressions Chest X-Ray 03/16/18 21:49 CONCLUSION: 1. Cardiomegaly with mild pulmonary vascular congestion. Abdomen/Pelvis CT 03/16/18 23:30 CONCLUSION: 1. Study is degraded by breathing motion artifact. 2. New small bilateral pleural effusions with associated atelectasis. 3. Cardiomegaly. 4. No acute abnormality. Assessment and Plan (1) Acute GI bleeding: Code(s): K92.2 - Gastrointestinal hemorrhage, unspecified Status: Acute Plan 77-year-old female admitted secondary to GI bleed, complaints of epigastric pain and chest pain which are chronic and potentially related to chronic anterior abdominal hernia. 03/17/18: Stable for transfer out of ICU today Gastrointestinal bleed Follow hemoglobin levels Continue Protonix GI following Clear liquid diet for now Elevated troponin Troponins were trended and have remained flat likely chronic and related to CHF and chronic kidney disease Cardiology following No need for further workup Congestive heart failure Metoprolol on hold for now due to asthma Baseline ejection fraction 25% Continue diuresis Hypoxia Likely related to asthma exacerbation Oxygen supplementation as needed Continue nebulized treatments Follow oxygen saturations Hypocalcemia Continue calcium supplementation as needed Follow calcium levels Diabetes mellitus type 2 Follow blood sugars Insulin sliding scale Diabetic diet Hold metformin DVT prophylaxis SCDs No systemic anticoagulation given active bleed Progress Note: Quality VTE Deep Vein Thrombosis/Pulmonary Embolism Present on Admission: No
[2018-03-17] MEDS: Morphine Sulfate Inj 2 MG/ML Vial IV.PUSH PRN (11:56)
[2018-03-17] MEDS: Pantoprazole Inj 40 MG Vial IV.PUSH SCH ×2 (11:56→21:04)
[2018-03-17] MEDS ORDERED: PEG 3350/E-Lyte Soln 4000 ML Bottle PO ONE (16:00)
[2018-03-17] MEDS: Montelukast 10 MG Tablet PO SCH (17:27)
--- NOTE | 2018-03-17 19:54 | ECG ---
Date Performed: 03/16/2018 Time Performed: 21:41:33 PTAGE: 77 years EKG: Sinus rhythm WITH OCCASIONAL SUPRAVENTRICULAR PREMATURE COMPLEXES BORDERLINE LEFT AXIS DEVIATION INCOMPLETE RIGHT BUNDLE BRANCH BLOCK NONSPECIFIC ST & T-WAVE ABNORMALITY BORDERLINE ECG PREVIOUS TRACING :12/31/2017 @03.52 Since the previous tracing, no significant change noted DOCTOR: Al Paris Interpretating Date/Time 03/17/2018 19:52:59
--- NOTE | 2018-03-17 19:54 | ECG ---
Date Performed: 03/16/2018 Time Performed: 23:53:11 PTAGE: 77 years EKG: Sinus rhythm WITH OCCASIONAL SUPRAVENTRICULAR PREMATURE COMPLEXES POSSIBLE LEFT ATRIAL ENLARGEMENT BORDERLINE LEF T AXIS DEVIATION INCOMPLETE RIGHT BUNDLE BRANCH BLOCK NONSPECIFIC T-WAVE ABNORMALITY BORDERLINE ECG PREVIOUS TRACING : 12/31/2017 15.52 Since the previous tracing, no significant change noted DOCTOR: Al Paris Interpretating Date/Time 03/17/2018 19:53:08
[2018-03-18] MEDS: Chlorhexidine Gluconate 2% 1 Pack (2 Cloths) TOPICAL SCH (04:07)
[2018-03-18 07:51] LABS: Baso % (Auto) 0.2 % (0.0-2.0); Hematocrit 27.8 % (35.0-46.0); Hemoglobin 9.2 gm/dL (11.6-15.3); Lymph # (Auto) 0.7 th/mm3 (1.0-4.8); Lymph % (Auto) 6.1 % (9.0-44.0); Mean Corpuscular HGB Conc 33.3 % (32.0-36.0); Mean Corpuscular Hemoglobin 27.1 pg (27.0-34.0); Mean Corpuscular Volume 81.4 fL (80.0-100.0); Mean Platelet Volume 11.5 fL (7.0-11.0); Mono # (Auto) 0.5 th/mm3 (0.0-0.9); Mono % (Auto) 4.3 % (0.0-8.0); Neut # (Auto) 9.7 th/mm3 (1.8-7.7); Neut % (Auto) 89.4 % (16.0-70.0); Platelet Count 91 th/mm3 (150-450); Red Blood Count 3.41 mil/mm3 (4.00-5.30); Red Cell Distribution Width 15.6 % (11.6-17.2); White Blood Count 10.9 th/mm3 (4.0-11.0)
[2018-03-18 08:43] LABS: Albumin 3.6 g/dL (3.4-5.0); Calcium 7.2 mg/dL (8.5-10.1); Carbon Dioxide 25.8 meq/L (21.0-32.0); Potassium 4.4 meq/L (3.5-5.1); Total Protein 6.8 g/dL (6.4-8.2)
[2018-03-18] MEDS: Pantoprazole Inj 40 MG Vial IV.PUSH SCH ×2 (08:58→21:23)
[2018-03-18] MEDS: Senna/Docusate Sodium 8.6/50 MG Tablet PO SCH ×2 (08:59→21:25)
[2018-03-18 09:06] LABS: CKMB Percent 1.8 % (0.0-4.0); Creatine Kinase MB 4.7 ng/mL (0.5-3.6)
[2018-03-18] MEDS: buPROPion 150 MG 12 HR Tablet PO SCH ×2 (09:09→21:25)
--- NOTE | 2018-03-18 10:11 | P.PNIM ---
Subjective Interval history: Patient seen and examined. Interval history obtained with help from [employer] service on tele video phone. Patient says she has generalized abdominal pain, has not had any bowel movements for 4 days. Physical Exam Vital signs: Last Vital Signs Temp 97.1 F L 03/18/18 04:00 Pulse 90 03/18/18 04:00 Resp 18 03/18/18 04:00 BP 159/72 H 03/18/18 04:00 Pulse Ox 94 L 03/18/18 04:00 Intake & Output 03/16/18 03/17/18 03/18/18 03/19/18 06:59 06:59 06:59 06:59 Intake Total 35 / 35 980 / 980 Output Total 800 / 800 2200 / 2200 Balance -765 / -765 -1220 / -1220 Weight 77.5 kg 77.5 kg Narrative: GENERAL: pleasant elderly lady, NAD, HEENT: mildly pale,anicteric NECK: no JVD. CARDIOVASCULAR: Regular rate and rhythm without murmurs, gallops, or rubs. RESPIRATORY: Breath sounds equal bilaterally. No accessory muscle use. GASTROINTESTINAL: Obese,Abdomen soft, has epigastric hernia which is easily reducible, mildly tender. Mild generalized abdominal tenderness noted. no palpable organomegaly. MUSCULOSKELETAL: No edema. SKIN: Warm and dry. NEURO: A&Ox3.No focal neurological deficits. Results Labs CBC & Chem 7: 03/18/18 06:54 03/18/18 06:54 Assessment and Plan (1) Acute GI bleeding: Code(s): K92.2 - Gastrointestinal hemorrhage, unspecified Status: Acute Plan 77-year-old female admitted secondary to GI bleed, complaints of epigastric pain and chest pain which are chronic and potentially related to chronic anterior abdominal hernia. Gastrointestinal bleed-H/h remains stable. GI plans for colonoscopy, prep to be done today. Continue Protonix Elevated troponin Troponins were trended and have remained flat likely chronic and related to CHF and chronic kidney disease Cardiology following No need for further workup Congestive heart failure Metoprolol on hold for now due to asthma Baseline ejection fraction 25% Continue diuresis Hypoxia Likely related to asthma exacerbation Oxygen supplementation as needed Continue nebulized treatments Follow oxygen saturations Hypocalcemia Continue calcium supplementation as needed Follow calcium levels Diabetes mellitus type 2 Follow blood sugars Insulin sliding scale Diabetic diet Hold metformin DVT prophylaxis SCDs No systemic anticoagulation given active bleed Progress Note: Quality VTE Deep Vein Thrombosis/Pulmonary Embolism Present on Admission: No
--- NOTE | 2018-03-18 12:16 | P.PNGI ---
Subjective Interval history: Patient resting comfortably in bed Patient denies any noted bleeding No BM today Physical Exam Vital signs: Vital Signs 03/17/18 12:13 03/17/18 13:00 03/17/18 13:23 Temperature Pulse Rate 78 78 83 Respiratory Rate 22 21 21 Blood Pressure 111/61 Pulse Oximetry 95 93 L 03/17/18 14:00 03/17/18 14:01 03/17/18 15:00 Temperature Pulse Rate 96 H 96 H 93 H Respiratory Rate 17 16 15 Blood Pressure 163/75 H Pulse Oximetry 90 L 92 L 93 L 03/17/18 15:01 03/17/18 16:00 03/17/18 16:01 Temperature 98.5 F Pulse Rate 93 H 92 H 93 H Respiratory Rate 14 26 H 18 Blood Pressure 152/67 H 136/67 Pulse Oximetry 93 L 91 L 93 L 03/17/18 17:00 03/17/18 17:46 03/17/18 18:00 Temperature Pulse Rate 92 H 89 96 H Respiratory Rate 13 20 17 Blood Pressure 139/70 142/71 H Pulse Oximetry 92 L 92 L 03/17/18 19:00 03/17/18 20:00 03/17/18 22:16 Temperature 98.1 F Pulse Rate 95 H 92 H 97 H Respiratory Rate 17 13 Blood Pressure 148/70 H 148/69 H Pulse Oximetry 93 L 91 L 03/18/18 00:00 03/18/18 04:00 03/18/18 08:00 Temperature 98.1 F 97.1 F L Pulse Rate 91 H 90 92 H Respiratory Rate 19 18 Blood Pressure 119/57 L 159/72 H Pulse Oximetry 96 94 L Intake & Output 03/17/18 03/18/18 03/18/18 18:59 06:59 18:59 Intake Total 640 / 640 340 / 340 Output Total 1800 / 1800 400 / 400 Balance -1160 / -1160 -60 / -60 Weight 77.5 kg Intake: IV 100 / 100 Protonix Inj 80 MG In NS Inj 100 / 100 100 ML @ 10 mls/hr IV.CONT CONT ARIADNA Rx#:[id number] Oral 640 / 640 240 / 240 Output: Urine 1800 / 1800 400 / 400 Other: # Voids 2 - Constitutional no acute distress - Routine HEENT Exam Head: Present: normocephalic - Routine Respiratory Exam Present: CTA bilaterally - Routine Cardiovascular Exam Present: RRR - Routine Abdominal Exam Present: soft, normoactive bowel sounds, distended. Absent: tenderness, guarding, firm - Routine Extremities Exam Absent: edema - Routine Skin Exam Present: dry, warm - Routine Neurological Exam Present: alert - Routine Psychiatric Exam Present: normal affect, cooperative Results - Labs CBC & Chem 7: 03/18/18 06:54 03/18/18 06:54 Laboratory Results - last 24 hr 03/18/18 03/18/18 06:54 06:54 WBC 10.9 D RBC 3.41 L Hgb 9.2 L Hct 27.8 L MCV 81.4 MCH 27.1 MCHC 33.3 RDW 15.6 Plt Count 91 L MPV 11.5 H Prelim Diff (Auto) Slide review pending Neut % (Auto) 89.4 H Lymph % (Auto) 6.1 L [place] % (Auto) 4.3 Eos % (Auto) 0.0 Baso % (Auto) 0.2 Neut # (Auto) 9.7 H Lymph # (Auto) 0.7 L [place] # (Auto) 0.5 Eos # (Auto) 0.0 Baso # (Auto) 0.0 WBC Differential . Diff Scan Auto diff confirmed Differential Comment . Platelet Estimate Low L Platelet Morphology Enlarged H Sodium 133 L Potassium 4.4 Chloride 96 L Carbon Dioxide 25.8 Anion Gap 11 BUN 56 H Creatinine 2.01 H Estimated GFR 24 L Random Glucose 116 H Calcium 7.2 L* Calcium Adj for Albumin 7.5 L Total Bilirubin 0.4 AST 31 ALT 59 H Alkaline Phosphatase 79 Total Creatine Kinase 257 H CK-MB (CK-2) 4.7 H CK-MB (CK-2) % 1.8 Total Protein 6.8 Albumin 3.6 Assessment and Plan (1) Acute GI bleeding Status: Acute Code(s): K92.2 - Gastrointestinal hemorrhage, unspecified - Plan This patient is a 77-year-old primarily Pashto-speaking female with a past medical history of hypertension, COPD, diabetes, CHF and GERD. Surgical history significant for coronary artery bypass graft, cholecystectomy, appendectomy, and hernia repair. Patient was brought to the emergency room at [facility] for complaint of chest pain, shortness of breath and bright red blood per rectum. The shipping support device Stratus used to complete history of present illness. Upon consultation, patient reports 3-day history of upper abdominal cramping and chest wall pain with nausea and bright red blood per rectum. Patient does endorse one week of hardened stools. Patient states she experienced nausea over the last 3 days without vomiting. Patient endorses that she takes aspirin and meloxicam at home. Upon patient's arrival to the ER, O2 sat 85% on room air hemoglobin 7.5. Troponin was 0.08. Patient was given Lasix 40 mg IV in the emergency room as well as 2 units of packed RBCs ordered. Patient denies ever having had an EGD or colonoscopy in the past. She reports intermittent constipation and denies any diarrhea. Patient denies any known family history for gastrointestinal disorders. Patient denies any difficulty swallowing or heartburn. Patient denies use of alcohol or tobacco products. Our service has been consulted to evaluate patient for lower GI bleed GI bleed Patient presented to ER with complaint of shortness of breath and left-sided chest wall pain. Patient also endorsed bright red blood per rectum times 3 days with nausea and no vomiting. Of note, patient states she takes aspirin and meloxicam daily. Hemoglobin 7.5 on admission, troponin 0 0.08. 03/17/2018 WBC 5.6 hemoglobin 9.4 hematocrit 28.2 posttransfusion 2 units packed RBCs. No active bleeding reported at this time. 03/18/2018 GI bleed No BM today, patient denies any noted bleeding. Cardiology clearance obtained and noted. Utilized [employer] shipping support to discuss plan of care. Patient verbalized understanding. Hemoglobin 9.2 hematocrit 27.8 Plan Clear liquid diet today N.p.o. after midnight Consent for colonoscopy Monitor for bleeding Transfuse as needed Monitor hemoglobin and hematocrit Avoid aspirin and anticoagulants, NSAIDs Antiemetic and analgesic as per attending PPI Supportive care Further recommendations to follow This patient has been seen by myself and Dr. Santos of this note is written on his behalf - Attending Attestation gisselle
[2018-03-18] MEDS: Budesonide-Formoterol 160/4.5 MCG 6 GM Inhaler INH SCH ×2 (13:02→21:25)
[2018-03-18] MEDS ORDERED: PEG 3350/E-Lyte Soln 4000 ML Bottle PO ONE (16:00)
[2018-03-18] MEDS: Montelukast 10 MG Tablet PO SCH (18:37)
[2018-03-19] MEDS: Chlorhexidine Gluconate 2% 1 Pack (2 Cloths) TOPICAL SCH (04:30)
[2018-03-19 06:27] LABS: Hematocrit 30.5 % (35.0-46.0); Mean Corpuscular HGB Conc 32.7 % (32.0-36.0); Mean Corpuscular Hemoglobin 26.8 pg (27.0-34.0); Mean Corpuscular Volume 81.9 fL (80.0-100.0); Mean Platelet Volume 12.2 fL (7.0-11.0); Platelet Count 79 th/mm3 (150-450); Red Blood Count 3.72 mil/mm3 (4.00-5.30); Red Cell Distribution Width 15.9 % (11.6-17.2); White Blood Count 9.4 th/mm3 (4.0-11.0)
[2018-03-19 08:26] LABS: Calcium 6.9 mg/dL (8.5-10.1); Carbon Dioxide 28.4 meq/L (21.0-32.0); Potassium 3.2 meq/L (3.5-5.1)
[2018-03-19] MEDS: Senna/Docusate Sodium 8.6/50 MG Tablet PO SCH ×2 (08:35→21:11)
[2018-03-19] MEDS: Pantoprazole Inj 40 MG Vial IV.PUSH SCH ×2 (08:36→21:11)
[2018-03-19 08:37] LABS: Albumin 3.7 g/dL (3.4-5.0)
[2018-03-19 08:39] LABS: Calcium-Albumin Corrected 7.1 mg/dL (8.5-10.1)
[2018-03-19] MEDS: Budesonide-Formoterol 160/4.5 MCG 6 GM Inhaler INH SCH ×2 (08:43→21:12)
[2018-03-19] MEDS ORDERED: Ketamine Inj 50 MG/5 ML Syringe IV.PUSH ONE (10:18)
[2018-03-19] MEDS: buPROPion 150 MG 12 HR Tablet PO SCH ×2 (10:23→21:12)
--- NOTE | 2018-03-19 10:44 | GIPROC ---
[facility] [address] [facility]. [facility], [address] COLONOSCOPY PROCEDURE REPORT EXAM DATE: 03/19/2018 PATIENT NAME: Lynne Centeno MR #: [id number] BIRTHDATE: 1940 ENDOSCOPIST: Jan Santos MD ORDER #: [id number] FURNITURE POLISHER: Luiza Arias and Melina Bowman STATUS: inpatient INDICATIONS: The patient is a 77 yr old female here for a colonoscopy due to hematochezia and iron deficiency anemia PROCEDURE PERFORMED: Colonoscopy, diagnostic MEDICATIONS: Per Anesthesia and None. PREP QUALITY: fair ESTIMATED BLOOD LOSS: None CONSENT: The patient understands the risks and benefits of the procedure and understands that these risks include, but are not limited to: sedation, allergic reaction, infection, perforation and/or bleeding. Alternative means of evaluation and treatment include, among others: physical exam, x-rays, and/or surgical intervention. The patient elects to proceed with this endoscopic procedure. medical equipment was checked for proper function. Hand hygiene and appropriate measures for infection prevention was taken. After the risks, benefits and alternatives of the procedure were thoroughly explained, Informed consent was verified, confirmed and timeout was successfully executed by the treatment team. A digital exam revealed no abnormalities of the rectum The Pentax [id number] endoscope was introduced through the anus and advanced to the cecum, which was identified by both the appendix and ileocecal valve. The instrument was then slowly withdrawn as the colon was fully examined. COLON FINDINGS: Moderate diverticulosis was noted throughout the entire examined colon. Internal and external hemorrhoids were found. Retroflexion was not performed The scope was then completely withdrawn from the patient and the procedure terminated. PROCEDURE WITHDRAWAL TIME:8minutes ADVERSE EVENTS: There were no complications. IMPRESSIONS: 1. Moderate diverticulosis was noted throughout the entire examined colon 2. Internal and external hemorrhoids 3. Retroflexion was not performed 4. Revealed no abnormalities of the rectum RECOMMENDATIONS: Monitor H/H Cont supportive tx RECALL: Return 5 years Colonoscopy Jan Santos MD eSigned: Jan Santos MD 03/19/2018 10:43 AM cc: PATIENT NAME: Lynne Centeno MR#: [id number]
--- NOTE | 2018-03-19 14:36 | P.PNIM ---
Subjective Interval history: Interval history obtained with help from video park interpreter. Patient reports feeling better, her breathing is improving. no bleeding. She reports difficulty swallowing, feels like food is getting stuck. this has been an ongoing problem but she has never had it evaluated. Colonoscopy was done today. I explained the report to the patient. Physical Exam Vital signs: Last Vital Signs Temp 99.4 F 03/19/18 10:43 Pulse 80 03/19/18 12:00 Resp 18 03/19/18 10:43 BP 128/58 L 03/19/18 10:43 Pulse Ox 93 L 03/19/18 10:43 Intake & Output 03/17/18 03/18/18 03/19/18 03/20/18 06:59 06:59 06:59 06:59 Intake Total 35 / 35 980 / 980 480 / 480 200 / 200 Output Total 800 / 800 2200 / 2200 Balance -765 / -765 -1220 / -1220 480 / 480 200 / 200 Weight 77.5 kg 77.5 kg 75.5 kg Narrative: GENERAL: pleasant elderly lady, NAD, HEENT: mildly pale,anicteric NECK: no JVD. CARDIOVASCULAR: Regular rate and rhythm without murmurs, gallops, or rubs. RESPIRATORY: Breath sounds equal bilaterally. No accessory muscle use. GASTROINTESTINAL: Obese,Abdomen soft, has epigastric hernia which is easily reducible, mildly tender. Mild generalized abdominal tenderness noted. no palpable organomegaly. MUSCULOSKELETAL: No edema. SKIN: Warm and dry. NEURO: A&Ox3.No focal neurological deficits. Results Labs CBC & Chem 7: 03/19/18 05:00 03/20/18 03:59 Assessment and Plan (1) Acute GI bleeding: Code(s): K92.2 - Gastrointestinal hemorrhage, unspecified Status: Acute Plan 77-year-old female admitted secondary to GI bleed, complaints of epigastric pain and chest pain which are chronic and potentially related to chronic anterior abdominal hernia. Gastrointestinal bleed-H/h remains stable. seen by GI, colonoscopy done 03/19, showing moderate diverticulosis, and hemorrhoids. Dsyphagia-ongoing problem according to patient, has not been evaluated. will consult poker prop player to further evaluate. Elevated troponin Troponins were trended and have remained flat likely chronic and related to CHF and chronic kidney disease Cardiology following No need for further workup Congestive heart failure Metoprolol on hold for now due to asthma Baseline ejection fraction 25% Continue diuresis Hypoxia Likely related to asthma exacerbation Oxygen supplementation as needed Continue nebulized treatments Follow oxygen saturations Hypocalcemia Continue calcium supplementation as needed Follow calcium levels Diabetes mellitus type 2 Follow blood sugars Insulin sliding scale Diabetic diet Hold metformin DVT prophylaxis SCDs No systemic anticoagulation given active bleed Progress Note: Quality VTE Deep Vein Thrombosis/Pulmonary Embolism Present on Admission: No
[2018-03-19] MEDS: Montelukast 10 MG Tablet PO SCH (17:43)
[2018-03-20] MEDS ORDERED: Temazepam 15 MG Capsule PO ONE (00:13)
[2018-03-20] MEDS: Chlorhexidine Gluconate 2% 1 Pack (2 Cloths) TOPICAL SCH (04:45)
[2018-03-20 07:07] LABS: Calcium 6.9 mg/dL (8.5-10.1); Magnesium 1.5 mg/dL (1.5-2.5); Potassium 3.5 meq/L (3.5-5.1)
[2018-03-20 07:18] LABS: Albumin 3.3 g/dL (3.4-5.0); Calcium-Albumin Corrected 7.5 mg/dL (8.5-10.1)
[2018-03-20] MEDS: buPROPion 150 MG 12 HR Tablet PO SCH ×2 (08:32→21:04)
[2018-03-20] MEDS: Pantoprazole Inj 40 MG Vial IV.PUSH SCH ×2 (08:33→21:04)
[2018-03-20] MEDS: Senna/Docusate Sodium 8.6/50 MG Tablet PO SCH ×2 (08:33→21:04)
[2018-03-20] MEDS: Budesonide-Formoterol 160/4.5 MCG 6 GM Inhaler INH SCH ×2 (08:34→21:05)
--- NOTE | 2018-03-20 15:45 | P.PNGI ---
Subjective Interval history: Patient resting in bed Denies any nausea or vomiting Bedside RN reports patient had one loose stool this a.m. Post colonoscopy on 03/19/2018 Physical Exam Vital signs: Vital Signs 03/19/18 16:00 03/19/18 17:15 03/19/18 20:00 Temperature 98.1 F 97.8 F Pulse Rate 85 109 H Respiratory Rate 20 18 Blood Pressure 101/54 L 132/59 L Pulse Oximetry 95 93 L 93 L 03/20/18 00:00 03/20/18 04:00 03/20/18 07:41 Temperature 97.7 F 97.7 F Pulse Rate 95 H 77 Respiratory Rate 18 18 Blood Pressure 107/56 L 111/59 L Pulse Oximetry 93 L 92 L 93 L 03/20/18 08:00 03/20/18 08:20 03/20/18 12:00 Temperature 97.6 F 97.3 F L Pulse Rate 112 H 91 H 72 Respiratory Rate 20 20 Blood Pressure 120/80 108/56 L Pulse Oximetry 93 L 96 03/20/18 12:20 Temperature Pulse Rate 77 Respiratory Rate Blood Pressure Pulse Oximetry Intake & Output 03/19/18 03/20/18 03/20/18 18:59 06:59 18:59 Intake Total 200 / 200 480 / 480 Output Total 1300 / 1300 Balance 200 / 200 -820 / -820 Weight 73.2 kg Intake: Oral 480 / 480 Anesthesia Amount 200 / 200 Output: Urine 1300 / 1300 Other: Date of Last Bowel Movement 03/19/18 03/19/18 # Bowel Movements 0 - Constitutional no acute distress - Routine Respiratory Exam Present: CTA bilaterally - Routine Cardiovascular Exam Present: RRR, S1, S2 - Routine Abdominal Exam Present: soft, normoactive bowel sounds, hernia. Absent: tenderness, distended , guarding, firm - Routine Skin Exam Present: dry, warm - Routine Neurological Exam Present: alert - Routine Psychiatric Exam Present: normal affect, cooperative Results - Labs CBC & Chem 7: 03/19/18 05:00 03/20/18 03:59 Laboratory Results - last 24 hr 03/20/18 03/20/18 03:59 03:59 Sodium 140 Potassium 3.5 Chloride 99 Carbon Dioxide 31.0 Anion Gap 10 BUN 38 H Creatinine 1.40 H Estimated GFR 37 L Random Glucose 83 Calcium 6.9 L* Calcium Adj for Albumin 7.5 L Magnesium 1.5 B-Natriuretic Peptide 1975 H Albumin 3.3 L Assessment and Plan (1) Acute GI bleeding Status: Acute Code(s): K92.2 - Gastrointestinal hemorrhage, unspecified - Plan This patient is a 77-year-old primarily Mongolian-speaking female with a past medical history of hypertension, COPD, diabetes, CHF and GERD. Surgical history significant for coronary artery bypass graft, cholecystectomy, appendectomy, and hernia repair. Patient was brought to the emergency room at [facility] for complaint of chest pain, shortness of breath and bright red blood per rectum. The security intelligence analyst device Nimbula used to complete history of present illness. Upon consultation, patient reports 3-day history of upper abdominal cramping and chest wall pain with nausea and bright red blood per rectum. Patient does endorse one week of hardened stools. Patient states she experienced nausea over the last 3 days without vomiting. Patient endorses that she takes aspirin and meloxicam at home. Upon patient's arrival to the ER, O2 sat 85% on room air hemoglobin 7.5. Troponin was 0.08. Patient was given Lasix 40 mg IV in the emergency room as well as 2 units of packed RBCs ordered. Patient denies ever having had an EGD or colonoscopy in the past. She reports intermittent constipation and denies any diarrhea. Patient denies any known family history for gastrointestinal disorders. Patient denies any difficulty swallowing or heartburn. Patient denies use of alcohol or tobacco products. Our service has been consulted to evaluate patient for lower GI bleed GI bleed Patient presented to ER with complaint of shortness of breath and left-sided chest wall pain. Patient also endorsed bright red blood per rectum times 3 days with nausea and no vomiting. Of note, patient states she takes aspirin and meloxicam daily. Hemoglobin 7.5 on admission, troponin 0 0.08. 03/17/2018 WBC 5.6 hemoglobin 9.4 hematocrit 28.2 posttransfusion 2 units packed RBCs. No active bleeding reported at this time. 03/18/2018 GI bleed No BM today, patient denies any noted bleeding. Cardiology clearance obtained and noted. Utilized Nimbula security intelligence analyst to discuss plan of care. Patient verbalized understanding. Hemoglobin 9.2 hematocrit 27.8 03/20/2018 -Bedside RN reports BM x1 today-loose stool -No reported bleeding -Patient denies any abdominal pain nausea or vomiting. -03/19/2018 colonoscopy revealed the followin.Moderate diverticulosis was noted throughout the entire examined colon 2.Internal and external hemorrhoids 3.Retroflexion was not performed 4.Revealed no abnormalities of the rectum -03/19/2018 WBC 9.4 hemoglobin 10.0 hematocrit 30.5 -Spoke with patient's daughter Demetra regarding the above findings and plan of care, she verbalized understanding. Plan -Cardiac diet as tolerated -Monitor for bleeding -Monitor hemoglobin and hematocrit -Avoid nuts and seeds -High-fiber diet -Supportive care -Recommended repeat colonoscopy in 5 years -GI will sign off at this time, please notify for further needs. This patient has been seen by myself and Dr. Santos of this note is written on his behalf - Attending Attestation Tom
--- NOTE | 2018-03-20 18:03 | P.PNIM ---
Subjective Interval history: interval history obtained with help of lithuanian video substance abuse technician. patient says her breathing has improved. she is feeling better. she worked with pt/ot today and swallow eval was done. she says she still feels like food is getting stuck when she swallows. she is hoping she will be able to go home tomorrow. Physical Exam Vital signs: Last Vital Signs Temp 97.3 F L 03/20/18 12:00 Pulse 77 03/20/18 12:20 Resp 20 03/20/18 12:00 BP 108/56 L 03/20/18 12:00 Pulse Ox 96 03/20/18 12:00 Intake & Output 03/18/18 03/19/18 03/20/18 03/21/18 06:59 06:59 06:59 06:59 Intake Total 980 / 980 480 / 480 680 / 680 Output Total 2200 / 2200 1300 / 1300 Balance -1220 / -1220 480 / 480 -620 / -620 Weight 77.5 kg 75.5 kg 73.2 kg Narrative: GENERAL: pleasant elderly lady, NAD, HEENT: mildly pale,anicteric NECK: no JVD. CARDIOVASCULAR: Regular rate and rhythm without murmurs, gallops, or rubs. RESPIRATORY: Breath sounds equal bilaterally. No accessory muscle use. GASTROINTESTINAL: Obese,Abdomen soft, has epigastric hernia which is easily reducible, mildly tender. Mild generalized abdominal tenderness noted. no palpable organomegaly. MUSCULOSKELETAL: No edema. SKIN: Warm and dry. NEURO: A&Ox3.No focal neurological deficits. Results Labs CBC & Chem 7: 03/19/18 05:00 03/21/18 06:06 Assessment and Plan (1) Acute GI bleeding: Code(s): K92.2 - Gastrointestinal hemorrhage, unspecified Status: Acute Plan 77-year-old female admitted secondary to GI bleed, complaints of epigastric pain and chest pain which are chronic and potentially related to chronic anterior abdominal hernia. Gastrointestinal bleed-H/h remains stable. seen by GI, colonoscopy done 03/19, showing moderate diverticulosis, and hemorrhoids. repeat in 5years. Dysphagia-ongoing problem according to patient, has not been evaluated. programmer operator numerical control consult appreciated. she did well with swallowing. I will order barium swallow to further evaluate and if +ve will re-consult GI. Debility--evaluated by PT/OT who recommended home PT/OT. Elevated troponin Troponins were trended and have remained flat likely chronic and related to CHF and chronic kidney disease Cardiology following No need for further workup Congestive heart failure Metoprolol on hold for now due to asthma Baseline ejection fraction 25% Continue diuresis Hypoxia Likely related to asthma exacerbation Oxygen supplementation as needed Continue nebulized treatments Follow oxygen saturations Hypocalcemia Continue calcium supplementation as needed Follow calcium levels Diabetes mellitus type 2 Follow blood sugars Insulin sliding scale Diabetic diet Hold metformin DVT prophylaxis SCDs No systemic anticoagulation given active bleed Progress Note: Quality VTE Deep Vein Thrombosis/Pulmonary Embolism Present on Admission: No
[2018-03-20] MEDS: Montelukast 10 MG Tablet PO SCH (18:06)
[2018-03-20] MEDS: Calcium Carbonate 500 MG Tablet PO SCH (21:04)
[2018-03-21] MEDS: Chlorhexidine Gluconate 2% 1 Pack (2 Cloths) TOPICAL SCH (05:04)
[2018-03-21 07:55] LABS: Calcium 6.5 mg/dL (8.5-10.1); Carbon Dioxide 34.2 meq/L (21.0-32.0); Potassium 3.7 meq/L (3.5-5.1)
[2018-03-21 08:11] LABS: Albumin 3.3 g/dL (3.4-5.0)
[2018-03-21 08:27] LABS: Calcium-Albumin Corrected 7.1 mg/dL (8.5-10.1)
[2018-03-21 08:44] VITALS: O2SAT 96
[2018-03-21] MEDS: Pantoprazole Inj 40 MG Vial IV.PUSH SCH (11:51)
[2018-03-21] MEDS: Calcium Carbonate 500 MG Tablet PO SCH (11:52)
[2018-03-21] MEDS: Senna/Docusate Sodium 8.6/50 MG Tablet PO SCH (11:52)
[2018-03-21] MEDS: buPROPion 150 MG 12 HR Tablet PO SCH (11:52)
[2018-03-21] MEDS: Budesonide-Formoterol 160/4.5 MCG 6 GM Inhaler INH SCH (11:53)
[2018-03-21] MEDS ORDERED: Magnesium Oxide 400 MG Tablet PO SCH (12:00)
[2018-03-21 12:12] VITALS: BP 118/60; RESP 17; TEMP 97.7
--- NOTE | 2018-03-21 12:13 | FL ---
EXAM DATE: 03/21/2018 10:21 AM EST AGE/SEX: 77 years / Female INDICATIONS: Dysphagia. CLINICAL DATA: This is the patient's subsequent encounter. Patient reports that signs and symptoms h ave been present for 4 - 6 days and indicates a pain score of 0/10. MEDICAL/SURGICAL HISTORY: . Pt had chest and epigastric pain. None. COMPARISON: [facility], CTA CAROTID ARTERIES W 3D RECON, 06/06/2017. . FLUORO TIME: 1.0 IMAGE COUNT: 22 FINDINGS: Barium swallow Limited by patient's condition. There is a dilated thoracic esophagus with poor motili ty. The esophagus does empty in the upright position but does remain distended. Because of patient's condition the hypopharynx is not evaluated CONCLUSION: Dilatation of the esophagus that does empty in the right position with poor motility. No obvious obst ructing mass identified. Electronically signed by: Hussein Qunitero MD 03/21/2018 12:11 PM EST
--- NOTE | 2018-03-21 13:05 | P.DS ---
DS: Providers Date of admission: 03/16/18 23:39 Primary care physician: Liang Garcia Consults: 03/16/18 23:31 Consult to Gastroenterology Routine Consulting Provider: Jan Santos V Reason for Consultation: GI Bleed CONSULT FOR AM Notified:: Service Spoke with:: araseli Date Notified:: 03/17/18 Time Notified:: 01:21 Comments:: per Khadra in call center change to Dr Tom CHRISTIANSON Ordering Provider: LOU 03/16/18 23:32 Consult to Cardiology Routine Consulting Provider: Rg Nguyễn Does the patient have a Ip Attorney who follows them?: No Preferred Orthopedic Radiologic Technologist:: Counter Intelligence Technician Physician Reason for Consultation: Elevated Trop, Chest Pain CONSULT FOR AM Notified:: Service Spoke with:: araseli Date Notified:: 03/17/18 Time Notified:: 01:18 Ordering Provider: LOU 03/17/18 00:04 HUB Only Consult Order Routine Consulting Provider: Cb Vivar Brief History from admission: This is a 77-year-old Wolof-speaking female with a PMH of HTN, COPD, DM, CHF ( Echo 11/07/17 w/ EF 25-30%) and GERD who was brought to the ER for c/o chest pain , SOB and BRBPR. Pt reports chest pain has been ongoing for approx 3-4 days, now associated w/ SOB, especially w/ exertion. Denies fever, chills or sick contacts. Today w/ additional complaint of abdominal cramping pain and episode of BRBPR. On ASA and Meloxicam at home. On arrival, BP 193/77, HR 100, O2 sat 85% on RA, Afebrile. Hemoglobin 7.5, previously 9.5 on 12/31/2017. Platelets 122, previously 132 on 12/31/2017. INR 1.3. Creatinine 1.77, previously 1.57 on 12/31/2017. Troponin 0 0.08. BNP 1457 per CXR with pulmonary vascular congestion. S/p Lasix 40mg IV in ER. 2u pRBC ordered, pending transfusion. Currently chest pain free. CT Abd/Pelvis w/ new small bilateral effusions. DS: Diagnosis Discharge Diagnosis (1) Acute GI bleeding: Status: Acute DS: Summary ISSUES ADDRESSED DURING THIS HOSPITALIZATION: 1. Shortness of breath: this was multifactorial due to CHF exacerbation and Asthma exacerbation. Her BNP on arrival was ~1600.CT chest revealed vascular congestion and pleural effusions. Troponin was mildly elevated likely due to demand ischemia. Patient was started on IV Diuresis with Lasix. She was also put on DUONEBS. She was also on supplemental oxygen which was tapered off. Carvedilol was started given her low EF. Lorsatan, Aldactone were discontinued due to acute kidney injury. She improved significantly. Her breathing was back to baseline at the time of discharge. Patient should follow up with her Ip Attorney on discharge. 2.LOWER GI BLEED: Patient presented with BRBPR, which subsided after arriving at the hospital. GI was consulted and colonoscopy was done which revealed moderate diverticulosis, and hemorrhoids, there was no active bleeding identified.Colonoscopy is to be repeated in 5years. 3.Acute on chronic anemia acute component due to lower GI bleed. She received 2 units of prbc in the ER. Her Hemoglobin improved from 7.5g/dl to 9-10g/dl range and remained stable throughout her hospitalization. 4.Dysphagia-ongoing problem according to patient, has not been evaluated. joist setter consult appreciated. she did well with swallowing. Barium swallow did not reveal any obstruction but showed impaired motility. Patient will need to follow up with GI in the outpatient setting to have this issue addressed. 5. Acute kidney injury-this was likely pre renal in the setting of CHF. Her renal function improved with diuresis. Aldactone, Losartan,Meloxicam were discontinued.(It appears patient had still been taking despite being discontinued in her recent hospitalization at an OSH) 6.Debility--evaluated by PT/OT who recommended home therapy. 7. Electrolyte imbalances-hypocalcemia,hypomagnesemia were likely in the setting of diuresis, were replenished accordingly. Patient will need to follow up with her PCP within 1 week. Time Spent with Patient Total time spent providing and/or coordinating discharge services:>30 minutes Quality: VTE Deep Vein Thrombosis/Pulmonary Embolism Present on Admission: No Exam Narrative Exam Narrative: GENERAL: pleasant elderly lady, NAD, HEENT: mildly pale,anicteric NECK: no JVD. CARDIOVASCULAR: Regular rate and rhythm without murmurs, gallops, or rubs. RESPIRATORY: Breath sounds equal bilaterally. No accessory muscle use. GASTROINTESTINAL: Obese,Abdomen soft, has epigastric hernia which is easily reducible, mildly tender. Mild generalized abdominal tenderness noted. no palpable organomegaly. MUSCULOSKELETAL: No edema. SKIN: Warm and dry. NEURO: A&Ox3.No focal neurological deficits. Results Labs on day of discharge: Labs from last 24 hours 03/21/18 03/21/18 06:06 06:06 Sodium 141 Potassium 3.7 Chloride 98 Carbon Dioxide 34.2 H Anion Gap 9 BUN 33 H Creatinine 1.27 H Estimated GFR 41 L Random Glucose 116 H Calcium 6.5 L* Calcium Adj for Albumin 7.1 L* Magnesium 1.4 L Albumin 3.3 L Impressions ITS Impressions Chest X-Ray 03/16/18 21:49 CONCLUSION: 1. Cardiomegaly with mild pulmonary vascular congestion. Abdomen/Pelvis CT 03/16/18 23:30 CONCLUSION: 1. Study is degraded by breathing motion artifact. 2. New small bilateral pleural effusions with associated atelectasis. 3. Cardiomegaly. 4. No acute abnormality. Barium Swallow X-Ray 03/21/18 00:00 CONCLUSION: Dilatation of the esophagus that does empty in the right position with poor motility. No obvious obstructing mass identified.
--- NOTE | 2018-03-21 13:39 | P.DCO ---
Diagnosis (1) Acute GI bleeding: Status: Acute (2) Asthma exacerbation in COPD: Status: Acute (3) CHF (congestive heart failure): Status: Acute (4) Hypocalcemia: Status: Acute (5) Elevated troponin: Status: Acute Physical Therapy Order: Evaluate and treat and Strength and gait training Occupational Therapy Order: Evaluate and treat and Improve ADL Home Health Nursing Order: Medical education, Diabetic education and CHF education Case Management Consult Case Management Consult-Home Health: Yes I have seen patient Lynne Centeno on 03/21/18. My clinical findings support the need for the requested home health care services because: DEBILITY FOLLOWING HOSPITALIZATION FOR ACUTE GI BLEED,CHF EXACERBATION,ASTHMA EXACERBATION, ACUTE KIDNEY INJURY. I certify that my clinical findings support that this patient is homebound because:shortness of breath, general weakness _ (1) CHF (congestive heart failure) Qualifiers: Heart failure chronicity: Heart failure type:
[2018-03-21 13:56] VITALS: PULSE 88
== END 2018-03-21 16:25 | disposition home health service (06) ==
LOC: NEPE 21:29 → NEDA 23:39 → HIMC 03-17 00:25 → N04 03-17 21:54
PROVIDERS: ADMIT Hospitalist; ATTEND Hospitalist
PROC: COLONOS (2018-03-19 10:12)
DX: K64.8 Other hemorrhoids; I50.23 Acute on chronic systolic (congestive) heart failure; Z88.6 Allergy status to analgesic agent; Z95.1 Presence of aortocoronary bypass graft; R13.10 Dysphagia, unspecified; J44.9 Chronic obstructive pulmonary disease, unspecified; K43.9 Ventral hernia without obstruction or gangrene; I25.2 Old myocardial infarction; Z88.0 Allergy status to penicillin; I42.9 Cardiomyopathy, unspecified; R74.8 Abnormal levels of other serum enzymes; E83.51 Hypocalcemia; Z98.1 Arthrodesis status; Z88.5 Allergy status to narcotic agent; Z82.49 Family history of ischemic heart disease and other diseases of the circulatory system; Z79.84 Long term (current) use of oral hypoglycemic drugs; K64.4 Residual hemorrhoidal skin tags; Z91.013 Allergy to seafood; R09.02 Hypoxemia; Z83.3 Family history of diabetes mellitus; K57.31 Diverticulosis of large intestine without perforation or abscess with bleeding; J45.901 Unspecified asthma with (acute) exacerbation; K21.9 Gastro-esophageal reflux disease without esophagitis; N17.9 Acute kidney failure, unspecified; I47.1 Supraventricular tachycardia; I25.10 Atherosclerotic heart disease of native coronary artery without angina pectoris; D50.0 Iron deficiency anemia secondary to blood loss (chronic); E87.1 Hypo-osmolality and hyponatremia; I13.0 Hypertensive heart and chronic kidney disease with heart failure and stage 1 through stage 4 chronic kidney disease, or unspecified chronic kidney disease; E11.22 Type 2 diabetes mellitus with diabetic chronic kidney disease; N18.9 Chronic kidney disease, unspecified

== ENCOUNTER 2018-03-29 11:24 | Observation (INO) ==
--- NOTE | 2018-03-29 11:56 | ED ---
HPI General Chief Complaint: Respiratory Symptoms Stated Complaint: Breathing Complaint Time Seen by Provider: 03/29/18 11:36 Source: patient, RN notes reviewed and old records reviewed Mode of arrival: EMS Limitations: language barrier History of Present Illness 77-year-old Citizen Of [place]-speaking female with a PMH of HTN, COPD, DM, CHF (Echo w/ EF 25-30%) and GERD. Patient states that she started with an "asthma attack" last night. She has been using her inhalers without relief. She states that this morning, she drank some coffee and felt the sugar got stuck in her throat. She reports pleuritic chest pain, 8/10, worse with deep breathing and coughing. Patient was recently hospitalized and discharged on March 21 for acute GI bleed, shortness of breath. She was diagnosed with CHF exacerbation, asthma exacerbation, troponin was elevated due to demand ischemia and she had a lower GI bleed. She denies any bright red GI bleed or dark and tarry stools. She reports chronic abdominal pain from a hernia. She recently had an abdomenpelvis CT done on March 16 which showed no acute abnormality. Moderate severity. MD Complaint: Reports shortness of breath and pain with inspiration Onset (ago): day(s) (1) Severity: moderate Consistency/Duration: constant Relieving factors: nothing Exacerbating factors: exertion Known history of: Reports COPD, asthma and congestive heart failure Associated symptoms: Reports pain with inspiration, cough, wheezing and abdominal pain; Denies fever, lower extremity pain, nausea/vomiting and syncope Treatment prior to arrival: Reports oxygen, bronchodilator and other (solumedrol ) Related Data Home Medications Medication Instructions Recorded Confirmed albuterol sulfate [Ventolin HFA] 2 puff INHALATION Q6H PRN MDD 8 11/06/17 puffs budesonide-formoterol [Symbicort] 2 puff INHALATION BID 11/06/17 03/29/18 aspirin 325 mg PO DAILY 12/31/17 03/29/18 bupropion HCl 150 mg PO BID 12/31/17 03/29/18 escitalopram oxalate 20 mg PO DAILY 12/31/17 03/29/18 ezetimibe 10 mg PO DAILY 12/31/17 03/29/18 montelukast 10 mg PO QPM 12/31/17 03/29/18 omeprazole 20 mg PO DAILY 12/31/17 03/29/18 Previous Rx's Medication Instructions Recorded calcium carbonate [Oyster Shell 500 mg PO BID #14 tab 03/21/18 Calcium 500] carvedilol [Coreg] 3.125 mg PO BID #60 tab 03/21/18 magnesium oxide 400 mg PO BID #14 tab 03/21/18 meclizine 25 mg PO BID PRN #60 tab 03/21/18 Allergies Allergy/AdvReac Type Severity Reaction Status Date / Time Penicillins Allergy Severe Hives Verified 03/29/18 11:41 acetaminophen Allergy Intermediate Chills Verified 03/29/18 11:41 aminophylline Allergy Intermediate Hives Verified 03/29/18 11:41 amoxicillin Allergy Intermediate Hives Verified 03/29/18 11:41 Fish Containing Products Allergy Intermediate Hives Verified 03/29/18 11:41 shellfish derived Allergy Intermediate Hives Verified 03/29/18 11:41 hydrocodone AdvReac Intermediate Sedation Verified 03/29/18 11:41 tramadol AdvReac Intermediate hallucinati Verified 03/29/18 11:41 ons Review of Systems ROS: all other systems reviewed are negative [facility] Social History Social History Substance History: No History of Abuse Second Hand Smoke Exposure: No Smoking Status: Never smoker Tobacco Type: Cigarettes How Often Do You Have a Drink Containing Alcohol: Never Hx Recent Travel: No Recent Travel in [facility] within the Last 8 Weeks: No Recent Out of Country Travel within the Last 8 Weeks: No Immunization History Tetanus Immunization: Unsure Exam Narrative Exam Narrative: GENERAL: Well-nourished, well-developed female patient, afebrile SKIN: Focused skin assessment warm/dry. HEAD: Normocephalic. Atraumatic EYES: No scleral icterus. No injection or drainage. NECK: Supple, trachea midline. No JVD or lymphadenopathy. CARDIOVASCULAR: Regular rate and rhythm without murmurs, gallops, or rubs. Bilateral radial and pedal pulses are 2+ RESPIRATORY: Breath sounds equal bilaterally. + accessory muscle use. Patient is tachypneic with inspiratory and expiratory wheezes noted throughout. GASTROINTESTINAL: Abdomen soft and nondistended. MUSCULOSKELETAL: No cyanosis, or edema. BACK: Nontender without obvious deformity. No CVA tenderness. Course Initial Documented Vital Signs Temperature 98.8 F 12/15/18 11:35 Pulse Rate 89 03/29/18 11:35 Respiratory Rate 18 03/29/18 11:35 Blood Pressure 122/61 03/29/18 11:35 Pulse Oximetry 98 03/29/18 11:35 Last Documented Vital Signs Temperature 98.8 F 03/29/18 11:35 Pulse Rate 100 H 03/29/18 14:00 Respiratory Rate 22 03/29/18 14:00 Blood Pressure 134/70 03/29/18 14:00 Pulse Oximetry 95 03/29/18 14:00 Medical Decision Making MEREDITH Attestation MEREDITH supervised visit: Yes Attestation: The history, exam, and medical decision-making in the associated midlevel provider note were completed with my assistance. I reviewed and agree with the findings presented. I attest that I had a [id number] encounter with the patient on the same day, and personally performed and documented my assessment and findings in the medical record. *My assessment and Findings: This is a 77-year-old female who presents to the emergency department with increasing trouble breathing over the past several days. She has a history of COPD and congestive heart failure. She is very frail appearing on exam with labored respirations. We attempted to ambulate her but she developed significant shortness of breath with short distance. Based on her exam I suspect her symptoms are more related to volume overload. Pt. will be placed in observation for diuresis and continued bronchodilator treatments. MDM Narrative Medical decision making narrative: 77-year-old female presents to the emergency department for evaluation of shortness of breath that started last night, worsened this morning when she drank coffee. Patient received nebulizer x2, Solu-Medrol 125 mg IV by EMS prior to arrival. EKG, CBC, CMP, CK, troponin, BNP , PTT, PT/INR, chest x-ray ordered and pending. Patient is given DuoNeb x3. EKG shows SR, HR 90, no acute ST changes. CBC shows slight anemia hemoglobin 9.5, hematocrit 29.2. CMP shows BUN 21, creatinine 1.21, hypocalcemia 6.7. Magnesium is 1.7. CK is 133. Troponin is 0.02. BNP is 1606. PTT is 27.8. PT /INR is 12.7/1.3. Chest x-ray shows cardiomegaly with possible mild congestive heart failure, no evidence of airspace consolidation. Patient is given Lasix 40 mg IV. Upon reassessment, patient is still tachypneic with diffuse wheezing. Patient is ambulated in the emergency department, but cannot tolerate ambulating. Patient will be admitted for observation for COPD, CHF exacerbation. Medical Screen Exam Complete: Yes Emergency Medical Condition: Yes Differential Diagnosis Differential Diagnosis: COPD exacerbation versus CHF exacerbation versus pneumonia versus aspiration pneumonia versus ACS metabolic abnormality Medical Records Medical records reviewed: Yes I reviewed the patient's medical records. Lab Data Result diagrams: 03/29/18 12:02 03/29/18 12:02 Lab Results 03/29/18 03/29/18 03/29/18 Range/Units 12:02 12:02 12:02 WBC 9.2 (4.0-11.0) th/mm3 RBC 3.58 L (4.00-5.30) mil/mm3 Hgb 9.5 L (11.6-15.3) gm/dL Hct 29.2 L (35.0-46.0) % MCV 81.6 (80.0-100.0) fL MCH 26.6 L (27.0-34.0) pg MCHC 32.5 (32.0-36.0) % RDW 16.4 (11.6-17.2) % Plt Count 76 L (150-450) th/mm3 MPV 12.7 H (7.0-11.0) fL Prelim Diff (Auto) Slide review pending Neut % (Auto) 86.1 H (16.0-70.0) % Lymph % (Auto) 7.3 L (9.0-44.0) % Anderson % (Auto) 5.9 (0.0-8.0) % Eos % (Auto) 0.3 (0.0-4.0) % Baso % (Auto) 0.4 (0.0-2.0) % Neut # (Auto) 7.9 H (1.8-7.7) th/mm3 Lymph # (Auto) 0.7 L (1.0-4.8) th/mm3 Anderson # (Auto) 0.5 (0.0-0.9) th/mm3 Eos # (Auto) 0.0 (0.0-0.4) th/mm3 Baso # (Auto) 0.0 (0.0-0.2) th/mm3 WBC Differential . Diff Scan Auto diff confirmed Differential Comment . Platelet Estimate Low L (Normal) Platelet Morphology Enlarged H (Normal) PT 12.7 H (9.8-11.6) sec INR 1.3 Ratio APTT 27.8 (23.4-31.7) sec Sodium 136 (136-145) meq/L Potassium 4.9 (3.5-5.1) meq/L Chloride 103 (98-107) meq/L Carbon Dioxide 24.0 (21.0-32.0) meq/L Anion Gap 9 (5-15) meq/L BUN 21 H (7-18) mg/dL Creatinine 1.21 H (0.50-1.00) mg/dL Estimated GFR 43 L (>89) mL/min Random Glucose 158 H (74-106) mg/dL Calcium 6.1 L* (8.5-10.1) mg/dL Calcium Adj for Albumin 6.7 L* (8.5-10.1) mg/dL Magnesium (1.5-2.5) mg/dL Total Bilirubin 0.8 (0.2-1.0) mg/dL AST 66 H (15-37) U/L ALT 75 H (10-53) U/L Alkaline Phosphatase 101 (45-117) U/L Total Creatine Kinase (26-192) U/L CK-MB (CK-2) (0.5-3.6) ng/mL Troponin I 0.02 (0.02-0.05) ng/mL B-Natriuretic Peptide (0-100) pg/mL Total Protein 7.0 (6.4-8.2) g/dL Albumin 3.3 L (3.4-5.0) g/dL 03/29/18 03/29/18 Range/Units 12:02 12:02 WBC (4.0-11.0) th/mm3 RBC (4.00-5.30) mil/mm3 Hgb (11.6-15.3) gm/dL Hct (35.0-46.0) % MCV (80.0-100.0) fL MCH (27.0-34.0) pg MCHC (32.0-36.0) % RDW (11.6-17.2) % Plt Count (150-450) th/mm3 MPV (7.0-11.0) fL Prelim Diff (Auto) Neut % (Auto) (16.0-70.0) % Lymph % (Auto) (9.0-44.0) % Anderson % (Auto) (0.0-8.0) % Eos % (Auto) (0.0-4.0) % Baso % (Auto) (0.0-2.0) % Neut # (Auto) (1.8-7.7) th/mm3 Lymph # (Auto) (1.0-4.8) th/mm3 Anderson # (Auto) (0.0-0.9) th/mm3 Eos # (Auto) (0.0-0.4) th/mm3 Baso # (Auto) (0.0-0.2) th/mm3 WBC Differential Diff Scan Differential Comment Platelet Estimate (Normal) Platelet Morphology (Normal) PT (9.8-11.6) sec INR Ratio APTT (23.4-31.7) sec Sodium (136-145) meq/L Potassium (3.5-5.1) meq/L Chloride (98-107) meq/L Carbon Dioxide (21.0-32.0) meq/L Anion Gap (5-15) meq/L BUN (7-18) mg/dL Creatinine (0.50-1.00) mg/dL Estimated GFR (>89) mL/min Random Glucose (74-106) mg/dL Calcium (8.5-10.1) mg/dL Calcium Adj for Albumin (8.5-10.1) mg/dL Magnesium 1.7 (1.5-2.5) mg/dL Total Bilirubin (0.2-1.0) mg/dL AST (15-37) U/L ALT (10-53) U/L Alkaline Phosphatase (45-117) U/L Total Creatine Kinase 133 (26-192) U/L CK-MB (CK-2) 2.3 (0.5-3.6) ng/mL Troponin I (0.02-0.05) ng/mL B-Natriuretic Peptide 1606 H (0-100) pg/mL Total Protein (6.4-8.2) g/dL Albumin (3.4-5.0) g/dL Imaging Data Radiologist's impression: Chest X-Ray 03/29/18 11:43 CONCLUSION: Cardiomegaly with possible mild congestive heart failure. No evidence of airspace consolidation. Discharge Plan Discharge Disposition Patient Disposition: ED Admit(ED Internal Use Only) Discharge Order Discharge Orders: ED Use Only Admit Order (Routine); Ordered 03/29/18 Ordered By: Savannah Thao Discharge Details Diagnosis: Asthma exacerbation in COPD, Hypocalcemia, CHF (congestive heart failure) Physicians Team ED Provider: Arcelia Sandoval ED Midlevel Provider: Savannah Thao Attending Provider: Julia Villalpando Status ED Status: Admitted Observation Patient
--- NOTE | 2018-03-29 12:22 | XR ---
EXAM DATE: 03/29/2018 12:07 PM EST AGE/SEX: 77 years / Female INDICATIONS: Shortness of breath. CLINICAL DATA: This is the patient's initial encounter. Patient reports that signs and symptoms have been present for 1 day and indicates a pain score of Nonresponsive. MEDICAL/SURGICAL HISTORY: . Cardiovascular disease. Gastroesophageal reflux disease. Diabetes. . CABG. Cholecystectomy. Appendectomy. . COMPARISON: [facility] [place], CHEST 1V SINGLE AP, 03/16/2018. . FINDINGS: AP portable upright view of the chest x-rays moderate cardiomegaly. Vasculature appears mildly promin ent. Lungs are clear. CONCLUSION: Cardiomegaly with possible mild congestive heart failure. No evidence of airspace consolidation. Electronically signed by: Naila Nowak MD Board Certified Radiologist 03/29/2018 12:21 PM [facility]
[2018-03-29 12:29] LABS: Baso % (Auto) 0.4 % (0.0-2.0); Eos % (Auto) 0.3 % (0.0-4.0); Hematocrit 29.2 % (35.0-46.0); Hemoglobin 9.5 gm/dL (11.6-15.3); Lymph # (Auto) 0.7 th/mm3 (1.0-4.8); Lymph % (Auto) 7.3 % (9.0-44.0); Mean Corpuscular HGB Conc 32.5 % (32.0-36.0); Mean Corpuscular Hemoglobin 26.6 pg (27.0-34.0); Mean Corpuscular Volume 81.6 fL (80.0-100.0); Mean Platelet Volume 12.7 fL (7.0-11.0); Mono # (Auto) 0.5 th/mm3 (0.0-0.9); Mono % (Auto) 5.9 % (0.0-8.0); Neut # (Auto) 7.9 th/mm3 (1.8-7.7); Neut % (Auto) 86.1 % (16.0-70.0); Platelet Count 76 th/mm3 (150-450); Red Blood Count 3.58 mil/mm3 (4.00-5.30); Red Cell Distribution Width 16.4 % (11.6-17.2); White Blood Count 9.2 th/mm3 (4.0-11.0)
[2018-03-29 12:39] LABS: Activated Partial Thrombo Time 27.8 sec (23.4-31.7); INR 1.3 Ratio; Prothrombin Time 12.7 sec (9.8-11.6)
[2018-03-29 12:50] LABS: Magnesium 1.7 mg/dL (1.5-2.5)
[2018-03-29 12:52] LABS: Creatine Kinase 133 U/L (26-192)
[2018-03-29 12:53] LABS: Albumin 3.3 g/dL (3.4-5.0); Calcium 6.1 mg/dL (8.5-10.1); Potassium 4.9 meq/L (3.5-5.1)
[2018-03-29 12:55] LABS: Troponin I 0.02 ng/mL (0.02-0.05)
[2018-03-29 13:10] LABS: Creatine Kinase MB 2.3 ng/mL (0.5-3.6)
[2018-03-29] MEDS ORDERED: Calcium Gluconate Inj 1 GM in Dextrose 5% in Water Inj 100 ML IV.SIG ONE ×2 (13:37)
[2018-03-29] MEDS ORDERED: Acetaminophen 325 MG Tablet PO PRN (14:35)
[2018-03-29] MEDS ORDERED: Bisacodyl 10 MG Supp RECTAL PRN (14:35)
[2018-03-29] MEDS: MethylPREDNISolone Sod Succinate Inj 125 MG/2 ML Vial IV.PUSH SCH ×2 (15:32→22:16)
--- NOTE | 2018-03-29 16:03 | P.HPIM ---
History of Present Illness Primary Care Physician: Liang Garcia Chief Complaint: Shortness of breath History of Present Illness: 77-year-old Female with a history of chronic systolic congestive heart failure, COPD with asthma, recent admission for GI bleed due to diverticulosis and hemorrhoids, diabetes mellitus type 2 who presented to the emergency room with worsening shortness of breath despite using her home nebulizer and inhalers. She reports wheezing and worsening shortness of breath with exertion. She denies symptoms of orthopnea PND or lower extremity edema. She reports associated pleuritic chest pain when she takes a deep breath and when she gets short of breath. She reports a dry cough associate with the symptoms. She was recently discharged from the hospital on March 21 for GI bleed along with CHF and asthma exacerbation with evaluation both by the cardiac and GI service. Her daughter at bedside explained that the patient extremely anxious because she feels her environment is causing her asthma flareups. She does admit to having mode in her house. Her daughter is currently in the process of finding a new place and moving out of her current residence. Due to the stress of the move, she has been extremely worried. Her daughter would like the patient to go to a rehab facility to get stronger prior to returning home. Diagnosis (1) Asthma exacerbation in COPD: (2) Hypocalcemia: Review of Systems Constitutional: Reports as per HPI, Denies chills, Denies fatigue, Denies fever( s) and Denies headache(s) Eyes: Denies blurry vision, Denies change in vision and Denies eye pain Ears, Nose, Mouth, and Throat: Denies abnormal hearing, Denies headache(s), Denies mouth pain, Denies nasal congestion, Denies neck pain and Denies sore throat Cardiovascular: Reports chest pain, Denies chest pain with activity, Denies rapid heart rate, Denies pedal edema, Denies palpitations, Reports dyspnea, Reports dyspnea on exertion, Denies orthopnea and Denies paroxysmal nocturnal dyspnea Comments: This of breath. Respiratory: Reports cough, Denies excessive phlegm production, Reports dyspnea , Reports dyspnea on exertion and Reports wheezing Gastrointestinal: Denies abdominal pain, Denies constipation, Denies loose stools, Denies nausea and Denies vomiting Musculoskeletal: Denies back pain, Denies myalgias, Denies arthralgias, Denies neck pain and Denies numbness Skin/Breast: Denies new lesions and Denies rash Neurologic: Denies abnormal hearing, Denies headache(s), Denies focal weakness, Denies memory loss and Denies numbness Psychiatric: Reports anxiety, Denies depression and Denies memory loss Endocrine: Denies cold intolerance, Denies heat intolerance and Denies palpitations Hematologic/Lymphatic: Denies easy bleeding and Denies easy bruising PMFSH Family History Family History Other Family history of diabetes mellitus Family history of hypertension Social History Social History Substance History: No History of Abuse Second Hand Smoke Exposure: No Smoking Status: Never smoker Tobacco Type: Cigarettes How Often Do You Have a Drink Containing Alcohol: Never Hx Recent Travel: No Recent Travel in [facility] within the Last 8 Weeks: No Recent Out of Country Travel within the Last 8 Weeks: No Immunization History Tetanus Immunization: Unsure Medications and Allergies Allergies Allergy/AdvReac Type Severity Reaction Status Date / Time Penicillins Allergy Severe Hives Verified 03/29/18 11:41 acetaminophen Allergy Intermediate Chills Verified 03/29/18 11:41 aminophylline Allergy Intermediate Hives Verified 03/29/18 11:41 amoxicillin Allergy Intermediate Hives Verified 03/29/18 11:41 Fish Containing Products Allergy Intermediate Hives Verified 03/29/18 11:41 shellfish derived Allergy Intermediate Hives Verified 03/29/18 11:41 hydrocodone AdvReac Intermediate Sedation Verified 03/29/18 11:41 tramadol AdvReac Intermediate hallucinati Verified 03/29/18 11:41 ons Home Medications Medication Instructions Recorded Confirmed Type albuterol sulfate [Ventolin HFA] 2 puff INHALATION Q6H PRN MDD 8 11/06/17 History puffs budesonide-formoterol [Symbicort] 2 puff INHALATION BID 11/06/17 03/29/18 History aspirin 325 mg PO DAILY 12/31/17 03/29/18 History bupropion HCl 150 mg PO BID 12/31/17 03/29/18 History escitalopram oxalate 20 mg PO DAILY 12/31/17 03/29/18 History ezetimibe 10 mg PO DAILY 12/31/17 03/29/18 History montelukast 10 mg PO QPM 12/31/17 03/29/18 History omeprazole 20 mg PO DAILY 12/31/17 03/29/18 History Active Medications: Active Medications Acetaminophen (Tylenol) 650 mg PO Q4H PRN PRN Reason: Temp > 100.4 Al Hydroxide/Mg Hydroxide (Milk Of Magnesia Liq) 30 ml PO Q12H PRN PRN Reason: Mild Constipation Albuterol (Albuterol Neb (Prn)) 2.5 mg NEB Q2HR NEB PRN PRN Reason: SHORTNESS OF BREATH Albuterol (Duoneb Neb (Shanon)) 1 ampul NEB Q4HR NEB SHANON Bisacodyl (Dulcolax Supp) 10 mg RECTAL DAILY PRN PRN Reason: SEVERE CONSITIPATION Furosemide (Lasix Inj) 40 mg IV.PUSH BID@0900,1800 [facility] Heparin Sodium (Porcine) (Heparin Inj) 5,000 units SQ Q12H SHANON Lactulose (Lactulose Liq) 30 ml PO DAILY PRN PRN Reason: SEVERE CONSITIPATION Methylprednisolone Sodium Succinate (Solumedrol Inj) 60 mg IV.PUSH Q6H [facility] Last Admin: 03/29/18 15:32 Dose: Not Given Ondansetron HCl (Zofran Inj) 4 mg IV.PUSH Q6H PRN PRN Reason: NAUSEA OR VOMITING Potassium Chloride (Kcl) 10 meq PO BID [facility] Senna/Docusate Sodium (Sammi-Colace) 1 tab PO BID [facility] Sennosides (Senokot) 17.2 mg PO Q12H PRN PRN Reason: Moderate Constipation Sodium Chloride (Ns Flush) 2 ml IV.FLUSH BID [facility] Sodium Chloride (Ns Flush) 2 ml IV.FLUSH PRN PRN PRN Reason: FLUSH AFTER USING IV ACCESS Physical Exam Vital signs: Last Vital Signs Temp 98.8 F 03/29/18 11:35 Pulse 100 H 03/29/18 14:00 Resp 22 03/29/18 14:00 BP 134/70 03/29/18 14:00 Pulse Ox 95 03/29/18 14:00 Intake & Output 03/27/18 03/28/18 03/29/18 03/30/18 06:59 06:59 06:59 06:59 Intake Total 110 / 110 Balance 110 / 110 Weight 74.389 kg Narrative: GENERAL: Well-nourished well-developed female no acute distress SKIN: Warm and dry. HEAD: Atraumatic. Normocephalic. EYES: Pupils equal and round. No scleral icterus. No injection or drainage. ENT: No nasal bleeding or discharge. Mucous membranes pink and moist. NECK: Trachea midline. No JVD. CARDIOVASCULAR: Regular rate and rhythm with a 2 out of 6 murmur. RESPIRATORY: No accessory muscles use, few expiratory wheeze with few bibasilar crackles GASTROINTESTINAL: Abdomen soft, non-tender, nondistended. Normoactive bowel sounds MUSCULOSKELETAL: Extremities without clubbing, cyanosis, or edema. No obvious deformities. NEUROLOGICAL: Awake and alert to person place time. No obvious cranial nerve deficits. Motor grossly within normal limits. Five out of 5 muscle strength in the arms and legs. Normal speech. PSYCHIATRIC: Appropriate mood and affect; insight and judgment normal. No active anxiety. Results Labs CBC & Chem 7: 03/29/18 12:02 03/29/18 12:02 Imaging Impressions Chest X-Ray 03/29/18 11:43 CONCLUSION: Cardiomegaly with possible mild congestive heart failure. No evidence of airspace consolidation. ECG Attestation: I personally reviewed and interpreted this ECG as follows: Prior ECG tracings: not available for review Interpretation: Normal sinus rhythm with heart rate [address] wave changes. Caprini VTE Risk Assessment Caprini VTE Risk Assessment: Moderate/High Risk (score >= 2) Caprini Risk Assessment Model: Point Value = 1 Point Value = 2 Point Value = 3 Point Value = 5 Age 41-60 Minor surgery BMI > 25 kg/m2 Swollen legs Varicose veins or History of unexplained or recurrent spontaneous Oral contraceptives or hormone replacement Sepsis (< 1 month) Serious lung disease, including pneumonia (< 1 month) Abnormal pulmonary function Acute myocardial infarction Congestive heart failure (< 1 month) History of inflammatory bowel disease Medical patient at bed rest Age 61-74 Arthroscopic surgery Major open surgery (> 45 min) Laparoscopic surgery (> 45 min) Malignancy Confined to bed (> 72 hours) Immobilizing plaster cast Central venous access Age >= 75 History of VTE Family history of VTE Factor V Leiden Prothrombin [id number] Lupus anticoagulant Anticardiolipin antibodies Elevated serum homocysteine Heparin-induced thrombocytopenia Other congenital or acquired thrombophilia Stroke (< 1 month) Elective arthroplasty Hip, pelvis, or leg fracture Acute spinal cord injury (< 1 month) Prophylaxis Regimen: Total Risk Factor Score Risk Level Prophylaxis Regimen 0-1 Low Early ambulation 2 Moderate Order ONE of the following: *Sequential Compression Device (SCD) *Heparin 5000 units SQ BID 3-4 Higher Order ONE of the following medications: *Heparin 5000 units SQ TID *Enoxaparin/Lovenox 40 mg SQ daily (WT < 150 kg, CrCl > 30 mL/min) *Enoxaparin/Lovenox 30 mg SQ daily (WT < 150 kg, CrCl > 10-29 mL/min) *Enoxaparin/Lovenox 30 mg SQ BID (WT < 150 kg, CrCl > 30 mL/min) AND/OR *Sequential Compression Device (SCD) 5 or more Highest Order ONE of the following medications: *Heparin 5000 units SQ TID (Preferred with Epidurals) *Enoxaparin/Lovenox 40 mg SQ daily (WT < 150 kg, CrCl > 30 mL/min) *Enoxaparin/Lovenox 30 mg SQ daily (WT < 150 kg, CrCl > 10-29 mL/min) *Enoxaparin/Lovenox 30 mg SQ BID (WT < 150 kg, CrCl > 30 mL/min) AND *Sequential Compression Device (SCD) Assessment and Plan (1) Asthma exacerbation in COPD: Code(s): J44.1 - Chronic obstructive pulmonary disease with (acute) exacerbation; J45.901 - Unspecified asthma with (acute) exacerbation Status: Acute (2) Hypocalcemia: Code(s): E83.51 - Hypocalcemia Status: Acute Plan 77-year-old female with a history of chronic systolic congestive heart failure with a EF of 25-30% from October 2017, hypertension, COPD with asthma, diabetes mellitus type 2 presents with acute worsening of shortness of breath Acute COPD exacerbation with asthmacontinue with DuoNeb treatment, Solu-Medrol , Singulair, placed on observation. Acute on chronic systolic congestive heart failure exacerbation. Continue with IV Lasix, unsure why patient was not sent home on p.o. diuretics, hold Coreg due to acute COPD exacerbation. Consideration for adding Arps versus JHON pending review of her renal function in the morning. Chronic kidney disease stage III, monitor closely on diuretics. History of anxietyresume home escitalopram History of previous diverticulosis, hemorrhoids, repeat hemoglobin has been stable. Pleuritic chest pain, cardiac enzymes are negative likely due to her acute COPD exacerbation. Hypercalcemiasupplement DVT prophylaxisheparin Consult physical therapy Case management to assist in discharge planning to look in possibility of a [facility] facility as patient is high risk for readmissions. Discussed with daughter.
--- NOTE | 2018-03-29 18:01 | ECG ---
Date Performed: 03/29/2018 Time Performed: 11:56:34 PTAGE: 77 years EKG: Sinus rhythm MARKED LEFT AXIS DEVIATION POSSIBLE RIGHT VENTRICULAR CONDUCTION DELAY NONSPECIFIC ST & T-WAVE ABNOR MALITY Since the previous tracing, no significant change noted ABNORMAL ECG PREVIOUS TRACING : 03/16/2018 23.53 DOCTOR: Frankie Smith Interpretating Date/Time 03/29/2018 18:00:51
[2018-03-29] MEDS: Heparin - SQ 10,000 UNITS/ML Vial SQ SCH (19:21)
[2018-03-29] MEDS: Montelukast 10 MG Tablet PO SCH (19:21)
[2018-03-29 21:26] LABS: Troponin I 0.06 ng/mL (0.02-0.05)
[2018-03-29] MEDS: Magnesium Oxide 400 MG Tablet PO SCH (22:17)
[2018-03-29] MEDS: Senna/Docusate Sodium 8.6/50 MG Tablet PO SCH (22:17)
[2018-03-29] MEDS: Calcium Carbonate 500 MG Tablet PO SCH (22:17)
[2018-03-29] MEDS: Potassium Chloride 10 MEQ ER Capsule PO SCH (22:28)
[2018-03-29] MEDS: buPROPion 150 MG 12 HR Tablet PO SCH (22:29)
[2018-03-29] MEDS ORDERED: Aluminum/Magnesium/Simethacone Susp 30 ML UDC PO ONE (23:57)
[2018-03-30] MEDS: MethylPREDNISolone Sod Succinate Inj 125 MG/2 ML Vial IV.PUSH SCH ×4 (02:17→21:33)
[2018-03-30] MEDS: Heparin - SQ 10,000 UNITS/ML Vial SQ SCH ×2 (05:06→17:34)
[2018-03-30] MEDS: Potassium Chloride 10 MEQ ER Capsule PO SCH ×2 (08:59→21:42)
[2018-03-30] MEDS: buPROPion 150 MG 12 HR Tablet PO SCH ×2 (08:59→21:34)
[2018-03-30] MEDS: Senna/Docusate Sodium 8.6/50 MG Tablet PO SCH ×2 (08:59→21:42)
[2018-03-30] MEDS: Aspirin 325 MG Tablet PO SCH (09:00)
[2018-03-30] MEDS ORDERED: Pantoprazole Sodium 20 MG DR Tablet PO SCH (09:00)
[2018-03-30] MEDS: Magnesium Oxide 400 MG Tablet PO SCH ×2 (09:00→21:42)
[2018-03-30] MEDS: Pantoprazole Sodium 20 MG DR Tablet PO SCH ×2 (09:00→21:42)
[2018-03-30] MEDS: Ezetimibe 10 MG Tablet PO SCH (09:00)
[2018-03-30] MEDS: Calcium Carbonate 500 MG Tablet PO SCH ×2 (09:00→21:42)
[2018-03-30 09:33] LABS: Baso % (Auto) 0.1 % (0.0-2.0); Hemoglobin 10.2 gm/dL (11.6-15.3); Lymph # (Auto) 0.3 th/mm3 (1.0-4.8); Lymph % (Auto) 4.5 % (9.0-44.0); Mean Corpuscular HGB Conc 32.8 % (32.0-36.0); Mean Corpuscular Hemoglobin 26.8 pg (27.0-34.0); Mean Corpuscular Volume 81.6 fL (80.0-100.0); Mean Platelet Volume 11.1 fL (7.0-11.0); Mono # (Auto) 0.1 th/mm3 (0.0-0.9); Mono % (Auto) 1.9 % (0.0-8.0); Neut # (Auto) 6.2 th/mm3 (1.8-7.7); Neut % (Auto) 93.5 % (16.0-70.0); Platelet Count 106 th/mm3 (150-450); Red Cell Distribution Width 16.8 % (11.6-17.2); White Blood Count 6.7 th/mm3 (4.0-11.0)
[2018-03-30 10:02] LABS: Calcium 7.4 mg/dL (8.5-10.1); Carbon Dioxide 27.6 meq/L (21.0-32.0); Potassium 4.3 meq/L (3.5-5.1)
[2018-03-30 10:04] LABS: Troponin I 0.02 ng/mL (0.02-0.05)
[2018-03-30 10:09] LABS: Albumin 3.6 g/dL (3.4-5.0); Calcium-Albumin Corrected 7.7 mg/dL (8.5-10.1)
--- NOTE | 2018-03-30 11:44 | ECG ---
Date Performed: 03/29/2018 Time Performed: 23:42:31 PTAGE: 77 years EKG: SINUS TACHYCARDIA WITH OCCASIONAL SUPRAVENTRICULAR PREMATURE COMPLEXES POSSIBLE LEFT ATRIAL ENLARGEMENT MARKED LEFT AXIS DEVIATION INCOMPLETE RIGHT BUNDLE BRANCH BLOCK SEPTAL MYOCARDIAL INFARC TION ABNORMAL ECG Since the previous tracing, no significant change noted NO PREVIOUS TRACING DOCTOR: Frankie Smith Interpretating Date/Time 03/30/2018 11:43:03
--- NOTE | 2018-03-30 11:44 | ECG ---
Date Performed: 03/29/2018 Time Performed: 20:41:43 PTAGE: 77 years EKG: SINUS TACHYCARDIA POSSIBLE LEFT ATRIAL ENLARGEMENT MARKED LEFT AXIS DEVIATION INCOMPLETE RI GHT BUNDLE BRANCH BLOCK NONSPECIFIC ST & T-WAVE ABNORMALITY ABNORMAL ECG Since the previous tracing, no significant change noted NO PREVIOUS TRACING DOCTOR: Frankie Smith Interpretating Date/Time 03/30/2018 11:43:17
--- NOTE | 2018-03-30 16:58 | P.PNIM ---
Subjective Interval history: Follow-up shortness of breath, COPD exacerbation, CHF exacerbation Patient seen and examined at the bedside. She is Serbian-speaking only. Patient requested to be connected to her daughter via phone. Daughter states that patient is complaining of diffuse generalized body aches and pains. Patient denies shortness of breath, chest pain or palpitations at present time. No lower extremity swelling/calf pain. Physical Exam Vital signs: Last Vital Signs Temp 98.4 F 03/30/18 16:49 Pulse 107 H 03/30/18 16:49 Resp 20 03/30/18 16:49 BP 122/58 L 03/30/18 16:49 Pulse Ox 93 L 03/30/18 16:49 Intake & Output 03/28/18 03/29/18 03/30/18 03/31/18 06:59 06:59 06:59 06:59 Intake Total 110 / 110 Output Total 1850 / 1850 Balance -1740 / -1740 Weight 72.7 kg Narrative: GENERAL: Well-nourished well-developed female no acute distress SKIN: Warm and dry. HEAD: Atraumatic. Normocephalic. EYES: Pupils equal and round. No scleral icterus. No injection or drainage. ENT: No nasal bleeding or discharge. Mucous membranes pink and moist. NECK: Trachea midline. No JVD. CARDIOVASCULAR: Regular rate and rhythm with a 2 out of 6 murmur. RESPIRATORY: No accessory muscles use, few expiratory wheeze with few bibasilar crackles GASTROINTESTINAL: Abdomen soft, non-tender, nondistended. Normoactive bowel sounds MUSCULOSKELETAL: Extremities without clubbing, cyanosis, or edema. No obvious deformities. NEUROLOGICAL: Awake and alert to person place time. No obvious cranial nerve deficits. Motor grossly within normal limits. Five out of 5 muscle strength in the arms and legs. Normal speech. PSYCHIATRIC: Appropriate mood and affect; insight and judgment normal. No active anxiety. Results Labs CBC & Chem 7: 03/30/18 09:10 03/30/18 09:10 Assessment and Plan Plan 77-year-old female with a history of chronic systolic congestive heart failure with a EF of 25-30% from October 2017, hypertension, COPD with asthma, diabetes mellitus type 2 presents with acute worsening of shortness of breath Acute COPD exacerbation with asthma -continue with DuoNeb treatment, Solu-Medrol, Singulair, placed on observation. Acute on chronic systolic congestive heart failure exacerbation -BNP 1606 on admission -CXR shows cardiomegaly with possible mild CHF -continue with IV Lasix, provide RX at time of discharge -hold Coreg due to acute COPD exacerbation -consider adding JHON-I/ARB at time of discharge pending renal function Chronic kidney disease stage III - close to baseline -monitor closely on diuretics History of anxiety resume home escitalopram History of previous diverticulosis, hemorrhoids -recent colonoscopy 03/19/18 with no e/o acute bleed -H/H stable Pleuritic chest pain -likely due to her acute COPD exacerbation -cardiac enzymes are negative -recent cath 11/30 with nonobstructive disease Hypercalcemiasupplement MDM: self Code: Full GI ppx: PPI DVT prophylaxisheparin Code Status: Full Discussed Condition With: patient and daughter Progress Note: Quality VTE Deep Vein Thrombosis/Pulmonary Embolism Present on Admission: No
[2018-03-30] MEDS: Montelukast 10 MG Tablet PO SCH (17:34)
[2018-03-31] MEDS: MethylPREDNISolone Sod Succinate Inj 125 MG/2 ML Vial IV.PUSH SCH ×2 (02:45→08:56)
[2018-03-31] MEDS: Heparin - SQ 10,000 UNITS/ML Vial SQ SCH ×2 (05:44→17:40)
[2018-03-31 06:07] LABS: Baso % (Auto) 0.1 % (0.0-2.0); Hematocrit 29.7 % (35.0-46.0); Hemoglobin 9.8 gm/dL (11.6-15.3); Lymph # (Auto) 0.3 th/mm3 (1.0-4.8); Lymph % (Auto) 3.1 % (9.0-44.0); Mean Corpuscular HGB Conc 33.1 % (32.0-36.0); Mean Corpuscular Hemoglobin 26.7 pg (27.0-34.0); Mean Corpuscular Volume 80.6 fL (80.0-100.0); Mean Platelet Volume 11.8 fL (7.0-11.0); Mono # (Auto) 0.2 th/mm3 (0.0-0.9); Mono % (Auto) 2.5 % (0.0-8.0); Neut # (Auto) 9.3 th/mm3 (1.8-7.7); Neut % (Auto) 94.3 % (16.0-70.0); Platelet Count 82 th/mm3 (150-450); Red Blood Count 3.68 mil/mm3 (4.00-5.30); Red Cell Distribution Width 16.9 % (11.6-17.2); White Blood Count 9.9 th/mm3 (4.0-11.0)
[2018-03-31 06:29] LABS: Calcium 7.4 mg/dL (8.5-10.1); Carbon Dioxide 27.9 meq/L (21.0-32.0); Potassium 4.2 meq/L (3.5-5.1)
[2018-03-31 06:37] LABS: Albumin 3.5 g/dL (3.4-5.0); Calcium-Albumin Corrected 7.8 mg/dL (8.5-10.1)
[2018-03-31] MEDS: Aspirin 325 MG Tablet PO SCH (08:54)
[2018-03-31] MEDS: buPROPion 150 MG 12 HR Tablet PO SCH ×2 (08:58→21:41)
[2018-03-31] MEDS: Pantoprazole Sodium 20 MG DR Tablet PO SCH ×2 (08:58→21:41)
[2018-03-31] MEDS: Calcium Carbonate 500 MG Tablet PO SCH ×2 (08:58→21:40)
[2018-03-31] MEDS: Ezetimibe 10 MG Tablet PO SCH (08:58)
[2018-03-31] MEDS: Potassium Chloride 10 MEQ ER Capsule PO SCH ×2 (08:59→21:41)
[2018-03-31] MEDS: Magnesium Oxide 400 MG Tablet PO SCH ×2 (08:59→21:40)
[2018-03-31] MEDS: Senna/Docusate Sodium 8.6/50 MG Tablet PO SCH ×2 (08:59→21:41)
--- NOTE | 2018-03-31 15:30 | P.PNIM ---
Subjective Interval history: Follow-up difficulty swallowing, acute kidney injury, COPD exacerbation, CHF exacerbation Patient seen and examined while resting in bed. color worker line was used for communication. Patient reports difficulty swallowing. She states that she has a hernia that is pushing up on her stomach and she is feeling discomfort all the way up into her neck. She was previously evaluated by general surgery on an outpatient basis, however, due to her cardiac history she was deemed to be high risk for surgical intervention. Patient denies any chest pain, shortness of breath, palpitations or lower extremity edema/pain. She reports voiding a lot. Her last bowel movement was yesterday. Physical Exam Vital signs: Last Vital Signs Temp 98.3 F 03/31/18 07:39 Pulse 101 H 03/31/18 15:17 Resp 16 03/31/18 15:17 BP 119/59 L 03/31/18 15:17 Pulse Ox 96 03/31/18 15:17 Intake & Output 03/29/18 03/30/18 03/31/18 04/01/18 06:59 06:59 06:59 06:59 Intake Total 110 / 110 480 / 480 Output Total 1850 / 1850 Balance -1740 / -1740 480 / 480 Weight 72.7 kg Narrative: GENERAL: Well-nourished well-developed female no acute distress SKIN: warm and dry HEAD: atraumatic, normocephalic EYES: Pupils equal and round. No scleral icterus. No injection or drainage. ENT: No nasal bleeding or discharge. Mucous membranes pink and moist. NECK: Trachea midline. No JVD. CARDIOVASCULAR: Regular rate and rhythm with a 2 out of 6 murmur. RESPIRATORY: No accessory muscles use, few expiratory wheeze with few bibasilar crackles GASTROINTESTINAL: Abdomen soft, non-tender, nondistended. Normoactive bowel sounds MUSCULOSKELETAL: Extremities without clubbing, cyanosis, or edema. No obvious deformities. NEUROLOGICAL: Awake and alert to person place time. No obvious cranial nerve deficits. Motor grossly within normal limits. Five out of 5 muscle strength in the arms and legs. Normal speech. PSYCHIATRIC: Appropriate mood and affect; insight and judgment normal. No active anxiety. Results Labs CBC & Chem 7: 03/31/18 05:09 03/31/18 05:09 Assessment and Plan Plan 77-year-old female with a history of chronic systolic congestive heart failure with a EF of 25-30% from October 2017, hypertension, COPD with asthma, diabetes mellitus type 2 presents with acute worsening of shortness of breath Dysphagia -pt reports hx of hernia that she believes is interfering with her ability to swallow -continue PPI -recent EGD 11/30 showing LA class A esophagitis and erythematous gastritis in gastric antrum -pt also underwent barium swallow 11/09/17 that was unremarkable -cardiac cath 11/14/17 showing depressed EF with unremarkable coronary arteries Acute COPD exacerbation with asthma - improved -continue with DuoNeb treatment, Solu-Medrol, Singulair Acute on chronic systolic congestive heart failure exacerbation -BNP 1606 on admission -CXR shows cardiomegaly with possible mild CHF -d/c IV Lasix, switched to PO Lasix -resume Coreg, COPD exacerbation improved -consider adding JHON-I/ARB at time of discharge pending renal function Acute kidney injury superimposed on chronic kidney disease stage III -likely secondary to IV diuretic use, dehydration -decreased dose of Lasix -repeat labs in am History of anxiety resume home escitalopram History of previous diverticulosis, hemorrhoids -recent colonoscopy 03/19/18 with no e/o acute bleed -H/H stable Pleuritic chest pain -likely due to her acute COPD exacerbation -cardiac enzymes are negative -recent cath 11/30 with nonobstructive disease Hypercalcemiasupplement Dizziness/vertigo -resume Meclizine MDM: self Code: Full GI ppx: PPI DVT prophylaxisheparin Progress Note: Quality VTE Deep Vein Thrombosis/Pulmonary Embolism Present on Admission: No
[2018-03-31] MEDS: Montelukast 10 MG Tablet PO SCH (17:41)
[2018-04-01 05:28] LABS: Calcium 6.7 mg/dL (8.5-10.1); Potassium 4.4 meq/L (3.5-5.1)
[2018-04-01 05:37] LABS: Albumin 3.3 g/dL (3.4-5.0)
[2018-04-01 05:46] LABS: Calcium-Albumin Corrected 7.3 mg/dL (8.5-10.1)
[2018-04-01] MEDS: Heparin - SQ 10,000 UNITS/ML Vial SQ SCH ×2 (06:25→18:48)
[2018-04-01] MEDS ORDERED: Calcium Gluconate Inj 1 GM in Dextrose 5% in Water Inj 100 ML IV.SIG ONE ×2 (07:30)
[2018-04-01] MEDS ORDERED: Furosemide 40 MG Tablet PO SCH (09:00)
[2018-04-01] MEDS: Calcium Carbonate 500 MG Tablet PO SCH ×2 (09:30→20:58)
[2018-04-01] MEDS: Aspirin 325 MG Tablet PO SCH (09:30)
[2018-04-01] MEDS: Potassium Chloride 10 MEQ ER Capsule PO SCH ×2 (09:30→20:58)
[2018-04-01] MEDS: predniSONE 20 MG Tablet PO SCH (09:32)
[2018-04-01] MEDS: Pantoprazole Sodium 20 MG DR Tablet PO SCH ×2 (09:32→20:58)
[2018-04-01] MEDS: Senna/Docusate Sodium 8.6/50 MG Tablet PO SCH ×2 (09:32→20:58)
[2018-04-01] MEDS: buPROPion 150 MG 12 HR Tablet PO SCH ×2 (09:32→20:58)
[2018-04-01] MEDS: Magnesium Oxide 400 MG Tablet PO SCH ×2 (09:33→20:58)
[2018-04-01] MEDS: Ezetimibe 10 MG Tablet PO SCH (09:33)
--- NOTE | 2018-04-01 15:41 | P.PNIM ---
Subjective Interval history: Follow up COPD exacerbation, CHF exacerbation, RACHEL Patient sitting up on the side of the bed. Requesting for me to get her daughter on the line. Patient denies chest pain, shortness of breath, orthopnea , palpitations, lower extremity edema/pain. She states she is feeling well. Daughter states mother in agreement with short term rehab placement for discharge planning. Case management notified for assistance with placement. Physical Exam Vital signs: Last Vital Signs Temp 97.9 F 04/01/18 08:00 Pulse 83 04/01/18 12:27 Resp 20 04/01/18 12:27 BP 108/55 L 04/01/18 08:00 Pulse Ox 96 04/01/18 08:09 Intake & Output 03/30/18 03/31/18 04/01/18 04/02/18 06:59 06:59 06:59 06:59 Intake Total 110 / 110 480 / 480 1208 / 1208 110 / 110 Output Total 1850 / 1850 Balance -1740 / -1740 480 / 480 1208 / 1208 110 / 110 Weight 72.7 kg Narrative: GENERAL: Well-nourished well-developed female no acute distress SKIN: warm and dry HEAD: atraumatic, normocephalic EYES: Pupils equal and round. No scleral icterus. No injection or drainage. ENT: No nasal bleeding or discharge. Mucous membranes pink and moist. NECK: Trachea midline. No JVD. CARDIOVASCULAR: Regular rate and rhythm with a 2 out of 6 murmur. RESPIRATORY: No accessory muscles use, few expiratory wheeze with few bibasilar crackles GASTROINTESTINAL: Abdomen soft, non-tender, nondistended. Normoactive bowel sounds MUSCULOSKELETAL: Extremities without clubbing, cyanosis, or edema. No obvious deformities. NEUROLOGICAL: Awake and alert to person place time. No obvious cranial nerve deficits. Motor grossly within normal limits. Five out of 5 muscle strength in the arms and legs. Normal speech. PSYCHIATRIC: Appropriate mood and affect; insight and judgment normal. No active anxiety. Results Labs CBC & Chem 7: 03/31/18 05:09 04/01/18 04:10 Assessment and Plan Plan 77-year-old female with a history of chronic systolic congestive heart failure with a EF of 25-30% from October 2017, hypertension, COPD with asthma, diabetes mellitus type 2 presents with acute worsening of shortness of breath Acute kidney injury superimposed on chronic kidney disease stage III -likely secondary to IV diuretic use, dehydration -hold today's dose of Lasix -repeat labs in am Dysphagia - improved -pt reports hx of hernia that she believes is interfering with her ability to swallow -continue PPI -recent EGD 11/30 showing LA class A esophagitis and erythematous gastritis in gastric antrum -pt also underwent barium swallow 11/09/17 that was unremarkable -cardiac cath 11/14/17 showing depressed EF with unremarkable coronary arteries -speech therapy evaluation with rec for mechanical soft, thin liquid diet Acute COPD exacerbation with asthma - improved -continue with DuoNeb treatment, Solu-Medrol, Singulair Acute on chronic systolic congestive heart failure exacerbation -BNP 1606 on admission -CXR shows cardiomegaly with possible mild CHF -d/c IV Lasix, switched to PO Lasix -resume Coreg, COPD exacerbation improved -consider adding JHON-I/ARB at time of discharge pending renal function History of anxiety resume home escitalopram History of previous diverticulosis, hemorrhoids -recent colonoscopy 03/19/18 with no e/o acute bleed -H/H stable Pleuritic chest pain -likely due to her acute COPD exacerbation -cardiac enzymes are negative -recent cath 11/30 with nonobstructive disease Hypercalcemiasupplement Dizziness/vertigo -resume Meclizine MDM: self Code: Full GI ppx: PPI DVT prophylaxisheparin Discussed Condition With: RN, patient, daughter, CM Discharge Planning: Patient would like [facility] for short term rehab. CM assisting. Progress Note: Quality VTE Deep Vein Thrombosis/Pulmonary Embolism Present on Admission: No
[2018-04-01] MEDS: Montelukast 10 MG Tablet PO SCH (18:48)
[2018-04-02] MEDS: Heparin - SQ 10,000 UNITS/ML Vial SQ SCH (05:01)
[2018-04-02 07:37] LABS: Calcium 6.7 mg/dL (8.5-10.1); Carbon Dioxide 27.3 meq/L (21.0-32.0); Potassium 4.5 meq/L (3.5-5.1)
[2018-04-02 07:51] LABS: Albumin 3.2 g/dL (3.4-5.0)
[2018-04-02 07:59] LABS: Calcium-Albumin Corrected 7.3 mg/dL (8.5-10.1)
[2018-04-02] MEDS: Magnesium Oxide 400 MG Tablet PO SCH (08:35)
[2018-04-02] MEDS: Potassium Chloride 10 MEQ ER Capsule PO SCH (08:35)
[2018-04-02] MEDS: Senna/Docusate Sodium 8.6/50 MG Tablet PO SCH (08:35)
[2018-04-02] MEDS: predniSONE 20 MG Tablet PO SCH (08:35)
[2018-04-02] MEDS: buPROPion 150 MG 12 HR Tablet PO SCH (08:35)
[2018-04-02] MEDS: Aspirin 325 MG Tablet PO SCH (08:35)
[2018-04-02] MEDS: Pantoprazole Sodium 20 MG DR Tablet PO SCH (08:36)
[2018-04-02] MEDS: Ezetimibe 10 MG Tablet PO SCH (08:36)
[2018-04-02] MEDS: Calcium Carbonate 500 MG Tablet PO SCH (08:36)
[2018-04-02 09:18] VITALS: RESP 18
[2018-04-02 11:43] VITALS: BP 121/59; PULSE 89; TEMP 98.8; O2SAT 97
--- NOTE | 2018-04-02 18:04 | P.DS ---
DS: Providers Date of admission: 03/29/18 14:44 Primary care physician: Liang Garcia Consults: 03/30/18 12:16 HUB Only Consult Order Routine Consulting Provider: Cb Vivar 04/01/18 15:55 HUB Only Consult Order Routine Consulting Provider: Fara Dumont,Christina Anticipated date of discharge: 04/02/18 Brief History from admission: 77-year-old Female with a history of chronic systolic congestive heart failure, COPD with asthma, recent admission for GI bleed due to diverticulosis and hemorrhoids, diabetes mellitus type 2 who presented to the emergency room with worsening shortness of breath despite using her home nebulizer and inhalers. She reports wheezing and worsening shortness of breath with exertion. She denies symptoms of orthopnea PND or lower extremity edema. She reports associated pleuritic chest pain when she takes a deep breath and when she gets short of breath. She reports a dry cough associate with the symptoms. She was recently discharged from the hospital on March 21 for GI bleed along with CHF and asthma exacerbation with evaluation both by the cardiac and GI service. Her daughter at bedside explained that the patient extremely anxious because she feels her environment is causing her asthma flareups. She does admit to having mode in her house. Her daughter is currently in the process of finding a new place and moving out of her current residence. Due to the stress of the move, she has been extremely worried. Her daughter would like the patient to go to a rehab facility to get stronger prior to returning home. DS: Diagnosis Discharge Diagnosis (1) Asthma exacerbation in COPD: Status: Acute Diagnosis: Principal (2) CHF (congestive heart failure): Status: Acute Diagnosis: Principal (3) Hypocalcemia: Status: Acute Diagnosis: Secondary (4) DM (diabetes mellitus): Status: Chronic Diagnosis: Secondary (5) GERD (gastroesophageal reflux disease): Status: Chronic Diagnosis: Secondary (6) Hypertension: Status: Chronic Diagnosis: Secondary (7) Acute kidney injury: Status: Acute Diagnosis: Principal DS: Summary Patient was treated for COPD/asthma exacerbation with supplemental O2, duonebs, and steroids. Her respiratory symptoms continued to improved. On the day of discharge she was no longer noted to have wheezing. Patient was diuresed with IV Lasix for her CHF exacerbation. Patient was educated that she would be receiving a prescription for Lasix and potassium at time of discharge. Patient developed acute kidney injury secondary to dehydration from diuresis. Her Lasix was held for a couple of days with improvement in her BUN/Cr. Rehab facility to continue monitoring and repeat BMP in 1-2 days. Patient further complained of dysphagia secondary to a hernia. She stated that she was previously evaluated by General Surgery and she was not deemed to be a surgical candidate secondary to her decreased heart function. Patient recently underwent and EGD 11/30/17 that showed LA class A esophagitis and erythematous gastritis in the gastric antrum. She also underwent a modified barium swallow that was unremarkable. A cardiac cath was completed 11/14/17 showing a depressed EF with unremarkable coronary arteries. Speech therapy was consulted for evaluation and recommended a mechanical soft, thin liquid diet. Physical therapy was consulted with recommendation for short term rehab. Plan of care discussed with patient and her daughter and they were in agreement with SNF placement. Case management consulted for assistance. Patient was accepted at [facility]. On day of discharge patient was hemodynamically stable. All questions were answered at the bedside with assistance of [place] tower supervisor. Time Spent with Patient Total time spent providing and/or coordinating discharge services: Greater than 30 minutes Status at Discharge Functional status at discharge: uses cane/walker Overall status at discharge: patient is progressing back to baseline Quality: VTE Deep Vein Thrombosis/Pulmonary Embolism Present on Admission: No Exam Narrative Exam Narrative: GENERAL: no acute distress, well developed, well nourished, AAO x 3 SKIN: Warm and dry. HEAD: Normocephalic, atraumatic EYES: No scleral icterus. No injection or drainage. NECK: Supple, trachea midline. No JVD or lymphadenopathy. CARDIOVASCULAR: Regular rate and rhythm without murmurs, gallops, or rubs. RESPIRATORY: diminished breath sounds bilaterally. No accessory muscle use. GASTROINTESTINAL: Abdomen soft, non-tender, nondistended. MUSCULOSKELETAL: No cyanosis, or edema. Results Labs on day of discharge: Labs from last 24 hours 04/02/18 05:30 Sodium 136 Potassium 4.5 Chloride 100 Carbon Dioxide 27.3 Anion Gap 9 BUN 62 H Creatinine 1.63 H Estimated GFR 31 L Random Glucose 130 H Calcium 6.7 L* Calcium Adj for Albumin 7.3 L* Albumin 3.2 L Impressions ITS Impressions Chest X-Ray 03/29/18 11:43 CONCLUSION: Cardiomegaly with possible mild congestive heart failure. No evidence of airspace consolidation. Discharge Plan Discharge Disposition Patient Disposition: 03 Discharge to SNF Discharge Condition Condition: Stable Discharge Order Discharge Orders: Discharge Order (Routine); Ordered 04/02/18 Ordered By: Remington Heredia Discharge Details Anticipated Discharge Date: 04/02/18 Discharge Comment: Patient will need repeat BMP in 2-3 days to evaluate renal function Physicians Team ED Provider: Arcelia Sandoval ED Midlevel Provider: Savannah Thao Attending Provider: Debby Best Other Providers: Cb Vivar ; [facility],Agency Rxs /Orders / Referrals /Forms Prescriptions: New furosemide 20 mg tablet 20 mg PO DAILY Qty: 30 RF: 0 potassium chloride 10 mEq tablet extended release 10 meq PO DAILY Qty: 30 RF: 0 Continue bupropion HCl 150 mg Tablet Extended Release 12 Hr 150 mg PO BID RF: 0 aspirin 325 mg Tablet 325 mg PO DAILY RF: 0 omeprazole 20 mg Capsule,Delayed Release(Dr/Ec) 20 mg PO DAILY RF: 0 montelukast 10 mg Tablet 10 mg PO QPM RF: 0 escitalopram oxalate 20 mg Tablet 20 mg PO DAILY RF: 0 ezetimibe 10 mg Tablet 10 mg PO DAILY RF: 0 albuterol sulfate [Ventolin HFA] 90 mcg/actuation Hfa Aerosol Inhaler 2 puff INHALATION Q6H MDD 8 puffs PRN (Reason: Shortness Of Breath Or Wheezing) RF: 0 budesonide-formoterol [Symbicort] 160-4.5 mcg/actuation Hfa Aerosol Inhaler 2 puff INHALATION BID RF: 0 carvedilol [Coreg] 3.125 mg Tablet 3.125 mg PO BID Qty: 60 RF: 0 magnesium oxide 400 mg (241.3 mg magnesium) Tablet 400 mg PO BID Qty: 14 RF: 0 calcium carbonate [Oyster Shell Calcium 500] 500 mg calcium (1,250 mg) Tablet 500 mg PO BID Qty: 14 RF: 0 meclizine 25 mg Tablet 25 mg PO BID PRN (Reason: Shortness Of Breath Or Wheezing) Qty: 60 RF: 0 Referrals: Liang Garcia [Other] - See Instructions (Please follow up with your primary care provider in 1 week. ) Print Manager [Outside] - See Instructions (Please follow up with your Print Manager 1-2 weeks post discharge from rehab. ) UNKNOWN, [Family Provider] - See Instructions Discharge Instructions Patient Printed Instructions: Heart Failure (GEN), COPD (Chronic Obstructive Pulmonary Disease) (DC), Low-Sodium Diet (DC) Additional Instructions: Your Health Problems: Goals to Promote Your Health: * To prevent worsening of your condition * To maintain your health at the optimal level Directions to Meet Your Goals: * Take your medications as prescribed * Follow your dietary instruction * Follow activity as directed * Keep your appointments as scheduled * Take your immunizations and boosters as scheduled * If your symptoms worsen call your PCP * If no PCP go to Urgent Care or Emergency Room Smoking is dangerous to your health. Avoid second hand smoke. You may reach the 24-hour crisis hotline for domestic abuse at . Status ED Status: Left Department Discharge Information Discharge Date/Time: 04/02/18 16:13
== END 2018-04-02 16:13 ==
LOC: NEPE 11:24 → NEDA 11:24 → NEPGCP 16:34
PROVIDERS: ADMIT Internal Medicine; ATTEND Internal Medicine
DX: Z79.899 Other long term (current) drug therapy; E11.22 Type 2 diabetes mellitus with diabetic chronic kidney disease; Z79.51 Long term (current) use of inhaled steroids; J44.1 Chronic obstructive pulmonary disease with (acute) exacerbation; I50.23 Acute on chronic systolic (congestive) heart failure; N18.3 Chronic kidney disease, stage 3 (moderate); R13.10 Dysphagia, unspecified; I13.0 Hypertensive heart and chronic kidney disease with heart failure and stage 1 through stage 4 chronic kidney disease, or unspecified chronic kidney disease; Z79.82 Long term (current) use of aspirin; E83.51 Hypocalcemia; E86.0 Dehydration; J45.901 Unspecified asthma with (acute) exacerbation; G89.29 Other chronic pain; E83.52 Hypercalcemia; N17.9 Acute kidney failure, unspecified; K21.9 Gastro-esophageal reflux disease without esophagitis